=== PATIENT | female | born 1965 | race Caucasian/White ===

== ENCOUNTER 2017-02-19 04:44 | Observation (INO) | payer MEDICAID ==
[~2017-02-19] VITALS: Ht 175.3 cm; Wt 82.3 kg
[~2017-02-19 04:44] MED LIST: AMBIEN 5MG TAB5 MG PO; ASPIRIN CHILDRE81 M1 PO; CIPRO 500MG TA500 MG PO; CORTISPORIN (GE10 M1 OT; DIAZEPAM5 MG PO; FLEXERIL10 MG PO; GABAPENTIN300 MG PO; HYDROXYZINE 25M25 MG PO; IMITREX 25MG TA25 MG PO; LOMOTIL 2.5MG.2.5 MG PO; LORAZEPAM1 MG/TABLE PO; LORTAB 5/500 501 TAB PO; MEDROL 4MG. DOSE4 MG PO; MELOXICAM15 MG PO; MELOXICAM7.5 MG PO; MIRTAZAPINE15 M3 PO; NEURONTIN 300M300 MG PO; NOMEDS *; PANTOPRAZOLE SO40 M1 PO; PERCOCET 325 MG1 TA3 PO; PERCOCET 5/3251 EACH PO; PHENERGAN 25MG.25 M1 PO; PRAZOSIN HCL2 MG PO; PREDNISONE 20MG20 MG PO; PREDNISONE50 MG PO; REGLAN 10 MG TA10 MG PO; SERTRALINE 100100 MG PO; SIMVASTATIN20 MG PO; TRAMADOL 50MG T50 MG PO; TRAZODONE 50MG50 MG PO; TYLENOL ES500 MG PO; VENLAFAXINE HYD75 M1 PO; VICODIN 5/500 T1 TAB PO; VICOPROFEN 7.51 TAB PO; VOLTAREN75 MG PO; ZANTAC 300300 MG PO; ZOLOFT100 MG PO
[2017-02-19 04:51] VITALS: BP 131/109
[2017-02-19] MEDS ORDERED: GABAPENTIN300 M1 PO (04:58)
--- NOTE | 2017-02-19 05:23 | Emergency Room Report ---
History of Present Illness Time Seen by MD Davis21 Presenting Problem in Triage Pt arrived:Walked Presenting Problem:C/O RIGHT FOOT PAIN AFTER MOWING THE YARD YESTERDAY. NO KNOWN INJURY. 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 N Clinical Suspician of Infection? N Mental Status: 1 - Regular (Normal Baseline) Sepsis Risk:Low Sepsis Risk Have you (or family members/close friends) recently traveled outside the [place]? N If Yes, where/when: Have you had exposure to infectious disease within the past month? N TB? Other? Specify: Comment The patient complains of pain in her RIGHT leg and foot that began yesterday evening at about 8:00 PM. Discomfort is predominantly in her foot. At the time she was mowing the yard. She was wearing boots. She finished mowing about 9. She does not recall any specific injury. She describes a stinging sensation in her foot and a pain that goes all the way up behind her RIGHT knee. No swelling. She has tried applying ice, soaking in hot water, and an Mihir wrap, all of which increased the pain. Pain increases with movement and weightbearing. She says her foot feels tingly but she can feel sensation. She does not have any history of thromboembolic disease or peripheral vascular disease. No back pain - does have a hx of sciatica. She was recently diagnosed with breast cancer last year in June. She had part of her RIGHT breast removed and had radiation which she finished in December. She is currently on oral chemotherapy pill. She says that her physicians feel like they got all of her cancer but they will not know until further testing. She was on Percocet for RIGHT breast pain while wearing a bra for about a month and finished that at the end of January. The patient drove herself to the emergency room. ALLERGIES Coded Allergies: Sulfa (Sulfonamide Antibiotics) (07/20/16) Home Medications Reported Medications Sertraline Hydrochloride (Sertraline 100MG) 100 MG PO DAILY VENLAFAXINE HCL (Venlafaxine HCl ER) 75 MG PO DAILY #30 Mirtazapine 15 MG PO QHS #30 Meloxicam (Meloxicam 7.5MG) 7.5 MG PO BID #15 Prazosin Hcl 2 MG PO QHS #30 Gabapentin 300 MG PO BID #90 History Medical History General CAD? No Angina: No SC: No Hypertension? No Hyperlipidemia? No CHF? No DVT? No PE? No COPD? Yes Asthma? No Anemia? No GERD? No Gastric ulcers? No GI Bleed? No Hernia? No Thyroid Problems? No Hypothyroidism? No CVA? No Seizures? No Diabetes? No Renal Insuffiency? No End Stage Renal Disease? No UTI? No Stones? Yes BPH? No GB Disease: No Nephritic Syndrome? No Asplenia? No Hepatitis? No Sickle Cell Disease? No Arthritis? Yes Migraines? No Cataracts? No Glaucoma? No MRSA? No HIV? No TB? No Anxiety? No Depression? No Cancer? Yes Site: CERVICAL CANCER 1987 More? 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 Immunization Hx DT/Tetanus 07/2010 Surgical Hx Previous Surgery?Y PINS IN SHOULDER PARTIAL HYSTERECTOMY BONE REMOVED FROM WRIST HEMORRHOIDECTOMY CARPAL TUNNEL SURGERY RIGHT PARTIAL MASTECTOMY [employer] Hx LMP N/A Social History Smoking Hx Smoker: Current Every Day Smoker Tobacco: Yes Type Cigarettes Packs/day < 1 Pack Alcohol Alcohol: No Drugs Hx of polysubstance abuse. Review of Systems All Other Systems Reviewed and Negative Constitutional denies fever Musculoskeletal see HPI Psychiatric/Neurological tingling Physical Exam Vital Signs Vital Signs Date Time Temp Pulse Resp B/P Pulse O2 O2 Flow FiO2 Ox Delivery Rate 02/19 0617 18 02/19 0451 98.3 95 18 131/109 95 General Appearance normal appearance Respiratory Status No: respiratory distress. Cardiovascular regular rate/rhythm Extremities RIGHT lower extremity shows tenderness of all of her toes except for the second toe. She has tenderness of the mid foot as well as her heel. Tender over plantar aspect head of 5th metatarsal. She has diffuse tenderness of the ankle and some mild tenderness of her RIGHT calf up to the popliteal area. There is no edema and no cords. There is no erythema., she has pain with movement of toes and foot and ankle. There is no tenderness of the anterior knee and no knee joint effusion., she has a normal posterior tibialis and dorsalis pedis pulse, normal warmth. She has pain with movement of the toes and foot which causes difficulty in testing her strength. However, she can flex and extend toes and foot against resistance., I do not appreciate any ecchymosis., intact sensation of toes and foot. Neurologic alert Reflexes Comment 1+ patella bilaterally, 0+ achilles bilaterally - symmetric. Medical Decision Making LABS/Meds/Orders Pt receiving controlled substance in ED? No Alife was queried for this patient? Yes Reference #: [id number] Comment 4 rxs, last rx 45 percocet on 01/18/17. Results/Orders Laboratory Tests 02/19/1715: Creatine Kinase 1708 H 02/19/17 0614: Sodium 136, Potassium 4.0, Chloride 103, Carbon Dioxide 22, BUN 31 H, Creatinine 2.7 H, Estimated Creat Clear 37 L, Estimated GFR (MDRD) 19 *L, Glucose 124 H, Calcium 9.0, Total Bilirubin 0.3, AST 63 H, ALT 28, Alkaline Phosphatase 99, Total Protein 8.1, Albumin 3.7, Globulin 4.4 H, Albumin/ Globulin Ratio 0.8 L, D-Dimer 1860 *H, WBC 12.8 H, RBC 4.09 L, Hgb 12.8, Hct 38.8, MCV 94.8, RDW 13.7, Plt Count 350, MPV 5.8 L, Gran % 73.1, Gran # 9.3 H, Lymphocytes % 17.1, Monocytes % 9.0, Eosinophils % 0.3, Basophils % 0.5, Lymphocytes # 2.2, Monocytes # 1.2 H, Eosinophils # 0.0, Basophils # 0.1, PUBS MCHC 33.0, MCH 31.3 H Current Medication Orders Sig/Trini Start time Last Medication Dose Route Stop Time Status Admin Miscellaneous See Dose ONCE ONE 02/19 730 DC Information Insts (1) * 02/19 07 Sodium Chloride 1,000 ML .[id number] 02/19 730 AC IV 02/19 1129 Sodium Chloride 10 ML PRN PRN 02/19 730 AC IV 02/20 07 Ketorolac 60 MG ONCE ONE 02/19 615 DC 02/19 Tromethamine IM 02/20 616 0617 Ketorolac 0 .STK-MED ONE 02/19 613 DC Tromethamine .ROUTE Ketorolac 30 MG ONCE ONE 02/19 0545 CAN Tromethamine IV 02/19 0546 Sodium Chloride 10 ML PRN PRN 02/19 0545 AC IV 02/20 0539 Dose Instructions: (1)Miscellaneous Information: lovenox dosing for possible DVT . creatinine 2.7, creatinine clearance 37 Orders Procedure Date/time Status Decision to admit 02/19 07 Active CPK 02/19 07 Complete URINALYSIS/COMPLETE 02/20 712 Active DRUG ABUSE SCREEN (TRIAGE) 02/19 07 Active IV SALINE LOCK 02/19 05 Active D-DIMER 02/19 05 Complete CBC WITH AUTO DIFF 02/20 540 Complete CHEM 12 PROFILE 02/20 540 Complete FOOT-RT-3 VIEWS 02/19 0500 Active XRAY/CT/US XRAY/CT/US XRAY foot Comment Interpreted by Augustin Brown MD. Negative for fracture, dislocation, or foreign body. Progress - Nurse's unable to establish IV. Labs will be drawn. Toradol was changed to intramuscular dose. 6:50 PM: Lab reports unable to result creatinine due to machine malfunction. Uncertain when it will be available. 7:15 AM: The patient's creatinine is 2.7. Her last creatinine 1 month ago was 0.7. She states she has been sick recently with some vomiting due to her chemotherapy medication and has seen Dr. Moscoso for that, was prescribed some medication for nausea. She has meloxicam listed on her medicines, but says she is not currently taking that. She denies any other nonsteroidal drug use except for ibuprofen and Aleve which she started taking last night for her foot pain. She admits to using cocaine and marijuana. She denies any recent overdoses or immobility that would've caused rhabdomyolysis. 7:30 AM: I have discussed the case with Dr. Moscoso who agrees to admit the patient to the hospital. We discussed the patient's clinical information, including history, exam, laboratory and radiology results and ED course. Per hospital procedure, I will write temporary bridge inpatient orders on the patient. Specific orders requested by the admitting physician: IV fluids. Pharmacy consult for Lovenox dosing. Doppler ultrasound tomorrow morning. Departure Departure Disposition Still a Patient Clinical Impression Primary Impression: Acute renal failure Qualifiers: Acute renal failure type: unspecified Qualified Code: N17.9 - Acute kidney failure, unspecified Secondary Impressions: Elevated d-dimer, Right leg pain Condition STABLE ED Critical Care Critical Care No at [phone]
[2017-02-19 06:39] LABS: HEMOGLOBIN 12.8 g/dL (12.2-16.2); LYMPH # 2.2 K/mm3 (0.7-4.5); LYMPH % 17.1 % (10-50.0)
[2017-02-19 09:56] VITALS: BP 132/77
[2017-02-19 10:39] VITALS: BP 132/77
--- NOTE | 2017-02-19 12:15 | HISTORY AND PHYSICAL REPORT ---
Demographics: Admit date: 02/19/17 Chief complaint: PAIN IN FOOT PRIMARY DIAGNOSIS: ELEVATED D-DIMER Allergies: Coded Allergies: Sulfa (Sulfonamide Antibiotics) (07/20/16) History of present illness: History of present illness: 51-year-old female presented to the ER with complaints of RIGHT foot pain. Patient states she was mowing her yard yesterday had boots on and noticed the pain shooting up her foot. She did take her boots FINSHED in the yard barefooted. While in the ER it was noted the patient's d-dimer was elevated. Patient's RIGHT toes are purple in color.Patient does have a history of breast cancer. Had a mastectomy. And is currently on oral chemotherapy. Admitted to monitor vital signs, venous Doppler to rule out clot, Past medical history: Family HX Diabetes No CAD No Hypertension Yes Hyperlipidemia Yes Cancer Yes TB No Immunization HX DT/Tetanus 2015 Pneumonia Received In Past TB Test in last year No General CAD? No Angina: No MA: No Hypertension? No Hyperlipidemia? No CHF? No DVT? No PE? No COPD? Yes Asthma? No Anemia? No GERD? No Gastric ulcers? No GI Bleed? No Hernia? No Thyroid Problems? No Hypothyroidism? No CVA? No Seizures? No Diabetes? No Renal Insuffiency? No UTI? No Stones? Yes BPH? No GB Disease: No Nephritic Syndrome? No Asplenia? No Hepatitis? No Sickle Cell Disease? No Arthritis? Yes Migraines? No Cataracts? No Glaucoma? No MRSA? No HIV? No TB? No Anxiety? No Depression? No Cancer? Yes Site: CERVICAL CANCER 1986 More? 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 Past Surgical HX Previous Surgery?Y PINS IN SHOULDER PARTIAL HYSTERECTOMY BONE REMOVED FROM WRIST HEMORRHOIDECTOMY CARPAL TUNNEL SURGERY RIGHT PARTIAL MASTECTOMY Current home meds: Reported Medications Sertraline Hydrochloride (Sertraline 100MG) 100 MG PO DAILY VENLAFAXINE HCL (Venlafaxine HCl ER) 75 MG PO DAILY #30 Mirtazapine 15 MG PO QHS #30 Meloxicam (Meloxicam 7.5MG) 7.5 MG PO BID #15 Prazosin Hcl 2 MG PO QHS #30 Gabapentin 300 MG PO BID #90 Social Hx: Smoking HX Tobacco Yes Type CIGARETTES Packs/day 1 1/2 - 2 PACKS Are you/the child exposed to second-hand smoke: Yes Alcohol Alcohol: No Hx of Drug Use Drug Use? Yes Drug(s) of Choice: cocaine Review of systems: Constitutional No: no symptoms reported. Respiratory No: no symptoms reported. Cardiovascular no symptoms reported Gastrointestinal/Abdominal no symptoms reported Genitourinary no symptoms reported. Musculoskeletal see HPI, joint pain. Skin see HPI. Neurological Yes: see HPI. Exam: Lab data for last 24 hours: Laboratory Tests 02/19/17 0615: Creatine Kinase 1708 H 02/19/17 0614: Sodium 136, Potassium 4.0, Chloride 103, Carbon Dioxide 22, BUN 31 H, Creatinine 2.7 H, Estimated Creat Clear 37 L, Estimated GFR (MDRD) 19 *L, Glucose 124 H, Calcium 9.0, Total Bilirubin 0.3, AST 63 H, ALT 28, Alkaline Phosphatase 99, Total Protein 8.1, Albumin 3.7, Globulin 4.4 H, Albumin/ Globulin Ratio 0.8 L, D-Dimer 1860 *H, WBC 12.8 H, RBC 4.09 L, Hgb 12.8, Hct 38.8, MCV 94.8, RDW 13.7, Plt Count 350, MPV 5.8 L, Gran % 73.1, Gran # 9.3 H, Lymphocytes % 17.1, Monocytes % 9.0, Eosinophils % 0.3, Basophils % 0.5, Lymphocytes # 2.2, Monocytes # 1.2 H, Eosinophils # 0.0, Basophils # 0.1, PUBS MCHC 33.0, MCH 31.3 H Admission vital signs: 1ST Vital Signs Result Date Time Pulse Ox 95 02/19 0451 B/P 131/109 02/19 045 Temp 98.3 02/19 045 Pulse 95 02/19 0451 Resp 18 02/19 045 O2 Delivery ROOM AIR 02/19 0956 Exam General appearance: normal appearance, alert, active Eyes: normal exam ENT: normal exam Neck: normal inspection, full range of motion Cardiovascular: normal exam, regular rate & rhythm Respiratory: normal exam ABD: normal exam, soft Genitourinary: normal voiding & quantity Extremities: normal exam, no peripheral edema, pedal pulses, no pedal edema Musculoskeletal: normal exam Skin: RIGHT toes purpling color PINKY TOE worse. PETAL PULSES PRESENT Neuro: normal exam, alert, intact Plan: Problem List 1. Elevated d-dimer 2. Acute renal failure Plan: Plan venous Doppler ultrasound of RIGHT lower extremity rule out clot. Patient needs to be on bed rest. Continue to monitor vital signs and pedal pulses. Discussed patient with Dr. Guerra he will see patient later today at 1218
--- NOTE | 2017-02-19 13:45 | PHARMACY CLINIC NOTE ---
Patient Demographics Patient Demographics Admission date: 02/19/17 Date: 02/19/17 Time: 1344 Allergies Coded Allergies: Sulfa (Sulfonamide Antibiotics) (07/20/16) HEIGHT- FT: 5 IN: 9.00 K.328 VTE General Information Labs: Laboratory Tests 02/19 0614 Hematology Hgb (12.2 - 16.2 g/dL) 12.8 Hct (37.0 - 47.0 %) 38.8 Plt Count (142 - 424 K/mm3) 350 Disclaimer The following section includes nursing documentation that has been pulled in for pharmacy review. Patient's VTE score: 5 Patient's VTE Risk: LOW RISK Clinical trial participant? No VTE prophylaxis NQF [id number] VTE prophylaxis ordered? Yes Type of prophylaxis/treatment: Lovenox at 1344
[2017-02-19 16:00] VITALS: BP 146/96
[2017-02-19] MEDS ORDERED: ANASTROZOLE1 MG PO (16:59)
[2017-02-19] MEDS ORDERED: PROMETHAZINE D473 ML PO (17:01)
[2017-02-19] MEDS ORDERED: DIVALPROEX 250250 MG PO (17:02)
[2017-02-19] MEDS ORDERED: LIDOCAINE5% TP (17:04)
[2017-02-19] MEDS ORDERED: VENTOLIN H0.09 MG/Ac IH (17:07)
[2017-02-19] MEDS ORDERED: BREO ELLIPTA1 POW IH (17:07)
[2017-02-19 20:09] VITALS: BP 114/65
[2017-02-19 20:46] VITALS: BP 114/65
[2017-02-19 22:03] LABS: URINE BILIRUBIN - DIPSTICK NEGATIVE (NEG); URINE BLOOD NEGATIVE (NEG)
[2017-02-19 22:14] LABS: AMPHETAMINES/METAMPHETAMINES NEGATIVE ng/mL (<1000)
[2017-02-20 04:12] VITALS: BP 114/69
[2017-02-20 07:02] LABS: LYMPH # 2.2 K/mm3 (0.7-4.5); LYMPH % 38.2 % (10-50.0)
[2017-02-20 07:04] LABS: HEMOGLOBIN 10.9 g/dL (12.2-16.2)
[2017-02-20 08:00] VITALS: BP 144/86
--- NOTE | 2017-02-20 08:14 | CARDIOVASCULAR REPORT ---
"Venous Exam Indications: 729.5 Pain in limb. IMPRESSIONS 1. There is no evidence of significant Reflux. 2. No evidence of deep or superficial vein thrombosis involving the right lower extremity History: The patient chemotherapy. Risk factors: Current tobacco use. Malignancy: BREAST. Right lower extremity venous duplex evaluation. Doppler flow study including spectral analysis, color and pandey scale imaging. Tables: Venous flow and imaging: + +-------+ + |Location |Overall|Flow properties | + +-------+ + |Right common femoral |Patent |Normal phasicity; spontaneous; | | | |normal augmentation; compressible| + +-------+ + |Right saphenofemoral junction|Patent |Compressible | + +-------+ + |Right profunda femoral |Patent |Compressible | + +-------+ + |Right femoral |Patent |Normal phasicity; spontaneous; | | | |normal augmentation; compressible| + +-------+ + |Right greater saphenous |Patent |Normal phasicity; spontaneous; | | | |normal augmentation; compressible| + +-------+ + |Right popliteal |Patent |Normal phasicity; spontaneous; | | | |normal augmentation; compressible| + +-------+ + |Right posterior tibial |Patent |Compressible | + +-------+ + |Right peroneal |Patent |Compressible | + +-------+ + |Right gastrocnemius |Patent |Compressible | + +-------+ + |Right soleal |Patent |Compressible | + +-------+ + (Report amended ) Electronically signed by: Curt Loza [id number]"
--- NOTE | 2017-02-20 08:34 | ACUTE CARE PROGRESS NOTE (QUA) ---
Progress Notes Subjective Date 02/20/17 Time 0831 Patient/family reports: feeling better, no complaints Nursing reports: alert Objective Findings Last VS-Temp:97.8 B/P:114/69 Pulse:74 Resp:16 SaO2:97 ROOM AIR Last weight lbs:181 oz:8 K.328 Method:Bed Scales Exam General appearance: normal appearance, awake, no acute distress Eyes: normal exam ENT: normal exam Neck: normal inspection, full range of motion Cardiovascular: normal exam, regular rate & rhythm, normal peripheral pulses Respiratory: normal exam, clear to auscultation ABD: normal exam, soft Genitourinary: normal voiding & quantity Extremities: normal exam, normal capillary refill, warm, PULSES PRESENT, normal color, no redness or discoloration noted slight swelling and tender to palpate Musculoskeletal: normal exam Skin: normal exam, intact, warm Neuro: normal exam, alert, intact, oriented Reviewed: allergies, medications, vital signs, lab results, radiology report Assessment/Plan Problem List 1. Elevated d-dimer 2. Acute renal failure Qualifiers: Acute renal failure type: unspecified Qualified Code: N17.9 - Acute kidney failure, unspecified Patient condition Stable Plan: initiate discharge plan This inpt stay is expected to cross 2 MNs from start of care No Comments: Discharge home on Keflex, venous Doppler negative for clot, follow-up with Blanka in 7 days rounded with Blanka at 0834
--- NOTE | 2017-02-20 08:45 | DISCHARGE SUMMARY STANDARD ---
Demographics Admit date: 02/19/17 Discharge date: 02/20/17 History of present illness History of present illness 51-year-old female presented to the ER with complaints of RIGHT foot pain. Patient states she was mowing her yard yesterday had boots on and noticed the pain shooting up her foot. She did take her boots FINSHED in the yard barefooted. While in the ER it was noted the patient's d-dimer was elevated. Patient's RIGHT toes are purple in color.Patient does have a history of breast cancer. Had a mastectomy. And is currently on oral chemotherapy. Admitted to monitor vital signs, venous Doppler to rule out clot, Hospital Course Hospital Course: Venous Doppler negative for clot. X-ray negative. Cover with antibiotics. Discharge diagnoses Problem List 1. Elevated d-dimer 2. Acute renal failure Medications Medications: Discharge meds are as noted. Follow up Follow up in office in: 7 DAYS with: Blanka JAIN,Arnold Sam Comment: Rounded with Dr. Moscoso. at 0845
[2017-02-20] MEDS ORDERED: KEFLEX 500MG.500 MG PO (08:52)
[2017-02-20 09:35] VITALS: BP 144/86
[2017-02-20 10:24] VITALS: BP 144/86
--- OUTSIDE RECORDS SUMMARY | 2017-03-03 17:37 | External Medical Summary Rpt ---
Author Author , Organization [employer] Address Unknown Phone Unavailable Care Team Providers Care Director Of Rooms Name Role Phone MOSHE DEY MD, PSC, Unavailable Unavailable MOSHE DEY MD, PSC [facility] Unavailable Unavailable MEDICAL GROUP, [facility] BEINEKE, BEINEKE Unavailable Unavailable BEINEKE KEITH, BEINEKE Unavailable Unavailable KEITH BESSON BRADY, BESSON Unavailable Unavailable BRADY RENDON, RENDON Unavailable Unavailable RENDON ALL, RENDON ALL Unavailable Unavailable MORA JAM, MORA JAM Unavailable Unavailable BUX ANJ, BUX ANJ Unavailable Unavailable CHANDEL ROSA, CHANDEL Unavailable Unavailable ROSA CARDONA MADI, CARDONA Unavailable Unavailable MADI [facility], Unavailable Unavailable [facility] ONEAL JUANA, Unavailable Unavailable ONEAL JUANA DONYA, DONYA Unavailable Unavailable DONYA PHI, Unavailable Unavailable DONYA PHI [facility], [facility] Unavailable Unavailable [facility]ALTH DUFF ITEZL, DUFF ITZEL Unavailable Unavailable FRYMAN, FRYMAN Unavailable Unavailable FRYMAN EUG, FRYMAN Unavailable Unavailable EUG ANU KAITLIN, ANU Unavailable Unavailable KAITLIN [employer] Unavailable Unavailable [employer] KELLY VALDEZ MD, Unavailable Unavailable KELLY FORREST LORNA, GREISER Unavailable Unavailable LORNA ELIECER RHO, ELIECER Unavailable Unavailable RHO HARPEL ANKITA, HARPEL Unavailable Unavailable ANKITA [facility] Unavailable Unavailable INC, [facility] Unavailable Unavailable HOSPITAL, [facility] Unavailable Unavailable HOSPITAL P, [facility] P [facility], Unavailable Unavailable [facility] HARRIS TRA, HARRIS TRA Unavailable Unavailable NGUYEN NAN, NGUYEN Unavailable Unavailable NAN [facility], [facility] JUSTIN AZAEL, JUSTIN AZAEL Unavailable Unavailable [facility] KRYSTIAN GRE, Unavailable Unavailable KRYSTIAN GRE [facility], Unavailable Unavailable [facility] FLACO MACKEY, Unavailable Unavailable FLACO MACKEY [facility] Unavailable Unavailable [facility], [facility] Unavailable Unavailable MEDICAL, [facility], DEPENDENCY CASE 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 [facility] Unavailable Unavailable [facility], [facility] DEPENDENCY CASE MANAGER [facility] Unavailable Unavailable HEALTH, [facility] Unavailable [facility] PAVEZ MAR, PAVEZ MAR Unavailable Unavailable PETTEY JAM, PETTEY Unavailable Unavailable JAM PICKLESIMER JR CLEM, Unavailable Unavailable PICKLESIMER JR CLEM LOLA, LOLA Unavailable Unavailable LOLA ANGEL, LOLA Unavailable Unavailable ANGEL WINSTON TOD, WINSTON TOD Unavailable Unavailable SOKAN BAB, SOKAN BAB Unavailable Unavailable [facility], [facility] PATRICIA SHE, Unavailable Unavailable PATRICIA SHE SWINEY PAT, SWINEY Unavailable Unavailable PAT WHITNEY WINNIE, WHITNEY Unavailable Unavailable WINNIE WALKER FOR, WALKER Unavailable Unavailable FOR [facility] Unavailable Unavailable DEPT JANELL, [facility] DEPT JANELL ERICKSON MAT, ERICKSON MAT Unavailable Unavailable Purpose Continuity of Care Document - 11-21-2013 through 2016 Problems Code Diagnosis DOS Provider Status [id number] MALIGNANT 01-18-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[facility] P UNS FEMALE BREAST 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 01-18-2017 DEX RECEPTOR [facility] P STATUS 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 Z510 ENCOUNTER 11-24-2016 [facility] FOR PHYSICIAN ANTINEOPLAS PRACTIC TIC RADIATION THERAPY [id number] MALIGNANT 11-16-2016 [facility] SITE INC RIGHT FEMALE BREAST I10 ESSENTIAL 11-09-2016 [facility]YS[facility] HYPERTENSIO GROUP N Z23 ENCOUNTER 09-23-2016 [facility] PH[facility] IMMUNIZATIO GROUP N B354 TINEA 08-26-2016 [facility] R110 NAUSEA 08-26-2016 [facility] GROUP R079 CHEST PAIN 07-20-2016 [place] [facility] R42 DIZZINESS 07-20-2016 [place] [facility] GIDDINESS [facility]ING [facility] N649 DISORDER OF 06-20-2016 [facility] BREAST PHYSICIANS UNSPECIFIED GROUP Z129 ENCOUNTER 06-06-2016 [place] [facility] MALIGNANT IMAGING ASS NEOPLASM SITE UNS Z853 PERSONAL 06-06-2016 [place] [facility] MALIG NEOPLASM BREAST [id number] MIGRAINE 05-04-2016 DEX W/AURA NOT [facility] INTRACT W/O INC STAT MIGRAINOSUS N63 UNSPECIFIED 05-04-2016 [facility] BREAST IMAGING ASS R51 HEADACHE 05-04-2016 [facility] INC R922 INCONCLUSIV 05-04-2016 DEX E MAMMOGRAM [facility] INC H6090 UNSPECIFIED 04-21-2016 DEX OTITIS ED [facility] UNSPECIFIED EAR L299 PRURITUS 04-21-2016 [facility] B12843 MIGRAINE 04-19-2016 [place] UNS NOT MEDICAL INTRACT W/O IMAGING ASS STATUS MIGRAINOSUS R928 OTH ABNORM 04-19-2016 [place] [facility] INCONCLUSIV IMAGING ASS E FIND ON DX IMAG BREAST Z1231 ENCOUNTER 03-28-2016 [place] [facility] MAMMO MALIG IMAGING ASS NEOPLASM BREAST N79374 VAG HIGH 02-24-2016 [facility] RISK [facility] PAPILLOMAVI VIRGIL DNA TEST POS N750 CYST OF 02-10-2016 [facility] GLAND INC N751 ABSCESS OF 02-10-2016 [facility] PHYSICIANS GLAND GROUP [id number] CERV HIGH 02-09-2016 [facility] PAPILLOMAVI VIRGIL DNA TEST POS E17458 ENCOUNTER 02-09-2016 [facility]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 GENERAL RTN W/ABNORMAL FIND [id number] ENCOUNTER 02-09-2016 [facility] GENERAL RTN W/O ABNORMAL FIND Z1239 ENCOUNTER 02-09-2016 [facility] OTHER HEALTH SCREENING MALIG NEOPLASM BREAST [id number] ACQUIRED 02-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 CERVIX AND UTERUS Z720 TOBACCO USE 12-01-2015 [facility] INC Z8781 PERSONAL 12-01-2015 [facility]EX HISTORY OF [facility] HEALED INC TRAUMATIC FRACTURE 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 , PSC OSACRAL INTERVERTEB RAL DISC 7244 THORACIC/SIM 07-14-2015 PATRICIA ZHOU MD, PSC NEURITIS/RA DICULITIS UNSPEC 18381 PAIN IN 06-30-2015 [place] [facility] MEDICAL ANKLE AND IMAGING ASS FOOT 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 7242 LUMBAGO 04-03-2015 [facility] 68305 OTHER 03-13-2015 [facility] DISEASES OF SERV [facility] CAVITY AND SINUSES 08090 UNSPECIFIED 03-13-2015 [facility] DENTAL SERV [facility] 10352 CLOSED 03-13-2015 [place] [facility] FRACTURE SERV [facility] PROCESS MANDIBLE 72169 TOOTH 03-13-2015 [facility] MEDICAL BROKEN FX SERV DUE TO FOUNDATION TRAUMA W/O MENTION COMP 95261 JAW PAIN 03-12-2015 [facility] E9293 LATE 03-12-2015 [place] MEDICAL EFFECTS OF SERV ACCIDENTAL FOUNDATION FALL V5832 ENCOUNTER 03-10-2015 [facility] FOR REMOVAL PHYSICIANS OF SUTURES GROUP 7231 CERVICALGIA 03-01-2015 [place] [facility] 66950 INJURY OF 03-01-2015 [place] FACE AND MEDICAL NECK OTHER IMAGING ASS AND UNSPECIFIED 13367 PAIN IN 02-28-2015 [place] [facility] MEDICAL UPPER ARM IMAGING ASS 78035 CHEST PAIN 02-28-2015 [place] UNSPECIFIED [facility]ICAL IMAGING ASS 11488 CLOSED 02-28-2015 [place] FRACTURE OF MEDICAL IMAGING ASS UNSPECIFIED SITE OF MANDIBLE 8300 CLOSED 02-28-2015 [place] DISLOCATION MEDICAL OF JAW [facility] 8505 CONCUSSION 02-28-2015 [place] WITH LOC OF MEDICAL IMAGING ASS UNSPECIFIED DURATION 93853 OTHER 02-28-2015 [place] INJURY OF MEDICAL CHEST WALL IMAGING ASS 9593 INJURY 02-28-2015 [place] OTHER&UNSPE MEDICAL CIFIED IMAGING ASS [facility]OW FOREARM&WRI ST 9392 FOREIGN 02-26-2015 KELLY Calvin BODY IN COURTNEY JAIN VULVA AND VAGINA 11595 TRICHOMONAL 02-23-2015 KELLY VALDEZ MD VULVOVAGINI TIS 6272 SYMPTOMATIC 02-23-2015 KELLY VALDEZ MD MENOPAUSAL/ FEMALE CLIMACTERIC STATES V1322 PERSONAL 02-23-2015 KELLY Calvin HISTORY OF [place] CERVICAL DYSPLASIA 6271 POSTMENOPAU 02-16-2015 [place] ALONDRA [facility]ICAL BLEEDING IMAGING ASS V7612 OTHER 02-16-2015 [place] SCREENING MEDICAL MAMMOGRAM IMAGING ASS 6273 POSTMENOPAU 02-03-2015 KELLY VALDEZ MD ATROPHIC VAGINITIS V7231 ROUTINE 02-03-2015 KELLY Calvin GYNECOLOGIC [place] JAIN AL EXAMINATION V7641 SCREENING 02-03-2015 KELLY Calvin FOR 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 85280 ABDOMINAL 01-26-2015 [place] PAIN OTHER MEDICAL SPECIFIED IMAGING ASS SITE V0382 NEED PROPH 11-21-2014 [facility] VACCINATION PHYSICIANS AGAINST GROUP STREP PNEUMONE V0481 NEED 11-21-2014 [facility] PROPHYLACTI PHYSICIANS C GROUP VACCINATION &INOCULATIO N FLU 490 BRONCHITIS 11-14-2014 [facility] NOT PHYSICIANS SPECIFIED GROUP ACUTE OR CHRONIC 7862 COUGH 10-05-2014 [facility] 7869 OTH 10-05-2014 [place] SYMPTOMS MEDICAL INVOLVING IMAGING ASS RESPIRATORY SYSTEM&CHES T 43223 UNSPECIFIED 09-12-2014 [facility] SUB[facility]IVE [facility] VISUAL DISTURBANCE 93852 PAIN IN OR 09-12-2014 [facility] AROUND [facility]YE GRE 9308 FOREIGN 09-12-2014 [facility] BODY GRE OTHER&COMBI BUDDY SITES EXTERNAL EYE 79266 OTHER 09-01-2014 [facility] VISUAL GRE DISTORTIONS AND ENTOPTIC PHENOMENA 97795 UNSPECIFIED 09-01-2014 [facility] SCLERITIS GRE 09001 VOMITING 08-20-2014 [facility]ERG[facility] PHYS 27767 DIARRHEA 08-20-2014 [facility] N EMERGENCY PHYS 7234 BRACHIAL 08-13-2014 [place] NEURITIS OR MEDICAL IMAGING ASS RADICULITIS NOS 7820 DISTURBANCE 08-13-2014 [place] OF SKIN MEDICAL SENSATION IMAGING ASS 27176 OBST 08-07-2014 [facility] CHRONIC N EMERGENCY BRONCHITIS PHYS W/ACUTE BRONCHITIS 08078 FEVER 08-07-2014 [facility] [place] UNSPECIFIED RADIOLOGY 98674 PAIN IN 06-27-2014 [facility], [facility] SHOULDER INC REGION V571 OTHER 06-27-2014 [facility] THERAPY INC 06269 UNSPEC 06-18-2014 [facility] DISORDERS PHYSICIANS BURSAE&TEND GROUP ONS SHOULDER REGION V720 EXAMINATION 06-11-2014 [facility] OF EYES GRE AND VISION 7262 OTHER 06-04-2014 [facility] AFFECTIONS PHYSICIANS OF SHOULDER GROUP REGION NEC 3699 UNSPECIFIED 05-27-2014 [facility] VISUAL PHYSICIANS LOSS GROUP 20429 UNSPECIFIED 05-27-2014 [facility] TINNITUS PHYSICIANS GROUP 85559 UNSPECIFIED 04-07-2014 [place] OTALGIA [facility]ICAL [facility] 7804 DIZZINESS 04-07-2014 [place] AND [facility]ICAL GIDDINESS IMAGING ASS V642 SURG/OTH 04-07-2014 DEX PROC NOT [facility] CARRIED OUT INC BECAUSE PTS DECN 4610 ACUTE 01-20-2014 [facility] MAXILLARY [facility] SINUSITIS [facility] 14010 ABDOMINAL 01-20-2014 [facility] PAIN RIGHT [facility] UPPER [facility] 7840 HEADACHE 12-11-2013 [facility] N EMERGENCY PHYS E8889 UNSPECIFIED 12-11-2013 [facility] [place] FALL [facility] 8470 NECK SPRAIN 12-10-2013 [facility] AND STRAIN N EMERGENCY PHYS 8730 OPEN WOUND 12-10-2013 [facility] SCALP N EMERGENCY WITHOUT PHYS MENTION COMPLICATIO N E8888 OTHER FALL 12-10-2013 [facility] N EMERGENCY PHYS 05541 SWELLING OR 11-21-2013 [facility] [place] MASS OF RADIOLOGY EYE E9179 OTHER 11-21-2013 [facility] [place] STRIKING RADIOLOGY AGAINST W/WO SUBSEQUENT FALL F14.10 COCAINE ABUSE, UNCOMPLICAT ED [id number] J40 BRONCHITIS, NOT SPECIFIED ACUTE OR CHRONIC M79.604 PAIN IN RIGHT LEG N17.9 ACUTE KIDNEY FAILURE, UNSPECIFIED N28.9 DISORDER OF KIDNEY AND URETER, UNSPECIFIED N76.0 ACUTE VAGINITIS R42 DIZZINESS AND GIDDINESS R51 HEADACHE R79.89 OTHER SPECIFIED ABNORMAL FINDINGS OF BLOOD CHEMISTRY S22.39XA FRACTURE OF ONE RIB, UNSP SIDE, INIT FOR CLOS FX S39.012A STRAIN OF MUSCLE, FASCIA AND TENDON OF LOWER BACK, INIT T14.8 OTHER INJURY OF UNSPECIFIED BODY REGION T14.90 INJURY, UNSPECIFIED Z53.21 PROC/TRTMT NOT CRD OUT D/T PT LV BEF SEEN BY TH CARE PROV Medications Na ND Rx Da Fi Fi Am Da Di Ph RX Ph St me C No te ll ll ou ys ag ar # ys at rm s nt no ma ic us Or Da si cy ia de te s n re d VE 57 03 04 60 30 00 CL Ac NL 66 -1 -0 .0 00 IN ti AF 40 5- 7- 00 00 IC ve AX 39 20 20 41 IN 58 17 17 69 PH E 8 69 AR HC MA L CY 75 MG TA BL ET DI 00 03 04 60 30 00 CL Ac VA 11 -1 -0 .0 00 IN ti LP 56 5- 7- 00 00 IC ve RO 91 20 20 41 EX 10 17 17 83 PH 1 38 AR SO MA D CY ER 25 0 MG TA B OX 13 03 04 45 15 00 CL Ac YC 10 -1 -0 .0 00 IN ti OD 70 5- 7- 00 00 IC ve ON 04 20 20 42 E- 40 17 17 52 PH AC 1 24 AR ET MA AM CY IN OP HE N 5- 32 5 LI 51 03 04 35 7 00 CL Ac DO 67 -1 -0 .4 00 IN ti CA 23 5- 7- 39 00 IC ve IN 02 20 20 41 E 00 17 17 81 PH 5% 9 62 AR MA OI CY NT ME NT SI 67 03 04 50 5 00 CL Ac LV 87 -1 -0 .0 00 IN ti ER 70 5- 7- 00 00 IC ve 12 20 20 41 NGUYEN 45 17 17 66 PH LF 0 32 AR AD MA IA CY ZI NE 1% CR EA M AN 51 03 04 30 30 00 CL Ac 99 -1 -0 .0 00 IN ti TR 10 5- 7- 00 00 IC ve OZ 62 20 20 42 OL 03 17 17 24 PH E 3 31 AR 1 MA MG CY TA BL ET CT 00 03 04 30 30 00 CL Ac RT 09 -1 -0 .0 00 IN ti AZ 37 6- 7- 00 00 IC ve AP 20 20 20 42 IN 65 17 17 53 PH E 6 27 AR 15 MA CY MG TA BL ET GA 67 03 04 90 30 00 CL Ac BA 87 -1 -0 .0 00 IN ti PE 70 6- 7- 00 00 IC ve NT 22 20 20 42 IN 30 17 17 53 PH 5 28 AR 30 MA 0 CY MG CA PS UL E AN 51 02 03 30 30 00 CL Ac 99 -1 -1 .0 00 IN ti TR 10 5- 0- 00 00 IC ve OZ 62 20 20 42 OL 03 17 17 24 PH E 3 31 AR 1 MA MG CY TA BL ET VE 57 02 03 60 30 00 CL Ac NL 66 -1 -1 .0 00 IN ti AF 40 4- 0- 00 00 IC ve AX 39 20 20 41 IN 58 17 17 69 PH E 8 69 AR HC MA L CY 75 MG TA BL ET GA 45 02 03 90 30 00 CL Ac BA 96 -1 -1 .0 00 IN ti PE 30 4- 0- 00 00 IC ve NT 55 20 20 41 IN 65 17 17 38 PH 0 54 AR 30 MA 0 CY MG CA PS UL E OX 13 02 03 45 15 00 CL Ac YC 10 -1 -1 .0 00 IN ti OD 70 5- 0- 00 00 IC ve ON 04 20 20 42 E- 40 17 17 24 PH AC 1 32 AR ET MA AM CY IN OP HE N 5- [address] 00 02 03 30 30 00 CL Ac RT 09 -1 -1 .0 00 IN ti AZ 37 4- 0- 00 00 IC ve AP 20 20 20 41 IN 65 17 17 67 PH E 6 72 AR 15 MA CY MG TA BL ET LI 51 02 02 35 7 00 CL Ac DO 67 -0 -2 .4 00 IN ti CA 23 2- 4- 39 00 IC ve IN 02 20 20 41 E 00 17 17 81 PH 5% 9 62 AR MA OI CY NT ME NT TA 00 02 02 30 30 00 CL Ac MO 59 -0 -2 .0 00 IN ti XI 12 2- 4- 00 00 IC ve FE 47 20 20 41 N 33 17 17 26 PH 20 0 24 AR MA MG CY TA BL ET VE 57 01 02 60 30 00 CL Ac NL 66 -1 -1 .0 00 IN ti AF 40 6- 7- 00 00 IC ve AX 39 20 20 41 IN 58 17 17 69 PH E 8 69 AR HC MA L CY 75 MG TA BL ET GA 67 01 02 90 30 00 CL Ac BA 87 -1 -1 .0 00 IN ti PE 70 6- 7- 00 00 IC ve NT 22 20 20 41 IN 31 17 17 38 PH 0 54 AR 30 MA 0 CY MG CA PS UL E CT 00 01 02 30 30 00 CL Ac RT 09 -1 -1 .0 00 IN ti AZ 37 6- 7- 00 00 IC ve AP 20 20 20 41 IN 65 17 17 67 PH E 6 72 AR 15 MA CY MG TA BL ET OX 68 01 02 90 30 00 CL Ac YC 30 -1 -0 .0 00 IN ti OD 80 1- 3- 00 00 IC ve ON 84 20 20 41 E- 10 17 17 88 PH AC 1 07 AR ET MA AM CY IN OP HE N 5- 32 5 LI 50 01 01 35 7 00 CL Ac DO 38 -0 -2 .4 00 IN ti CA 30 6- 7- 39 00 IC ve IN 93 20 20 41 E 33 17 17 81 PH 5% 5 62 AR MA OI CY NT ME NT DI 65 01 01 60 30 00 CL Ac VA 86 -0 -2 .0 00 IN ti LP 20 6- 7- 00 00 IC ve RO 59 20 20 41 EX 40 17 17 83 PH 1 38 AR SO MA D CY ER 25 0 MG TA B TA 00 01 01 30 30 00 CL Ac MO 59 -0 -2 .0 00 IN ti XI 12 2- 7- 00 00 IC ve FE 47 20 20 41 N 31 17 17 26 PH 20 9 24 AR MA MG CY TA BL ET GA 67 12 01 90 30 00 CL Ac BA 87 -1 -1 .0 00 IN ti PE 70 9- 3- 00 00 IC ve NT 22 20 20 41 IN 31 16 17 38 PH 0 54 AR 30 MA 0 CY MG CA PS UL E VE 57 12 01 60 30 00 CL Ac NL 66 -1 -1 .0 00 IN ti AF 40 9- 3- 00 00 IC ve AX 39 20 20 41 IN 58 16 17 66 PH E 8 57 AR HC MA L CY [address] TA [address] 00 12 01 30 30 00 CL Ac RT 09 -1 -1 .0 00 IN ti AZ 37 9- 3- 00 00 IC ve AP 20 20 20 41 IN 65 16 17 66 PH E 6 58 AR 15 MA CY MG TA BL ET SI 67 12 01 50 5 00 CL Ac LV 87 -1 -1 .0 00 IN ti ER 70 9- 3- 00 00 IC ve 12 20 20 41 NGUYEN 45 16 17 66 PH LF 0 32 AR AD MA IA CY ZI NE 1% CR EA M Immunization Name Date Route CVX Reacti Commen Provid Is Given on t er Refuse d IIV3 FRYMAN No VACCIN 2016 EUG E SPLIT VIRUS 0.5 ML DOSAGE IM USE TDAP [facility] No VACCIN [address] YRS/> HLTH IM DEPT JANELL PCV13 ANU No VACCIN 2015 KAITLIN E FOR INTRAM USCULA R USE Procedures Procedure DOS Code Location Performer Comment COLLECTIO 74518 DEX [facility] N VENOUS [facility] BLOOD INC INC VENIPUNCT URE COMPREHEN 68440 DEX [facility] SIVE 7 [facility] METABOLIC INC INC PANEL BLOOD 86110 DEX [facility] COUNT 7 [facility] COMPLETE INC INC AUTO&AUTO DIFRNTL WBC RADIATION 81456 JEREMIAS MCDOWELL 7 W W TREATMENT [facility] MEDICAL 1 MEV => COMPLEX RADIATION 04476 JEREMIAS DAVILA 7 W TREATMENT PHYSICIAN PRACTIC MANAGEMEN T 5 TREATMENT S CONTINUIN 76168 JEREMIAS MCDOWELL G MEDICAL 7 W W PHYSICS [facility] MEDICAL MEDICAL [place] WK RADIATION 67674 JEREMIAS FALKWVIE 7 W W TREATMENT [facility] MEDICAL MEDICAL 1 MEV => COMPLEX RADIATION 51928 MEADOWLORENZO MEADOWVIE 7 W W TREATMENT [facility] DELIV[facility] MEDICAL MEDICAL 1 MEV => COMPLEX RADIATION 52098 MEADOWVIE MEADOWVIE 7 W W TREATMENT [facility] DELIV[facility] MEDICAL MEDICAL 1 MEV => COMPLEX CONTINUIN 62107 JEREMIAS MCDOWELL G MEDICAL 7 W W PHYSICS REGIONAL REGIONAL CONSLT MEDICAL MEDICAL FL WK THERAPEUT 21719 JEREMIAS ERICSTONE IC 7 W W RADIOLOGY [facility]IONAL [facility]ICAL MEDICAL IMAGES(S) RADIATION 57482 JEREMIAS DAVILA 7 W TREATMENT PHYSICIAN PRACTIC MANAGEMEN T 5 TREATMENT S RADIATION 02014 JEREMIAS MEAWLORENZO 7 W W TREATMENT REGIONAL [facility] DELIVERY MEDICAL MEDICAL 1 MEV => COMPLEX RADIATION 06879 JEREMIAS REYESWVIE 7 W W TREATMENT [facility] DELIVERY MEDICAL MEDICAL 1 MEV => COMPLEX RADIATION 84104 MEADOWLORENZO MEADOWVIE 7 W W TREATMENT [facility]AL DELIVERY MEDICAL MEDICAL 1 MEV => COMPLEX RADIATION 98658 MEADOWLORENZO MEAWVIE 7 W W TREATMENT [facility] DELIVERY MEDICAL MEDICAL 1 MEV => COMPLEX RADIATION 56092 MEADOWLORENZO MEADOWVIE 7 W W TREATMENT [facility]AL DELIVERY MEDICAL MEDICAL 1 MEV => [place] [address] DEYAKendrickLORENZO REYESWLORENZO DEVICES 7 W W DESIGN & REGIONAL REGIONAL CONSTRUCT MEDICAL MEDICAL [place] 61106 ERICSTONE ERICBRYANTLORENZO SIMULAJ-A 7 W W IDED REGIONAL REGIONAL FIELD MEDICAL MEDICAL SETTING SIMPLE CONTINUIN 23058 JEREMIAS MCDOWELL G MEDICAL 7 W W PHYSICS REGIONAL REGIONAL CONSLTJ MEDICAL MEDICAL FL WK RADIATION 03733 JEREMIAS NERIU 7 W TREATMENT PHYSICIAN PRACTIC MANAGEMEN T 5 TREATMENT S RADIATION 61601 JEREMIAS ALEXANDREVIE 7 W W TREATMENT REGIONAL REGIONAL DELIVERY MEDICAL MEDICAL 1 MEV => COMPLEX RADIATION 87352 MEADOWVIE MEADOWVIE 7 W W TREATMENT REGIONAL REGIONAL DELIVERY MEDICAL MEDICAL 1 MEV => COMPLEX COMPREHEN 47002 DEX KOWALSKI SIVE 7 [facility] METABOLIC INC INC PANEL BLOOD 61401 DEX KOWALSKI COUNT 7 [facility] COMPLETE INC INC AUTO&[place] [address] DEX KOWALSKI FREE 7 [facility] [place] [address] DEX K[facility]ALSKI THYROID 7 [facility] STIMULATI INC INC NG HORMONE TSH RADIATION 63383 MEADOWVIE MEADOWVIE 7 W W TREATMENT [facility] DELIVERY MEDICAL MEDICAL 1 MEV => COMPLEX RADIATION 76908 MEADOWVIE MEADOWVIE 6 W W TREATMENT REGIONAL REGIONAL DELIVERY MEDICAL MEDICAL 1 MEV => COMPLEX RADIATION 25967 MEADOWVIE LOLA 6 W TREATMENT PHYSICIAN PRACTIC MANAGEMEN T 5 TREATMENT S RADIATION 60702 MEADOWVIE MEADOWVIE 6 W W TREATMENT REGIONAL REGIONAL DELIVERY MEDICAL MEDICAL 1 MEV => COMPLEX THERAPEUT 85050 MEADOWVIE MEADOWVIE IC 6 W W RADIOLOGY REGIONAL REG[facility]AL PORT MEDICAL MEDICAL IMAGES(S) CONTINUIN 32306 MEASTONE FALKWVIE G MEDICAL 6 W W PHYSICS REGIONAL REGIONAL [facility] MEDICAL MEDICAL FL WK RADIATION 45157 MEADOWVIE MEADOWVIE 6 W W TREATMENT REGIONAL REGIONAL DELIVERY MEDICAL MEDICAL 1 MEV => COMPLEX RADIATION 75674 MEADOWVIE MEADOWVIE 6 W W TREATMENT REGIONAL [facility]IONAL DELIVERY MEDICAL MEDICAL 1 MEV => COMPLEX RADIATION 72228 MEADOWVIE MEADOWVIE 6 W W TREATMENT REGIONAL REGIONAL DELIVERY MEDICAL MEDICAL 1 MEV => COMPLEX RADIATION 64901 MEADOWVIE MEADOWVIE 6 W W TREATMENT REGIONAL REGIONAL DELIVERY MEDICAL MEDICAL 1 MEV => COMPLEX RADIATION 26867 MEADOWVIE MEADOWVIE 6 W W TREATMENT [facility]AL [facility] DELIVERY MEDICAL MEDICAL 1 MEV => COMPLEX RADIATION 43593 MEADOWVIE LOLA 6 W TREATMENT PHYSICIAN PRACTIC MANAGEMEN T 5 TREATMENT S CONTINUIN 81435 MEADOWLORENZO MEADOWVIE G MEDICAL 6 W W PHYSICS REGIONAL REGIONAL CONSLT MEDICAL MEDICAL FL WK THERAPEUT 63929 MEADOWVIE MEADOWVIE IC 6 W W RADIOLOGY REGIONAL [facility] MEDICAL MEDICAL IMAGES(S) RADIATION 92829 MEADOWVIE MEADOWVIE 6 W W TREATMENT REGIONAL REGIONAL DELIVERY MEDICAL MEDICAL 1 MEV => COMPLEX RADIATION 70154 MEADOWVIE MEADOWVIE 6 W W TREATMENT REGIONAL REGIONAL DELIVERY MEDICAL MEDICAL 1 MEV => COMPLEX RADIATION 47460 MEADOWVIE MEADOWVIE 6 W W TREATMENT REGIONAL REGIONAL DELIVERY MEDICAL MEDICAL 1 MEV => COMPLEX RADIATION 58536 MEADOWVIE MEADOWVIE 6 W W TREATMENT REGIONAL REGIONAL DELIVERY MEDICAL MEDICAL 1 MEV => COMPLEX RADIATION 42529 MEADOWVIE LOLA 6 W TREATMENT PHYSICIAN PRACTIC MANAGEMEN T 5 TREATMENT S THERAPEUT 07372 MEADOWVIE MEADOWVIE IC 6 W W RADIOLOGY REGIONAL [facility] PORT MEDICAL MEDICAL IMAGES(S) CONTINUIN 08943 MEADOWLORENZO MEADOWVIE G MEDICAL 6 W W PHYSICS REGIONAL REGIONAL CONSLT MEDICAL MEDICAL FL WK RADIATION 05866 MEADOWVIE MEADOWVIE 6 W W TREATMENT REGIONAL REGIONAL DELIVERY MEDICAL MEDICAL 1 MEV => COMPLEX RADIATION 14250 MEADOWVIE MEADOWVIE 6 W W TREATMENT REGIONAL REGIONAL DELIVERY MEDICAL MEDICAL 1 MEV => COMPLEX RADIATION 31620 MEADOWVIE MEADOWVIE 6 W W TREATMENT REGIONAL REGIONAL DELIVERY MEDICAL MEDICAL 1 MEV => COMPLEX RADIATION 14126 MEADOWVIE MEADOWVIE 6 W W TREATMENT REGION[facility] REGIONAL DELIVERY MEDICAL MEDICAL 1 MEV => COMPLEX THER RAD 09687 JEREMIAS NERIU SIMULAJ-A 6 W IDED PH[place] [address] JEREMIAS MEAWVIE DEVICES 6 W W DESIGN & REGIONAL REGIONAL CONSTRUCT MEDICAL MEDICAL ION COMPLEX 3-D 34146 JEREMIAS NERIU RADIOTHER 6 W APY PLAN PHYSICIAN DOSE-VOLU PRACTIC ME HISTOGRAM S BASIC 04423 JEREMIAS DAVILA RADIATION 6 W PHYSICIAN DOSIMETRY PRACTIC CALCULATI ON IIV3 29930 [facility] VACCINE 6 PHYSICIAN EUG SPLIT S GROUP VIRUS 0.5 ML DOSAGE IM USE IM ADM 40626 [facility] PRQ ID 6 PHYSICIAN EUG SUBQ/IM S GROUP NJXS 1 VACCINE THER RAD 66839 JEREMIAS DAVILA SIMULAJ-A 6 W IDED PHYSICIAN FIELD PRACTIC SETTING COMPLEX THERAPEUT 39456 JEREMIAS DAVILA IC 6 W RADIOLOGY PHYSICIAN TX PRACTIC PLANNING COMPLEX ONCOLOGY 11283 GENOMIC GENOMIC BREAST 6 [employer] EXPRESSIO N [address] [place] [address] DEX KOWALSKI FERRITIN 6 [facility] INC INC COMPREHEN 33700 DEX KOWALSKI SIVE 6 [facility] [place] [address] DEX KOWALSKI IRON 6 [facility] INC INC IRON 93672 DEX KOWALSKI BINDING 6 [facility] CAPACITY INC INC BLOOD 03817 DEX KOWALSKI COUNT 6 [facility] COMPLETE INC INC AUTO&AUTO DIFRNTL WBC COLLECTIO 47531 DEX KOWALSKI N VENOUS 6 [facility] BLOOD INC INC VENIPUNCT URE RADIOLOGI 89648 [facility] ALL C EXAM 6 MEDICAL CHEST 2 IMAGING VIEWS ASS FRONTAL&L ATERAL BX/EXC 18865 [facility] TOD LYMPH 6 PHYSICIAN NODE OPEN S GROUP DEEP AXILLARY NODE INJ 94882 [place] RADIOACTI 6 MEDICAL VE TRACER IMAGING FOR ID ASS OF SENTINEL NODE ECG 67949 DEX [place] ROUTINE 6 [facility] W/LEAST P 12 LDS I&R ONLY TECHNETIU A9541 DEX [place] TC-99M 6 [facility] SULFUR INC INC COLLOID DX UP TO 20 MCI ANES 88788 [facility] 6 ANESTH SHE EXTREMITI OF THE ES ANT BLUE TRUNK & PERINEUM NOS MASTECTOM 82821 [facility] TOD Y PARTIAL [address] THORAX 09911 DEX K[facility]ALSKI 6 [facility] W/CONTRAS INC INC T MATERIAL COMPREHEN 98012 DEX KOWALSKI SIVE 6 [facility] METABOLIC INC INC PANEL BLOOD [id number] [facility] COMPLETE INC INC AUTO&[place] [address] DEX [facility]AL[facility] ABDOMEN & 6 [facility] PELVIS INC INC W/CONTRAS T MATERIAL COLLECTIO 11528 DEX [facility] N VENOUS 6 [facility] BLOOD INC INC VENIPUNCT URE DIAGNOSTI G0206 [place] ONE[place] C 6 MEDICAL JUANA MAMMOGRAP IMAGING HY INCL ASS CAD WHEN PERF; UNI US BREAST 91524 DEX K[facility] UNI REAL 6 [facility] TIME INC INC WITH IMAGE COMPLETE PROBE/NEE C2618 DEX KOWALSKI DLE 6 [facility] CRYOABLAT INC INC ION BX BREAST 04331 DEX KOWALSKI W/DEVICE 6 [facility] 1ST INC INC LESION ULTRASOUN D GUID FINE 91578 DEX KOWALSKI NEEDLE 6 [facility] ASPIRATIO INC INC N WITH IMAGING GUIDANCE PHYSICAL 18405 DEX KOWALSKI THERAPY 6 [facility] EVALUATIO INC INC N DUPLEX 92237 [place] SCAN 6 MEDICAL JUANA EXTRACRAN IMAGING IAL ART ASS COMPL BI STUDY US BREAST 50764 [place] UNI REAL 6 MEDICAL JUANA TIME IMAGING WITH ASS IMAGE COMPLETE DIAGNOSTI G0206 [place] C 6 MEDICAL JUANA MAMMOGRAP IMAGING HY INCL ASS CAD WHEN PERF; UNI COMPUTER- 79153 [place] [facility] AIDED 6 MEDICAL DETECTION IMAGING ASS SCREENING MAMMOGRAP HY SCREENING G0202 [place] [facility] 6 MEDICAL MAMMOGRAP IMAGING HY JOAN ASS INCL CAD WHEN PERFORMD MRI BRAIN 55935 [place] RENDON ALL BRAIN 6 MEDICAL STEM W/O IMAGING CONTRAST ASS MATERIAL SUSCEPTIB 47594 DEX KOWALSKI LTY STDY 6 [facility] ANTIMICRB INC INC IAL MICRO/AGA R DILUTJ I&[place] [address] [facility] DULCE BARTHOLIN 6 PHYSICIAN MADI S GLAND S GROUP ABSCESS CUL BACT 06616 DEX WASHBURNON XCPT 6 [facility] URINE INC INC BLOOD/STO OL AEROBIC ISOL CUL BACT 48600 DEX [facility] AEROBIC 6 [facility] ADDL INC INC METHS DEFINITIV E EA ISOL IADNA 67751 [facility] ER JR CLEM PAPILLOMA VIRUS HIGH-RISK TYPES CYTP 82060 [facility] CERV/VAG [facility] ER JR CLEM AUTO THIN LAYER PREP MNL SCREEN TDAP 21491 [facility] VACCINE 7 [facility] YRS/> IM HLTH DEPT JANELL IM ADM 66116 [facility] PRQ ID [facility] SUBQ/IM HLTH DEPT NJXS 1 JANELL VACCINE THERAPEUT 43283 DEX [facility] IC 6 [facility] PROPHYLAC INC INC TIC/DX INJECTION SUBQ/IM RADEX 30958 D[facility] ANKLE 5 [facility] COMPLETE INC INC MINIMUM 3 VIEWS HOSPITAL G0463 DEX KOWALSKI OUTPATIEN 5 [facility] T CLIN INC INC VISIT ASSESS & [place] [address] ABNER JUSTIN AZAEL MAXILLOFA 5 MEDICAL CIAL W/O SERV CONTRAST FOUNDATIO MATERIAL N ORTHOPANT 98064 ABNER OLSON OGRAM 5 MEDICAL WINNIE SERV FOUNDATIO N RADIOLOGI 72986 ABNER Echavarria 5 MEDICAL WINNIE EXAMINATI SERV ON CHE[place] [address] MADELIN ONEAL MAXILLOFA 5 MEDICAL JUANA CIAL W/[place] [address] [facility] HEAD/BRAI 5 MEDICAL JUANA N W/[place] [address] [facility] CERVICAL 5 MEDICAL JUANA SPINE W/O IMAGING CONTRAST ASS MATERIAL RADEX 41063 [facility] ELBOW 5 MEDICAL JUANA COMPLETE IMAGING MINIMUM 3 ASS VIEWS RADEX 13230 [place] RIBS BI 5 MEDICAL JUANA W/POSTERO IMAGING ANT CH ASS MINIMUM 4 VIEWS SMR PRIM 80363 KELLY VALDEZ SRC WET 5 COURTNEY LUCIANO [place] AGT COMPUTER- 00819 DEX [facility] AIDED 5 [facility] DETECTION [place] [address] DEX KOWALSKI TRANSVAGI 5 [facility] NAL INC INC SCREENING G0202 DEX KOWALSKI 5 [facility] MAMMOGRAP INC INC HY JOAN INCL CAD WHEN PERFORMD BLOOD 42126 KELLY VALDEZ OCCULT 5 COURTNEY LUCIANO PEROXIDAS E ACTV QUAL FECES 1-3 SPEC HANDLG&/O 03640 KELLY VALDEZ R CONVEY 5 COURTNEY JAIN ANKITA OF SPEC FOR TR OFFICE TO LAB IADNA 32607 KELLY VALDEZ NEISSERIA 5 COURTNEY LUCIANO GONORRHOE AE DIRECT PROBE TQ URINLS 27904 KELLY VALDEZ DIP 5 COURTNEY LUCIANO STICK/TAB LET REAGNT NON-AUTO MICRSCPY CULTURE 11091 KELLY VALDEZ CHLAMYDIA [address] [place] [address] [facility] ABDOMEN & 5 MEDICAL KEITH PELVIS IMAGING W/O ASS CONTRAST MATERIAL IM ADM 48137 [facility] ANU PRQ ID 5 PHYSICIAN KAITLIN SUBQ/IM S GROUP NJXS 1 VACCINE PCV13 16392 [facility] ANU VACCINE 5 PHYSICIAN KAITLIN FOR S GROUP INTRAMUSC ULAR USE IAADIADOO 52204 [facility] ANU 5 PHYSICIAN KAITLIN INFLUENZA S GROUP RADIOLOGI 20854 [place] C EXAM 4 MEDICAL JUANA CHEST 2 IMAGING VIEWS ASS FRONTAL&L ATERAL FIT 13321 KRYSTIAN BOLAND CONTACT 4 GRE GRE LENS TX OCULAR SURFACE DISEASE MRI 16439 [facility] SPINAL 4 MEDICAL JUANA CANAL IMAGING LUMBAR ASS W/O CONTRAST MATERIAL MRI 09736 [place] [facility] SPINAL 4 MEDICAL JUANA CANAL IMAGING CERVICAL ASS W/O CONTRAST MATRL 3D 91774 MADELIN ONEAL RENDERING 4 MEDICAL JUANA W/INTERP IMAGING & ASS POSTPROCE SS SUPERVISI ON RADIOLOGI 86657 [facility] [place] ELIECER C EXAM 4 RADIOLOGY RHO CHEST 2 VIEWS FRONTAL&L ATERAL PHYSICAL 30135 DEX KOWALSKI THERAPY 4 [facility] EVALUATIO INC INC N THERAPEUT 18741 DEX KOWALSKI IC PX 1/> 4 [facility] AREAS INC INC EACH 15 MIN EXERCISES OPHTH 30960 [facility]STIAN BOLAND MEDICAL 4 GRE GRE XM&EVAL COMPRE NEW PT 1/> VST DETERMINA 05252 [facility]OL[facility] TION 4 GRE GRE REFRACTIV E STATE RADEX 71006 DEX KOWALSKI SHOULDER 4 [facility] COMPLETE INC INC MINIMUM 2 VIEWS 3D 77156 DEX KOWALSKI RENDERING 4 [facility] W/INTERP INC INC & [place] [address] MADELIN NO HEAD/BRAI 4 MEDICAL JUANA N W/O IMAGING CONTRAST ASS MATERIAL URNLS DIP 35852 DEX [facility]ALSKI 4 [facility] STICK/TAB INC INC LET REAGENT AUTO MICROSCOP Y BLOOD 34478 [facility] [employer], [facility] INC, OCCULT 4 DEPENDENCY CASE MANAGER DEPENDENCY CASE MANAGER PEROXIDAS CHAMP [place] E ACTV CO HOS CO HOS QUAL FECES 1 DETER OVA&MELLY 86403 [employer], [employer], ITES 4 DEPENDENCY CASE MANAGER DEPENDENCY CASE MANAGER DIRECT CHAMP [place]ES SMEARS CO HOS CO H[place] CONC[place]TRA TION & [place] [address] [facility] [employer], [employer], CLOSTRIDI 4 DEPENDENCY CASE MANAGER DEPENDENCY CASE MANAGER UM [place]AMP [place] DIFF[place] [address] [facility] [employer], [facility] 4 DEPENDENCY CASE MANAGER DEPENDENCY CASE MANAGER E TOXIN [place] [address] [facility] [employer], [facility], MULT STEP 4 DEPENDENCY CASE MANAGER DEPENDENCY CASE MANAGER METHOD CHAMP [place]ES NOS EACH CO HOS CO HOS ORGANISM SMR PRIM 05991 [facility] INC, [employer], SRC CPLX 4 DEPENDENCY CASE MANAGER DEPENDENCY CASE MANAGER SPEC CHAMP CHAMP STAIN CO HOS CO HOS OVA&MELLY ITS CUL BACT 54481 [facility] INC, [facility] INC, STOOL 4 DEPENDENCY CASE MANAGER DEPENDENCY CASE MANAGER AEROBIC CHAMP CHAMP ISOL CO HOS CO HOS SALMONELL A&SHIGELL CUL BACT 59473 [facility] INC, [employer], STOOL 4 DEPENDENCY CASE MANAGER DEPENDENCY CASE MANAGER AEROBIC CHAMP CHAMP ADDL [place] [facility]OS CO HOS PATHOGENS &[place] [address] [facility] [place] MAT HEAD/BRAI 4 RADIOLOGY N W/[place] [address] [facility] [place] MAT CERVICAL 4 RADIOLOGY SPINE W/O CONTRAST MATERIAL SIMPLE 70323 [facility] 4 JAMIR LORNA SCALP/NEC EMERGENCY K/AX/AMMON PHYS T/TRUNK 2.5CM/< [place] [address] [facility] [place] JAM MAXILLOFA 4 RADIOLOGY CIAL W/O CONTRAST MATERIAL Encounters Encounter Start End Date Code Location Performer Type Date OFFICE 46244 DEX DONYA OUTPATIEN 7 7 [facility] 10 P MINUTES HOSPITAL DEX - 7 7 [facility] OUTPATIEN [facility] DEX - 7 7 [facility] OUTPATIEN [facility] T OFFICE 81009 DEX OUTPATIEN 7 7 [facility] T VISIT [facility] 10 MINUTES OFFICE 74576 [facility] OUTPATIEN 7 7 PHYSICIAN T VISIT S GROUP 15 MINUTES HOSPITAL DEX - 7 7 [facility] OUTPATIEN [facility] HOSPITAL MEAWVIE - 7 7 [facility] DEYAWVIE - 6 6 [facility] MEAWVIE - 6 6 [facility] MEDICAL OFFICE 66500 D[facility] 10 P MINUTES OFFICE 96761 [facility] [place] OUTPATIEN 6 6 PHYSICIAN T VISIT 5 S GROUP MINUTES OFFICE [address] [facility] OUTPATIEN 6 6 [facility] T VISIT MEDICAL 15 GROUP MINUTES HOSPITAL DEX - 6 6 [facility] OUTPATIEN INC T OFFICE 49132 DEX [facility] OUTPATIEN 6 6 [facility] 20 HOSPITAL MINUTES P OFFICE 47878 [facility] [place] OUTPATIEN 6 6 PHYSICIAN EUG T VISIT S GROUP 15 MINUTES HOSPITAL DEX - 6 6 [facility] OUTPATIEN INC HOSPITAL DEX - 6 6 [facility] OUTPATIEN INC T OFFICE 28728 [facility] TORianna CONSULTAT 6 6 PHYSICIAN ION S GROUP NEW/ESTAB PATIENT 40 MIN OFFICE 77329 [facility] OUT[facility] 6 6 [facility] T VISIT 5 [facility] DEPT MINUTES [facility] DEX - 6 6 [facility] OUTPATIEN INC T OFFICE 27407 DEX [facility] OUTPATIEN 6 6 [facility] T VISIT HOSPITAL 15 MINUTES HOSPITAL DEX - 6 6 [facility] OUTPATIEN INC HOSPITAL DEX - 6 6 [facility] OUTPATIEN INC T OFFICE 69872 [facility] [place] OUTPATIEN 6 6 PHYSICIAN T NEW 45 S GROUP MINUTES HOSPITAL DEX - 6 6 [facility] OUTPATIEN INC T OFFICE 37120 [facility] 6 6 [facility] T VISIT [facility] DEPT 10 [facility] DEX - 6 6 [facility] OUTPATIEN INC T PERIODIC 80456 [facility] PREVENTIV 6 6 HEALTH E MED EST PATIENT 40-64YRS EMERGENCY 69524 FAREED BENSON 6 6 PHYSICIAN FOR DEPARTMEN S, [facility] T VIS[facility] HIGH/URGE NT SEVERITY EMERGENCY 26317 DEX 6 6 [facility] DEPARTMEN INC T VISIT LOW/MODER SEVERITY HOSPITAL DEX - 6 6 [facility] OUTPATIEN INC T OFFICE 95998 [facility] OUTPATI[facility] 5 5 MD YISSEL, T VISIT PSC 15 MINUTES HOSPITAL DEX - 5 5 [facility] OUTPATIEN INC T OFFICE 60956 [facility] OUTPATI[facility] 5 5 T [facility] [address] [facility] DEX - 5 5 [facility] OUTPATIEN INC T OFFICE 80403 [facility] ANU OUTPATIEN 5 5 PHYSICIAN KAITLIN T VISIT S GROUP 10 MINUTES EMERGENCY 50033 ABNER NERIU 5 5 MEDICAL ANGEL DEPARTMEN SERV T VISIT FOUNDATIO HIGH/URGE N NT SEVERITY OFFICE 97382 [facility] ANU OUTPATIEN 5 5 PHYSICIAN KAITLIN T VISIT 5 S GROUP MINUTES OFFICE 80540 [facility] VALDEZ OUTPATIEN 5 5 COURTNEY LUCIANO T VISIT 25 MINUTES OFFICE 26199 KELLY VALDEZ OUTPATIEN 5 5 COURTNEY LUCIANO T VISIT 15 MINUTES HOSPITAL DEX - 5 5 [facility] OUTPATIEN INC T INITIAL 98956 KELLY VALDEZ PREVENTIV 5 5 COURTNEY LUCIANO E MEDICINE NEW PATIENT 40-64YRS OFFICE 63140 [facility] ANU OUTPATIEN 5 5 PHYSICIAN KAITLIN T VISIT S GROUP 10 MINUTES OFFICE 95991 KRYSTIAN BOLAND OUTPATIEN 4 4 GRE GRE T VISIT 25 MINUTES OFFICE 95928 [facility] CONSULTAT 4 4 [place] ION ORTHOPAED NEW/ESTAB ICS PLC PATIENT 40 MIN OFFICE 33889 KRYSTIAN KRYSTIAN OUTPATIEN 4 4 GRE GRE T VISIT 25 MINUTES EMERGENCY 13723 [facility] SOKAN BAB DEPT 4 4 JAMIR VISIT EMERGENCY HIGH PHYS SEVERITY& THREAT FUN HOSPITAL DEX - 4 4 [facility] OUTPATIEN INC T EMERGENCY 97717 [facility] CHANDEL 4 4 JAMIR ROSA DEPARTMEN EMERGENCY T VISIT PHYS HIGH/URGE NT SEVERITY HOSPITAL DEX - 4 4 [facility] OUTPATI[facility] T [facility]ICE 62377 [facility] 4 PHYSICIAN KAITLIN T VISIT S GROUP 10 MINUTES OFFICE 58333 [facility] PETTEY OUTPATIEN 4 4 PHYSICIAN JAM T NEW 10 S GROUP MINUTES HOSPITAL DEX - 4 4 [facility] OUTPATIEN INC T OFFICE 49795 [facility] ANU OUTPATIEN 4 4 PHYSICIAN KAITLIN T VISIT S GROUP 15 MINUTES HOSPITAL DEX - 4 4 [facility] OUTPATIEN INC T EMERGENCY 71446 DEX 4 4 [facility] DEPARTMEN INC T VISIT LOW/MODER SEVERITY HOSPITAL [facility] INC, - 4 4 DEPENDENCY CASE MANAGER OUTPATIEN [facility]AMP [facility] HOS OFFICE 98311 [facility] OUTPATIEN 4 4 [facility] NAN T VISIT RURAL 15 HEALTH MINUTES EMERGENCY 63601 [facility] SWINEY DEPT 4 4 JAMIR PAT VISIT EMERGENCY HIGH PHYS SEVERITY& THREAT FUN EMERGENCY 00553 [facility] GREISER 4 4 JAMIR LORNA DEPARTMEN EMERGENCY T VISIT PHYS HIGH/URGE NT SEVERITY
--- OUTSIDE RECORDS SUMMARY | 2017-03-03 17:37 | External Medical Summary Rpt ---
Author Author , Organization [employer] Address Unknown Phone Unavailable Care Team Providers Care Recruiter Specialist Name Role Phone MOSHE DEY MD, PSC, Unavailable Unavailable MOSHE DEY MD, PSC [facility] Unavailable Unavailable MEDICAL GROUP, [facility] BEINEKE, BEINEKE Unavailable Unavailable BEINEKE [...] RADIOLOGY ONEAL JUANA, Unavailable Unavailable ONEAL JUANA DOYNA, DONYA Unavailable Unavailable DONYA PHI, Unavailable Unavailable DONYA PHI [facility], [facility] Unavailable Unavailable [facility] DUFF ITZEL, DUFF ITZEL Unavailable Unavailable FRYMAN, FRYMAN Unavailable Unavailable FRYMAN EUG, FRYMAN Unavailable Unavailable EUG ANU KAITLIN, ANU Unavailable Unavailable KAITLIN [employer] Unavailable Unavailable [employer] KELLY VALDEZ MD, Unavailable Unavailable KELLY FORREST LORNA, GREISER Unavailable Unavailable LORNA ELIECER RHO, ELIECER Unavailable Unavailable RHO HARPEL ANKITA, HARPEL Unavailable Unavailable ANKITA [facility] Unavailable Unavailable INC, [facility] Unavailable Unavailable HOSPITAL, [facility] Unavailable Unavailable HOSPITAL P, [facility] P [facility], Unavailable Unavailable [facility] HARRIS TRA, HARRIS TRA Unavailable Unavailable NGUYEN NAN, NGUYEN Unavailable Unavailable NAN [facility], [facility] JUSTIN AZAEL, JUSTIN AZAEL Unavailable Unavailable [facility] KRYSTIAN GRE, Unavailable Unavailable KRYSTIAN GRE [facility], Unavailable Unavailable [facility] FLACO MACKEY, Unavailable Unavailable FLACO MACKEY [facility] Unavailable [facility] Unavailable Unavailable MEDICAL, [facility], LARD BLEACHER [facility] Unavailable Unavailable [facility], [facility], [facility]LE[facility] Unavailable Unavailable HEALTH, [facility] Unavailable [facility] PAVEZ MAR, PAVEZ MAR Unavailable Unavailable PETTEY JAM, PETTEY Unavailable Unavailable JAM PICKLESIMER JR CLEM, Unavailable Unavailable PICKLESIMER JR CLEM LOLA, LOLA Unavailable Unavailable LOLA ANGEL, LOLA Unavailable Unavailable ANGEL WINSTON TOD, WINSTON TOD Unavailable Unavailable SOKAN BAB, SOKAN BAB Unavailable Unavailable [facility], [facility] PATRICIA SHE, Unavailable Unavailable PATRICIA SHE SWINEY PAT, SWINEY Unavailable Unavailable PAT WHITNEY WINNIE, WHITNEY Unavailable Unavailable WINNIE WALKER FOR, WALKER Unavailable Unavailable FOR [facility] Unavailable Unavailable DEPT JANELL, [facility] DEPT JANELL ERICKSON MAT, ERICKSON MAT Unavailable Unavailable Purpose Continuity of Care Document - 11-21-2013 through 2016 Problems Code Diagnosis DOS Provider Status [id number] MALIGNANT 01-18-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[facility] P UNS FEMALE BREAST 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 01-18-2017 DEX RECEPTOR [facility] P STATUS 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 Z510 ENCOUNTER 11-24-2016 [facility] FOR PH[facility]ICIAN ANTINEOPLAS PRACTIC TIC RADIATION THERAPY [id number] MALIGNANT 11-16-2016 DEX NEOPLASM [facility] SITE INC RIGHT FEMALE BREAST I10 ESSENTIAL 11-09-2016 [facility] PRIMARY PHYSICIANS HYPERTENSIO GROUP N Z23 ENCOUNTER 09-23-2016 [facility] FOR PHYSICIANS IMMUNIZATIO GROUP N B354 TINEA 08-26-2016 [facility] R110 NAUSEA 08-26-2016 [facility] R079 CHEST PAIN 07-20-2016 [place] U[facility]PECIFIED [facility] R42 DIZZINESS 07-20-2016 [place] AND [facility]ICAL GIDDINESS IMAGING ASS N649 DISORDER OF 06-20-2016 [facility] BREAST PHYSICIANS UNSPECIFIED GROUP Z129 ENCOUNTER 06-06-2016 [place] SCREENING MEDICAL MALIGNANT IMAGING ASS NEOPLASM SITE UNS Z853 PERSONAL 06-06-2016 [facility] HISTORY [facility]ICAL PRIMARY IMAGING ASS MALIG NEOPLASM BREAST N24452 MIGRAINE 05-04-2016 [facility]EX W/AURA NOT [facility] INTRACT W/O INC STAT MIGRAINOSUS N63 UNSPECIFIED 05-04-2016 [facility] MED[facility] BREAST IMAGING ASS R51 HEADACHE 05-04-2016 [facility] INC R922 INCONCLUSIV 05-04-2016 [facility]EX E MAMMOGRAM [facility] INC H6090 UNSPECIFIED 04-21-2016 DEX [facility] UNSPECIFIED EAR L299 PRURITUS 04-21-2016 [facility] T34437 MIGRAINE 04-19-2016 [place] UNS NOT MEDICAL INTRACT W/O IMAGING ASS STATUS MIGRAINOSUS R928 OTH ABNORM 04-19-2016 [place] & MEDICAL INCONCLUSIV IMAGING ASS E FIND ON DX IMAG BREAST Z1231 ENCOUNTER 03-28-2016 [place] SCREENING MEDICAL MAMMO MALIG IMAGING ASS NEOPLASM BREAST S52125 VAG HIGH 02-24-2016 [facility] RISK [facility] PAPILLOMAVI VIRGIL DNA TEST POS N750 CYST OF 02-10-2016 [facility]EX [facility] GLAND INC N751 ABSCESS OF 02-10-2016 [facility] BARTHOLINS PHYSICIANS GLAND GROUP V41777 CERV HIGH 02-09-2016 [facility] PAPILLOMAVI VIRGIL DNA TEST POS Z73819 ENCOUNTER 02-09-2016 [facility] INFANTRY OFFICER EXAM HEALTH GENERAL RTN W/ABNORMAL FIND A54496 ENCOUNTER 02-09-2016 [facility], INFANTRY OFFICER EXAM LLC GENERAL RTN W/O ABNORMAL FIND Z1239 ENCOUNTER 02-09-2016 [facility] OTHER HEALTH SCREENING MALIG NEOPLASM BREAST Y00393 ACQUIRED 02-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 CERVIX AND UTERUS Z720 TOBACCO USE 12-01-2015 [facility] INC Z8781 PERSONAL 12-01-2015 [facility]EX HISTORY OF [facility] HEALED INC TRAUMATIC FRACTURE 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 , PSC OSACRAL INTERVERTEB RAL DISC 7244 THORACIC/SIM 07-14-2015 PATRICIA ZHOU MD, PSC NEURITIS/RA DICULITIS UNSPEC 09243 PAIN IN 06-30-2015 [place] [facility], MEDICAL ANKLE AND IMAGING ASS FOOT 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 7242 LUMBAGO 04-03-2015 [facility] PHYSICIANS GROUP 70141 OTHER 03-13-2015 [place] [facility] DISEASES OF SERV [facility] CAVITY AND SINUSES 03359 UNSPECIFIED 03-13-2015 [place] [facility] DENTAL SERV [place] [facility] 08020 CLOSED 03-13-2015 [place] [facility] FRACTURE SERV SUBCONDYLAR [facility] PROCESS MANDIBLE 58384 TOOTH 03-13-2015 [place] MEDICAL BROKEN FX SERV DUE TO FOUNDATION TRAUMA W/O MENTION COMP 58911 JAW PAIN 03-12-2015 [place] [facility] E9293 LATE 03-12-2015 [place] MEDICAL EFFECTS OF SERV ACCIDENTAL FOUNDATION FALL V5832 ENCOUNTER 03-10-2015 [facility] FOR REMOVAL PHYSICIANS OF SUTURES GROUP 7231 CERVICALGIA 03-01-2015 [facility] 73375 INJURY OF 03-01-2015 [place] FACE AND MEDICAL NECK OTHER IMAGING ASS AND UNSPECIFIED 96301 PAIN IN 02-28-2015 [place] [facility], MEDICAL UPPER ARM IMAGING ASS 58033 CHEST PAIN 02-28-2015 [place] UNSPECIFIED MEDICAL IMAGING ASS 28000 CLOSED 02-28-2015 [place] FRACTURE OF MEDICAL IMAGING ASS UNSPECIFIED SITE OF MANDIBLE 8300 CLOSED 02-28-2015 [place] DISLOCATION MEDICAL OF JAW IMAGING ASS 8505 CONCUSSION 02-28-2015 [place] WITH LOC OF MEDICAL IMAGING ASS UNSPECIFIED DURATION 69561 OTHER 02-28-2015 [place] INJURY OF MEDICAL CHEST WALL IMAGING ASS 9593 INJURY 02-28-2015 [place] OTHER&UNSPE MEDICAL CIFIED IMAGING ASS [facility]WRI ST 9392 FOREIGN 02-26-2015 KELLY Calvin BODY IN [place] JAIN VULVA AND VAGINA 41040 TRICHOMONAL 02-23-2015 KELLY VALDEZ MD VULVOVAGINI TIS 6272 SYMPTOMATIC 02-23-2015 KELLY VALDEZ MD MENOPAUSAL/ FEMALE CLIMACTERIC STATES V1322 PERSONAL 02-23-2015 KELLY Calvin HISTORY OF [place] CERVICAL DYSPLASIA 6271 POSTMENOPAU 02-16-2015 [place] ALONDRA MEDICAL BLEEDING IMAGING ASS V7612 OTHER 02-16-2015 [place] SCREENING MEDICAL MAMMOGRAM IMAGING ASS 6273 POSTMENOPAU 02-03-2015 KELLY VALDEZ MD ATROPHIC VAGINITIS V7231 ROUTINE 02-03-2015 KELLY Calvin GYNECOLOGIC [place] AL EXAMINATION V7641 SCREENING 02-03-2015 KELLY Calvin FOR 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 72069 ABDOMINAL 01-26-2015 [place] PAIN OTHER MEDICAL SPECIFIED IMAGING ASS SITE V0382 NEED PROPH 11-21-2014 [facility] VACCINATION PHYSICIANS AGAINST GROUP STREP PNEUMONE V0481 NEED 11-21-2014 [facility] PROPHYLACTI PHYSICIANS C GROUP VACCINATION &INOCULATIO N FLU 490 BRONCHITIS 11-14-2014 [facility] NOT PHYSICIANS SPECIFIED GROUP ACUTE OR CHRONIC 7862 COUGH 10-05-2014 [facility] 7869 OTH 10-05-2014 [place] SYMPTOMS MEDICAL INVOLVING IMAGING ASS RESPIRATORY SYSTEM&CHES T 54952 UNSPECIFIED 09-12-2014 [facility] SUBJECTIVE [facility] VISUAL DISTURBANCE 62067 PAIN IN OR 09-12-2014 [facility] AROUND [facility]YE GRE 9308 FOREIGN 09-12-2014 [facility] BODY GRE OTHER&COMBI BUDDY SITES EXTERNAL EYE 76093 OTHER 09-01-2014 [facility] VISUAL GRE DISTORTIONS AND ENTOPTIC PHENOMENA 83495 UNSPECIFIED 09-01-2014 [facility] SCLERITIS GRE 31573 VOMITING 08-20-2014 [facility] EMERGENCY PHYS 98643 DIARRHEA 08-20-2014 [facility] N EMERGENCY PHYS 7234 BRACHIAL 08-13-2014 [place] NEURITIS OR MEDICAL IMAGING ASS RADICULITIS NOS 7820 DISTURBANCE 08-13-2014 [place] OF SKIN MEDICAL SENSATION IMAGING ASS 18390 OBST 08-07-2014 [facility] CHRONIC N EMERGENCY BRONCHITIS PHYS W/ACUTE BRONCHITIS 63677 FEVER 08-07-2014 [facility] [place] UNSPECIFIED RADIOLOGY 69614 PAIN IN 06-27-2014 [facility], [facility] SHOULDER INC REGION V571 OTHER 06-27-2014 [facility] PHYSICAL [facility] THERAPY INC 96813 UNSPEC 06-18-2014 [facility] DISORDERS PHYSICIANS BURSAE&TEND GROUP ONS SHOULDER REGION V720 EXAMINATION 06-11-2014 [facility] OF EYES GRE AND VISION 7262 OTHER 06-04-2014 [facility] AFFECTIONS PHYSICIANS OF SHOULDER GROUP REGION NEC 3699 UNSPECIFIED 05-27-2014 [facility] VISUAL PHYSICIANS LOSS GROUP 33491 UNSPECIFIED 05-27-2014 [facility] TINNITUS PHYSICIANS GROUP 74414 UNSPECIFIED 04-07-2014 [facility] 7804 DIZZINESS 04-07-2014 [place] AND MEDICAL GIDDINESS IMAGING ASS V642 SURG/OTH 04-07-2014 [facility] PROC NOT [facility] CARRIED OUT INC BECAUSE PTS DECN 4610 ACUTE 01-20-2014 [facility] MAXILLARY [facility] SINUSITIS [facility] 00992 ABDOMINAL 01-20-2014 ON LICENSE OF [facility] PAIN RIGHT [facility] 7840 HEADACHE 12-11-2013 [facility] N EMERGENCY PHYS E8889 UNSPECIFIED 12-11-2013 [facility] [place] FALL RADIOLOGY 8470 NECK SPRAIN 12-10-2013 [facility] AND STRAIN N EMERGENCY PHYS 8730 OPEN WOUND 12-10-2013 [facility] SCALP N EMERGENCY WITHOUT PHYS MENTION COMPLICATIO N E8888 OTHER FALL 12-10-2013 [facility] N EMERGENCY PHYS 04482 SWELLING OR 11-21-2013 [facility] [place] MASS OF RADIOLOGY EYE E9179 OTHER 11-21-2013 [facility] [place] STRIKING RADIOLOGY AGAINST W/WO SUBSEQUENT FALL F14.10 COCAINE ABUSE, UNCOMPLICAT ED [id number] J40 BRONCHITIS, NOT SPECIFIED ACUTE OR CHRONIC [...] 1 MA MG CY TA BL ET NE 00 03 04 30 30 00 CL [...] IN OP HE N 5- 32 5 NE 00 02 03 30 30 00 CL [...] 0 CY MG CA PS UL E NE 00 01 02 30 30 00 CL [...] L CY 75 MG TA BL ET NE 00 12 01 30 30 00 CL [...] Procedure DOS Code Location Performer Comment COLLECTIO 71988 DEX KOWALSKI N VENOUS 7 [facility] BLOOD INC INC VENIPUNCT URE COMPREHEN 42927 DEX KOWALSKI SIVE 7 [facility] METABOLIC INC INC PANEL BLOOD 86435 DEX KOWALSKI COUNT 7 [facility] COMPLETE INC INC AUTO&AUTO DIFRNTL WBC RADIATION 44067 JEREMIAS MCDOWELL 7 W W TREATMENT [facility] MEDICAL 1 MEV => COMPLEX RADIATION 67949 JEREMIAS DAVILA 7 W TREATMENT PHYSICIAN PRACTIC MANAGEMEN T 5 TREATMENT S CONTINUIN 31381 JEREMIAS MCDOWELL G MEDICAL 7 W W [facility] MEDICAL MEDICAL MO WK RADIATION 70675 JEREMIAS FALKWVIE 7 W W TREATMENT [facility] REG[facility]AL DELIVERY MEDICAL MEDICAL 1 MEV => COMPLEX RADIATION 83162 MEADOWLORENZO MEADOWVIE 7 W W TREATMENT REGIONAL REGIONAL DELIVERY MEDICAL MEDICAL 1 MEV => COMPLEX RADIATION 97092 MEADOWVIE MEADOWVIE 7 W W TREATMENT [facility]AL REGIONAL DELIVERY MEDICAL MEDICAL 1 MEV => COMPLEX CONTINUIN 72579 JEREMIAS MCDOWELL G MEDICAL 7 W W PHYSICS REGIONAL REGIONAL CONSLT MEDICAL MEDICAL MO WK THERAPEUT 48540 JEREMIAS ERICSOTNE IC 7 W W RADIOLOGY REGIONAL REGIONAL PORT MEDICAL MEDICAL IMAGES(S) RADIATION 95891 JEREMIAS DAVILA 7 W TREATMENT PHYSICIAN PRACTIC MANAGEMEN T 5 TREATMENT S RADIATION 69821 JEREMISA MEAWLORENZO 7 W W TREATMENT REGIONAL REGIONAL DELIVERY MEDICAL MEDICAL 1 MEV => COMPLEX RADIATION 91084 JEREMIAS REYESWVIE 7 W W TREATMENT REGIONAL REGIONAL DELIVERY MEDICAL MEDICAL 1 MEV => COMPLEX RADIATION 13767 MEADOWLORENZO MEADOWVIE 7 W W TREATMENT REGIONAL REGIONAL DELIVERY MEDICAL MEDICAL 1 MEV => COMPLEX RADIATION 34324 MEADOWLORENZO MEAWVIE 7 W W TREATMENT REGIONAL REGIONAL DELIVERY MEDICAL MEDICAL 1 MEV => COMPLEX RADIATION 20622 MEADOWLORENZO MEADOWVIE 7 W W TREATMENT [facility]AL DELIVERY MEDICAL MEDICAL 1 MEV => [place] [address] DEYAKendrickLORENZO REYESWLORENZO DEVICES 7 W W DESIGN & REGIONAL REGIONAL CONSTRUCT MEDICAL MEDICAL ION COMPLEX THER RAD 36537 ERICSTONE ERICBRYANTLORENZO SIMULAJ-A 7 W W IDED REGIONAL REGIONAL FIELD MEDICAL MEDICAL SETTING SIMPLE CONTINUIN 58453 JEREMIAS MCDOWELL G MEDICAL 7 W W PHYSICS REGIONAL REGIONAL CONSLTJ MEDICAL MEDICAL MO WK RADIATION 34128 JEREMIAS NERIU 7 W TREATMENT PHYSICIAN PRACTIC MANAGEMEN T 5 TREATMENT S RADIATION 86248 JEREMIAS ALEXANDREVIE 7 W W TREATMENT REGIONAL REGIONAL DELIVERY MEDICAL MEDICAL 1 MEV => COMPLEX RADIATION 55700 MEADOWVIE MEADOWVIE 7 W W TREATMENT REGIONAL REGIONAL DELIVERY MEDICAL MEDICAL 1 MEV => COMPLEX COMPREHEN 18338 DEX KOWALSKI SIVE 7 [facility] METABOLIC INC INC PANEL BLOOD 35799 DEX KOWALSKI COUNT 7 [facility] COMPLETE INC INC AUTO&[place] [address] DEX KOWALSKI FREE 7 [facility] [place] [address] DEX KOWALSKI THYROID 7 [facility] STIMULATI INC INC NG HORMONE TSH RADIATION 48648 MEADOWVIE MEADOWVIE 7 W W TREATMENT REGIONAL REGIONAL DELIVERY MEDICAL MEDICAL 1 MEV => COMPLEX RADIATION 50596 MEADOWVIE MEADOWVIE 6 W W TREATMENT REGIONAL REGIONAL DELIVERY MEDICAL MEDICAL 1 MEV => COMPLEX RADIATION 04139 MEAD[facility]IE LOLA 6 W TREATMENT PHYSICIAN PRACTIC MANAGEMEN T 5 TREATMENT S RADIATION 74291 MEADOWVIE MEADOWVIE 6 W W TREATMENT REGIONAL REGIONAL DELIVERY MEDICAL MEDICAL 1 MEV => COMPLEX THERAPEUT 88118 MEADOWVIE MEADOWVIE IC 6 W W RADIOLOGY REGIONAL REGIONAL PORT MEDICAL MEDICAL IMAGES(S) CONTINUIN 63896 MEASTONE FALKWVIE G MEDICAL 6 W W PHYSICS REGIONAL REGIONAL [facility] MEDICAL MEDICAL MO WK RADIATION 61000 MEADOWVIE MEADOWVIE 6 W W TREATMENT REGIONAL REGIONAL DELIVERY MEDICAL MEDICAL 1 MEV => COMPLEX RADIATION 30257 MEADOWVIE MEADOWVIE 6 W W TREATMENT REGIONAL REGIONAL DELIVERY MEDICAL MEDICAL 1 MEV => COMPLEX RADIATION 68145 MEADOWVIE MEADOWVIE 6 W W TREATMENT REGIONAL REGIONAL DELIVERY MEDICAL MEDICAL 1 MEV => COMPLEX RADIATION 75957 MEADOWVIE MEADOWVIE 6 W W TREATMENT REGIONAL REGIONAL DELIVERY MEDICAL MEDICAL 1 MEV => COMPLEX RADIATION 02986 MEADOWVIE MEADOWVIE 6 W W TREATMENT REGIONAL REGIONAL DELIVERY MEDICAL MEDICAL 1 MEV => COMPLEX RADIATION 62496 MEADOWVIE LOLA 6 W TREATMENT PHYSICIAN PRACTIC MANAGEMEN T 5 TREATMENT S CONTINUIN 52000 MEADOWLORENZO MEADOWVIE G MEDICAL 6 W W PHYSICS REGIONAL REGIONAL CONSLT MEDICAL MEDICAL MO WK THERAPEUT 34003 MEADOWVIE MEADOWVIE IC 6 W W RADIOLOGY REGIONAL REGIONAL PORT MEDICAL MEDICAL IMAGES(S) RADIATION 48710 MEADOWVIE MEADOWVIE 6 W W TREATMENT REGIONAL REGIONAL DELIVERY MEDICAL MEDICAL 1 MEV => COMPLEX RADIATION 96403 MEADOWVIE MEADOWVIE 6 W W TREATMENT REGIONAL REGIONAL DELIVERY MEDICAL MEDICAL 1 MEV => COMPLEX RADIATION 91983 MEADOWVIE MEADOWVIE 6 W W TREATMENT REGIONAL REGIONAL DELIVERY MEDICAL MEDICAL 1 MEV => COMPLEX RADIATION 94066 MEADOWVIE MEADOWVIE 6 W W TREATMENT REGIONAL REGIONAL DELIVERY MEDICAL MEDICAL 1 MEV => COMPLEX RADIATION 99328 MEADOWVIE LOLA 6 W TREATMENT PHYSICIAN PRACTIC MANAGEMEN T 5 TREATMENT S THERAPEUT 58177 MEADOWVIE MEADOWVIE IC 6 W W RADIOLOGY REGIONAL REGIONAL PORT MEDICAL MEDICAL IMAGES(S) CONTINUIN 32554 MEADOWLORENZO MEADOWVIE G MEDICAL 6 W W PHYSICS REGIONAL REGIONAL CONSLT MEDICAL MEDICAL MO WK RADIATION 89315 MEADOWVIE MEADOWVIE 6 W W TREATMENT REGIONAL REGIONAL DELIVERY MEDICAL MEDICAL 1 MEV => COMPLEX RADIATION 94714 MEADOWVIE MEADOWVIE 6 W W TREATMENT REGIONAL REGIONAL DELIVERY MEDICAL MEDICAL 1 MEV => COMPLEX RADIATION 87779 MEADOWVIE MEADOWVIE 6 W W TREATMENT REGIONAL REGIONAL DELIVERY MEDICAL MEDICAL 1 MEV => COMPLEX RADIATION 71285 MEADOWVIE MEADOWVIE 6 W W TREATMENT REGIONAL REGIONAL DELIVERY MEDICAL MEDICAL 1 MEV => COMPLEX THER RAD 22117 JEREMIAS NERIU SIMULAJ-A 6 W IDED [place] [address] JEREMIAS MEAWVIE DEVICES 6 W W DESIGN & REGIONAL REGIONAL CONSTRUCT MEDICAL MEDICAL ION COMPLEX 3-D 12343 JEREMIAS NERIU RADIOTHER 6 W APY PLAN PHYSICIAN DOSE-VOLU PRACTIC ME HISTOGRAM S BASIC 76367 JEREMIAS DAVILA RADIATION 6 W PHYSICIAN DOSIMETRY PRACTIC CALCULATI ON IIV3 67488 [facility] FRYMAN VACCINE 6 PHYSICIAN EUG SPLIT S GROUP VIRUS 0.5 ML DOSAGE IM USE IM ADM 72499 [facility] FRYMAN PRQ ID 6 PHYSICIAN EUG SUBQ/IM S GROUP NJXS 1 VACCINE THER RAD 10562 JEREMIAS DAVILA SIMULAJ-A 6 W IDED PHYSICIAN FIELD PRACTIC SETTING COMPLEX THERAPEUT 37620 JEREMIAS DAVILA IC 6 W RADIOLOGY PHYSICIAN TX PRACTIC PLANNING COMPLEX ONCOLOGY 14631 GENOMIC GENOMIC BREAST 6 [employer] [place] N [address] [place] [address] DEX KOWALSKI FERRITIN 6 [facility] INC INC COMPREHEN 71572 DEX KOWALSKI SIVE 6 [facility] [place] [address] DEX KOWALSKI IRON 6 [facility] INC INC IRON 80106 DEX KOWALSKI BINDING 6 [facility] H[facility] CAPACITY INC INC BLOOD 55033 DEX KOWALSKI COUNT 6 [facility] COMPLETE INC INC AUTO&AUTO DIFRNTL WBC COLLECTIO 21053 DEX KOWALSKI N VENOUS 6 [facility] BLOOD INC INC VENIPUNCT URE RADIOLOGI 39905 [facility] ALL C EXAM 6 MEDICAL CHEST 2 IMAGING VIEWS ASS FRONTAL&L ATERAL BX/EXC 14591 [facility] WINSTON TOD LYMPH 6 PHYSICIAN NODE OPEN S GROUP DEEP AXILLARY NODE INJ 63212 [facility] RADIOACTI 6 MEDICAL VE TRACER IMAGING FOR ID ASS OF SENTINEL NODE ECG 49997 DXE GORDON ROUTINE 6 [facility] W/LEAST P 12 LDS I&R ONLY TECHNETIU A9541 EDX Laughlin TC-99M 6 [facility] SULFUR INC INC COLLOID DX UP TO 20 MCI ANES 44535 [facility] INTEG 6 ANESTH SHE EXTREMITI OF THE ES ANT BLUE TRUNK & PERINEUM NOS MASTECTOM 67023 [facility] TOD Y PARTIAL [address] THORAX 81535 DEX KOWALSKI 6 [facility] W/CONTRAS INC INC T MATERIAL COMPREHEN 73793 DEX KOWALSKI SIVE 6 [facility] METABOLIC INC INC PANEL BLOOD 48715 DEX KOWALSKI COUNT 6 [facility] COMPLETE INC INC AUTO&[place] [address] DEX KOWALSKI ABDOMEN & 6 [facility] PELVIS INC INC W/CONTRAS T MATERIAL COLLECTIO 16576 DEX KOWALSKI N VENOUS 6 [facility] BLOOD INC INC VENIPUNCT URE DIAGNOSTI G0206 [facility] ONEAL C 6 MEDICAL JUANA MAMMOGRAP IMAGING HY INCL ASS CAD WHEN PERF; UNI US BREAST 16575 DEX KOWALSKI UNI REAL 6 [facility] TIME INC INC WITH IMAGE COMPLETE PROBE/NEE C2618 DEX KOWALSKI DLE 6 [facility] CRYOABLAT INC INC ION BX BREAST 90678 DEX KOWALSKI W/DEVICE 6 [facility] 1ST INC INC LESION ULTRASOUN D GUID FINE 20107 DEX KOWALSKI NEEDLE 6 [facility] ASPIRATIO INC INC N WITH IMAGING GUIDANCE PHYSICAL 13915 DEX KOWALSKI THERAPY 6 [facility] EVALUATIO INC INC N DUPLEX 99253 [place] ONEAL SCAN 6 MEDICAL JUANA EXTRACRAN IMAGING IAL ART ASS COMPL BI STUDY US BREAST 35355 [place] ONEAL UNI REAL 6 MEDICAL JUANA TIME IMAGING WITH ASS IMAGE COMPLETE DIAGNOSTI G0206 [place] ONEAL C 6 MEDICAL JUANA MAMMOGRAP IMAGING HY INCL ASS CAD WHEN PERF; UNI COMPUTER- 34314 [facility] A[facility] 6 MEDICAL DETECTION IMAGING ASS SCREENING MAMMOGRAP HY SCREENING G0202 [facility] 6 MEDICAL MAMMOGRAP IMAGING HY JOAN ASS INCL CAD WHEN PERFORMD MRI BRAIN 23718 [place] [facility] ALL BRAIN 6 MEDICAL STEM W/O IMAGING CONTRAST ASS MATERIAL SUSCEPTIB 70065 DEX KOWALSKI LTY STDY 6 [facility] ANTIMICRB INC INC IAL MICRO/AG[place] DILUTJ I&D [place] [address] [facility] DULCE BARTHOLIN 6 PHYSICIAN MADI S GLAND S GROUP ABSCESS CUL BACT 02512 DEX WASHBURNON XCPT 6 [facility] URINE INC INC BLOOD/STO OL AEROBIC ISOL CUL BACT 64687 DEX KOWALSKI AEROBIC 6 [facility] ADDL INC INC METHS DEFINITIV E EA ISOL IADNA 05142 [facility] ER JR CLEM PAPILLOMA VIRUS HIGH-RISK TYPES CYTP 24423 [facility] CERV/VAG [facility] ER JR CLEM AUTO THIN LAYER PREP MNL SCREEN TDAP 84743 [facility] VACCINE 7 [facility] YRS/> IM HLTH DEPT JANELL IM ADM 20097 [facility] PRQ ID [facility] SUBQ/IM HLTH DEPT NJXS 1 JANELL VACCINE THERAPEUT 38154 DEX K[facility]ALSKI IC 6 [facility] PROPHYLAC INC INC TIC/DX INJECTION SUBQ/IM RADEX 60352 DEX [facility] ANKLE 5 [facility] COMPLETE INC INC MINIMUM 3 VIEWS HOSPITAL G0463 DEX KOWALSKI OUTPATIEN 5 [facility] T CLIN INC [place] VISIT ASSESS & [place] [address] ABNER JUSTIN AZAEL MAXILLOFA 5 MEDICAL CIAL W/O SERV CONTRAST FOUNDATIO MATERIAL N ORTHOPANT 09452 ABNER OLSON OGRAM 5 MEDICAL WINNIE SERV FOUNDATIO N RADIOLOGI 81482 ABNER Echavarria 5 MEDICAL WINNIE EXAMINATI SERV ON [place] [address] MADELIN ONEAL MAXILLOFA 5 MEDICAL JUANA CIAL W/[place] [address] [facility]/BRAI 5 MEDICAL JUANA N W/[place] [address] [facility] CERVICAL 5 MEDICAL JUANA SPINE W/O IMAGING CONTRAST ASS MATERIAL RADEX 31205 [facility] ELBOW 5 MEDICAL JUANA COMPLETE IMAGING MINIMUM 3 ASS VIEWS RADEX 79655 [place] ONE[place] RIBS BI 5 MEDICAL JUANA W/POSTERO IMAGING ANT CH ASS MINIMUM 4 VIEWS SMR PRIM 43176 KELLY VALDEZ SRC WET 5 COURTNEY LUCIANO [facility] AGT COMPUTER- 38532 DEX K[facility]ALSKI AIDED 5 [facility] [place] [address] DEX KOWALSKI TRANSVAGI 5 [facility] NAL INC INC SCREENING G0202 DEX KOWALSKI 5 [facility] MAMMOGRAP INC INC HY JOAN INCL CAD WHEN PERFORMD BLOOD 54857 KELLY VALDEZ OCCULT 5 COURTNEY LUCIANO PEROXIDAS E ACTV QUAL FECES 1-3 SPEC HANDLG&/O 99182 KELLY VALDEZ R CONVEY 5 COURTNEY JAIN ANKITA OF SPEC FOR TR OFFICE TO LAB IADNA 29656 [facility] VALDEZ NEISSERIA 5 COURTNEY LUCIANO GONORRHOE AE DIRECT PROBE TQ URINLS 58782 KELLY VALDEZ DIP 5 COURTNEY LUCIANO STICK/TAB LET REAGNT NON-AUTO MICRSCPY CULTURE 72667 KELLY VALDEZ CHLAMYDIA [address] [place] [address] [facility] ABDOMEN & 5 MEDICAL KEITH PELVIS IMAGING W/O ASS CONTRAST MATERIAL IM ADM 19670 [facility] ANU PRQ ID 5 PHYSICIAN KAITLIN SUBQ/IM S GROUP NJXS 1 VACCINE PCV13 65702 [facility] ANU VACCINE 5 PHYSICIAN KAITLIN FOR S GROUP INTRAMUSC ULAR USE IAADIADOO 21729 [facility] ANU 5 PHYSICIAN KAITLIN INFLUENZA S GROUP RADIOLOGI 22022 [place] ONEAL C EXAM 4 MEDICAL JUANA CHEST 2 IMAGING VIEWS ASS FRONTAL&L ATERAL FIT 68318 KRYSTIAN BOLAND CONTACT 4 GRE [place] OCULAR SURFACE DISEASE MRI 48934 [facility] SPINAL 4 MEDICAL JUANA CANAL IMAGING LUMBAR ASS W/O CONTRAST MATERIAL MRI 81038 [place] ONE[place] SPINAL 4 MEDICAL JUANA CANAL IMAGING CERVICAL ASS W/O CONTRAST MATRL 3D 63308 MADELIN ONEAL RENDERING 4 MEDICAL JUANA W/INTERP IMAGING & ASS POSTPROCE SS SUPERVISI ON RADIOLOGI 76352 [facility] [place] ELIECER C EXAM 4 RADIOLOGY RHO CHEST 2 VIEWS FRONTAL&L ATERAL PHYSICAL 76308 DEX KOWALSKI THERAPY 4 [facility] EVALUATIO INC INC N THERAPEUT 02049 DEX KOWALSKI IC PX 1/> 4 [facility] AREAS INC INC EACH 15 MIN EXERCISES OPHTH 62549 KRYSTIAN BOLAND MEDICAL 4 GRE GRE XM&EVAL COMPRE NEW PT 1/> VST DETERMINA 55358 KRYSTIAN BOLAND TION 4 GRE GRE REFRACTIV E STATE RADEX 87638 DEX KOWALSKI SHOULDER 4 [facility] COMPLETE INC INC MINIMUM 2 VIEWS 3D 00915 DEX KOWALSKI RENDERING 4 [facility] W/INTERP INC INC & [place] [address] MADELIN ON HEAD/BRAI 4 MEDICAL JUANA N W/O IMAGING CONTRAST ASS MATERIAL URNLS DIP 36835 DEX KOWALSKI 4 [facility] STICK/TAB INC INC LET REAGENT AUTO MICROSCOP Y BLOOD 616[address] [facility] [employer], [facility] INC, OCCULT 4 LARD BLEACHER LARD BLEACHER PEROXIDAS [place] [place] E ACTV CO HOS CO HOS QUAL FECES 1 DETER OVA&MELLY 73834 [employer], [employer], ITES 4 LARD BLEACHER LARD BLEACHER DIRECT [facility] SMEARS CO HOS [place] H[place] & [place] [address] [facility] [employer], [employer], CLOSTRIDI 4 LARD BLEACHER LARD BLEACHER UM [facility] [place] DIFFIC[place] [address] [facility] [employer], [facility], SHIGA-LIK 4 LARD BLEACHER LARD BLEACHER E TOXIN [place] [address] [facility] [employer], [facility], MULT STEP 4 LARD BLEACHER LARD BLEACHER METHOD [facility] [place] NOS EACH CO HOS CO HOS ORGANISM SMR PRIM 83502 [facility] INC, [employer], SRC CPLX 4 LARD BLEACHER LARD BLEACHER SPEC [facility]AMP [facility] STAIN [facility] CO HOS OVA&MELLY ITS CUL BACT 80155 [facility] INC, [facility] INC, STOOL 4 LARD BLEACHER LARD BLEACHER AEROBIC CHAMP CHAMP ISOL CO HOS CO HOS SALMONELL A&SHIGELL CUL BACT 21909 [facility] INC, [employer], STOOL 4 LARD BLEACHER LARD BLEACHER AEROBIC CHAMP CHAMP ADDL [facility] CO HOS PATHOGENS &[place] [address] [facility] [place] MAT HEAD/BRAI 4 RADIOLOGY N W/[place] [address] [facility] [place] MAT CERVICAL 4 RADIOLOGY SPINE W/O CONTRAST MATERIAL SIMPLE 06590 [facility] RE[facility] 4 JAMIR LORNA SCALP/NEC EMERGENCY K/AX/AMMON PHYS T/TRUNK 2.5CM/< [place] [address] [facility] [place] MORA JAM MAXILLOFA 4 RADIOLOGY CIAL W/O CONTRAST MATERIAL Encounters Encounter Start End Date Code Location Performer Type Date OFFICE 84076 DEX DONYA OUTPATIEN 7 7 [facility] 10 P MINUTES HOSPITAL [facility]EX - 7 7 [facility] OUTPATIEN [facility] DEX - 7 7 [facility] OUTPATIEN [facility] T OFFICE 46346 DEX OUTPATIEN 7 7 [facility] T VISIT [facility] 10 MINUTES OFFICE 52219 [facility] [place] OUTPATIEN 7 7 PHYSICIAN T VISIT S GROUP 15 MINUTES HOSPITAL DEX - 7 7 [facility] OUTPATIEN [facility] HOSPITAL MEAWVIE - 7 7 [facility] DEYAWV[facility] - 6 6 [facility] MEAWVIE - 6 6 W [facility] MEDICAL OFFICE 32644 DEX [facility] 10 P MINUTES OFFICE 33595 [facility] [place] CALHOUN OUTPATIEN 6 6 PHYSICIAN T VISIT 5 S GROUP MINUTES OFFICE 43437 [facility] OUT[facility] 6 6 [facility] T VISIT MEDICAL 15 GROUP MINUTES HOSPITAL DEX - 6 6 [facility] OUTPATIEN INC T OFFICE 79532 DEX CASTROIMONE OUTPATIEN 6 6 [facility] 20 HOSPITAL MINUTES P OFFICE 18816 [facility] FRYMAN OUTPATIEN 6 6 PHYSICIAN EUG T VISIT S GROUP 15 MINUTES HOSPITAL DEX - 6 6 [facility] OUTPATIEN INC HOSPITAL DEX - 6 6 [facility] OUTPATIEN INC T OFFICE 20513 [facility] [place] TORianna CONSULTAT 6 6 PHYSICIAN ION S GROUP NEW/ESTAB PATIENT 40 MIN OFFICE 42421 [facility] 6 6 [facility] T VISIT 5 DHS/CO [facility] DEPT MINUTES [facility] DEX - 6 6 [facility] OUTPATIEN INC T OFFICE 17143 DEX FRYMAN OUTPATIEN 6 6 [facility] T VISIT HOSPITAL 15 MINUTES HOSPITAL DEX - 6 6 [facility] OUTPATIEN INC HOSPITAL DEX - 6 6 [facility] OUTPATIEN INC T OFFICE 88757 [facility] H[place] OUTPATIEN 6 6 PHYSICIAN T NEW 45 S GROUP MINUTES HOSPITAL DEX - 6 6 [facility] OUTPATIEN INC T OFFICE 20604 [facility] 6 6 [facility] T VISIT [facility] DEPT 10 [facility] DEX - 6 6 [facility] OUTPATIEN INC T PERIODIC 34550 DHS/CO PREVENTIV 6 6 HEALTH E MED EST PATIENT 40-64YRS EMERGENCY 80754 FAREED BENSON 6 6 PHYSICIAN FOR DEPARTMEN S, [facility] VISIT HIGH/URGE NT SEVERITY EMERGENCY 98095 DEX 6 6 [facility] DEPARTMEN INC T VISIT LOW/MODER SEVERITY HOSPITAL DEX - 6 6 [facility] OUTPATIEN INC T OFFICE 81512 [facility] OUTPATIEN 5 5 MD YISSEL, T VISIT PSC 15 MINUTES HOSPITAL DEX - 5 5 [facility] OUTPATIEN INC T OFFICE 64705 [facility]PATIEN 5 5 [facility] [address] [facility] DEX - 5 5 [facility] OUTPATIEN INC T OFFICE 76138 [facility] ANU OUTPATIEN 5 5 PHYSICIAN KAITLIN T VISIT S GROUP 10 MINUTES EMERGENCY 51286 ABNER NERIU 5 5 MEDICAL ANGEL DEPARTMEN SERV T VISIT FOUNDATIO HIGH/URGE N NT SEVERITY OFFICE 10559 [facility] ANU OUTPATIEN 5 5 PHYSICIAN KAITLIN T VISIT 5 S GROUP MINUTES OFFICE 10342 KELLY VALDEZ OUTPATIEN 5 5 COURTNEY LUCIANO T VISIT 25 MINUTES OFFICE 09994 KELLY VALDEZ OUTPATIEN 5 5 COURTNEY LUCIANO T VISIT 15 MINUTES HOSPITAL DEX - 5 5 [facility] OUTPATIEN INC T INITIAL 86603 KELLY VALDEZ PREVENTIV 5 5 COURTNEY LUCIANO E MEDICINE NEW PATIENT 40-64YRS OFFICE 26280 [facility] ANU OUTPATIEN 5 5 PHYSICIAN KAITLIN T VISIT S GROUP 10 MINUTES OFFICE 25290 KRYSTIAN BOLAND OUTPATIEN 4 4 GRE GRE T VISIT 25 MINUTES OFFICE 19014 [facility] CONSULTAT 4 4 [place] ION ORTHOPAED NEW/ESTAB ICS PLC PATIENT 40 MIN OFFICE 25197 KRYSTIAN KRYSTIAN OUTPATIEN 4 4 GRE GRE T VISIT 25 MINUTES EMERGENCY 13010 [facility] DEPT 4 4 JAMIR VISIT EMERGENCY HIGH PHYS SEVERITY& THREAT FUN HOSPITAL DEX - 4 4 [facility] OUTPATIEN INC T EMERGENCY 06911 [facility] CHANDEL 4 4 JAMIR ROSA DEPARTMEN EMERGENCY T VISIT PHYS HIGH/URGE NT SEVERITY HOSPITAL DEX - 4 4 [facility] 02260 [facility] PHYSICIAN KAITLIN T VISIT S GROUP 10 MINUTES OFFICE 37447 [facility] PETTEY OUTPATIEN 4 4 PHYSICIAN JAM T NEW 10 S GROUP MINUTES HOSPITAL DEX - 4 4 [facility] OUTPATIEN INC T OFFICE 78033 [facility] ANU OUTPATIEN 4 4 PHYSICIAN KAITLIN T VISIT S GROUP 15 MINUTES HOSPITAL DEX - 4 4 [facility] OUTPATIEN INC T EMERGENCY 96619 DEX 4 4 [facility] DEPARTMEN INC T VISIT LOW/MODER SEVERITY [facility] INC, - 4 4 LARD BLEACHER OUTPATIEN [facility] OFFICE 08684 [facility] OUTPATI[facility] 4 4 [facility] T VISIT RURAL 15 HEALTH MINUTES EMERGENCY 47647 [facility] SWINE[facility] DEPT 4 4 JAMIR PAT VISIT EMERGENCY HIGH PHYS SEVERITY& THREAT FUN EMERGENCY 31988 [facility] 4 4 JAMIR LORNA DEPARTMEN EMERGENCY T VISIT PHYS HIGH/URGE NT SEVERITY
--- OUTSIDE RECORDS SUMMARY | 2017-03-03 17:42 | External Medical Summary Rpt ---
Author Author , Organization [employer] Address Unknown Phone Unavailable Care Team Providers Care Curator [employer] Name Role Phone MOSHE DEY MD, PSC, [...] EUG ANU KAITLIN, ANU Unavailable Unavailable KAITLIN [employer] Unavailable Unavailable [employer] KELLY VALDEZ MD, Unavailable Unavailable KELLY VALDEZ MD GREDAVID LORNA, GREISER Unavailable Unavailable LORNA ELIECER RHO, ELIECER Unavailable Unavailable RHO HARPEL ANKITA, HARPEL Unavailable Unavailable ANKITA [facility] Unavailable Unavailable INC, [facility] Unavailable Unavailable HOSPITAL, [facility] Unavailable Unavailable HOSPITAL P, [facility] P [facility], Unavailable Unavailable [facility] AHRRIS TRA, HARRIS TRA Unavailable Unavailable NGUYEN NAN, NGUYEN Unavailable Unavailable NAN [facility] Unavailable Unavailable [facility], [facility] JUSTIN AZAEL, JUSTIN AZAEL Unavailable Unavailable [facility] KRYSTIAN GRE, Unavailable Unavailable KRYST[facility] GRE K[facility], Unavailable Unavailable [facility] FLACO KEY, Unavailable Unavailable FLACO [facility] Unavailable Unavailable [facility] Unavailable Unavailable MEDICAL, [facility], [employer] Unavailable Unavailable [facility] HOS, [facility], [employer] [facility] Unavailable Unavailable HEALTH, [facility] Unavailable [facility] PAVEZ MAR, PAVEZ MAR Unavailable Unavailable PETTEY JAM, PETTEY Unavailable Unavailable JAM PICKLESIMER JR CLEM, Unavailable Unavailable [facility] LOLA, LOLA Unavailable Unavailable LOLA AGNEL, LOLA Unavailable Unavailable ANGEL WINSTON TOD, WINSTON TOD Unavailable Unavailable SOKAN BAB, SOKAN BAB Unavailable Unavailable [facility] PATRICIA SHE, Unavailable Unavailable PATRICIA SHE SWINEY PAT, SWINEY Unavailable Unavailable PAT WHITNEY WINNIE, WHITNEY Unavailable Unavailable WINNIE WALKER FOR, WALKER Unavailable Unavailable FOR [facility] Unavailable Unavailable DEPT JANELL, [facility] DEPT JANELL ERICKSON MAT, ERICKSON MAT Unavailable Unavailable Purpose Continuity of Care Document - 11-21-2013 through 2016 Problems Code Diagnosis DOS Provider Status [id number] 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 01-18-2017 [facility] P STATUS 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-2016 [facility] 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 Z510 ENCOUNTER 11-24-2016 [place] [facility] ANTINEOPLAS PRACTIC TIC RADIATION THERAPY [id number] MALIGNANT 11-16-2016 [facility]EX NEOPLASM [facility] INC RIGHT FEMALE BREAST I10 ESSENTIAL 11-09-2016 [facility] PRIMARY PHYSICIANS HYPERTENSIO GROUP N Z23 ENCOUNTER 09-23-2016 [facility] FOR PHYSICIANS IMMUNIZATIO GROUP N B354 TINEA 08-26-2016 [facility] GROUP R110 NAUSEA 08-26-2016 [facility] GROUP R079 CHEST PAIN 07-20-2016 [facility] UNS[facility] IMAGING ASS R42 DIZZINESS 07-20-2016 [facility] AND MEDICAL GIDDINESS IMAGING ASS N649 DISORDER OF 06-20-2016 [facility] BREAST PHYSICIANS UNSPECIFIED GROUP Z129 ENCOUNTER 06-06-2016 [place] [facility]ICAL MALIGNANT IMAGING ASS NEOPLASM SITE UNS Z853 PERSONAL 06-06-2016 [place] [facility]ICAL PRIMARY IMAGING ASS MALIG NEOPLASM BREAST W79390 MIGRAINE 05-04-2016 [facility] W/AURA NOT [facility] INTRACT W/O INC STAT MIGRAINOSUS N63 UNSPECIFIED 05-04-2016 [facility] LUMP IN MEDICAL BREAST IMAGING ASS R51 HEADACHE 05-04-2016 [facility] INC R922 INCONCLUSIV 05-04-2016 DEX E MAMMOGRAM [facility] INC H6090 UNSPECIFIED 04-21-2016 DEX OTITIS [facility] UNSPECIFIED EAR L299 PRURITUS 04-21-2016 [facility] M31496 MIGRAINE 04-19-2016 [place] U[place] NOT MEDICAL INTRACT W/O IMAGING ASS STATUS MIGRAINOSUS R928 OTH ABNORM 04-19-2016 [place] & MEDICAL INCONCLUSIV IMAGING ASS E FIND ON DX IMAG BREAST Z1231 ENCOUNTER 03-28-2016 [place] SCREENING MEDICAL MAMMO MALIG IMAGING ASS NEOPLASM BREAST F09767 VAG HIGH 02-24-2016 [facility]/CO RISK [facility], [facility] PAPILLOMAVI VIRGIL DNA TEST POS N750 CYST OF 02-10-2016 [facility] INC N751 ABSCESS OF 02-10-2016 [facility] BARTHOLINS PHYSICIANS GLAND GROUP [id number] CERV HIGH 02-09-2016 [facility] PAPILLOMAVI VIRGIL DNA TEST POS K64394 ENCOUNTER 02-09-2016 DHS/CO CERTIFIED PHYSICAL THERAPIST ASSISTANT EXAM HEALTH GENERAL RTN W/ABNORMAL FIND [id number] ENCOUNTER 02-09-2016 [facility], CERTIFIED PHYSICAL THERAPIST ASSISTANT EXAM LLC GENERAL RTN W/O ABNORMAL FIND Z1239 ENCOUNTER 02-09-2016 DHS/CO OTHER HEALTH SCREENING MALIG NEOPLASM BREAST W63847 ACQUIRED 02-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 CERVIX AND UTERUS Z720 TOBACCO USE 12-01-2015 [facility] INC Z8781 PERSONAL 12-01-2015 [facility] HISTORY OF [facility] HEALED INC TRAUMATIC FRACTURE 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 , PSC OSACRAL INTERVERTEB RAL DISC 7244 THORACIC/SIM 07-14-2015 PATRICIA ZHOU MD, PSC NEURITIS/RA DICULITIS UNSPEC 72798 PAIN IN 06-30-2015 [place] [facility], MEDICAL ANKLE AND IMAGING ASS FOOT 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 7242 LUMBAGO 04-03-2015 [facility] PHYSICIANS GROUP 55377 OTHER 03-13-2015 [place] [facility] DISEASES OF SERV [facility] CAVITY AND SINUSES 68288 UNSPECIFIED 03-13-2015 [place] [facility] [place] [facility] [place] [facility] 09222 CLOSED 03-13-2015 [place] [facility] FRACTURE SERV SUBCONDYLAR FOUND[facility] PROCESS MANDIBLE 50998 TOOTH 03-13-2015 [place] [facility] [place] FX SERV DUE TO FOUNDATION TRAUMA W/O MENTION COMP 59752 JAW PAIN 03-12-2015 [place] [facility] E9293 LATE 03-12-2015 [place] MEDICAL EFFECTS OF SERV ACCIDENTAL FOUNDATION FALL V5832 ENCOUNTER 03-10-2015 [facility] FOR REMOVAL PHYSICIANS OF SUTURES GROUP 7231 CERVICALGIA 03-01-2015 [place] [facility] 15801 INJURY OF 03-01-2015 [place] FACE AND MEDICAL NECK OTHER IMAGING ASS AND UNSPECIFIED 91269 PAIN IN 02-28-2015 [place] JOINT, MEDICAL UPPER ARM IMAGING ASS 44625 CHEST PAIN 02-28-2015 [place] UNSPECIFIED MEDICAL IMAGING ASS 02765 CLOSED 02-28-2015 [place] FRACTURE OF MEDICAL IMAGING ASS UNSPECIFIED SITE OF MANDIBLE 8300 CLOSED 02-28-2015 [place] DISLOCATION MEDICAL OF JAW IMAGING ASS 8505 CONCUSSION 02-28-2015 [place] WITH LOC OF MEDICAL IMAGING ASS UNSPECIFIED DURATION 66117 OTHER 02-28-2015 [place] INJURY OF MEDICAL CHEST WALL IMAGING ASS 9593 INJURY 02-28-2015 [place] OTHER&UNSPE MEDICAL CIFIED IMAGING ASS [employer]EARM&WRI ST 9392 FOREIGN 02-26-2015 KELLY Calvin BODY IN COURTNEY JAIN VULVA AND VAGINA 95464 TRICHOMONAL 02-23-2015 KELLY VALDEZ MD VULVOVAGINI TIS 6272 SYMPTOMATIC 02-23-2015 KELLY VALDEZ MD MENOPAUSAL/ FEMALE CLIMACTERIC STATES V1322 PERSONAL 02-23-2015 KELLY Calvin HISTORY OF [place]AIN CERVICAL DYSPLASIA 6271 POSTMENOPAU 02-16-2015 [place] ALONDRA MEDICAL BLEEDING IMAGING ASS V7612 OTHER 02-16-2015 [place] SCREENING MEDICAL MAMMOGRAM IMAGING ASS 6273 POSTMENOPAU 02-03-2015 KELLY VALDEZ MD ATROPHIC VAGINITIS V7231 ROUTINE 02-03-2015 KELLY Calvin GYNECOLOGIC COURTNEY JAIN AL EXAMINATION V7641 SCREENING 02-03-2015 KELLY 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 43926 ABDOMINAL 01-26-2015 [place] PAIN OTHER MEDICAL SPECIFIED IMAGING ASS SITE V0382 NEED PROPH 11-21-2014 [facility] VACCINATION PHYSICIANS AGAINST GROUP STREP PNEUMONE V0481 NEED 11-21-2014 [facility] PROPHYLACTI PHYSICIANS C GROUP VACCINATION &INOCULATIO N FLU 490 BRONCHITIS 11-14-2014 [facility] NOT PHYSICIANS SPECIFIED GROUP ACUTE OR CHRONIC 7862 COUGH 10-05-2014 [place] [facility] 7869 OTH 10-05-2014 [place] SYMPTOMS MEDICAL INVOLVING IMAGING ASS RESPIRATORY SYSTEM&CHES T 36298 UNSPECIFIED 09-12-2014 [facility] SUBJECTIVE GRE VISUAL DISTURBANCE 79318 PAIN IN OR 09-12-2014 [facility] AROUND EYE GRE 9308 FOREIGN 09-12-2014 [facility] BODY GRE OTHER&COMBI BUDDY SITES EXTERNAL EYE 23355 OTHER 09-01-2014 [facility] VISUAL GRE DISTORTIONS AND ENTOPTIC PHENOMENA 28306 UNSPECIFIED 09-01-2014 [facility] SCLERITIS GRE 00057 VOMITING 08-20-2014 [facility] EMERGENCY PHYS 11490 DIARRHEA 08-20-2014 [facility] N EMERGENCY PHYS 7234 BRACHIAL 08-13-2014 [place] NEURITIS OR MEDICAL IMAGING ASS RADICULITIS NOS 7820 DISTURBANCE 08-13-2014 [place] OF SKIN MEDICAL SENSATION IMAGING ASS 26648 OBST 08-07-2014 [facility] CHRONIC N EMERGENCY BRONCHITIS PHYS W/ACUTE BRONCHITIS 76539 FEVER 08-07-2014 [facility] [place] UNSPECIFIED RADIOLOGY 00375 PAIN IN 06-27-2014 [facility] JOINT, [facility] SHOULDER INC REGION V571 OTHER 06-27-2014 [facility] PH[facility]ICAL [facility] THERAPY INC 94369 UNSPEC 06-18-2014 [facility] DISORDERS PHYSICIANS BURSAE&TEND GROUP ONS SHOULDER REGION V720 EXAMINATION 06-11-2014 [facility] OF EYES GRE AND VISION 7262 OTHER 06-04-2014 [facility] AFFECTIONS PHYSICIANS OF SHOULDER GROUP REGION NEC 3699 UNSPECIFIED 05-27-2014 [facility] VISUAL PHYSICIANS LOSS GROUP 31923 UNSPECIFIED 05-27-2014 [facility] TINNITUS PHYSICIANS GROUP 25118 UNSPECIFIED 04-07-2014 [place] OTAL[facility]IA [facility]ING [facility] 7804 DIZZINESS 04-07-2014 [place] AND MEDICAL GIDDINESS IMAGING ASS V642 SURG/OTH 04-07-2014 DEX PROC NOT [facility] CARRIED OUT INC BECAUSE PTS DECN 4610 ACUTE 01-20-2014 [facility] MAXILLARY ON LICENSE OF [facility] SINUSITIS [facility] 82903 ABDOMINAL 01-20-2014 [facility] PAIN [facility] 7840 HEADACHE 12-11-2013 [facility] N EMERGENCY PHYS E8889 UNSPECIFIED 12-11-2013 [facility] [place] FALL RADIOLOGY 8470 NECK SPRAIN 12-10-2013 [facility] AND STRAIN N EMERGENCY PHYS 8730 OPEN WOUND 12-10-2013 [facility] SCALP N EMERGENCY WITHOUT PHYS MENTION COMPLICATIO N E8888 OTHER FALL 12-10-2013 [facility] N EMERGENCY PHYS 58752 SWELLING OR 11-21-2013 [facility] [place] MASS OF RADIOLOGY EYE E9179 OTHER 11-21-2013 [facility] [place] STRIKING RADIOLOGY AGAINST W/WO SUBSEQUENT FALL Medications Na ND Rx Da Fi Fi Am Da Di Ph RX Ph St me C No te ll ll ou ys ag ar # ys at rm s nt no ma ic us Or Da si cy ia de te s n re d DC 00 03 04 30 30 00 CL [...] MG CA PS UL E AN 51 03 04 30 30 00 CL Ac 99 -1 -0 .0 00 IN ti TR 10 5- 7- 00 00 IC ve OZ 62 20 20 42 OL 03 17 17 24 PH E 3 31 AR 1 MA MG CY TA BL ET VE 57 03 04 60 30 00 [...] CY ZI NE 1% CR EA M DC 00 02 03 30 30 00 CL Ac RT 09 -1 -1 .0 00 IN ti AZ 37 4- 0- 00 00 IC ve AP 20 20 20 41 IN 65 17 17 67 PH E 6 72 AR 15 MA CY MG TA BL ET VE 57 02 03 [...] 1 MA MG CY TA BL ET OX 13 02 03 45 15 00 CL Ac YC 10 -1 -1 .0 00 IN ti OD 70 5- 0- 00 00 IC ve ON 04 20 20 42 E- 40 17 17 24 PH AC 1 32 AR ET MA AM CY IN OP HE N 5- 32 5 TA 00 02 02 30 30 00 CL Ac MO 59 -0 -2 .0 00 IN ti XI 12 2- 4- 00 00 IC ve FE 47 20 20 41 N 33 17 17 26 PH 20 0 24 AR MA MG CY TA BL ET LI 51 02 02 35 7 00 CL Ac DO 67 -0 -2 .4 00 IN ti CA 23 2- 4- 39 00 IC ve IN 02 20 20 41 E 00 17 17 81 PH 5% 9 62 AR MA OI CY NT ME NT DC 00 01 02 30 30 00 CL Ac RT 09 -1 -1 .0 00 IN ti AZ 37 6- 7- 00 00 IC ve AP 20 20 20 41 IN 65 17 17 67 PH E 6 72 AR 15 MA CY MG TA BL ET VE 57 01 02 [...] CY MG CA PS UL E OX 68 01 02 90 30 00 CL Ac YC 30 -1 -0 .0 00 IN ti OD 80 1- 3- 00 00 IC ve ON 84 20 20 41 E- 10 17 17 88 PH AC 1 07 AR ET MA AM CY IN OP HE N 5- 32 5 TA 00 01 01 30 30 00 CL Ac MO 59 -0 -2 .0 00 IN ti XI 12 2- 7- 00 00 IC ve FE 47 20 20 41 N 31 17 17 26 PH 20 9 24 AR MA MG CY TA BL ET DI 65 01 01 60 30 00 CL Ac VA 86 -0 -2 .0 00 IN ti LP 20 6- 7- 00 00 IC ve RO 59 20 20 41 EX 40 17 17 83 PH 1 38 AR SO MA D CY ER 25 0 MG TA B LI 50 01 01 35 7 00 CL Ac DO 38 -0 -2 .4 00 IN ti CA 30 6- 7- 39 00 IC ve IN 93 20 20 41 E 33 17 17 81 PH 5% 5 62 AR MA OI CY NT ME NT GA 67 12 01 90 30 00 CL Ac BA 87 -1 -1 .0 00 IN ti PE 70 9- 3- 00 00 IC ve NT 22 20 20 41 IN 31 16 17 38 PH 0 54 AR 30 MA 0 CY MG CA PS UL E SI 67 12 01 50 5 00 CL Ac LV 87 -1 -1 .0 00 IN ti ER 70 9- 3- 00 00 IC ve 12 20 20 41 NGUYEN 45 16 17 66 PH LF 0 32 AR AD MA IA CY ZI NE 1% CR EA M VE 57 12 01 60 30 00 CL Ac NL 66 -1 -1 .0 00 IN ti AF 40 9- 3- 00 00 IC ve AX 39 20 20 41 IN 58 16 17 66 PH E 8 57 AR HC MA L CY 75 MG TA BL ET DC 00 12 01 30 30 00 CL Ac RT 09 -1 -1 .0 00 IN ti AZ 37 9- 3- 00 00 IC ve AP 20 20 20 41 IN 65 16 17 66 PH E 6 58 AR 15 MA CY MG TA BL ET Immunization Name Date Route CVX Reacti Commen Provid Is Given on t er Refuse d IIV3 FRYMAN No VACCIN 2016 EUG E SPLIT VIRUS 0.5 ML DOSAGE IM USE TDAP [facility] No VACCIN [address] YRS/> HLTH IM DEPT JANELL PCV13 ANU No VACCIN 2014 KAITLIN E FOR INTRAM USCULA R USE Procedures Procedure DOS Code Location Performer Comment BLOOD 41427 DEX KOWALSKI COUNT 7 [facility] COMPLETE INC INC AUTO&AUTO DIFRNTL WBC COLLECTIO 74390 DEX KOWALSKI N VENOUS 7 [facility] BLOOD INC INC VENIPUNCT URE COMPREHEN 52548 DEX KOWALSKI SIVE 7 [facility] METABOLIC INC INC PANEL RADIATION 18653 JEREMIAS MCDOWELL 7 W W TREATMENT REGIONAL REGIONAL DELIVERY MEDICAL MEDICAL 1 MEV => COMPLEX RADIATION 04257 JEREMIAS DAVILA 7 W TREATMENT PHYSICIAN PRACTIC MANAGEMEN T 5 TREATMENT S CONTINUIN 40877 JEREMIAS Dale MEDICAL 7 W W PHYSICS [facility] MEDICAL MEDICAL AR WK RADIATION 36851 JEREMIAS MCDOWELL 7 W W TREATMENT REGIONAL REGIONAL DELIVERY MEDICAL MEDICAL 1 MEV => COMPLEX RADIATION 60750 JEREMIAS MCDOWELL 7 W W TREATMENT REGIONAL REGIONAL DELIVERY MEDICAL MEDICAL 1 MEV => COMPLEX RADIATION 04845 JEREMIAS MCDOWELL 7 W W TREATMENT REGIONAL REGIONAL DELIVERY MEDICAL MEDICAL 1 MEV => COMPLEX RADIATION 79715 JEREMIAS DAVILA 7 W TREATMENT PHYSICIAN PRACTIC MANAGEMEN T 5 TREATMENT S CONTINUIN 99529 JEREMIAS Dale MEDICAL 7 W W PHYSICS [facility] MEDICAL AR WK THERAPEUT 21541 MEADOWVIE MEADOWVIE IC 7 W W RADIOLOGY REGIONAL [facility]AL [facility] MEDICAL MEDICAL IMAGES(S) RADIATION 14953 JEREMIAS FALKWVIE 7 W W TREATMENT REGIONAL REGIONAL DELIVERY MEDICAL MEDICAL 1 MEV => COMPLEX RADIATION 02416 MEADOWVIE MEADOWVIE 7 W W TREATMENT REGIONAL REGIONAL DELIVERY MEDICAL MEDICAL 1 MEV => COMPLEX RADIATION 38797 ERICDOWLORENZO REYESDOWVIE 7 W W TREATMENT REGIONAL REGIONAL DELIVERY MEDICAL MEDICAL 1 MEV => COMPLEX RADIATION 72688 MEADOWLORENZO MEADOWVIE 7 W W TREATMENT REGIONAL REGIONAL DELIVERY MEDICAL MEDICAL 1 MEV => COMPLEX RADIATION 49752 ERICDOWLORENZO FALKWVIE 7 W W TREATMENT REGIONAL REGIONAL DELIVERY MEDICAL MEDICAL 1 MEV => COMPLEX THER RAD 59858 JEREMIAS MCDOWELL SIMULAJ-A 7 W W IDED REGIONAL REGIONAL FIELD MEDICAL MEDICAL SETTING SIMPLE RADIATION 12540 JEREMIAS DAVILA 7 W TREATMENT PHYSICIAN PRACTIC MANAGEMEN T 5 TREATMENT S CONTINUIN 71319 JEREMIAS MCDOWELL G MEDICAL 7 W W PHYSICS REGIONAL [place] [address] JEREMIAS MCDOWELL DEVICES 7 W W DESIGN & REGIONAL REGIONAL CONSTRUCT MEDICAL MEDICAL ION COMPLEX RADIATION 30974 MEASTONE MEAWVIE 7 W W TREATMENT REGIONAL REGIONAL DELIVERY MEDICAL MEDICAL 1 MEV => COMPLEX RADIATION 91362 JEREMIAS FALKWVIE 7 W W TREATMENT REGIONAL REGIONAL DELIVERY MEDICAL MEDICAL 1 MEV => [place] [address] DEX KOWALSKI FREE 7 [facility] [place] [address] DEX KOWALSKI THYROID 7 [facility] STIMULATI INC INC NG HORMONE TSH BLOOD 33922 DEX KOWALSKI COUNT 7 [facility] COMPLETE INC INC AUTO&AUTO DIFRNTL WBC COMPREHEN 71847 DEX KOWALSKI SIVE 7 [facility] METABOLIC INC INC PANEL RADIATION 64686 DEYAKendrickLORENZO REYESWVIE 7 W W TREATMENT REGIONAL REGIONAL DELIVERY MEDICAL MEDICAL 1 MEV => COMPLEX RADIATION 19839 MEADOWVIE MEADOWVIE 6 W W TREATMENT REGIONAL REGIONAL DELIVERY MEDICAL MEDICAL 1 MEV => COMPLEX RADIATION 45183 MEADOWVIE MEADOWVIE 6 W W TREATMENT REGIONAL REGIONAL DELIVERY MEDICAL MEDICAL 1 MEV => COMPLEX RADIATION 69046 MEADOWVIE LOLA 6 W TREATMENT PHYSICIAN PRACTIC MANAGEMEN T 5 TREATMENT S THERAPEUT 46933 MEADOWVIE MEADOWVIE IC 6 W W RADIOLOGY REGIONAL [facility] MEDICAL MEDICAL IMAGES(S) CONTINUIN 74174 MEADOWVIE MEADOWVIE G MEDICAL 6 W W PHYSICS REGIONAL REGIONAL CONSLTJ MEDICAL MEDICAL AR WK RADIATION 72821 MEADOWVIE MEADOWVIE 6 W W TREATMENT REGIONAL REGIONAL DELIVERY MEDICAL MEDICAL 1 MEV => COMPLEX RADIATION 69905 MEADOWVIE MEADOWVIE 6 W W TREATMENT REGIONAL REGIONAL DELIVERY MEDICAL MEDICAL 1 MEV => COMPLEX RADIATION 22866 MEADOWVIE MEADOWVIE 6 W W TREATMENT REGIONAL [facility]IONAL DELIVERY MEDICAL MEDICAL 1 MEV => COMPLEX RADIATION 25695 MEADOWVIE MEADOWVIE 6 W W TREATMENT REGIONAL REGIONAL DELIVERY MEDICAL MEDICAL 1 MEV => COMPLEX RADIATION 24236 MEADOWVIE MEADOWVIE 6 W W TREATMENT REGIONAL REGIONAL DELIVERY MEDICAL MEDICAL 1 MEV => COMPLEX RADIATION 81418 MEADOWVIE LOLA 6 W TREATMENT PHYSICIAN PRACTIC MANAGEMEN T 5 TREATMENT S CONTINUIN 61965 MEADOWVIE MEADOWVIE G MEDICAL 6 W W PHYSICS REGIONAL REGIONAL CONSLTJ MEDICAL MEDICAL AR WK THERAPEUT 42120 MEADOWVIE MEADOWVIE IC 6 W W RADIOLOGY REGIONAL [facility] MEDICAL MEDICAL IMAGES(S) RADIATION 52922 MEADOWVIE MEADOWVIE 6 W W TREATMENT REGIONAL [facility]IV[facility] MEDICAL MEDICAL 1 MEV => COMPLEX RADIATION 23798 MEADOWVIE MEADOWVIE 6 W W TREATMENT [facility]IV[facility] MEDICAL MEDICAL 1 MEV => COMPLEX RADIATION 47133 MEADOWVIE MEADOWVIE 6 W W TREATMENT [facility]IONAL [facility]IVERY MEDICAL MEDICAL 1 MEV => COMPLEX RADIATION 96035 MEADOWVIE MEADOWVIE 6 W W TREATMENT [facility] DELIVERY MEDICAL MEDICAL 1 MEV => COMPLEX RADIATION 96364 JEREMIAS LOLA 6 W TREATMENT PHYSICIAN PRACTIC MANAGEMEN T 5 TREATMENT S CONTINUIN 67021 JEREMIAS MCDOWELL G MEDICAL 6 W W PHYSICS [facility] MEDICAL MEDICAL AR WK THERAPEUT 93506 JEREMIAS FALKWLORENZO IC 6 W W RADIOLOGY REGIONAL [facility] MEDICAL MEDICAL IMAGES(S) RADIATION 48522 MEADOWLORENZO MEADOWVIE 6 W W TREATMENT REGIONAL [facility] MEDICAL MEDICAL 1 MEV => COMPLEX RADIATION 56734 ERICDOWLORENZO FALKWVIE 6 W W TREATMENT REGIONAL [facility] MEDICAL MEDICAL 1 MEV => COMPLEX RADIATION 32610 MEADOWLORENZO MEADOWVIE 6 W W TREATMENT [facility] MEDICAL MEDICAL 1 MEV => COMPLEX RADIATION 75100 JEREMIAS FALKWVIE 6 W W TREATMENT REGIONAL [facility] MEDICAL MEDICAL 1 MEV => COMPLEX THER RAD 25562 JEREMIAS NERIU SIMULAJ-A 6 W IDED [place] [address] JEREMIAS MCDOWELL DEVICES 6 W W DESIGN & [facility] MEDICAL ION COMPLEX 3-D 50032 JEREMIAS LOLA RADIOTHER 6 W APY PLAN PHYSICIAN DOSE-VOLU PRACTIC ME HISTOGRAM S BASIC 73572 JEREMIAS NERIU RADIATION 6 W PHYSICIAN DOSIMETRY PRACTIC CALCULATI ON IIV3 52149 [facility] FRYMAN VACCINE 6 PHYSICIAN EUG SPLIT S GROUP VIRUS 0.5 ML DOSAGE IM USE IM ADM 74984 [facility] FRYMAN PRQ ID 6 PHYSICIAN EUG SUBQ/IM S GROUP NJXS 1 VACCINE TH[place] RAD 27323 JEREMIAS NERIU SIMULAJ-A 6 W IDED PHYSICIAN FIELD PRACTIC SETTING COMPLEX THERAPEUT 70563 JEREMIAS NERIU IC 6 W RADIOLOGY PHYSICIAN TX PRACTIC PLANNING COMPLEX ONCOLOGY 73163 GENOMIC GENOMIC BREAST [employer], [employer], [employer] EXPRESSIO N [address] [place] [address] DEX KOWALSKI FERRITIN 6 [facility] INC INC COMPREHEN 46338 DEX KOWALSKI SIVE 6 [facility] METABOLIC INC INC PANEL COLLECTIO 42520 DEX KOWALSKI N VENOUS 6 [facility] BLOOD INC INC VENIPUNCT URE BLOOD 83279 DEX KOWALSKI COUNT 6 [facility] COMPLETE INC INC AUTO&AUTO DIFRNTL WBC IRON 90741 DEX KOWALSKI BINDING 6 [facility] [place] [address] DEX KOWALSKI IRON 6 [facility] INC INC RADIOLOGI 62096 [place] RENDON ALL C EXAM 6 MEDICAL CHEST 2 IMAGING VIEWS ASS FRONTAL&L ATERAL BX/EXC 39775 [facility] [place] TOD LYMPH 6 PHYSICIAN NODE OPEN S GROUP DEEP AXILLARY NODE INJ 26250 [place] RENDON RADIOACTI 6 MEDICAL VE TRACER IMAGING FOR ID ASS OF SENTINEL NODE ECG 64000 DEX GORDON ROUTINE 6 [facility] W/LEAST P 12 LDS I&R ONLY TECHNETIU A9541 DEX Laughlin TC-99M 6 [facility] SULFUR INC INC COLLOID DX UP TO 20 MCI MASTECTOM 82249 [facility] [place] TOD Y PARTIAL 6 PHYSICIAN S GROUP ANES 99685 [facility] INTEG 6 ANESTH SHE EXTREMITI OF THE ANT BLUE TRUNK & PERINEUM NOS COMPREHEN 29089 [facility]EX [facility] SIVE 6 [facility] METABOLIC INC INC PANEL COLLECTIO 74347 DEX [facility]AS[facility]KI N VENOUS 6 [facility] B[facility] INC VENIPUNCT URE BLOOD 91398 DEX [facility] COUNT 6 [facility] COMPLETE INC INC AUTO&[place] [address] DEX [facility] ABDOMEN & 6 [facility] PELVIS INC INC W/CONTRAS T MATERIAL CT THORAX 76595 DEXLARRY [facility] 6 [facility] W/CONTRAS INC INC T MATERIAL US BREAST 96411 DEX [facility] UNI REAL 6 [facility] TIME [facility] INC WITH IMAGE COMPLETE PHYSICAL 05691 DEX [facility] THERAPY 6 [facility] EVALUATIO INC INC N FINE 40833 DEX [facility] NEEDLE 6 [facility] INC N WITH IMAGING GUIDANCE PROBE/NEE C2618 DEX [facility] DLE 6 [facility] CRYOABLAT [facility] INC ION DIAGNOSTI G0206 [place] [facility] C 6 [facility] MAMMOGRAP IMAGING HY INCL ASS CAD WHEN PERF; UNI BX BREAST 83198 [place] [facility] W/DEVICE 6 [facility] 1ST IMAGING LESION ASS ULTRASOUN D GUID US BREAST 03569 [place] [facility] UNI REAL 6 [facility] TIME IMAGING WITH ASS IMAGE COMPLETE DUPLEX 97761 [place] [facility] SCAN 6 [facility] EXTRACRAN IMAGING IAL ART ASS COMPL BI STUDY DIAGNOSTI G0206 [place] [facility] C 6 [facility] MAMMOGRAP IMAGING HY INCL ASS CAD WHEN PERF; UNI COMPUTER- 05703 [place] [facility] DETECTION IMAGING ASS SCREENING MAMMOGRAP HY MRI BRAIN 48489 [place] RENDON ALL BRAIN 6 MEDICAL STEM W/O IMAGING CONTRAST ASS MATERIAL SCREENING G0202 [place] [address] MEDICAL MAMMOGRAP IMAGING HY JOAN ASS INCL CAD WHEN PERFORMD SUSCEPTIB 51150 DEX [facility] LTY STDY 6 [facility] ANTIMICRB INC INC IAL MICRO/AGA R DILUTJ CUL BACT 07734 DEX [facility] XCPT 6 [facility] URINE INC INC BLOOD/STO OL AEROBIC ISOL CUL BACT 12708 DEX [facility] AEROBIC 6 [facility] ADDL INC INC METHS DEFINIT[place] EA ISOL I&[place] [address] [facility] DULCE BURGOS 6 PHYSICIAN MADI S GLAND S GROUP ABSCESS TDAP 69890 [facility] VACCINE 7 [facility] YRS/> IM HLTH DEPT JANELL IM ADM 57972 [facility] PRQ ID 6 [facility] SUBQ/IM HLTH DEPT NJXS 1 JANELL VACCINE IADNA 90823 [facility] ER JR CLEM PAPILLOMA VIRUS HIGH-RISK TYPES CYTP 02988 [facility] CERV/VAG [facility] ER JR CLEM AUTO THIN LAYER PREP MNL SCREEN THERAPEUT 75651 DEX [facility] IC 6 [facility] PROPHYLAC INC INC TIC/DX INJECTION SUBQ/IM RADEX 99976 [place] RENDON ALL ANKLE 5 MEDICAL COMPLETE IMAGING MINIMUM 3 ASS VIEWS HOSPITAL G0463 DEX [facility] OUTPATIEN 5 [facility] T CLIN INC INC VISIT ASSESS & [place] [address] ABNER JUSTIN AZAEL MAXILLOFA 5 MEDICAL CIAL W/O SERV CONTRAST FOUNDATIO MATERIAL N RADIOLOGI 24891 ABNER BENZER C 5 MEDICAL WINNIE EXAMINATI SERV ON CHEST FOUNDATIO SINGLE N VIEW FRONTAL ORTHOPANT 41924 ABNER WHITNEY OGRAM 5 [place] [address] [place] [facility] HEAD/BRAI 5 MEDICAL JUANA N W/[place] [address] [place] [facility] MAXILLOFA 5 MEDICAL JUANA CIAL W/[place] [address] [place] [facility] CERVICAL 5 MEDICAL JUANA SPINE W/O IMAGING CONTRAST ASS MATERIAL RADEX 20983 [place] [facility] ELBOW 5 MEDICAL JUANA COMPLETE IMAGING MINIMUM 3 ASS VIEWS RADEX 07426 [place] [facility] RIBS BI 5 MEDICAL JUANA W/POSTERO IMAGING ANT CH ASS MINIMUM 4 VIEWS SMR PRIM 45861 KELLY VALDEZ SRC WET 5 COURTNEY LUCIANO [facility] [place] [address] [place] [facility] TRANSVAGI 5 MEDICAL JUANA NAL IMAGING ASS COMPUTER- 34598 [facility] AIDED 5 MEDICAL JUANA DETECTION IMAGING ASS SCREENING MAMMOGRAP HY SCREENING G0202 [place] ONEAL 5 MEDICAL JUANA MAMMOGRAP IMAGING HY JOAN ASS INCL CAD WHEN PERFORMD BLOOD 15678 KELLY VALDEZ OCCULT 5 COURTNEY LUCIANO PEROXIDAS E ACTV QUAL FECES 1-3 SPEC HANDLG&/O 91826 KELLY VALDEZ R CONVEY 5 COURTNEY JAIN ANKITA OF SPEC FOR TR OFFICE TO LAB CULTURE 48446 KELLY VALDEZ CHLAMYDIA 5 COURTNEY LUCIANO ANY SOURCE IADNA 11431 KELLY VALDEZ NEISSERIA 5 COURTNEY LUCIANO GONORRHOE AE DIRECT PROBE TQ URINLS 69612 KELLY VALDEZ DIP 5 COURTNEY LUCIANO STICK/[place] [address] [facility] ABDOMEN & 5 MEDICAL KEITH PELVIS IMAGING W/O ASS CONTRAST MATERIAL IM ADM 55964 [facility] ANU PRQ ID 5 PHYSICIAN KAITLIN SUBQ/IM S GROUP NJXS 1 VACCINE PCV13 15476 [facility] ANU VACCINE 5 PHYSICIAN KAITLIN FOR S GROUP INTRAMUSC ULAR USE IAADIADOO 67555 [facility] ANU 5 PHYSICIAN KAITLIN INFLUENZA S GROUP RADIOLOGI 59026 [facility] C EXAM 4 MEDICAL JUANA CHEST 2 IMAGING VIEWS ASS FRONTAL&L ATERAL FIT 55792 KRYSTIAN BOLAND CONTACT 4 GRE GRE [place]ENS [place] OCULAR SURFACE DISEASE MRI 17089 DEX [facility] SPINAL 4 [facility] CANAL INC INC LUMBAR W/O CONTRAST MATERIAL MRI 85065 DEX K[facility]ALSK[facility] SPINAL 4 [facility] CANAL INC INC CERVICAL W/O CONTRAST MATRL 3D 81189 DEX [facility] RENDERING 4 [facility] W/INTERP INC INC & POSTPROCE SS SUPERVISI ON RADIOLOGI 64171 [facility] [place] [facility] C EXAM 4 RADIOLOGY RHO CHEST 2 VIEWS FRONTAL&L ATERAL PHYSICAL 92224 DEX [facility] THERAPY 4 [facility] EVALUATIO INC INC N THERAPEUT 21172 DEX KOWALSKI IC PX 1/> 4 [facility] AREAS INC INC EACH 15 MIN EXERCISES OPHTH 34310 K[facility]STIAN BOLAND MEDICAL 4 GRE GRE XM&EVAL COMPRE NEW PT 1/> VST DETERMINA 82994 KRYSTIAN BOLAND TION 4 GRE GRE REFRACTIV E STATE RADEX 54898 DEX K[facility]ALSKI SHOULDER 4 [facility] COMPLETE [place] [address] [place] [address] DEX KOWALSKI HEAD/BRAI 4 [facility] N W/O INC INC CONTRAST MATERIAL 3D 78925 DEX KOWALSKI RENDERING 4 [facility] W/INTERP INC INC & POSTPROCE SS SUPERVISI ON URNLS DIP 80892 DEX K[facility]ALSKI 4 [facility] STICK/TAB INC INC LET REAGENT AUTO MICROSCOP Y BLOOD 63125 [facility] [place], [facility] INC, OCCULT 4 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 PEROXIDAS CHAMP FORBESS E ACTV CO HOS CO HOS QUAL FECES 1 DETER OVA&MELLY 65032 [facility], [facility] INC, ITES 4 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 DIRECT CHAMP CHAMP SMEARS CO HOS CO HOS CONCENTRA TION & ID SMR PRIM 97076 [facility], [facility], SRC CPLX 4 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 SPEC CHAMP CHAMP STAIN CO HOS CO HOS OVA&MELLY ITS CUL BACT 03329 [facility] [place], [facility] INC, STOOL 4 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 AEROBIC CHAMP CHAMP ISOL CO HOS CO HOS SALMONELL A&SHIGELL CUL BACT 58993 [facility], [facility] INC, STOOL 4 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 AEROBIC CHAMP CHAMP ADDL CO HOS CO HOS PATHOGENS &[place] [address] [facility] [place], [facility], CLOSTRIDI 4 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 UM CHAMP CHAMP DIFFIC[place] [address] [facility] [place] [facility], SHIGA-LIK 4 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 E TOXIN [place] [address] [facility] [place], [facility], MULT STEP 4 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 METHOD CHAMPMarlene [place] [address] [facility] [place] MAT HEAD/BRAI 4 RADIOLOGY N W/[place] [address] [facility] [place] MAT CERVICAL 4 RADIOLOGY SPINE W/O CONTRAST MATERIAL SIMPLE 95690 [facility] 4 JAMIR LORNA SCALP/NEC EMERGENCY K/AX/AMMON PHYS T/TRUNK 2.5CM/< [place] [address] [facility] [place] JAM MAXILLOFA 4 RADIOLOGY CIAL W/O CONTRAST MATERIAL Encounters Encounter Start End Date Code Location Performer Type Date OFFICE 04656 DEX DONYA OUTPATIEN 7 7 [facility] 10 P [facility] EDX - 7 7 [facility] OUTPATIEN [facility] T OFFICE 40036 [facility]EX OUTPATIEN 7 7 [facility] VISIT [facility] 10 MINUTES HOSPITAL DEX - 7 7 [facility] 7 7 [facility] 82722 [facility] OUTPATI[facility] 7 7 PHYSICIAN T VISIT S GROUP 15 MINUTES HOSPITAL JEREMIAS - 7 7 W [facility] MEAWVIE - 6 6 W [facility] MEAWVIE - 6 6 W [facility] OFF[facility] 32467 [facility] [place] OUTPATIEN 6 6 PHYSICIAN T VISIT 5 S GROUP MINUTES OFFICE 30895 DEX DONYA OUTPATIEN 6 6 [facility] 10 P MINUTES OFFICE 84921 [facility] OUTPATIEN 6 6 [facility] VISIT MEDICAL 15 GROUP MINUTES OFFICE 18033 DEX DONYA OUTPATIEN [address] H[facility]PITAL DEX - 6 6 [facility] OUTPATIEN [facility] OFFICE 59448 [facility] [place] OUTPATIEN 6 6 PHYSICIAN EUG T VISIT S GROUP 15 MINUTES HOSPITAL DEX - 6 6 [facility] OUTPATIEN [facility] DEX - 6 6 [facility] OUTPATIEN INC T OFFICE 22185 [facility] [place] CONSULTAT 6 6 PHYSICIAN ION S GROUP NEW/ESTAB PATIENT 40 MIN OFFICE 70427 [facility] 6 6 [facility] T VISIT 5 [facility] MINUTES [facility] DEX - 6 6 [facility] OUTPATIEN INC T OFFICE 57958 DEX [facility] OUTPATIEN 6 6 [facility] T VISIT [facility] DEX - 6 6 [facility] DEX - 6 6 [facility] OUTPATIEN INC T OFFICE 26062 [facility] OUTPATIEN 6 6 PHYSICIAN T NEW 45 S GROUP [facility] DEX - 6 6 [facility]PATI[facility] T OFFICE 70495 [facility] 6 6 [facility] T VISIT [facility] DEX - 6 6 [facility] OUTPATIEN INC T PERIODIC 63175 DHS/CO PREVENTIV 6 6 HEALTH E MED EST PATIENT 40-64YRS EMERGENCY 34067 FAREED BENSON 6 6 PHYSICIAN FOR [facility]IE [facility] T VISIT HIGH/URGE NT SEVERITY EMERGENCY 52507 DEX 6 6 [facility] T VISIT LOW/MODER SEVERITY HOSPITAL DEX - 6 6 [facility] OUTPATIEN [facility] T OFFICE 42732 [facility] 5 5 MD YISSEL, T VISIT [facility] DEX - 5 5 [facility]PATIEN [facility] DEX - 5 5 [facility] OUTPATIEN INC T OFFICE 33372 [facility]TE YEHX BUX ANJ OUTPATIEN 5 5 T NEW 30 MINUTES OFFICE 02231 [facility] ANU OUTPATIEN 5 5 PHYSICIAN KAITLIN T VISIT S GROUP 10 MINUTES EMERGENCY 25757 [place] LOLA 5 5 MEDICAL ANGEL DEPARTMEN SERV T VISIT FOUNDATIO HIGH/URGE N NT SEVERITY OFFICE 36124 [facility] ANU OUTPATIEN 5 5 PHYSICIAN KAITLIN T VISIT 5 S GROUP MINUTES OFFICE 49786 KELLY VALDEZ OUTPATIEN 5 5 COURTNEY JAIN ANKITA T VISIT 25 MINUTES OFFICE 49431 KELLY VALDEZ OUTPATIEN 5 5 COURTNEY JAIN ANKITA T VISIT 15 MINUTES HOSPITAL DEX - 5 5 [facility] OUTPATIEN INC T INITIAL 87056 KELLY VALDEZ PREVENTIV 5 5 COURTNEY JAIN ANKITA E MEDICINE NEW PATIENT 40-64YRS OFFICE 13627 [facility] ANU OUTPATIEN 5 5 PHYSICIAN KAITLIN T VISIT S GROUP 10 MINUTES OFFICE 90061 KRYSTIAN MATUTE 4 4 GRE GRE T VISIT 25 MINUTES OFFICE 04534 [facility] TRA CONSULTAT 4 4 [place] ION ORTHOPAED NEW/ESTAB ICS PLC PATIENT 40 MIN OFFICE 20863 KRYSTIAN MATUTE 4 4 GRE GRE T VISIT 25 MINUTES EMERGENCY 57593 [facility] BAB DEPT 4 4 JAMIR VISIT EMERGENCY HIGH PHYS SEVERITY& THREAT [facility] DEX - 4 4 [facility] OUTPATIEN INC T EMERGENCY 37550 [facility] 4 4 JAMIR ROSA DEPARTMEN EMERGENCY T VISIT PHYS HIGH/URGE NT SEVERITY HOSPITAL DEX - 4 4 [facility] OUTPATIEN INC T OFFICE 55565 [facility] ANU OUTPATIEN 4 4 PHYSICIAN KAITLIN T VISIT S GROUP 10 MINUTES HOSPITAL DEX - 4 4 [facility] OUTPATIEN INC T OFFICE 41718 [facility] PETTEY OUTPATIEN 4 4 PHYSICIAN JAM T NEW 10 S GROUP MINUTES OFFICE 66787 [facility] ANU OUTPATIEN 4 4 PHYSICIAN KAITLIN T VISIT S GROUP 15 MINUTES EMERGENCY 33394 DEX 4 4 [facility] DEPARTMEN INC T VISIT LOW/MODER SEVERITY HOSPITAL DEX - 4 4 [facility] OUTPATIEN INC T [facility]PITAL [facility] INC, - 4 4 STEEL LOADER OUTPATIEN [facility] OFFICE 56428 [facility] OUTPATIEN 4 4 COUNT INCLUDES [facility] T VISIT RURAL 15 HEALTH MINUTES EMERGENCY 44324 [facility] DEPT 4 4 JAMIR PAT VISIT EMERGENCY HIGH PHYS SEVERITY& THREAT FUN EMERGENCY 18350 [facility] 4 4 JAMIR LORNA DEPARTMEN EMERGENCY T VISIT PHYS HIGH/URGE NT SEVERITY
--- OUTSIDE RECORDS SUMMARY | 2017-03-03 17:42 | External Medical Summary Rpt ---
Author Author , Organization [employer] Address Unknown Phone Unavailable Care Team Providers Care Teacher Tutor Name Role Phone MOSHE DEY MD, PSC, [...] EUG ANU KAITLIN, ANU Unavailable Unavailable KAITLIN [employer] Unavailable Unavailable [employer] KELLY VALDEZ MD, Unavailable Unavailable KELLY VALDEZ MD GREDAVID LORNA, GREISER Unavailable Unavailable LORNA ELIECER RHO, ELIECER Unavailable Unavailable RHO HARPEL ANKITA, HARPEL Unavailable Unavailable ANKITA [facility] Unavailable Unavailable INC, [facility] Unavailable Unavailable HOSPITAL, [facility] Unavailable Unavailable HOSPITAL P, [facility] P [facility], Unavailable Unavailable [facility] HARRIS TRA, HARRIS TRA Unavailable Unavailable NGUYEN NAN, NGUYEN Unavailable Unavailable [facility]AN [facility] Unavailable Unavailable [facility], [facility] JUSTIN AZAEL, JUSTIN AZAEL Unavailable Unavailable [facility] K[facility]ST[facility] GRE, Unavailable Unavailable [facility], Unavailable Unavailable [facility] FLACO KEY, Unavailable Unavailable FLACO MACKEY [facility] Unavailable Unavailable [facility] [facility] Unavailable Unavailable MEDICAL, [facility], [facility] Unavailable Unavailable [facility], [facility], [facility] Unavailable Unavailable HEALTH, [facility] Unavailable Unavailable LABS, [...] WINNIE WALKER FOR, WALKER Unavailable Unavailable FOR [facility] Unavailable Unavailable DEPT JANELL, MEDICINE [facility] DE[facility] JANELL ERICKSON MAT, ERICKSON MAT Unavailable Unavailable Purpose Continuity of Care Document - 11-21-2013 through 2016 Problems Code Diagnosis DOS Provider Status [id number] MALIGNANT 01-18-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 Z510 ENCOUNTER 11-24-2016 [place] [facility] ANTINEOPLAS PRACTIC TIC RADIATION THERAPY [id number] MALIGNANT 11-16-2016 [facility]EX NEOPLASM [facility] INC RIGHT FEMALE BREAST I10 ESSENTIAL 11-09-2016 [facility] PRIMARY PHYSICIANS HYPERTENSIO GROUP N Z23 ENCOUNTER 09-23-2016 [facility] FOR PHYSICIANS IMMUNIZATIO GROUP N B354 TINEA 08-26-2016 [facility] R110 NAUSEA 08-26-2016 [facility] R079 CHEST PAIN 07-20-2016 [facility] UNSPECIFIED MEDICAL IMAGING ASS R42 DIZZINESS 07-20-2016 [facility] AND MEDICAL GIDDINESS IMAGING ASS N649 DISORDER OF 06-20-2016 [facility] BREAST PHYSICIANS UNSPECIFIED GROUP Z129 ENCOUNTER 06-06-2016 [place] SCREENING MEDICAL MALIGNANT IMAGING ASS NEOPLASM SITE UNS Z853 PERSONAL 06-06-2016 [place] [facility] MALIG NEOPLASM BREAST F15189 MIGRAINE 05-04-2016 [facility] W/AURA NOT [facility] INTRACT W/O INC STAT MIGRAINOSUS N63 UNSPECIFIED 05-04-2016 [facility] LUMP IN MEDICAL BREAST IMAGING ASS R51 HEADACHE 05-04-2016 [facility] INC R922 INCONCLUSIV 05-04-2016 DEX E MAMMOGRAM [facility] INC H6090 UNSPECIFIED 04-21-2016 [facility] UNSPECIFIED EAR L299 PRURITUS 04-21-2016 [facility] Y44035 MIGRAINE 04-19-2016 [place] UNS NOT MEDICAL INTRACT W/O IMAGING ASS STATUS MIGRAINOSUS R928 OTH ABNORM 04-19-2016 [place] & MEDICAL INCONCLUSIV IMAGING ASS E FIND ON DX IMAG BREAST Z1231 ENCOUNTER 03-28-2016 [place] SCREENING MEDICAL MAMMO MALIG IMAGING ASS NEOPLASM BREAST U09526 VAG HIGH 02-24-2016 [facility] RISK [facility] PAPILLOMAVI VIRGIL DNA TEST POS N750 CYST OF 02-10-2016 [facility] GLAND INC N751 ABSCESS OF 02-10-2016 [facility] BARTHOLINS PHYSICIANS GLAND GROUP C47429 CERV HIGH 02-09-2016 [facility] PAPILLOMAVI VIRGIL DNA TEST POS K56617 ENCOUNTER 02-09-2016 [facility] GENERAL RTN W/ABNORMAL FIND T39019 ENCOUNTER 02-09-2016 [facility] GENERAL RTN W/O ABNORMAL FIND Z1239 ENCOUNTER 02-09-2016 DHS/CO OTHER HEALTH SCREENING MALIG NEOPLASM BREAST H53290 ACQUIRED 02-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 CERVIX AND UTERUS Z720 TOBACCO USE 12-01-2015 [facility] INC Z8781 PERSONAL 12-01-2015 [facility] HIST[facility] OF [facility] HEALED INC TRAUMATIC FRACTURE 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 , PSC OSACRAL INTERVERTEB RAL DISC 7244 THORACIC/SIM 07-14-2015 PATRICIA ZHOU MD, PSC NEURITIS/RA DICULITIS UNSPEC 71787 PAIN IN 06-30-2015 [place] [facility], MEDICAL ANKLE AND IMAGING ASS FOOT 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 7242 LUMBAGO 04-03-2015 [facility] PHYSICIANS GROUP 89293 OTHER 03-13-2015 [place] MEDICAL DISEASES OF SERV NASAL FOUNDATION CAVITY AND SINUSES 57244 UNSPECIFIED 03-13-2015 [place] MEDICAL DENTAL SERV CARIES FOUNDATION 55845 CLOSED 03-13-2015 [place] MED[facility] FRACTURE SERV SUBCONDYLAR FOUNDATION PROCESS MANDIBLE 93201 TOOTH 03-13-2015 [place] MEDICAL BROKEN FX SERV DUE TO FOUNDATION TRAUMA W/O MENTION COMP 33501 JAW PAIN 03-12-2015 [place] [facility] SERV [facility] E9293 LATE 03-12-2015 [place] MEDICAL EFFECTS OF SERV ACCIDENTAL FOUNDATION FALL V5832 ENCOUNTER 03-10-2015 [facility] FOR REMOVAL PHYSICIANS OF SUTURES GROUP 7231 CERVICALGIA 03-01-2015 [facility] 30071 INJURY OF 03-01-2015 [place] FACE AND MEDICAL NECK OTHER IMAGING ASS AND UNSPECIFIED 45405 PAIN IN 02-28-2015 [place] [facility], MEDICAL UPPER ARM IMAGING ASS 66368 CHEST PAIN 02-28-2015 [place] UNSPECIFIED MEDICAL IMAGING ASS 78313 CLOSED 02-28-2015 [place] FRACTURE OF MEDICAL IMAGING ASS UNSPECIFIED SITE OF MANDIBLE 8300 CLOSED 02-28-2015 [place] DISLOCATION MEDICAL OF JAW IM[facility]ING ASS 8505 CONCUSSION 02-28-2015 [place] WITH LOC OF MEDICAL IMAGING ASS UNSPECIFIED DURATION 62091 OTHER 02-28-2015 [place] INJURY OF MEDICAL CHEST WALL IMAGING ASS 9593 INJURY 02-28-2015 [place] OTHER&UNSPE MEDICAL CIFIED IMAGING ASS [facility]&WRI ST 9392 FOREIGN 02-26-2015 KELLY Calvin BODY IN COURTNEY JAIN VULVA AND VAGINA 13543 TRICHOMONAL 02-23-2015 KELLY VALDEZ MD VULVOVAGINI TIS 6272 SYMPTOMATIC 02-23-2015 KELLY VALDEZ MD MENOPAUSAL/ FEMALE CLIMACTERIC STATES V1322 PERSONAL 02-23-2015 KELLY Calvin HISTORY OF COURTNEY JAIN CERVICAL DYSPLASIA 6271 POSTMENOPAU 02-16-2015 [place] ALONDRA MEDICAL BLEEDING IMAGING ASS V7612 OTHER 02-16-2015 [place] SCREENING MEDICAL MAMMOGRAM IMAGING ASS 6273 POSTMENOPAU 02-03-2015 KELLY VALDEZ MD ATROPHIC VAGINITIS V7231 ROUTINE 02-03-2015 KELLY Calvin GYNECOLOGIC COURTNEY JAIN AL EXAMINATION V7641 SCREENING 02-03-2015 KELLY 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 03443 ABDOMINAL 01-26-2015 [place] PAIN OTHER MEDICAL SPECIFIED IMAGING ASS SITE V0382 NEED PROPH 11-21-2014 [facility] VACCINATION PHYSICIANS AGAINST GROUP STREP PNEUMONE V0481 NEED 11-21-2014 [facility] PROPHYLACTI PHYSICIANS C GROUP VACCINATION &INOCULATIO N FLU 490 BRONCHITIS 11-14-2014 [facility] NOT PHYSICIANS SPECIFIED GROUP ACUTE OR CHRONIC 7862 COUGH 10-05-2014 [facility] 7869 OTH 10-05-2014 [place] SYMPTOMS MEDICAL INVOLVING IMAGING ASS RESPIRATORY SYSTEM&CHES T 42351 UNSPECIFIED 09-12-2014 [facility] SUBJECTIVE [facility] VISUAL DISTURBANCE 16811 PAIN IN OR 09-12-2014 [facility] AROUND [facility]YE [facility] 9308 FOREIGN 09-12-2014 [facility] BODY GRE OTHER&COMBI BUDDY SITES EXTERNAL EYE 59708 OTHER 09-01-2014 [facility] VISUAL GRE DISTORTIONS AND ENTOPTIC PHENOMENA 93688 UNSPECIFIED 09-01-2014 [facility] SCLERITIS GRE 95591 VOMITING 08-20-2014 [facility] N EMERGENCY PHYS 05736 DIARRHEA 08-20-2014 [facility] N EMERGENCY PHYS 7234 BRACHIAL 08-13-2014 [place] NEURITIS OR MEDICAL IMAGING ASS RADICULITIS NOS 7820 DISTURBANCE 08-13-2014 [place] OF SKIN MEDICAL SENSATION IMAGING ASS 15172 OBST 08-07-2014 [facility] CHRONIC N EMERGENCY BRONCHITIS PHYS W/ACUTE BRONCHITIS 36445 FEVER 08-07-2014 [facility] [place] UNSPECIFIED RADIOLOGY 53793 PAIN IN 06-27-2014 [facility], [facility] SHOULDER INC REGION V571 OTHER 06-27-2014 [facility] PH[facility]ICAL [facility] THERAPY INC 98798 UNSPEC 06-18-2014 [facility] DISORDERS PHYSICIANS BURSAE&TEND GROUP ONS SHOULDER REGION V720 EXAMINATION 06-11-2014 [facility] OF EYES GRE AND VISION 7262 OTHER 06-04-2014 [facility] AFFECTIONS PHYSICIANS OF SHOULDER GROUP REGION NEC 3699 UNSPECIFIED 05-27-2014 [facility] VISUAL PHYSICIANS LOSS GROUP 76731 UNSPECIFIED 05-27-2014 [facility] TINNITUS PHYSICIANS GROUP 34830 UNSPECIFIED 04-07-2014 [place] [facility]IA [facility] 7804 DIZZINESS 04-07-2014 [place] AND MEDICAL GIDDINESS IMAGING ASS V642 SURG/OTH 04-07-2014 D[facility] PROC NOT [facility] CARRIED OUT INC BECAUSE PTS DECN 4610 ACUTE 01-20-2014 [facility] MAXILLARY [facility] 37675 ABDOMINAL 01-20-2014 [facility] 7840 HEADACHE 12-11-2013 [facility] N EMERGENCY PHYS E8889 UNSPECIFIED 12-11-2013 [facility] [place] FALL RADIOLOGY 8470 NECK SPRAIN 12-10-2013 [facility] AND STRAIN N EMERGENCY PHYS 8730 OPEN WOUND 12-10-2013 [facility] SCALP N EMERGENCY WITHOUT PHYS MENTION COMPLICATIO N E8888 OTHER FALL 12-10-2013 [facility] N EMERGENCY PHYS 43721 SWELLING OR 11-21-2013 [facility] [place] MASS OF [...] ia de te s n re d MA 00 03 04 30 30 00 CL [...] CY ZI NE 1% CR EA M MA 00 02 03 30 30 00 CL [...] AR MA OI CY NT ME NT MA 00 01 02 30 30 00 CL [...] L CY 75 MG TA BL ET MA 00 12 01 30 30 00 CL [...] Procedure DOS Code Location Performer Comment BLOOD 00376 DEX [facility] COUNT 7 [facility] COMPLETE INC INC AUTO&AUTO DIFRNTL WBC COLLECTIO 45086 DEX [facility] N VENOUS 7 [facility] BLOOD INC INC VENIPUNCT URE COMPREHEN 79053 DEX [facility]ALSKI SIVE 7 [facility] METABOLIC INC INC PANEL RADIATION 99581 JEREMIAS MCDOWELL 7 W W TREATMENT REGIONAL REGIONAL DELIVERY MEDICAL MEDICAL 1 MEV => COMPLEX RADIATION 38939 JEREMIAS DAVILA 7 W TREATMENT PHYSICIAN PRACTIC MANAGEMEN T 5 TREATMENT S CONTINUIN 88632 JEREMIAS Dale MEDICAL 7 W W PHYSICS [facility] [place] RADIATION 56475 JEREMIAS MCDOWLEL 7 W W TREATMENT REGIONAL REGIONAL DELIVERY MEDICAL MEDICAL 1 MEV => COMPLEX RADIATION 88662 JEREMIAS MCDOWELL 7 W W TREATMENT REGIONAL REGIONAL DELIVERY MEDICAL MEDICAL 1 MEV => COMPLEX RADIATION 41990 JEREMIAS MCDOWELL 7 W W TREATMENT REGIONAL REGIONAL DELIVERY MEDICAL MEDICAL 1 MEV => COMPLEX RADIATION 15958 JEREMIAS DAVILA 7 W TREATMENT PHYSICIAN PRACTIC MANAGEMEN T 5 TREATMENT S CONTINUIN 91429 JEREMIAS Dale MEDICAL 7 W W PHYSICS [facility] MEDICAL [place] THERAPEUT 44335 MEADOWVIE MEADOWVIE IC 7 W W RADIOLOGY REGIONAL REGIONAL PORT MEDICAL MEDICAL IMAGES(S) RADIATION 83028 JEREMIAS FALKWVIE 7 W W TREATMENT REGIONAL REGIONAL DELIVERY MEDICAL MEDICAL 1 MEV => COMPLEX RADIATION 57083 MEADOWVIE MEADOWVIE 7 W W TREATMENT REGIONAL REGIONAL DELIVERY MEDICAL MEDICAL 1 MEV => COMPLEX RADIATION 76669 ERICDOWLORENZO REYESDOWVIE 7 W W TREATMENT REGIONAL REGIONAL DELIVERY MEDICAL MEDICAL 1 MEV => COMPLEX RADIATION 94914 MEADOWLORENZO MEADOWVIE 7 W W TREATMENT REGIONAL REGIONAL DELIVERY MEDICAL MEDICAL 1 MEV => COMPLEX RADIATION 39344 ERICDOWLORENZO FALKWVIE 7 W W TREATMENT REGIONAL REGIONAL DELIVERY MEDICAL MEDICAL 1 MEV => COMPLEX THER RAD 87073 JEREMIAS MCDOWELL SIMULAJ-A 7 W W IDED REGIONAL REGIONAL FIELD MEDICAL MEDICAL SETTING SIMPLE RADIATION 92072 JEREMIAS DAVILA 7 W TREATMENT PHYSICIAN PRACTIC MANAGEMEN T 5 TREATMENT S CONTINUIN 14600 JEREMIAS MCDOWELL G MEDICAL 7 W W PHYSICS REGIONAL [place] [address] JEREMIAS MCDOWELL DEVICES 7 W W DESIGN & REGIONAL REGIONAL CONSTRUCT MEDICAL MEDICAL ION COMPLEX RADIATION 70222 MEASTONE MEAWVIE 7 W W TREATMENT REGIONAL REGIONAL DELIVERY MEDICAL MEDICAL 1 MEV => COMPLEX RADIATION 53220 JEREMIAS FALKWVIE 7 W W TREATMENT REGIONAL REGIONAL DELIVERY MEDICAL MEDICAL 1 MEV => [place] [address] DEX KOWALSKI FREE 7 [facility] [place] [address] DEX KOWALSKI THYROID 7 [facility] STIMULATI INC INC NG HORMONE TSH BLOOD 87868 DEX KOWALSKI COUNT 7 [facility] COMPLETE INC INC AUTO&AUTO DIFRNTL WBC COMPREHEN 45578 DEX KOWALSKI SIVE 7 [facility] METABOLIC INC INC PANEL RADIATION 19360 DEYAKendrickLORENZO REYESWVIE 7 W W TREATMENT REGIONAL REGIONAL DELIVERY MEDICAL MEDICAL 1 MEV => COMPLEX RADIATION 10144 MEADOWVIE MEADOWVIE 6 W W TREATMENT REGIONAL REGIONAL DELIVERY MEDICAL MEDICAL 1 MEV => COMPLEX RADIATION 97114 MEADOWVIE MEADOWVIE 6 W W TREATMENT REGIONAL REGIONAL DELIVERY MEDICAL MEDICAL 1 MEV => COMPLEX RADIATION 34752 MEADOW[facility]IE LOLA 6 W TREATMENT PHYSICIAN PRACTIC MANAGEMEN T 5 TREATMENT S THERAPEUT 21323 MEADOWVIE MEADOWVIE IC 6 W W RADIOLOGY REGIONAL REGIONAL PORT MEDICAL MEDICAL IMAGES(S) CONTINUIN 99609 MEADOWVIE MEADOWVIE G MEDICAL 6 W W PHYSICS REGIONAL REGIONAL CONSLTJ MEDICAL MEDICAL UT WK RADIATION 36440 MEADOWVIE MEADOWVIE 6 W W TREATMENT REGIONAL REGIONAL DELIVERY MEDICAL MEDICAL 1 MEV => COMPLEX RADIATION 66482 MEADOWVIE MEADOWVIE 6 W W TREATMENT REGIONAL REGIONAL DELIVERY MEDICAL MEDICAL 1 MEV => COMPLEX RADIATION 63976 MEADOWVIE MEADOWVIE 6 W W TREATMENT REGIONAL REGIONAL DELIVERY MEDICAL MEDICAL 1 MEV => COMPLEX RADIATION 61179 MEADOWVIE MEADOWVIE 6 W W TREATMENT REGIONAL REGIONAL DELIVERY MEDICAL MEDICAL 1 MEV => COMPLEX RADIATION 72535 MEADOWVIE MEADOWVIE 6 W W TREATMENT REGIONAL REGIONAL DELIVERY MEDICAL MEDICAL 1 MEV => COMPLEX RADIATION 18743 MEADOWVIE LOLA 6 W TREATMENT PHYSICIAN PRACTIC MANAGEMEN T 5 TREATMENT S CONTINUIN 12378 MEADOWVIE MEADOWVIE G MEDICAL 6 W W PHYSICS REGIONAL REGIONAL CONSLTJ MEDICAL MEDICAL UT WK THERAPEUT 72211 MEADOWVIE MEADOWVIE IC 6 W W RADIOLOGY REGIONAL REGIONAL PORT MEDICAL MEDICAL IMAGES(S) RADIATION 05871 MEADOWVIE MEADOWVIE 6 W W TREATMENT REGIONAL REGIONAL DELIVERY MEDICAL MEDICAL 1 MEV => COMPLEX RADIATION 37660 MEADOW[facility]IE MEADOWVIE 6 W W TREATMENT REGIONAL REGIONAL DELIVERY MEDICAL MEDICAL 1 MEV => COMPLEX RADIATION 45334 MEADOW[facility]IE MEADOWVIE 6 W W TREATMENT REGIONAL REGIONAL DELIVERY MEDICAL MEDICAL 1 MEV => COMPLEX RADIATION 93323 MEADOWVIE MEADOWVIE 6 W W TREATMENT [facility] DELIVERY MEDICAL MEDICAL 1 MEV => COMPLEX RADIATION 36867 JEREMIAS LOLA 6 W TREATMENT PHYSICIAN PRACTIC MANAGEMEN T 5 TREATMENT S CONTINUIN 30356 JEREMIAS MCDOWELL G MEDICAL 6 W W PHYSICS REGIONAL [facility] MEDICAL [place] THERAPEUT 94940 JEREMIAS FALKWLORENZO IC 6 W W RADIOLOGY REGIONAL [facility] MEDICAL MEDICAL IMAGES(S) RADIATION 59033 MEADOWLORENZO MEADOWVIE 6 W W TREATMENT REGIONAL [facility] MEDICAL MEDICAL 1 MEV => COMPLEX RADIATION 74909 ERICDOWLORENZO FALKWVIE 6 W W TREATMENT [facility]AL [facility] MEDICAL MEDICAL 1 MEV => COMPLEX RADIATION 59880 MEADOWLORENZO MEADOWVIE 6 W W TREATMENT [facility] MEDICAL MEDICAL 1 MEV => COMPLEX RADIATION 68577 JEREMIAS FALKWVIE 6 W W TREATMENT REG[facility]AL [facility] MEDICAL MEDICAL 1 MEV => COMPLEX THER RAD 96694 JEREMIAS NERIU SIMULAJ-A 6 W IDED [place] [address] JEREMIAS MCDOWELL DEVICES 6 W W DESIGN & REGIONAL [facility] MEDICAL ION COMPLEX 3-D 24651 JEREMIAS LOLA RADIOTHER 6 W APY PLAN PHYSICIAN DOSE-VOLU PRACTIC ME HISTOGRAM S BASIC 02521 JEREMIAS NERIU RADIATION 6 W PHYSICIAN DOSIMETRY PRACTIC CALCULATI ON IIV3 63062 [facility] FRYMAN VACCINE 6 PHYSICIAN EUG SPLIT S GROUP VIRUS 0.5 ML DOSAGE IM USE IM ADM 35458 [facility] FRYMAN PRQ ID 6 PHYSICIAN EUG SUBQ/IM S GROUP NJXS 1 VACCINE THER RAD 55848 JEREMIAS NERIU SIMULAJ-A 6 W IDED PHYSICIAN FIELD PRACTIC SETTING COMPLEX THERAPEUT 04506 JEREMIAS NERIU IC 6 W RADIOLOGY PHYSICIAN TX PRACTIC PLANNING COMPLEX ONCOLOGY 79190 GENOMIC GENOMIC BREAST Baofeng, Baofeng, MRNA GENE [employer] EXPRESSIO N [address] [place] [address] DEX KOWALSKI FERRITIN 6 [facility] INC INC COMPREHEN 86418 DEX KOWALSKI SIVE 6 [facility] METABOLIC INC INC PANEL COLLECTIO 44263 DEX KOW[facility]SKI N VENOUS 6 [facility] BLOOD INC INC VENIPUNCT URE BLOOD 66724 DEX KOWALSKI COUNT 6 [facility] COMPLETE INC INC AUTO&AUTO DIFRNTL WBC IRON 25575 DEX KOWALSKI BINDING 6 [facility] [place] [address] DEX KOWALSKI IRON 6 [facility] INC INC RADIOLOGI 62448 [place] RENDON ALL C EXAM 6 MEDICAL CHEST 2 IMAGING VIEWS ASS FRONTAL&L ATERAL BX/EXC 75116 [facility] [place] TOD LYMPH 6 PHYSICIAN NODE OPEN S GROUP DEEP AXILLARY NODE INJ 78163 [place] RENDON RADIOACTI 6 MEDICAL VE TRACER IMAGING FOR ID ASS OF SENTINEL NODE ECG 85998 DEX GORDON ROUTINE 6 [facility] W/LEAST P 12 LDS I&R ONLY TECHNETIU A9541 DEX Laughlin TC-99M 6 [facility] SULFUR INC INC COLLOID DX UP TO 20 MCI MASTECTOM 90609 [facility] [place] TOD Y PARTIAL 6 PHYSICIAN S GROUP ANES 58100 [facility] INTEG 6 ANESTH SHE EXTREMITI OF THE ANT BLUE TRUNK & PERINEUM NOS COMPREHEN 81232 DEX KOWALSKI SIVE 6 [facility] METABOLIC INC INC PANEL COLLECTIO 08228 DEX KOWALSKI N VENOUS 6 [facility] BLOOD INC INC VENIPUNCT URE BLOOD 79644 DEX KOWALSKI COUNT 6 [facility] COMPLETE INC INC AUTO&[place] [address] DEX KOWALSKI ABDOMEN & 6 [facility] PELVIS INC INC W/CONTRAS T MATERIAL CT THORAX 55087 DEXLARRY WASHBURNON 6 [facility] W/CONTRAS INC INC T MATERIAL US BREAST 36976 DEX KOWALSKI UNI REAL 6 [facility] TIME INC INC WITH IMAGE COMPLETE PHYSICAL 71243 DEX KOWALSKI THERAPY 6 [facility] EVALUATIO INC INC N FINE 90631 DEX KOWALSKI NEEDLE 6 [facility] ASPIRATIO INC INC N WITH IMAGING GUIDANCE PROBE/NEE C2618 DEX KOWALSKI DLE 6 [facility] CRYOABLAT INC INC ION DIAGNOSTI G0206 [place] ONEAL C 6 MEDICAL JUANA MAMMOGRAP IMAGING HY INCL ASS CAD WHEN PERF; UNI BX BREAST 45765 [place] ONEAL W/DEVICE 6 MEDICAL JUANA 1ST IMAGING LESION ASS ULTRASOUN D GUID US BREAST 09833 [place] ONEAL UNI REAL 6 MEDICAL JUANA TIME IMAGING WITH ASS IMAGE COMPLETE DUPLEX 12910 [place] ONE[facility] SCAN 6 MEDICAL JUANA EXTRACRAN IMAGING IAL ART ASS COMPL BI STUDY DIAGNOSTI G0206 [place] ONEAL C 6 MEDICAL JUANA MAMMOGRAP IMAGING HY INCL ASS CAD WHEN PERF; UNI COMPUTER- 49324 [place] [facility] A[facility]ED 6 MEDICAL DETECTION IMAGING ASS SCREENING MAMMOGRAP HY MRI BRAIN 36058 [place] RENDON ALL BRAIN 6 MEDICAL STEM W/O IMAGING CONTRAST ASS MATERIAL SCREENING G0202 [place] [address] MEDICAL MAMMOGRAP IMAGING HY JOAN ASS INCL CAD WHEN PERFORMD SUSCEPTIB 36500 DEX KOWALSKI LTY STDY 6 [facility] ANTIMICRB INC INC IAL MICRO/AGA R DILUTJ CUL BACT 24797 DEX KOWALSKI XCPT 6 [facility] URINE INC INC BLOOD/STO OL AEROBIC ISOL CUL BACT 53782 DEX KOWALSKI AEROBIC 6 [facility] ADDL INC INC METHS DEFINITIV [place] EA ISOL I&D [place] [address] [facility] DULCE BURGOS 6 PHYSICIAN MADI S GLAND S GROUP ABSCESS TDAP 78496 [facility] VACCINE 7 6 [facility] YRS/> IM HLTH DEPT JANELL IM ADM 67124 [facility] PRQ ID 6 [facility] SUBQ/IM HLTH DEPT NJXS 1 JANELL VACCINE IADNA 47390 [facility] ER JR CLEM P[place] VIRUS HIGH-RISK TYPES CYTP 23191 [facility] CERV/VAG 6 [facility] ER JR CLEM AUTO THIN LAYER PREP MNL SCREEN THERAPEUT 99977 DEX K[facility]ALSKI IC 6 [facility] PROPHYLAC INC INC TIC/DX INJECTION SUBQ/IM RADEX 43697 [place] REND[facility] ALL ANKLE 5 MEDICAL COMPLETE IMAGING MINIMUM 3 ASS VIEWS HOSPITAL G0463 DEX KOWALSKI OUTPATIEN 5 [facility] T CLIN INC INC VISIT ASSESS & [place] [address] ABNER JUSTIN AZAEL MAXILLOFA 5 MEDICAL CIAL W/O SERV CONTRAST FOUNDATIO MATERIAL N RADIOLOGI 33564 ABNER BENZER C 5 MEDICAL WINNIE EXAMINATI SERV ON CHEST FOUNDATIO SINGLE N VIEW FRONTAL ORTHOPANT 50127 ABNER WHITNEY OGRAM 5 [place] [address] [place] ONEAL HEAD/BRAI 5 MEDICAL JUANA N W/[place] [address] [place] [facility] MAXILLOFA 5 MEDICAL JUANA CIAL W/[place] [address] [place] [facility] CERVICAL 5 MEDICAL JUANA SPINE W/O IMAGING CONTRAST ASS MATERIAL RADEX 87302 [place] [facility] ELBOW 5 MEDICAL JUANA COMPLETE IMAGING MINIMUM 3 ASS VIEWS RADEX 39316 [place] [facility] RIBS BI 5 MEDICAL JUANA W/POSTERO IMAGING ANT CH ASS MINIMUM 4 VIEWS SMR PRIM 65127 KELLY VALDEZ SRC WET 5 COURTNEY LUCIANO [facility] [place] [address] [place] ONEAL TRANSVAGI 5 MEDICAL JUANA NAL IMAGING ASS COMPUTER- 43996 [facility] A[facility] 5 MED[facility] JUANA DETECTION IMAGING ASS SCREENING MAMMOGRAP HY SCREENING G0202 [place] ONEAL 5 MEDICAL JUANA MAMMOGRAP IMAGING HY JOAN ASS INCL CAD WHEN PERFORMD BLOOD 48103 KELLY VALDEZ OCCULT 5 COURTNEY LUCIANO PEROXIDAS E ACTV QUAL FECES 1-3 SPEC HANDLG&/O 63775 KELLY VALDEZ R CONVEY 5 COURTNEY JAIN ANKITA OF SPEC FOR TR OFFICE TO LAB CULTURE 71217 KELLY VALDEZ CHLAMYDIA 5 COURTNEY LUCIANO ANY SOURCE IADNA 78874 KELLY VALDEZ NEISSERIA 5 COURTNEY LUCIANO GONORRHOE AE DIRECT PROBE TQ URINLS 13468 KELLY VALDEZ DIP 5 COURTNEY LUCIANO STICK/[place] [address] [facility] ABDOMEN & 5 MEDICAL KEITH PELVIS IMAGING W/O ASS CONTRAST MATERIAL IM ADM 17685 [facility] ANU PRQ ID 5 PHYSICIAN KAITLIN SUBQ/IM S GROUP NJXS 1 VACCINE PCV13 39030 [facility] ANU VACCINE 5 PHYSICIAN KAITLIN FOR S GROUP INTRAMUSC ULAR USE IAADIADOO 71602 [facility] ANU 5 PHYSICIAN KAITLIN INFLUENZA S GROUP RADIOLOGI 32783 [facility] C EXAM 4 MEDICAL JUANA CHEST 2 IMAGING VIEWS ASS FRONTAL&L ATERAL FIT 44083 [facility] BOL[facility] CONTACT 4 GRE GRE [place] [address] DEX K[facility]AL[facility] SPINAL 4 [facility] CANAL INC INC LUMBAR W/O CONTRAST MATERIAL MRI 83204 DEX K[facility]ALSKI SPINAL 4 [facility] CANAL INC INC CERVICAL W/O CONTRAST MATRL 3D 59677 DEX [facility]AL[facility] RENDERING 4 [facility] W/INTERP INC INC & POSTPROCE SS SUPERVISI ON RADIOLOGI 52788 [facility] [place] [facility] C EXAM 4 RADIOLOGY RHO CHEST 2 VIEWS FRONTAL&L ATERAL PHYSICAL 27768 DEX [facility] THERAPY 4 [facility] EVALUATIO INC INC N THERAPEUT 08416 DEX KOWALSKI IC PX 1/> 4 [facility] AREAS INC INC EACH 15 MIN EXERCISES OPHTH 11377 [facility]OL[facility] MEDICAL 4 GRE GRE XM&EVAL COMPRE NEW PT 1/> VST DETERMINA 75316 [facility] TION 4 GRE GRE REFRACTIV E STATE RADEX 33555 DEX K[facility]ALSK[facility] SHOULDER 4 [facility] COMPLETE INC [place] [address] [place] [address] DEX KOWALSKI HEAD/BRAI 4 [facility] N W/O INC INC CONTRAST MATERIAL 3D 36695 DEX KOWALSKI RENDERING 4 [facility] W/INTERP INC INC & POSTPROCE SS SUPERVISI ON URNLS DIP 77448 DEX [facility]I 4 [facility] STICK/TAB INC INC LET REAGENT AUTO MICROSCOP Y BLOOD 88048 [facility] Patient Engagement Systems, [facility] INC, OCCULT 4 HAM STRINGER HAM STRINGER PEROXIDAS CHAMP FORBESS E ACTV CO HOS CO HOS QUAL FECES 1 DETER OVA&MELLY 65490 [facility], [facility] INC, ITES 4 HAM STRINGER HAM STRINGER DIRECT CHAMP CHAMP SMEARS CO HOS CO HOS CONCENTRA TION & ID SMR PRIM 10224 [facility], [facility] INC, SRC CPLX 4 HAM STRINGER HAM STRINGER SPEC CHAMP CHAMP STAIN CO HOS CO HOS OVA&MELLY ITS CUL BACT 80704 [facility] Patient Engagement Systems, [facility] INC, STOOL 4 HAM STRINGER HAM STRINGER AEROBIC CHAMP CHAMP ISOL CO HOS CO HOS SALMONELL A&SHIGELL CUL BACT 32444 [facility], [facility] INC, STOOL 4 HAM STRINGER HAM STRINGER AEROBIC CHAMP CHAMP ADDL CO HOS CO H[place] PATHOG[place] &[place] [address] [facility] Patient Engagement Systems, [facility] INC, CLOSTRIDI 4 HAM STRINGER HAM STRINGER UM CHAMP CHAMP DIFF[place] [address] [facility], [facility] INC, SHIGA-LIK 4 HAM STRINGER HAM STRINGER E TOXIN [place] [address] [facility] Patient Engagement Systems, [facility] INC, MULT STEP 4 HAM STRINGER HAM STRINGER METHOD CHAMPMarlene [place] [address] [facility] [place] MAT HEAD/BRAI 4 RADIOLOGY N W/[place] [address] [facility] [place] MAT CERVICAL 4 RADIOLOGY SPINE W/O CONTRAST MATERIAL SIMPLE 36696 [facility] 4 JAMIR LORNA SCALP/NEC EMERGENCY K/AX/AMMON PHYS T/TRUNK 2.5CM/< [place] [address] [facility] [place] JAM MAXILLOFA 4 RADIOLOGY CIAL W/O CONTRAST MATERIAL Encounters Encounter Start End Date Code Location Performer Type Date OFFICE 50494 DEX DONYA OUTPATIEN 7 7 [facility] 10 P [facility] DEX - 7 7 [facility] OUTPATIEN [facility] T OFFICE 67617 [facility]EX OUTPATIEN 7 7 [facility] VISIT [facility] 10 MINUTES HOSPITAL [facility]EX - 7 7 [facility] - 7 7 [facility] 38023 [facility] OUTPATIEN 7 7 PHYSICIAN T VISIT S GROUP 15 MINUTES HOSPITAL JEREMIAS - 7 7 [facility] 6 6 [facility] ME[facility] - 6 6 W [facility] OFFICE 48938 [facility] [place] OUTPATIEN 6 6 PHYSICIAN T VISIT 5 S GROUP MINUTES OFFICE 51922 DEX DONYA OUTPATIEN 6 6 [facility] 10 P MINUTES OFFICE 88751 [facility] OUTPATIEN 6 6 [facility] VIS[facility] MEDICAL 15 GROUP MINUTES OFFICE 41331 DEX DONYA OUTPATIEN [address] H[facility]PITAL DEX - 6 6 [facility]PATIEN [facility] OFFICE 57448 [facility] [place] OUTPATIEN 6 6 PHYSICIAN EUG T VISIT S GROUP 15 MINUTES HOSPITAL DEX - 6 6 [facility]EN [facility] DEX - 6 6 [facility] OUTPATIEN INC T OFFICE 45823 [facility] [place] CONSULTAT 6 6 PHYSICIAN ION S GROUP NEW/ESTAB PATIENT 40 MIN OFFICE 97833 [facility] 6 6 [facility] T VISIT 5 DHS/CO [facility] DEPT MINUTES [facility] DEX - 6 6 [facility] OUTPATIEN INC T OFFICE 76345 DEX [facility] OUTPATIEN 6 6 [facility] T VISIT [facility] 15 [facility]EX - 6 6 [facility] D[facility] - 6 6 [facility] OUTPATIEN INC T OFFICE 80418 [facility] HENRY [place] OUTPATIEN 6 6 PHYSICIAN T NEW 45 S GROUP [facility] DEX - 6 6 [facility] OUTPATIEN [facility] T OFFICE 16523 DHS/[facility] 6 6 [facility] T VISIT [facility] DEPT 10 [facility] DEX - 6 6 [facility] OUTPATIEN INC T PERIODIC 24068 DHS/CO PREVENTIV 6 6 HEALTH E MED EST PATIENT 40-64YRS EMERGENCY 88213 FAREED BENSON 6 6 PHYSICIAN [facility] T VISIT HIGH/URGE NT SEVERITY EMERGENCY 57139 DEX 6 6 [facility] T VISIT LOW/MODER SEVERITY HOSPITAL DEX - 6 6 [facility] OUTPATIEN [facility] T OFFICE 27288 MOSHE ROBBINS [facility] 5 5 MD YISSEL, T VISIT [facility] 15 [facility] DEX - 5 5 [facility] OUTPATIEN INC [facility] DEX [facility] 5 5 [facility] OUTPATIEN INC T OFFICE 27151 CHANTE YEHX BUX ANJ OUTPATIEN 5 5 T NEW 30 MINUTES OFFICE 61135 [facility] ANU OUTPATIEN 5 5 PHYSICIAN KAITLIN T VISIT S GROUP 10 MINUTES EMERGENCY 95616 [place] LOLA 5 5 MEDICAL ANGEL DEPARTMEN SERV T VISIT FOUNDATIO HIGH/URGE N NT SEVERITY OFFICE 47465 [facility] ANU OUTPATIEN 5 5 PHYSICIAN KAITLIN T VISIT 5 S GROUP MINUTES OFFICE 84513 KELLY VALDEZ OUTPATIEN 5 5 COURTNEY JAIN ANKITA T VISIT 25 MINUTES OFFICE 08850 KELLY VALDEZ OUTPATIEN 5 5 [facility] JAIN ANKITA T VISIT 15 MINUTES HOSPITAL DEX - 5 5 [facility] OUTPATIEN INC T INITIAL 89356 KELLY VALDEZ PREVENTIV 5 5 COURTNEY JAIN ANKITA E MEDICINE NEW PATIENT 40-64YRS OFFICE 86617 [facility] ANU OUTPATIEN 5 5 PHYSICIAN KAITLIN T VISIT S GROUP 10 MINUTES OFFICE 56232 KRYSTIAN MATUTE 4 4 GRE GRE T VISIT 25 MINUTES OFFICE 28392 [facility] TRA CONSULTAT 4 4 [place] ION ORTHOPAED NEW/ESTAB ICS PLC PATIENT 40 MIN OFFICE 82601 KRYSTIAN MATUTE 4 4 GRE GRE T VISIT 25 MINUTES EMERGENCY 49203 [facility] DEPT 4 4 JAMIR VISIT EMERGENCY HIGH PHYS SEVERITY& THREAT [facility] DEX - 4 4 [facility] OUTPATIEN INC T EMERGENCY 33074 [facility] 4 4 JAMIR ROSA DEPARTMEN EMERGENCY T VISIT PHYS HIGH/URGE NT SEVERITY HOSPITAL DEX - 4 4 [facility] OUTPATIEN INC T OFFICE 51920 [facility] ANU OUTPATIEN 4 4 PHYSICIAN KAITLIN T VISIT S GROUP 10 MINUTES HOSPITAL DEX - 4 4 [facility] OUTPATIEN INC T OFFICE 32687 [facility] PETTEY OUTPATIEN 4 4 PHYSICIAN JAM T NEW 10 S GROUP MINUTES OFFICE 30657 [facility] ANU OUTPATIEN 4 4 PHYSICIAN KAITLIN T VISIT S GROUP 15 MINUTES EMERGENCY 94636 DEX 4 4 [facility] DEPARTMEN INC T VISIT LOW/MODER SEVERITY HOSPITAL DEX - 4 4 [facility] OUTPATIEN INC T HOSPITAL [facility] INC, - 4 4 HAM STRINGER OUTPATIEN [facility] HOS OFFICE 43258 [facility] OUTPATIEN 4 4 [facility] T VISIT RURAL 15 HEALTH MINUTES EMERGENCY 60691 [facility] DEPT 4 4 JAMIR PAT VISIT EMERGENCY HIGH PHYS SEVERITY& THREAT FUN EMERGENCY 69819 [facility] 4 4 JAMIR LORNA DEPARTMEN EMERGENCY T VISIT PHYS HIGH/URGE NT SEVERITY
--- OUTSIDE RECORDS SUMMARY | 2017-03-03 17:43 | External Medical Summary Rpt ---
Demographics Preferred Language Zimbabwean Marital Status Unknown Presybeterian Affiliation Unknown Race Unknown Ethnic Group Unknown Author Author , Organization [employer] Address Unknown Phone Unavailable Purpose Continuity of Care Document - through 2016 Immunization No patient found.
--- OUTSIDE RECORDS SUMMARY | 2017-03-03 17:43 | External Medical Summary Rpt ---
Demographics Preferred Language Malawian Marital Status Unknown Confucianist Affiliation Unknown Race Unknown Ethnic Group Unknown Author Author , Organization [employer] Address Unknown Phone Unavailable Purpose Continuity of Care Document - through 2016 Immunization No patient found.
--- OUTSIDE RECORDS SUMMARY | 2017-03-03 17:47 | External Medical Summary Rpt ---
Author Author , Organization [employer] Address Unknown Phone Unavailable Care Team Providers Care Visual Merchandising Manager Name Role Phone MOSHE DEY MD, PSC, Unavailable Unavailable MOSHE DEY MD, PSC [facility] Unavailable Unavailable [facility], [facility] BEINEKE, BEINEKE Unavailable Unavailable BEINEKE [...] EUG ANU KAITLIN, ANU Unavailable Unavailable KAITLIN [employer] Unavailable Unavailable [employer] KELLY VALDEZ MD, Unavailable Unavailable KELLY FORREST LORNA, GREISER Unavailable Unavailable LORNA ELIECER RHO, ELIECER Unavailable Unavailable RHO HARPEL ANKITA, HARPEL Unavailable Unavailable ANKITA [facility] Unavailable Unavailable INC, [facility] Unavailable Unavailable HOSPITAL, [facility] Unavailable Unavailable HOSPITAL P, [facility] P [facility], Unavailable Unavailable [facility] HARRIS TRA, HARRIS TRA Unavailable Unavailable NGUYEN NAN, NGUYEN Unavailable Unavailable NAN [facility], [facility] JUSTIN AZAEL, JUSTIN AZAEL Unavailable Unavailable [facility] KRYSTIAN GRE, Unavailable Unavailable KRYSTIAN GRE [facility], Unavailable Unavailable [facility] FLACO MACKEY, Unavailable Unavailable FLACO MACKEY [facility] Unavailable Unavailable [facility] Unavailable Unavailable MEDICAL, [facility], 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 Unavailable Unavailable CO [facility], [facility] 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[employer] [facility] Unavailable Unavailable HEALTH, [facility] Unavailable [facility] PAVEZ MAR, PAVEZ MAR Unavailable Unavailable PETTEY JAM, PETTEY Unavailable Unavailable JAM PICKLESIMER JR CLEM, Unavailable Unavailable [facility]LES[facility] [employer] CLEM LOLA, LOLA Unavailable Unavailable LOLA ANGEL, LOLA Unavailable Unavailable ANGEL WINSTON TOD, WINSTON TOD Unavailable Unavailable SOKAN BAB, SOKAN BAB Unavailable Unavailable [facility], [facility] PATRICIA SHE, Unavailable Unavailable PATRICIA SHE SWINEY PAT, SWINEY Unavailable Unavailable PAT WHITNEY WINNIE, WHITNEY Unavailable Unavailable WINNIE WALKER FOR, WALKER Unavailable Unavailable FOR [facility] Unavailable Unavailable DEPT JANELL, [facility] DEPT JANELL ERICKSON MAT, ERICKSON MAT Unavailable Unavailable Purpose Continuity of Care Document - 11-21-2013 through 2016 Problems Code Diagnosis DOS Provider Status [id number] 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 01-18-2017 DEX RECEPTOR [facility] P STATUS 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 Z510 ENCOUNTER 11-24-2016 [place] FOR PHYSICIAN ANTINEOPLAS PRACTIC TIC RADIATION THERAPY [id number] MALIGNANT 11-16-2016 [facility]EX NEOPLASM [facility] SITE INC RIGHT FEMALE BREAST I10 ESSENTIAL 11-09-2016 [facility] PRIMARY PHYSICIANS HYPERTENSIO GROUP N Z23 ENCOUNTER 09-23-2016 [facility] FOR PHYSICIANS IMMUNIZATIO GROUP N B354 TINEA 08-26-2016 [facility] R110 NAUSEA 08-26-2016 [facility] R079 CHEST PAIN 07-20-2016 [place] [facility]PEC[facility] R42 DIZZINESS 07-20-2016 [place] AND [facility] GIDDINESS IMAGING ASS N649 DISORDER OF 06-20-2016 [facility] BREAST PHYSICIANS UNSPECIFIED GROUP Z129 ENCOUNTER 06-06-2016 [place] SCREEN[facility]ICAL MALIGNANT IMAGING ASS NEOPLASM SITE UNS Z853 PERSONAL 06-06-2016 [facility] [facility]ORY [facility] PRIMARY IMAGING ASS MALIG NEOPLASM BREAST P30157 MIGRAINE 05-04-2016 [facility] W/AURA NOT [facility] INTRACT W/O INC STAT MIGRAINOSUS N63 UNSPECIFIED 05-04-2016 [facility] BREAST IMAGING ASS R51 HEADACHE 05-04-2016 [facility] INC R922 INCONCLUSIV 05-04-2016 DEX E MAMMOGRAM [facility] INC H6090 UNSPECIFIED 04-21-2016 DEX OTITIS [facility] UNSPECIFIED EAR L299 PRURITUS 04-21-2016 [facility] E60[facility] MIGRAINE 04-19-2016 [place] UNS NOT MEDICAL INTRACT W/O IMAGING ASS STATUS MIGRAINOSUS R928 OTH ABNORM 04-19-2016 [place] & MEDICAL INCONCLUSIV IMAGING ASS E FIND ON DX IMAG BREAST Z1231 ENCOUNTER 03-28-2016 [place] SCREENING MEDICAL MAMMO MALIG IMAGING ASS NEOPLASM BREAST H81006 VAG HIGH 02-24-2016 [facility] RISK [facility]ALTH PAPILLOMAVI VIRGIL DNA TEST POS N750 CYST OF 02-10-2016 [facility] GLAND INC N751 ABSCESS OF 02-10-2016 [facility] BAR[facility]INS PHYSICIANS GLAND GROUP [id number] CERV HIGH 02-09-2016 [facility] PAPILLOMAVI VIRGIL DNA TEST POS E93114 ENCOUNTER 02-09-2016 [facility] PERSONNEL WORKER EXAM HEALTH GENERAL RTN W/ABNORMAL FIND E36187 ENCOUNTER 02-09-2016 [facility], PERSONNEL WORKER EXAM LLC GENERAL RTN W/O ABNORMAL FIND Z1239 ENCOUNTER 02-09-2016 [facility] OTHER HEALTH SCREENING MALIG NEOPLASM BREAST 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 02-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 CERVIX AND UTERUS Z720 TOBACCO USE 12-01-2015 [facility] INC Z8781 PERSONAL 12-01-2015 DEX HISTORY OF [facility] HEALED INC TRAUMATIC FRACTURE 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 , PSC OSACRAL INTERVERTEB RAL DISC 7244 THORACIC/SIM 07-14-2015 PATRICIA ZHOU MD, PSC NEURITIS/RA DICULITIS UNSPEC 02277 PAIN IN 06-30-2015 [place] [facility], MEDICAL ANKLE AND IMAGING ASS FOOT 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 7242 LUMBAGO 04-03-2015 [facility] PHYSICIANS GROUP 62530 OTHER 03-13-2015 [place] [facility] DISEASES OF SERV [facility] CAVITY AND SINUSES 29794 UNSPECIFIED 03-13-2015 [place] [facility] DENTAL SERV [place] [facility] 17427 CLOSED 03-13-2015 [place] [facility] FRACTURE SERV SUBCONDYLAR FOUNDATION PROCESS MANDIBLE 33010 TOOTH 03-13-2015 [place] MEDICAL BROKEN FX SERV DUE TO FOUNDATION TRAUMA W/O MENTION COMP 13170 JAW PAIN 03-12-2015 [place] [facility] E9293 LATE 03-12-2015 [place] MEDICAL EFFECTS OF SERV ACCIDENTAL FOUNDATION FALL V5832 ENCOUNTER 03-10-2015 [facility] FOR REMOVAL PHYSICIANS OF SUTURES GROUP 7231 CERVICALGIA 03-01-2015 [facility] 56054 INJURY OF 03-01-2015 [place] FACE AND MEDICAL NECK OTHER IMAGING ASS AND UNSPECIFIED 58077 PAIN IN 02-28-2015 [place] [facility], MEDICAL UPPER ARM IMAGING ASS 28559 CHEST PAIN 02-28-2015 [place] UNSPECIFIED MEDICAL IMAGING ASS 40176 CLOSED 02-28-2015 [place] FRACTURE OF MEDICAL IMAGING ASS UNSPECIFIED SITE OF MANDIBLE 8300 CLOSED 02-28-2015 [place] DISLOCATION MEDICAL OF JAW IMAGING ASS 8505 CONCUSSION 02-28-2015 [place] WITH LOC OF MEDICAL IMAGING ASS UNSPECIFIED DURATION 93111 OTHER 02-28-2015 [place] INJURY OF MEDICAL CHEST WALL IMAGING ASS 9593 INJURY 02-28-2015 [place] OTHER&UNSPE MEDICAL CIFIED IMAGING ASS [facility]OW FOREARM&WRI ST 9392 FOREIGN 02-26-2015 KELLY Calvin BODY IN COURTNEY JAIN VULVA AND VAGINA 39577 TRICHOMONAL 02-23-2015 KELLY VALDEZ MD VULVOVAGINI TIS [...] 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 35610 ABDOMINAL 01-26-2015 [place] PAIN OTHER MEDICAL SPECIFIED IMAGING ASS SITE V0382 NEED PROPH 11-21-2014 [facility] VACCINATION PHYSICIANS AGAINST GROUP STREP PNEUMONE V0481 NEED 11-21-2014 [facility] PROPHYLACTI PHYSICIANS C GROUP VACCINATION &INOCULATIO N FLU 490 BRONCHITIS 11-14-2014 [facility] NOT PHYSICIANS SPECIFIED GROUP ACUTE OR CHRONIC 7862 COUGH 10-05-2014 [facility] 7869 OTH 10-05-2014 [place] SYMPTOMS MEDICAL INVOLVING IMAGING ASS RESPIRATORY SYSTEM&CHES T 34925 UNSPECIFIED 09-12-2014 [facility] SUBJECTIVE GRE VISUAL DISTURBANCE 37353 PAIN IN OR 09-12-2014 [facility] AROUND [facility] GRE 9308 FOREIGN 09-12-2014 [facility] BODY GRE OTHER&COMBI BUDDY SITES EXTERNAL EYE 19355 OTHER 09-01-2014 [facility] VISUAL GRE DISTORTIONS AND ENTOPTIC PHENOMENA 18417 UNSPECIFIED 09-01-2014 [facility] SCLERITIS GRE 31926 VOMITING 08-20-2014 [facility]ERGENCY PHYS 84724 DIARRHEA 08-20-2014 [facility] N EMERGENCY PHYS 7234 BRACHIAL 08-13-2014 [place] NEURITIS OR MEDICAL IMAGING ASS RADICULITIS NOS 7820 DISTURBANCE 08-13-2014 [place] OF SKIN MEDICAL SENSATION IMAGING ASS 31635 OBST 08-07-2014 [facility] CHRONIC N EMERGENCY BRONCHITIS PHYS W/ACUTE BRONCHITIS 43119 FEVER 08-07-2014 [facility] [place] UNSPECIFIED RADIOLOGY 83278 PAIN IN 06-27-2014 [facility], [facility] SHOULDER INC REGION V571 OTHER 06-27-2014 [facility] PHYSICAL [facility] THERAPY INC 63637 UNSPEC 06-18-2014 [facility] DISORDERS PHYSICIANS BURSAE&TEND GROUP ONS SHOULDER REGION V720 EXAMINATION 06-11-2014 [facility] OF EYES GRE AND VISION 7262 OTHER 06-04-2014 [facility] AFFECTIONS PHYSICIANS OF SHOULDER GROUP REGION NEC 3699 UNSPECIFIED 05-27-2014 [facility] VISUAL PHYSICIANS LOSS GROUP 84964 UNSPECIFIED 05-27-2014 [facility] TINNITUS PHYSICIANS GROUP 80474 UNSPECIFIED 04-07-2014 [facility] OTALGIA [facility]ICAL [facility]ING [facility] 7804 DIZZINESS 04-07-2014 [place] AND MEDICAL GIDDINESS IMAGING ASS V642 SURG/OTH 04-07-2014 DEX PROC NOT [facility] CARRIED OUT INC BECAUSE PTS DECN 4610 ACUTE 01-20-2014 [facility] SINUSITIS [facility] 81400 ABDOMINAL 01-20-2014 [facility] PAIN RIGHT [facility] 7840 HEADACHE 12-11-2013 [facility] N EMERGENCY PHYS E8889 UNSPECIFIED 12-11-2013 [facility] [place] FALL RADIOLOGY 8470 NECK SPRAIN 12-10-2013 [facility] AND STRAIN N EMERGENCY PHYS 8730 OPEN WOUND 12-10-2013 [facility] SCALP N EMERGENCY WITHOUT PHYS MENTION COMPLICATIO N E8888 OTHER FALL 12-10-2013 [facility] N EMERGENCY PHYS 54493 SWELLING OR 11-21-2013 [facility] [place] MASS OF RADIOLOGY EYE E9179 OTHER 11-21-2013 [facility] [place] STRIKING RADIOLOGY AGAINST W/WO SUBSEQUENT FALL F14.10 COCAINE ABUSE, UNCOMPLICAT ED TPQ2695 J40 BRONCHITIS, NOT SPECIFIED ACUTE OR CHRONIC [...] ia de te s n re d CT 00 03 04 30 30 00 [...] CY ZI NE 1% CR EA M CT 00 02 03 30 30 00 [...] AR MA OI CY NT ME NT CT 00 01 02 30 30 00 [...] Procedure DOS Code Location Performer Comment BLOOD 78303 DEX [facility] COUNT 7 [facility] COMPLETE INC INC AUTO&AUTO DIFRNTL WBC COLLECTIO 39207 DEX [facility] N VENOUS 7 [facility] BLOOD INC INC VENIPUNCT URE COMPREHEN 89899 DEX K[facility]ALSKI SIVE 7 [facility] METABOLIC INC INC PANEL RADIATION 48406 JEREMIAS MCDOWELL 7 W W TREATMENT [facility] MEDICAL 1 MEV => COMPLEX CONTINUIN 97935 JEREMIAS MCDOWELL G MEDICAL 7 W W PHYSICS [facility] MEDICAL MEDICAL [place] RADIATION 63708 JEREMIAS DAVILA 7 W TREATMENT PHYSICIAN PRACTIC MANAGEMEN T 5 TREATMENT S RADIATION 66448 BALDOMEROVIE ERICWVIE 7 W W TREATMENT [facility] DELIVERY MEDICAL MEDICAL 1 MEV => COMPLEX RADIATION 04908 MEAWLORENZO MEADOWVIE 7 W W TREATMENT REG[facility]AL REGIONAL DELIVERY MEDICAL MEDICAL 1 MEV => COMPLEX RADIATION 09570 MEADOWLORENZO MEADOWVIE 7 W W TREATMENT [facility] REGIONAL DELIVERY MEDICAL MEDICAL 1 MEV => COMPLEX CONTINUIN 08481 JEREMIAS MCDOWELL G MEDICAL 7 W W PHYSICS REGIONAL REGIONAL CONSLTJ MEDICAL MEDICAL [place] RADIATION 80734 JEREMIAS NERIU 7 W TREATMENT PHYSICIAN PRACTIC MANAGEMEN T 5 TREATMENT S THERAPEUT 10496 JEREMIAS MCDOWELL IC 7 W W RADIOLOGY REGIONAL REGIONAL PORT MEDICAL MEDICAL IMAGES(S) RADIATION 69947 JEREMIAS FALKWLORENZO 7 W W TREATMENT [facility] REGIONAL DELIVERY MEDICAL MEDICAL 1 MEV => COMPLEX RADIATION 22853 DEYAVIVEK ERICWLORENZO 7 W W TREATMENT REGIONAL REGIONAL DELIVERY MEDICAL MEDICAL 1 MEV => COMPLEX RADIATION 16142 MEADOVIVEK ERICWVIE 7 W W TREATMENT REGIONAL REGIONAL DELIVERY MEDICAL MEDICAL 1 MEV => COMPLEX RADIATION 98299 ERICDOWLORENZO MEAWVIE 7 W W TREATMENT REGIONAL REGIONAL DELIVERY MEDICAL MEDICAL 1 MEV => COMPLEX RADIATION 97126 MEASTONE FALKWVIE 7 W W TREATMENT REGIONAL REGIONAL DELIVERY MEDICAL MEDICAL 1 MEV => COMPLEX THER RAD 67317 JEREMIAS ALEXANDRELORENZO SIMULAJ-A 7 W W IDED REGIONAL REGION[place] [address] JEREMIAS CMDOWELL DEVICES 7 W W DESIGN & REGIONAL REGIONAL CONSTRUCT MEDICAL MEDICAL ION COMPLEX CONTINUIN 63021 JEREMIAS MCDOWELL G MEDICAL 7 W W PHYSICS REGIONAL REGIONAL CONSLTJ MEDICAL MEDICAL [place] RADIATION 29056 JEREMIAS NERIU 7 W TREATMENT PHYSICIAN PRACTIC MANAGEMEN T 5 TREATMENT S RADIATION 07023 JEREMIAS MCDOWELL 7 W W TREATMENT REGIONAL REGIONAL DELIVERY MEDICAL MEDICAL 1 MEV => COMPLEX RADIATION 25116 MEADOWVIE MEADOWVIE 7 W W TREATMENT REGIONAL REGIONAL DELIVERY MEDICAL MEDICAL 1 MEV => COMPLEX COMPREHEN 92363 DEX KOWALSKI SIVE 7 [facility] [place] [address] DEX KOWALSKI FREE 7 [facility] [place] [address] DEX KOWALSKI THYROID 7 [facility] STIMULATI INC INC NG HORMONE TSH BLOOD 18125 DEX KOWALSKI COUNT 7 [facility] COMPLETE INC INC AUTO&AUTO DIFRNTL WBC RADIATION 92000 MEADOWVIE MEADOWVIE 7 W W TREATMENT REGIONAL REGIONAL DELIVERY MEDICAL MEDICAL 1 MEV => COMPLEX RADIATION 60864 MEADOWVIE MEADOWVIE 6 W W TREATMENT REGIONAL REGIONAL DELIVERY MEDICAL MEDICAL 1 MEV => COMPLEX RADIATION 99499 MEADOWVIE MEADOWVIE 6 W W TREATMENT REGIONAL REGIONAL DELIVERY MEDICAL MEDICAL 1 MEV => COMPLEX CONTINUIN 08300 JEREMIAS MEADOWVIE G MEDICAL 6 W W PHYSICS REGIONAL REGIONAL [facility] MEDICAL MEDICAL [place] THERAPEUT 16055 MEADOWLORENZO MEADOWVIE IC 6 W W RADIOLOGY REGIONAL REGIONAL PORT MEDICAL MEDICAL IMAGES(S) RADIATION 43048 JEREMIAS NERIU 6 W TREATMENT PHYSICIAN PRACTIC MANAGEMEN T 5 TREATMENT S RADIATION 46416 MEADOVIVEK MEADOWVIE 6 W W TREATMENT REGIONAL REGIONAL DELIVERY MEDICAL MEDICAL 1 MEV => COMPLEX RADIATION 68560 MEADOWVIE MEADOWVIE 6 W W TREATMENT REGIONAL REGIONAL DELIVERY MEDICAL MEDICAL 1 MEV => COMPLEX RADIATION 23289 MEADOWVIE MEADOWVIE 6 W W TREATMENT REGIONAL REGIONAL DELIVERY MEDICAL MEDICAL 1 MEV => COMPLEX RADIATION 78540 MEADOWVIE MEADOWVIE 6 W W TREATMENT REGIONAL REGIONAL DELIVERY MEDICAL MEDICAL 1 MEV => COMPLEX RADIATION 83048 MEADOWVIE MEADOWVIE 6 W W TREATMENT REGIONAL REGIONAL DELIVERY MEDICAL MEDICAL 1 MEV => COMPLEX RADIATION 68162 JEREMIAS KENNEDYBHU 6 W TREATMENT PHYSICIAN PRACTIC MANAGEMEN T 5 TREATMENT S CONTINUIN 22743 MEADOWVIE MEADOWVIE G MEDICAL 6 W W PHYSICS REGIONAL REGIONAL CONSLT MEDICAL MEDICAL [place] THERAPEUT 53206 MEADOWVIE MEADOWVIE IC 6 W W RADIOLOGY REGIONAL REGIONAL PORT MEDICAL MEDICAL IMAGES(S) RADIATION 57009 MEADOWVIE MEADOWVIE 6 W W TREATMENT REGIONAL REGIONAL DELIVERY MEDICAL MEDICAL 1 MEV => COMPLEX RADIATION 11857 MEADOWVIE MEADOWVIE 6 W W TREATMENT REGIONAL REGIONAL DELIVERY MEDICAL MEDICAL 1 MEV => COMPLEX RADIATION 99541 MEADOWVIE MEADOWVIE 6 W W TREATMENT REGIONAL REGIONAL DELIVERY MEDICAL MEDICAL 1 MEV => COMPLEX RADIATION 23220 MEADOWVIE MEADOWVIE 6 W W TREATMENT REGIONAL REGIONAL DELIVERY MEDICAL MEDICAL 1 MEV => COMPLEX THERAPEUT 94492 MEADOWVIE MEADOWVIE IC 6 W W RADIOLOGY REGIONAL REGIONAL PORT MEDICAL MEDICAL IMAGES(S) CONTINUIN 74611 MEADOWVIE MEADOWVIE G MEDICAL 6 W W PHYSICS REGIONAL REGIONAL CONSLT MEDICAL MEDICAL [place] RADIATION 43161 MEADOWVIE LOLA 6 W TREATMENT PHYSICIAN PRACTIC MANAGEMEN T 5 TREATMENT S RADIATION 35778 MEADOWVIE MEADOWVIE 6 W W TREATMENT REGIONAL REGIONAL DELIVERY MEDICAL MEDICAL 1 MEV => COMPLEX RADIATION 93898 MEADOWVIE MEADOWVIE 6 W W TREATMENT REGIONAL REGIONAL DELIVERY MEDICAL MEDICAL 1 MEV => COMPLEX RADIATION 15220 MEADOWVIE MEADOWVIE 6 W W TREATMENT REGIONAL REGIONAL DELIVERY MEDICAL MEDICAL 1 MEV => COMPLEX RADIATION 62839 MEADOWVIE MEADOWVIE 6 W W TREATMENT REGIONAL REGIONAL DELIVERY MEDICAL MEDICAL 1 MEV => [place] [address]88 JEREMIAS NERIU SIMULAJ-A 6 W IDED PHYSIC[place] [address] JEREMIAS MEAWVIE DEVICES 6 W W DESIGN & REGIONAL REGIONAL CONSTRUCT MEDICAL MEDICAL ION COMPLEX 3-D 84690 JEREMIAS LOLA RADIOTHER 6 W APY PLAN PHYSICIAN DOSE-VOLU PRACTIC ME HISTOGRAM S BASIC 32563 JEREMIAS DAVILA RADIATION 6 W PHYSICIAN DOSIMETRY PRACTIC CALCULATI ON IM ADM 13636 [facility] FRYMAN PRQ ID 6 PHYSICIAN EUG SUBQ/IM S GROUP NJXS 1 VACCINE IIV3 98736 [facility] FRYMAN VACCINE 6 PHYSICIAN EUG SPLIT S GROUP VIRUS 0.5 ML DOSAGE [place] 533[address] JEREMIAS DAVILA SIMULAJ-A 6 W IDED PHYSICIAN FIELD PRACTIC SETTING COMPLEX THERAPEUT 16748 JEREMIAS DAVILA IC 6 W RADIOLOGY PHYSICIAN TX PRACTIC PLANNING COMPLEX ONCOLOGY 95735 GENOMIC GENOMIC BREAST 6 CLO [employer] INC. EXPRESSIO N [address] [place] [address] DEX KOWALSKI FERRITIN 6 [facility] INC INC IRON 59950 DEX KOWALSKI BINDING 6 [facility] CAPACITY INC INC BLOOD 91677 DEX KOWALSKI COUNT 6 [facility] COMPLETE INC INC AUTO&[place] [address] DEX KOWALSKI IRON 6 [facility] INC INC COMPREHEN 87905 DEX KOWALSKI SIVE 6 [facility] METABOLIC INC INC PANEL COLLECTIO 67439 DEX KOWALSKI N VENOUS 6 [facility] BLOOD INC INC VENIPUNCT URE RADIOLOGI 61992 [facility] ALL C EXAM 6 MEDICAL CHEST 2 IMAGING VIEWS ASS FRONTAL&L ATERAL ANES 87118 [facility] INTEG 6 ANESTH SHE EXTREMITI OF THE ES ANT BLUE TRUNK & PERINEUM NOS BX/EXC 62802 [facility] [place] TOD LYMPH 6 PHYSICIAN NODE OPEN S GROUP DEEP AXILLARY NODE INJ 76132 [facility] RADIOACTI 6 MEDICAL VE TRACER IMAGING FOR ID ASS OF SENTINEL NODE TECHNETIU A9541 DEX Laughlin TC-99M 6 [facility] SULFUR INC INC COLLOID DX UP TO 20 MCI ECG 66780 DEX GORDON ROUTINE 6 [facility] W/LEAST P 12 LDS I&R ONLY MASTECTOM 77909 [facility] [place] TOD Y PARTIAL [address] [place] [address] DEX KOWALSKI ABDOMEN & 6 [facility] PELVIS INC INC W/CONTRAS T MATERIAL CT THORAX 99607 DEX KOWALSKI 6 [facility] W/CONTRAS INC INC T MATERIAL BLOOD 96163 DEX KOWALSKI COUNT 6 [facility] COMPLETE INC INC AUTO&AUTO DIFRNTL WBC COLLECTIO 29853 DEX KOWALSKI N VENOUS 6 [facility] BLOOD INC INC VENIPUNCT URE COMPREHEN 05777 DEX KOWALSKI SIVE 6 [facility] METABOLIC INC INC PANEL DIAGNOSTI G0206 [facility] C 6 MEDICAL JUANA MAMMOGRAP IMAGING HY INCL ASS CAD WHEN PERF; UNI PHYSICAL 51139 DEX KOWALSKI THERAPY 6 [facility] EVALUATIO INC INC N BREAST 87107 DEX KOWALSKI UNI REAL 6 [facility] TIME INC INC WITH IMAGE COMPLETE BX BREAST 59162 [place] ONEAL W/DEVICE 6 MEDICAL JUANA 1ST IMAGING LESION ASS ULTRASOUN D GUID FINE 72895 DEX KOWALSKI NEEDLE 6 [facility] ASPIRATIO INC INC N WITH IMAGING GUIDANCE PROBE/NEE C2618 DEX KOWALSKI DLE 6 [facility] CRYOABLAT INC INC ION DUPLEX 91938 [facility] [facility] SCAN 6 MEDICAL JUANA EXTRACRAN IMAGING IAL ART ASS COMPL BI STUDY US BREAST 77448 [place] ONEAL UNI REAL 6 MEDICAL JUANA TIME IMAGING WITH ASS IMAGE COMPLETE DIAGNOSTI G0206 [place] ONEAL C 6 MEDICAL JUANA MAMMOGRAP IMAGING HY INCL ASS CAD WHEN PERF; UNI COMPUTER- 79326 [facility] 6 MEDICAL DETECTION IMAGING ASS SCREENING MAMMOGRAP HY SCREENING G0202 [facility] 6 MEDICAL MAMMOGRAP IMAGING HY JOAN ASS INCL CAD WHEN PERFORMD MRI BRAIN 28474 [place] R[facility] ALL BRAIN 6 MEDICAL STEM W/O IMAGING CONTRAST ASS MATERIAL CUL BACT 54792 DEX KOWALSKI XCPT 6 [facility] URINE INC INC BLOOD/STO OL AEROBIC ISOL CUL BACT 66715 DEX KOWALSKI AEROBIC 6 [facility] ADDL INC INC METHS DEFINIT[place] EA ISOL I&[place] [address] [facility] DULCE BARTHOLIN 6 PHYSICIAN MADI S GLAND S GROUP ABSCESS SUSCEPTIB 28508 DEX KOWALSKI LTY STDY 6 [facility] ANTIMICRB INC INC IAL MICRO/AGA R DILUTJ IADNA 72295 [facility] PICKLES[facility] HUMAN 6 [facility] ER JR CLEM PAPILLOMA VIRUS HIGH-RISK TYPES CYTP 56152 [facility] CERV/VAG 6 [facility] ER JR CLEM AUTO THIN LAYER PREP MNL SCREEN IM ADM 38980 [facility] PRQ ID 6 [facility] SUBQ/IM HLTH DEPT NJXS 1 JANELL VACCINE TDAP 38120 [facility] VACCINE 7 6 [facility] YRS/> IM HLTH DEPT JANELL THERAPEUT 91394 DEX KOWALSKI IC 6 [facility] PROPHYLAC INC INC TIC/DX INJECTION SUBQ/IM RADEX 50484 [place] [facility] ALL ANKLE 5 MEDICAL COMPLETE IMAGING MINIMUM 3 ASS VIEWS HOSPITAL G0463 DEX KOWALSKI OUTPATIEN 5 [facility] T CLIN INC INC VISIT ASSESS & [place] [address] ABNER JUSTIN AZAEL MAXILLOFA 5 MEDICAL CIAL W/O SERV CONTRAST FOUNDATIO MATERIAL N ORTHOPANT 49032 ABNER OLSON OGRAM 5 MEDICAL WINNIE SERV FOUNDATIO N RADIOLOGI 01186 ABNER Echavarria 5 MEDICAL WINNIE EXAMINATI SERV ON CHE[place] F[place] [address] [place] ONA[facility] HEAD/BRAI 5 MEDICAL JUANA N W/[place] [address] [place] [facility] MAXILLOFA 5 MEDICAL JUA[facility] CIAL W/[place] [address] [place] [facility] CERVICAL 5 MEDICAL JUANA SPINE W/O IMAGING CONTRAST ASS MATERIAL RADEX 30056 [place] [facility] ELBOW 5 MEDICAL JUA[facility] COMPLETE IMAGING MINIMUM 3 ASS VIEWS RADEX 24989 [place] [facility] RIBS BI 5 MEDICAL JUANA W/POSTERO IMAGING ANT CH ASS MINIMUM 4 VIEWS SMR PRIM 23022 KELLY VALDEZ SRC WET 5 COURTNEY LUCIANO MOUNT NFCT AGT SCREENING G0202 [place] ONE[facility] 5 MEDICAL [facility] MAMMOGRAP IMAGING HY [place] [address] [place] [facility] TRANSVAGI 5 MEDICAL JUA[facility] NAL IMAGING ASS COMPUTER- 78440 [place] [facility] AIDED 5 MEDICAL JUANA DETECTION IMAGING ASS SCREENING MAMMOGRAP HY IADNA 71462 KELLY VALDEZ NEISSERIA 5 COURTNEY LUCIANO GONORRHOE AE DIRECT PROBE TQ URINLS 74623 KELLY VALDEZ DIP 5 COURTNEY LUCIANO STICK/TAB LET REAGNT NON-AUTO MICRSCPY BLOOD 99534 KELLY VALDEZ OCCULT 5 COURTNEY LUCIANO PEROXIDAS E ACTV QUAL FECES 1-3 SPEC CULTURE 39430 KELLY VALDEZ CHLAMYDIA 5 COURTNEY LUCIANO ANY SOURCE HANDLG&/O 72766 KELLY VALDEZ R CONVEY 5 COURTNEY LUCIANO [place] [address] [facility] ABDOMEN & 5 MEDICAL KEITH PELVIS IMAGING W/O ASS CONTRAST MATERIAL IM ADM 41461 [facility] ANU PRQ ID 5 PHYSICIAN KAITLIN SUBQ/IM S GROUP NJXS 1 VACCINE PCV13 41402 [facility] V[facility] KAITLIN FOR S GROUP INTRAMUSC ULAR USE IAADIADOO 80480 [facility] PHYSICIAN KAITLIN INFLUENZA S GROUP RADIOLOGI 45273 [place] ONE[facility] C EXAM 4 MEDICAL JUANA CHEST 2 IMAGING VIEWS ASS FRONTAL&L ATERAL FIT 76367 KRYSTIAN BOLAND CONTACT 4 GRE GRE [place] 057[address] DEX KOWALSKI SPINAL 4 [facility] CANAL INC INC CERVICAL W/O CONTRAST MATRL MRI 75566 DEX KOWALSKI SPINAL 4 [facility] CANAL INC INC LUMBAR W/O CONTRAST MATERIAL 3D 84495 DEX KOWALSKI RENDERING 4 [facility] W/INTERP INC INC & POSTPROCE SS SUPERVISI ON RADIOLOGI 52599 [facility] [place] ELIECER C EXAM 4 RADIOLOGY RHO CHEST 2 VIEWS FRONTAL&L ATERAL PHYSICAL 04568 DEX KOWALSKI THERAPY 4 [facility] EVALUATIO INC INC N THERAPEUT 32583 DEX KOWALSKI IC PX 1/> 4 [facility] AREAS INC INC EACH 15 MIN EXERCISES OPHTH 70793 KRYSTIAN BOLAND MEDICAL 4 GRE GRE XM&EVAL COMPRE NEW PT 1/> VST DETERMINA 14[address] KRYSTIAN KRYSTIAN TION 4 GRE GRE REFRACTIV E STATE RADEX 22539 DEX KOWALSKI SHOULDER 4 [facility] COMPLETE [place] [address] [place] [address] DEX KOWALSKI HEAD/BRAI 4 [facility] N W/O INC INC CONTRAST MATERIAL URNLS DIP 08848 DEX KOWALSKI 4 [facility] STICK/TAB INC INC LET REAGENT AUTO MICROSCOP Y 3D 86449 DEX KOWALSKI RENDERING 4 [facility] W/INTERP INC INC & [place] [address] [facility] [employer], [facility] INC, MULT STEP 4 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IVE 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IVE METHOD [facility] [place] NOS EACH [facility] HOS CO HOS ORGANISM BLOOD 01540 [facility] [employer] [facility] INC, OCCULT 4 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IVE 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IVE PEROXIDAS [place] [place] E ACTV CO HOS CO HOS QUAL FECES 1 DETER CUL BACT 61186 [facility] [employer], [facility] INC, STOOL 4 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IVE 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IVE AEROBIC [facility] [place] ISOL CO HOS CO HOS SALMONELL A&SHIGELL CUL BACT 51808 [facility], [facility], STOOL 4 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IVE 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IVE AEROBIC [facility] [place] ADDL CO HOS CO HOS PATHOGENS &ID EA SMR PRIM 68397 [facility] [employer] [facility] INC, SRC CPLX 4 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IVE 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IVE SPEC [facility] STAIN [facility] HOS OVA&[place] [address] [facility], [facility] INC, CLOSTRIDI 4 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IVE 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IVE UM CHAMP CHAMP DIFFIC[place] [address] [facility] INC, [employer] INC, SHIGA-LIK 4 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IVE 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IVE E TOXIN CHAMP CHAMP [facility] CO HOS OVA&MELLY 71927 [facility] INC, [employer], ITES 4 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IVE 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IVE DIRECT CHAMP CHAMP SMEARS [facility] [place] & [place] [address] [facility] [place] MAT HEAD/BRAI 4 RADIOLOGY N W/O CONTRAST MATERIAL SIMPLE 22166 [facility] 4 JAMIR LORNA SCALP/NEC EMERGENCY K/AX/AMMON PHYS T/TRUNK 2.5CM/< [place] [address] [facility] [place] MAT CERVICAL 4 RADIOLOGY SPINE W/[place] [address] [facility] [place] JAM MAXILLOFA 4 RADIOLOGY CIAL W/O CONTRAST MATERIAL Encounters Encounter Start End Date Code Location Performer Type Date HOSPITAL DEX - 7 7 [facility] OUTPATIEN [facility] T OFFICE 93324 DEX CASTROIMONE OUTPATIEN 7 7 [facility] 10 P MINUTES OFFICE 41128 DEX OUTPATIEN 7 7 [facility] T VISIT [facility]EX - 7 7 [facility] OUTPATIEN [facility] T OFFICE 33383 [facility] OUTPATIEN 7 7 PHYSICIAN T VISIT S GROUP 15 MINUTES HOSPITAL DEX - 7 7 [facility] OUTPATIEN [facility] MEADOWVIE - 7 7 [facility] MEADOWVIE [facility] 6 6 [facility] MEADOWVIE - 6 6 [facility] MEDICAL OFFICE 60137 [facility] CALHOUN OUTPATIEN 6 6 PHYSICIAN T VISIT 5 S GROUP MINUTES OFFICE 71142 DEX DONYA OUTPATIEN 6 6 [facility] T VISIT HOSPITAL 10 P MINUTES OFFICE 30707 [facility] OUTPATIEN 6 6 [facility] T VISIT MEDICAL 15 GROUP MINUTES HOSPITAL DEX - 6 6 [facility] OUTPATIEN INC T OFFICE 64115 DEX DONYA OUTPAT[facility]EN [address] [facility] MINUTES P OFFICE 40894 [facility] OUTPATIEN 6 6 PHYSICIAN EUG T VISIT S GROUP 15 MINUTES HOSPITAL DEX - 6 6 [facility]PATIEN INC HOSPITAL DEX - 6 6 [facility] OUTPATIEN INC T OFFICE 97315 [facility] TOD CONSULTAT 6 6 PHYSICIAN ION S GROUP NEW/ESTAB PATIENT 40 MIN OFFICE 09847 [facility] 6 6 [facility] T VISIT 5 DHS/CO [facility]EX [facility] 6 6 [facility] OUTPATIEN INC T OFFICE 95716 DEX FR[facility]MAN OUTPATIEN 6 6 [facility] T VISIT HOSPITAL 15 MINUTES HOSPITAL DEX - 6 6 [facility] OUTPATIEN INC [facility] DEX - 6 6 [facility] OUTPATIEN INC T OFFICE 43855 [facility] HENRY MAR OUTPATIEN 6 6 PHYSICIAN T NEW 45 S GROUP [facility] DEX - 6 6 [facility] OUTPATIEN INC T OFFICE 65761 [facility] 6 6 [facility] T VISIT [facility] DE[facility] 10 [facility]EX - 6 6 [facility] OUTPATIEN INC T PERIODIC 65177 DHS/CO PREVENTIV 6 6 HEALTH E MED EST PATIENT 40-64YRS EMERGENCY 43454 FAREED BENSON 6 6 PHYSICIAN FOR DEPARTMEN S, PLLC T VISIT HIGH/URGE NT SEVERITY EMERGENCY 70839 DEX 6 6 [facility] DEPARTMEN INC T VISIT LOW/MODER SEVERITY HOSPITAL DEX - 6 6 [facility] OUTPATIEN INC T OFFICE 04765 [facility] ITZEL OUTPATIEN 5 5 MD YISSEL, T VISIT PSC 15 MINUTES HOSPITAL DEX - 5 5 [facility] OUTPATIEN INC T HOSPITAL DEX - 5 5 [facility] OUTPATIEN INC T OFFICE 96524 RACHAELCAROLEE YISSEL OSHEAJ OUTPATIEN 5 5 T NEW 30 MINUTES OFFICE 11806 [facility] ANU OUTPATIEN 5 5 PHYSICIAN KAITLIN T VISIT S GROUP 10 MINUTES EMERGENCY 61366 ABNER DAVILA 5 5 MEDICAL ANGEL DEPARTMEN SERV T VISIT FOUNDATIO HIGH/URGE N NT SEVERITY OFFICE 68541 [facility] ANU OUTPATIEN 5 5 PHYSICIAN KAITLIN T VISIT 5 S GROUP MINUTES OFFICE 39004 KELLY VALDEZ OUTPATIEN 5 5 COURTNEY JAIN ANKITA T VISIT 25 MINUTES OFFICE 46377 KELLY VALDEZ OUTPATIEN 5 5 COURTNEY LUCIANO T VISIT 15 MINUTES HOSPITAL DEX - 5 5 [facility] OUTPATIEN INC T INITIAL 75304 KELLY VALDEZ PREVENTIV 5 5 COURTNEY LUCIANO E MEDICINE NEW PATIENT 40-64YRS OFFICE 81165 [facility] ANU OUTPATIEN 5 5 PHYSICIAN KAITLIN T VISIT S GROUP 10 MINUTES OFFICE 18162 KRYSTIAN BOLAND OUTPATIEN 4 4 GRE GRE T VISIT 25 MINUTES OFFICE 81124 [facility] CONSULTAT 4 4 [place] ION ORTHOPAED NEW/ESTAB ICS PLC PATIENT 40 MIN OFFICE 83065 KRYSTIANTASHA BOLAND OUTPATIEN 4 4 GRE GRE T VISIT 25 MINUTES EMERGENCY 79419 [facility] DE[facility] 4 4 JAMIR VISIT EMERGENCY HIGH PHYS SEVERITY& THREAT FUN HOSPITAL DEX - 4 4 [facility] OUTPATIEN INC T EMERGENCY 07390 [facility] CHANDEL 4 4 JAMIR ROSA DEPARTMEN EMERGENCY T VISIT PHYS HIGH/URGE NT SEVERITY HOSPITAL DEX - 4 4 [facility] OUTPATIEN INC T OFFICE 91965 [facility] ANU OUTPATIEN 4 4 PHYSICIAN KAITLIN T VISIT S GROUP 10 MINUTES OFFICE 89725 [facility] PETTEY OUTPATIEN 4 4 PHYSICIAN JAM T NEW 10 S GROUP MINUTES HOSPITAL DEX - 4 4 [facility] OUTPATIEN INC T OFFICE 54210 [facility] ANU OUTPATIEN 4 4 PHYSICIAN KAITLIN T VISIT S GROUP 15 MINUTES HOSPITAL DEX - 4 4 [facility] OUTPATIEN INC T EMERGENCY 50848 DEX 4 4 [facility] DEPARTMEN INC T VISIT LOW/MODER SEVERITY HOSPITAL [facility] INC, - 4 4 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
--- OUTSIDE RECORDS SUMMARY | 2017-03-03 17:47 | External Medical Summary Rpt ---
Author Author , Organization [employer] Address Unknown Phone Unavailable Care Team Providers Care Tax Professional Name Role Phone MOSHE DEY MD, PSC, Unavailable Unavailable MOSHE DEY MD, PSC [facility] Unavailable Unavailable MEDICAL GROUP, [facility] BEINEKE, BEINEKE Unavailable Unavailable BEINEKE [...] EUG ANU KAITLIN, ANU Unavailable Unavailable K[facility] [employer] Unavailable Unavailable [employer] KELLY VALDEZ MD, Unavailable Unavailable KELLY FORREST LORNA, GREISER Unavailable Unavailable LORNA ELIECER RHO, ELIECER Unavailable Unavailable RHO HARPEL ANKITA, HARPEL Unavailable Unavailable ANKITA [facility] Unavailable Unavailable INC, [facility] Un[facility], [facility] Unavailable Unavailable [facility]OSPITAL P, [facility], Unavailable Unavailable [facility] HARRIS TRA, HARRIS TRA Unavailable Unavailable NGUYEN NAN, NGUYEN Unavailable Unavailable NAN [facility] Un[facility] Un[facility], [facility] JUSTIN AZAEL, JUSTIN AZAEL Unavailable Unavailable [facility] KRYSTIAN GRE, Unavailable Unavailable KRYSTIAN GRE [facility], Unavailable Unavailable [facility] FLACO MACKEY, Unavailable Unavailable FLACO MACKEY [facility] Unavailable Unavailable [facility] Unavailable Unavailable MEDICAL, [facility], 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 PROFESSOR CHAMP Unavailable Unavailable [facility], [facility], 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 PROFESSOR CHAMP [facility] Unavailable Unavailable HEALTH, [facility] Un[facility] PAVEZ MAR, PAVEZ MAR Unavailable Unavailable PETTEY JAM, PETTEY Unavailable Unavailable JAM PICKLESIMER JR CLEM, Unavailable Unavailable PICKLESIMER JR CLEM LOLA, LOLA Unavailable Unavailable LOLA ANGEL, LOLA Unavailable Unavailable ANGEL WINSTON TOD, WINSTON TOD Unavailable Unavailable SOKAN BAB, SOKAN BAB Unavailable Unavailable [facility] PATRICIA SHE, Unavailable Unavailable PATRICIA SHE SWINEY PAT, SWINEY Unavailable Unavailable PAT WHITNEY WINNIE, WHITNEY Unavailable Unavailable WINNIE WALKER FOR, WALKER Unavailable Unavailable FOR [facility] Unavailable Unavailable DEPT JANELL, [facility] DEPT JANELL ERICKSON MAT, ERICKSON MAT Unavailable Unavailable Purpose Continuity of Care Document - 11-21-2013 through 2016 Problems Code Diagnosis DOS Provider Status [id number] MALIGNANT 01-18-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[facility] 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 R110 NAUSEA 08-26-2016 [facility] R079 CHEST PAIN 07-20-2016 [place] [facility] R42 DIZZINESS 07-20-2016 [place] AND [facility] GIDDINESS IM[facility]ING ASS N649 DISORDER OF 06-20-2016 [facility] BREAST PHYSICIANS UNSPECIFIED GROUP Z129 ENCOUNTER 06-06-2016 [place] SCREENING MEDICAL MALIGNANT IMAGING ASS NEOPLASM SITE UNS Z853 PERSONAL 06-06-2016 [place] H[facility]ORY [facility]ICAL PRIMARY IMAGING ASS MALIG NEOPLASM BREAST [id number] MIGRAINE 05-04-2016 [facility]EX W/AURA NOT [facility] INTRACT W/O INC STAT MIGRAINOSUS N63 UNSPECIFIED 05-04-2016 [facility]ICAL BREAST IMAGING ASS R51 HEADACHE 05-04-2016 [facility] INC R922 INCONCLUSIV 05-04-2016 DEX E MAMMOGRAM [facility] INC H6090 UNSPECIFIED 04-21-2016 DEX [facility] UNSPECIFIED EAR L299 PRURITUS 04-21-2016 [facility] C50[facility] MIGRAINE 04-19-2016 [place] UNS NOT MEDICAL INTRACT W/O IMAGING ASS STATUS MIGRAINOSUS R928 OTH ABNORM 04-19-2016 [place] & MEDICAL INCONCLUSIV IMAGING ASS E FIND ON DX IMAG BREAST Z1231 ENCOUNTER 03-28-2016 [place] SCREENING MEDICAL MAMMO MALIG IMAGING ASS NEOPLASM BREAST F76398 VAG HIGH 02-24-2016 [facility] RISK [facility]ALTH PAPILLOMAVI VIRGIL DNA TEST POS N750 CYST OF 02-10-2016 [facility] GLAND INC N751 ABSCESS OF 02-10-2016 [facility] BARTHOLINS PHYSICIANS GLAND GROUP O44451 CERV HIGH 02-09-2016 [facility] PAPILLOMAVI VIRGIL DNA TEST POS N51373 ENCOUNTER 02-09-2016 [facility] ANIMAL CARE SERVICE WORKER EXAM HEALTH GENERAL RTN W/ABNORMAL FIND Z37129 ENCOUNTER 02-09-2016 [facility], ANIMAL CARE SERVICE WORKER EXAM LLC GENERAL RTN W/O ABNORMAL FIND Z1239 ENCOUNTER 02-09-2016 [facility] OTHER HEALTH SCREENING MALIG NEOPLASM BREAST M58163 ACQUIRED 02-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 CERVIX AND UTERUS Z720 TOBACCO USE 12-01-2015 [facility] INC Z8781 PERSONAL 12-01-2015 [facility]EX HISTORY OF [facility] HEALED INC TRAUMATIC FRACTURE 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 , PSC OSACRAL INTERVERTEB RAL DISC 7244 THORACIC/SIM 07-14-2015 PATRICIA ZHOU MD, PSC NEURITIS/RA DICULITIS UNSPEC 98814 PAIN IN 06-30-2015 [place] [facility], MEDICAL ANKLE AND IMAGING ASS FOOT 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 7242 LUMBAGO 04-03-2015 [facility] PHYSICIANS GROUP 83311 OTHER 03-13-2015 [place] MEDICAL DISEASES OF SERV [facility] CAVITY AND SINUSES 44199 UNSPECIFIED 03-13-2015 [place] [facility] DENTAL SERV [place] [facility] 87263 CLOSED 03-13-2015 [place] [facility] FRACTURE SERV SUBCONDYLAR FOUNDATION PROCESS MANDIBLE 50119 TOOTH 03-13-2015 [place] MEDICAL BR[place]EN FX SERV DUE TO FOUNDATION TRAUMA W/O MENTION COMP 95377 JAW PAIN 03-12-2015 [place] [facility] E9293 LATE 03-12-2015 [place] MEDICAL EFFECTS OF SERV ACCIDENTAL FOUNDATION FALL V5832 ENCOUNTER 03-10-2015 [facility] FOR REMOVAL PHYSICIANS OF SUTURES GROUP 7231 CERVICALGIA 03-01-2015 [place] [facility] 59541 INJURY OF 03-01-2015 [place] FACE AND MEDICAL NECK OTHER IMAGING ASS AND UNSPECIFIED 02216 PAIN IN 02-28-2015 [place] [facility], MEDICAL UPPER ARM IMAGING ASS 57407 CHEST PAIN 02-28-2015 [place] UNSPECIFIED MEDICAL IMAGING ASS 97476 CLOSED 02-28-2015 [place] FRACTURE OF MEDICAL IMAGING ASS UNSPECIFIED SITE OF MANDIBLE 8300 CLOSED 02-28-2015 [place] DISLOCATION MEDICAL OF JAW IMAGING ASS 8505 CONCUSSION 02-28-2015 [place] WITH LOC OF MEDICAL IMAGING ASS UNSPECIFIED DURATION 75251 OTHER 02-28-2015 [place] INJURY OF MEDICAL CHEST WALL IMAGING ASS 9593 INJURY 02-28-2015 [place] OTHER&UNSPE MEDICAL CIFIED IMAGING ASS [facility]&WRI ST 9392 FOREIGN 02-26-2015 KELLY Calvin BODY IN [place] JAIN VULVA AND VAGINA 31425 TRICHOMONAL 02-23-2015 KELLY VALDEZ MD VULVOVAGINI TIS 6272 SYMPTOMATIC 02-23-2015 KELLY VALDEZ MD MENOPAUSAL/ FEMALE CLIMACTERIC STATES V1322 PERSONAL 02-23-2015 KELLY Calvin HISTORY OF [place] CERVICAL DYSPLASIA 6271 POSTMENOPAU 02-16-2015 [place] ALONDRA MEDICAL BLEEDING IMAGING ASS V7612 OTHER 02-16-2015 [place] SCREENING MEDICAL MAMMOGRAM IMAGING ASS 6273 POSTMENOPAU 02-03-2015 KELLY VALDEZ MD ATROPHIC VAGINITIS V7231 ROUTINE 02-03-2015 KELLY Calvin GYNECOLOGIC [place] AL EXAMINATION V7641 SCREENING 02-03-2015 KELLY Calvin FOR 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 24709 ABDOMINAL 01-26-2015 [place] PAIN OTHER MEDICAL SPECIFIED IMAGING ASS SITE V0382 NEED PROPH 11-21-2014 [facility] VACCINATION PHYSICIANS AGAINST GROUP STREP PNEUMONE V0481 NEED 11-21-2014 [facility] PROPHYLACTI PHYSICIANS C GROUP VACCINATION &INOCULATIO N FLU 490 BRONCHITIS 11-14-2014 [facility] NOT PHYSICIANS SPECIFIED GROUP ACUTE OR CHRONIC 7862 COUGH 10-05-2014 [place] [facility] 7869 OTH 10-05-2014 [place] SYMPTOMS MEDICAL INVOLVING IMAGING ASS RESPIRATORY SYSTEM&CHES T 56060 UNSPECIFIED 09-12-2014 [facility] SUBJECTIVE GRE VISUAL DISTURBANCE 83959 PAIN IN OR 09-12-2014 [facility] AROUND [facility]YE GRE 9308 FOREIGN 09-12-2014 [facility] BODY GRE OTHER&COMBI BUDDY SITES EXTERNAL EYE 73368 OTHER 09-01-2014 [facility] VISUAL GRE DISTORTIONS AND ENTOPTIC PHENOMENA 23811 UNSPECIFIED 09-01-2014 [facility] SCLERITIS GRE 64371 VOMITING 08-20-2014 [facility] N EMERGENCY PHYS 10862 DIARRHEA 08-20-2014 [facility] N EMERGENCY PHYS 7234 BRACHIAL 08-13-2014 [place] NEURITIS OR MEDICAL IMAGING ASS RADICULITIS NOS 7820 DISTURBANCE 08-13-2014 [place] OF SKIN MEDICAL SENSATION IMAGING ASS 77087 OBST 08-07-2014 [facility] CHRONIC N EMERGENCY BRONCHITIS PHYS W/ACUTE BRONCHITIS 83617 FEVER 08-07-2014 [facility] [place] UNSPECIFIED RADIOLOGY 66615 PAIN IN 06-27-2014 [facility], [facility] SHOULDER INC REGION V571 OTHER 06-27-2014 [facility] PHYSICAL [facility] THERAPY INC 89790 UNSPEC 06-18-2014 [facility] DISORDERS PHYSICIANS BURSAE&TEND GROUP ONS SHOULDER REGION V720 EXAMINATION 06-11-2014 [facility] OF EYES GRE AND VISION 7262 OTHER 06-04-2014 [facility] AFFECTIONS PHYSICIANS OF SHOULDER GROUP REGION NEC 3699 UNSPECIFIED 05-27-2014 [facility] VISUAL PHYSICIANS LOSS GROUP 75799 UNSPECIFIED 05-27-2014 [facility] TINNITUS PHYSICIANS GROUP 12228 UNSPECIFIED 04-07-2014 [place] OTALGIA MEDICAL IMAGING ASS 7804 DIZZINESS 04-07-2014 [place] AND MEDICAL GIDDINESS IMAGING ASS V642 SURG/OTH 04-07-2014 DEX PROC NOT [facility] CARRIED OUT INC BECAUSE PTS DECN 4610 ACUTE 01-20-2014 [facility] MAXILLARY [facility] SINUSITIS [facility] 72015 ABDOMINAL 01-20-2014 [facility] PAIN RIGHT [facility] UPPER [facility] HEALTH 7840 HEADACHE 12-11-2013 [facility] N EMERGENCY PHYS E8889 UNSPECIFIED 12-11-2013 [facility] [place] FALL RADIOLOGY 8470 NECK SPRAIN 12-10-2013 [facility] AND STRAIN N EMERGENCY PHYS 8730 OPEN WOUND 12-10-2013 [facility] SCALP N EMERGENCY WITHOUT PHYS MENTION COMPLICATIO N E8888 OTHER FALL 12-10-2013 [facility] N EMERGENCY PHYS 33850 SWELLING OR 11-21-2013 [facility] [place] MASS OF RADIOLOGY EYE E9179 OTHER 11-21-2013 [facility] [place] STRIKING RADIOLOGY AGAINST W/WO SUBSEQUENT FALL F14.10 COCAINE ABUSE, UNCOMPLICAT ED WXR3709 J40 BRONCHITIS, NOT SPECIFIED ACUTE OR CHRONIC [...] ia de te s n re d WV 00 03 04 30 30 00 CL [...] CY ZI NE 1% CR EA M WV 00 02 03 30 30 00 CL [...] AR MA OI CY NT ME NT WV 00 01 02 30 30 00 CL [...] L CY 75 MG TA BL ET WV 00 12 01 30 30 00 CL [...] Procedure DOS Code Location Performer Comment BLOOD 08776 DXE [facility]I COUNT 7 [facility] COMPLETE INC INC AUTO&AUTO DIFRNTL WBC COLLECTIO 54709 DEX [facility] N VENOUS 7 [facility] BLOOD INC INC VENIPUNCT URE COMPREHEN 93873 DEX KOWALSKI SIVE 7 [facility] METABOLIC INC INC PANEL RADIATION 94528 JEREMIAS MCDOWELL 7 W W TREATMENT [facility] MEDICAL 1 MEV => COMPLEX CONTINUIN 29087 JEREMIAS MCDOWELL G MEDICAL [address] [facility] MEDICAL MEDICAL SC WK RADIATION 65563 JEREMIAS DAVILA 7 W TREATMENT PHYSICIAN PRACTIC MANAGEMEN T 5 TREATMENT S RADIATION 26003 BALDOMEROVIE ERICWVIE 7 W W TREATMENT REGIONAL REGIONAL DELIVERY MEDICAL MEDICAL 1 MEV => COMPLEX RADIATION 51375 MEAWLORENZO MEADOWVIE 7 W W TREATMENT REGIONAL REGIONAL DELIVERY MEDICAL MEDICAL 1 MEV => COMPLEX RADIATION 58851 MEADOWLORENZO MEADOWVIE 7 W W TREATMENT REGIONAL REGIONAL DELIVERY MEDICAL MEDICAL 1 MEV => COMPLEX CONTINUIN 15816 JEREMIAS MCDOWELL G MEDICAL 7 W W PHYSICS REGIONAL REGIONAL CONSLTJ MEDICAL MEDICAL SC WK RADIATION 84886 JEREMIAS NERIU 7 W TREATMENT PHYSICIAN PRACTIC MANAGEMEN T 5 TREATMENT S THERAPEUT 59787 JEREMISA MCDOWELL IC 7 W W RADIOLOGY REGIONAL [facility] MEDICAL MEDICAL IMAGES(S) RADIATION 48291 JEREMIAS FALKWLORENZO 7 W W TREATMENT REGIONAL REGIONAL DELIVERY MEDICAL MEDICAL 1 MEV => COMPLEX RADIATION 51812 DEYAVIVEK ERICWLORENZO 7 W W TREATMENT REGIONAL REGIONAL DELIVERY MEDICAL MEDICAL 1 MEV => COMPLEX RADIATION 45322 MEADOVIVEK ERICWVIE 7 W W TREATMENT REGIONAL REGIONAL DELIVERY MEDICAL MEDICAL 1 MEV => COMPLEX RADIATION 23347 ERICDOWLORENZO MEAWVIE 7 W W TREATMENT REGIONAL REGIONAL DELIVERY MEDICAL MEDICAL 1 MEV => COMPLEX RADIATION 03822 MEASTONE FALKWVIE 7 W W TREATMENT REGIONAL REGIONAL DELIVERY MEDICAL MEDICAL 1 MEV => COMPLEX THER RAD 68997 JEREMIAS ALEXANDRELORENZO SIMULAJ-A 7 W W IDED REGIONAL REGIONAL [place] [address] JEREMIAS MCDOWELL DEVICES 7 W W DESIGN & REGIONAL REGIONAL CONSTRUCT MEDICAL MEDICAL ION COMPLEX CONTINUIN 82151 JEREMIAS MCDOWELL G MEDICAL 7 W W PHYSICS REGIONAL REGIONAL CONSLTJ MEDICAL MEDICAL SC WK RADIATION 73703 JEREMIAS NERIU 7 W TREATMENT PHYSICIAN PRACTIC MANAGEMEN T 5 TREATMENT S RADIATION 96351 JEREMIAS MCDOWELL 7 W W TREATMENT REGIONAL REGIONAL DELIVERY MEDICAL MEDICAL 1 MEV => COMPLEX RADIATION 58199 MEADOWVIE MEADOWVIE 7 W W TREATMENT REGIONAL REGIONAL DELIVERY MEDICAL MEDICAL 1 MEV => COMPLEX COMPREHEN 96215 DEX KOWALSKI SIVE 7 [facility] [address] DEX KOWALSKI FREE 7 [facility] [place] [address] DEX KOWALSKI THYROID 7 [facility] STIMULATI INC INC NG HORMONE TSH BLOOD 91574 DEX KOWALSKI COUNT 7 [facility] COMPLETE INC INC AUTO&AUTO DIFRNTL WBC RADIATION 90320 [facility]AD[facility]IE MEADOWVIE 7 W W TREATMENT REGIONAL REGIONAL DELIVERY MEDICAL MEDICAL 1 MEV => COMPLEX RADIATION 37968 MEADOWVIE MEADOWVIE 6 W W TREATMENT REGIONAL REGIONAL DELIVERY MEDICAL MEDICAL 1 MEV => COMPLEX RADIATION 55445 MEADOWVIE MEADOWVIE 6 W W TREATMENT REGIONAL REGIONAL DELIVERY MEDICAL MEDICAL 1 MEV => COMPLEX CONTINUIN 07106 JEREMIAS MEADOWVIE G MEDICAL 6 W W PHYSICS [facility] MEDICAL MEDICAL SC WK THERAPEUT 95841 MEADOWLORENZO MEADOWVIE IC 6 W W RADIOLOGY REGIONAL REG[facility]AL PORT MEDICAL MEDICAL IMAGES(S) RADIATION 23163 JEREMIAS NERIU 6 W TREATMENT PHYSICIAN PRACTIC MANAGEMEN T 5 TREATMENT S RADIATION 31166 MEADOVIVEK MEADOWVIE 6 W W TREATMENT REGIONAL REGIONAL DELIVERY MEDICAL MEDICAL 1 MEV => COMPLEX RADIATION 34240 MEADOWVIE MEADOWVIE 6 W W TREATMENT REGIONAL REGIONAL DELIVERY MEDICAL MEDICAL 1 MEV => COMPLEX RADIATION 10757 MEADOWVIE MEADOWVIE 6 W W TREATMENT REGIONAL REGIONAL DELIVERY MEDICAL MEDICAL 1 MEV => COMPLEX RADIATION 94093 MEADOWVIE MEADOWVIE 6 W W TREATMENT REGIONAL REGIONAL DELIVERY MEDICAL MEDICAL 1 MEV => COMPLEX RADIATION 50195 MEADOWVIE MEADOWVIE 6 W W TREATMENT REGIONAL REGIONAL DELIVERY MEDICAL MEDICAL 1 MEV => COMPLEX RADIATION 62113 JEREMIAS KENNEDYBHU 6 W TREATMENT PHYSICIAN PRACTIC MANAGEMEN T 5 TREATMENT S CONTINUIN 29865 MEADOWVIE MEADOWVIE G MEDICAL 6 W W PHYSICS REGIONAL REGIONAL CONSLT MEDICAL MEDICAL SC WK THERAPEUT 71637 MEADOWVIE MEADOWVIE IC 6 W W RADIOLOGY REGIONAL [facility] PORT MEDICAL MEDICAL IMAGES(S) RADIATION 02801 MEADOWVIE MEADOWVIE 6 W W TREATMENT REGIONAL REGIONAL DELIVERY MEDICAL MEDICAL 1 MEV => COMPLEX RADIATION 78584 MEADOWVIE MEADOWVIE 6 W W TREATMENT REGIONAL REGIONAL DELIVERY MEDICAL MEDICAL 1 MEV => COMPLEX RADIATION 06312 MEADOWVIE MEADOWVIE 6 W W TREATMENT REGIONAL REGIONAL DELIVERY MEDICAL MEDICAL 1 MEV => COMPLEX RADIATION 53837 MEADOWVIE MEADOWVIE 6 W W TREATMENT [facility]IONAL [facility]IONAL DELIVERY MEDICAL MEDICAL 1 MEV => COMPLEX THERAPEUT 20417 MEADOWVIE MEADOWVIE IC 6 W W RADIOLOGY REGIONAL [facility] MEDICAL MEDICAL IMAGES(S) CONTINUIN 38313 MEADOWVIE MEADOWVIE G MEDICAL 6 W W PHYSICS REGIONAL REGIONAL CONSLT MEDICAL MEDICAL SC WK RADIATION 15425 MEADOWVIE LOLA 6 W TREATMENT PHYSICIAN PRACTIC MANAGEMEN T 5 TREATMENT S RADIATION 92070 MEADOWVIE MEADOWVIE 6 W W TREATMENT REGIONAL REGIONAL DELIVERY MEDICAL MEDICAL 1 MEV => COMPLEX RADIATION 19552 MEADOWVIE MEADOWVIE 6 W W TREATMENT REGIONAL REGIONAL DELIVERY MEDICAL MEDICAL 1 MEV => COMPLEX RADIATION 11194 MEADOW[facility]IE MEADOWVIE 6 W W TREATMENT REGIONAL REGIONAL DELIVERY MEDICAL MEDICAL 1 MEV => COMPLEX RADIATION 08581 MEADOWVIE MEADOWVIE 6 W W TREATMENT REGIONAL REGIONAL DELIVERY MEDICAL MEDICAL 1 MEV => COMPLEX THER RAD 52597 JEREMIAS NERIU SIMULAJ-A 6 W IDED [place] [address] JEREMIAS MEAWVIE DEVICES 6 W W DESIGN & REGIONAL REGIONAL CONSTRUCT MEDICAL MEDICAL ION COMPLEX 3-D 00125 JEREMIAS LOLA RADIOTHER 6 W APY PLAN PHYSICIAN DOSE-VOLU PRACTIC ME HISTOGRAM S BASIC 26257 JEREMIAS DAVILA RADIATION 6 W PHYSICIAN DOSIMETRY PRACTIC CALCULATI ON IM ADM 84070 [facility] FRYMAN PRQ ID 6 PHYSICIAN EUG SUBQ/IM S GROUP NJXS 1 VACCINE IIV3 47374 [facility] FRYMAN VACCINE 6 PHYSICIAN EUG SPLIT S GROUP VIRUS 0.5 ML DOSAGE [place] 55071 JEREMIAS DAVILA SIMULAJ-A 6 W IDED PHYSICIAN FIELD PRACTIC SETTING COMPLEX THERAPEUT 10833 JEREMIAS DVAILA IC 6 W RADIOLOGY PHYSICIAN TX PRACTIC PLANNING COMPLEX ONCOLOGY 46293 GENOMIC GENOMIC BREAST 6 [employer] EXPRESSIO N [address] [place] [address] DEX [facility]SKI FERRITIN 6 [facility] INC INC IRON 31145 DEX KOWALSKI BINDING 6 [facility] CAPACITY INC INC BLOOD 94990 DEX KOWALSKI COUNT 6 [facility] COMPLETE INC INC AUTO&[place] [address] DEX KOWALSKI IRON 6 [facility] INC INC COMPREHEN 38330 DEX KOW[facility]SKI SIVE 6 [facility] METABOLIC INC INC PANEL COLLECTIO 32511 DEX KOWALSKI N VENOUS 6 [facility] BLOOD INC INC VENIPUNCT URE RADIOLOGI 50719 [facility] ALL C EXAM 6 MEDICAL CHEST 2 IMAGING VIEWS ASS FRONTAL&L ATERAL ANES 17091 [facility] 6 ANESTH SHE EXTREMITI OF THE ES ANT BLUE TRUNK & PERINEUM NOS BX/EXC 51912 [facility] [place] TOD LYMPH 6 PHYSICIAN NODE OPEN S GROUP DEEP AXILLARY NODE INJ 84709 [place] [facility] RADIOACTI 6 MEDICAL VE TRACER IMAGING FOR ID ASS OF SENTINEL NODE TECHNETIU A9541 DEX [place] TC-99M 6 [facility] SULFUR INC INC COLLOID DX UP TO 20 MCI ECG 48278 DEX [place] ROUTINE 6 [facility] W/LEAST P 12 LDS I&R ONLY MASTECTOM 33557 [facility] [place] TOD Y PARTIAL [address] [place] [address] DEX KOWALSKI ABDOMEN & 6 [facility] PELVIS INC INC W/CONTRAS T MATERIAL CT THORAX 87679 DEX KOWALSKI 6 [facility] W/CONTRAS INC INC T MATERIAL BLOOD 85337 DEX KOWALSKI COUNT 6 [facility] COMPLETE INC INC AUTO&AUTO DIFRNTL WBC COLLECTIO 25808 DEX K[facility]SKI N VENOUS 6 [facility] BLOOD INC INC VENIPUNCT URE COMPREHEN 97524 DEX KOWALSKI SIVE 6 [facility] METABOLIC INC INC PANEL DIAGNOSTI G0206 [place] [facility] C 6 MEDICAL JUANA MAMMOGRAP IMAGING HY INCL ASS CAD WHEN PERF; UNI PHYSICAL 51602 DEX KOWALSKI THERAPY 6 [facility] EVALUATIO INC INC N BREAST 36018 DEX KOWALSKI UNI REAL 6 [facility] TIME INC INC WITH IMAGE COMPLETE BX BREAST 41278 [place] ONEAL W/DEVICE 6 MEDICAL JUANA 1ST IMAGING LESION ASS ULTRASOUN D GUID FINE 88244 DEX K[facility]SKI NEEDLE 6 [facility] ASPIRATIO INC INC N WITH IMAGING GUIDANCE PROBE/NEE C2618 DEX KOWALSKI DLE 6 [facility] CRYOABLAT INC INC ION DUPLEX 16884 [place] [facility] SCAN 6 MEDICAL JUANA EXTRACRAN IMAGING IAL ART ASS COMPL BI STUDY US BREAST 39238 [place] [facility] UNI REAL 6 MEDICAL JUANA TIME IMAGING WITH ASS IMAGE COMPLETE DIAGNOSTI G0206 [place] ONE[facility] C 6 MEDICAL JUANA MAMMOGRAP IMAGING HY INCL ASS CAD WHEN PERF; UNI COMPUTER- 67966 [facility] A[facility] 6 MEDICAL DETECTION IMAGING ASS SCREENING MAMMOGRAP HY SCREENING G0202 [facility] 6 MEDICAL MAMMOGRAP IMAGING HY JOAN ASS INCL CAD WHEN PERFORMD MRI BRAIN 56504 [place] RENDON ALL BRAIN 6 MEDICAL STEM W/O IMAGING CONTRAST ASS MATERIAL CUL BACT 94883 DEX KOWALSKI XCPT 6 [facility] URINE INC INC BLOOD/STO OL AEROBIC ISOL CUL BACT 31266 DEX K[facility]SKI AEROBIC 6 [facility] ADDL INC INC METHS DEFINITIV E EA ISOL I&D [place] [address] [facility] DULCE BARTHOLIN 6 PHYSICIAN MADI S GLAND S GROUP ABSCESS SUSCEPTIB 90247 DEX KOWALSKI LTY STDY 6 [facility] ANTIMICRB INC INC IAL MICRO/AGA R DILUTJ IADNA 09280 [facility] HUM[facility] 6 [facility] ER JR CLEM PAPILLOMA VIRUS HIGH-RISK TYPES CYTP 81506 [facility] CERV/VAG 6 [facility] ER JR CLEM AUTO THIN LAYER PREP MNL SCREEN IM ADM 17701 [facility] PR[facility] ID [facility] SUBQ/IM HLTH DEPT NJXS 1 JANELL VACCINE TDAP 81243 [facility] VACCINE 7 [facility] YRS/> IM HLTH DEPT JANELL THERAPEUT 54418 DEX [facility] IC 6 [facility] PROPHYLAC INC INC TIC/DX INJECTION SUBQ/IM RADEX 38980 [place] [facility] ALL ANKLE 5 MEDICAL COMPLETE IMAGING MINIMUM 3 ASS VIEWS HOSPITAL G0463 DEX KOW[facility]I OUTPATIEN 5 [facility] T CLIN INC [place] VISIT ASSESS & [place] [address] ABNER JUSTIN AZAEL MAXILLOFA 5 MEDICAL CIAL W/O SERV CONTRAST FOUNDATIO MATERIAL N ORTHOPANT 91211 ABNER OLSON OGRAM 5 MEDICAL WINNIE SERV FOUNDATIO N RADIOLOGI 67119 ABNER Echavarria 5 MEDICAL WINNIE EXAMINATI SERV ON CHE[place] [address] [place] [facility] HEAD/BRAI 5 MEDICAL JUANA N W/[place] [address] [place] [facility] MAXILLOFA 5 MEDICAL JUANA CIAL W/[place] [address] [place] [facility] CERVICAL 5 MEDICAL JUANA SPINE W/O IMAGING CONTRAST ASS MATERIAL RADEX 21539 [place] [facility] ELBOW 5 MEDICAL JUANA COMPLETE IMAGING MINIMUM 3 ASS VIEWS RADEX 51722 [place] [facility] RIBS BI 5 MEDICAL JUANA W/POSTERO IMAGING ANT CH ASS MINIMUM 4 VIEWS SMR PRIM 50501 KELLY VALDEZ SRC WET 5 COURTNEY LUCIANO MOUNT NFCT AGT SCREENING G0202 [place] [facility] 5 MEDICAL JUANA MAMMOGRAP IMAGING HY [place] IN[place] [address] [place] [facility] TRANSVAGI 5 MEDICAL JUANA NAL IMAGING ASS COMPUTER- 96712 [place] [facility] AIDED 5 MEDICAL JUANA DETECTION IMAGING ASS SCREENING MAMMOGRAP HY IADNA 37813 KELLY VALDEZ NEISSERIA 5 COURTNEY LUCIANO GONORRHOE AE DIRECT PROBE TQ URINLS 46296 KELLY VALDEZ DIP 5 COURTNEY LUCIANO STICK/TAB LET REAGNT NON-AUTO MICRSCPY BLOOD 94164 KELLY VALDEZ OCCULT 5 COURTNEY LUCIANO PEROXIDAS E ACTV QUAL FECES 1-3 SPEC CULTURE 57836 KE[facility] VALDEZ CHLAMYDIA 5 COURTNEY LUCIANO ANY SOURCE HANDLG&/O 17998 KELLY VALDEZ R CONVEY 5 COURTNEY LUCIANO [place] [address] [facility] ABDOMEN & 5 MEDICAL KEITH PELVIS IMAGING W/O ASS CONTRAST MATERIAL IM ADM 24868 [facility] ANU PRQ ID 5 PHYSICIAN KAITLIN SUBQ/IM S GROUP NJXS 1 VACCINE PCV13 14810 [facility]AIT[facility] FOR S GROUP INTRAMUSC ULAR USE IAADIADOO 29997 [facility] KAITLIN INFLUENZA S GROUP RADIOLOGI 66862 [place] [facility] C EXAM 4 MEDICAL JUANA CHEST 2 IMAGING VIEWS ASS FRONTAL&L ATERAL FIT 89192 KRYSTIAN BOLAND CONTACT 4 GRE [place] OCULAR SURFACE DISEASE MRI 10491 DEX KOWALSKI SPINAL 4 [facility] CANAL INC INC CERVICAL W/O CONTRAST MATRL [place] 90403 [facility]AL [facility] CANAL INC INC LUMBAR W/O CONTRAST MATERIAL 3D 18398 DEX [facility] RENDERING [facility] W/INTERP INC INC & POSTPROCE SS SUPERVISI ON RADIOLOGI 33126 [facility] [place] ELIECER C EXAM 4 RADIOLOGY RHO CHEST 2 VIEWS FRONTAL&L ATERAL PHYSICAL 55992 DEX [facility] THERAPY 4 [facility] EVALUATIO INC INC N THERAPEUT 47919 DEX KOWALSKI IC PX 1/> 4 [facility] AREAS INC INC EACH 15 MIN EXERCISES OPHTH 00193 [facility] BOLAND MEDICAL 4 GRE GRE XM&EVAL COMPRE NEW PT 1/> VST DETERMINA 63030 KRYSTIAN KRYSTIAN TION 4 GRE GRE REFRACTIV E STATE RADEX 11385 DEX K[facility]ALSK[facility] SHOULDER 4 [facility] COMPLETE [place] [address] [place] [address] DEX KOWALSKI HEAD/BRAI 4 [facility] N W/O INC INC CONTRAST MATERIAL URNLS DIP 89704 DEX [facility]I [facility] STICK/TAB INC INC LET REAGENT AUTO MICROSCOP Y 3D 34125 DEX KOWALSKI RENDERING 4 [facility] W/INTERP INC INC & [place] [address] [facility] 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 [employer] [facility], OCCULT 4 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 PROFESSOR 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 PROFESSOR PEROXIDAS [facility] [place] E ACTV CO HOS CO HOS QUAL FECES [address] [facility] [employer], [facility], STOOL 4 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 PROFESSOR 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 PROFESSOR AEROBIC [place] [place] ISOL CO HOS CO HOS SALMONELL A&SHIGELL CUL BACT 33543 [facility], STOOL 4 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 PROFESSOR 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 PROFESSOR AEROBIC [place] ADDL CO HOS CO HOS PATHOGENS &ID EA SMR PRIM 42241 [facility] [facility], SRC CPLX 4 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 PROFESSOR 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 PROFESSOR SPEC [place] [place] STAIN [facility] CO HOS OVA&[place] [address] [facility], [facility], CLOSTRIDI 4 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 PROFESSOR 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 PROFESSOR UM CHAMP [facility]AMP DIFFIC[place] [address] [facility], [employer], SHIGA-LIK 4 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 PROFESSOR 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 PROFESSOR E TOXIN CHAMP [facility] HOS OVA&MELLY [address] [facility], [employer], ITES 4 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 PROFESSOR 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 PROFESSOR DIRECT CHAMP CHAMP SMEARS [facility] [place] & [place] [address] [facility] [place] MAT HEAD/BRAI 4 RADIOLOGY N W/O CONTRAST MATERIAL SIMPLE 34209 [facility] 4 JAMIR LORNA SCALP/NEC EMERGENCY K/AX/AMMON PHYS T/TRUNK 2.5CM/< [place] [address] [facility] [place] MAT CERVICAL 4 RADIOLOGY SPINE W/[place] [address] [facility] [place] MOR[place] JAM MAXILLOFA 4 RADIOLOGY CIAL W/O CONTRAST MATERIAL Encounters Encounter Start End Date Code Location Performer Type Date HOSPITAL DEX - 7 7 [facility] OUTPATIEN [facility] T OFFICE 19992 [facility]EX CASTROIMONE OUTPATIEN 7 7 [facility] 10 P MINUT[facility] OFFICE 21758 [facility]EX OUTPATIEN 7 7 [facility] T VISIT [facility] 10 [facility] DEX - 7 7 [facility] OUTPATIEN [facility] T OFFICE 38313 [facility] OUTPATIEN 7 7 PHYSICIAN T VISIT S GROUP 15 MINUTES HOSPITAL DEX - 7 7 [facility]EN [facility] ME[facility] - 7 7 [facility] 6 W [facility] MEADOWVIE [facility] 6 6 W [facility] MEDICAL OFFICE 12646 [facility] [place] CAL[place]N OUTPATIEN 6 6 PHYSICIAN T VISIT 5 S GROUP MINUTES OFFICE 25317 DEX DONYA OUTPATIEN 6 6 [facility] T VISIT HOSPITAL 10 P MINUTES OFFICE 48200 [facility] OUT[facility] 6 6 [facility] T VISIT MEDICAL 15 GROUP MINUTES HOSPITAL DEX - 6 6 [facility] OUTPATIEN INC T OFFICE 36714 DEX DONYA OUTPATIEN 6 6 [facility] MINUTES P OFFICE 72882 [facility] FRYMAN OUTPATIEN 6 6 PHYSICIAN EUG T VISIT S GROUP 15 MINUTES HOSPITAL DEX - 6 6 [facility] OUTPATIEN INC [facility]OSPITAL DEX - 6 6 [facility] OUTPATIEN INC T OFFICE 80460 [facility] TOD CONSULTAT 6 6 PHYSICIAN ION S GROUP NEW/ESTAB PATIENT 40 MIN OFFICE 93160 [facility] 6 6 [facility] T VISIT 5 DHS/CO [facility] DE[facility] DEX - 6 6 [facility] OUTPATIEN INC T OFFICE 66128 DEX FRYMAN OUTPATIEN 6 6 [facility] VISIT HOSPITAL 15 MINUTES HOSPITAL DEX - 6 6 [facility]PATIEN INC [facility] DEX - 6 6 [facility] OUTPATIEN INC T OFFICE 20351 [facility] HENRY MAR OUTPATIEN 6 6 PHYSICIAN T NEW 45 S GROUP [facility] DEX - 6 6 [facility] OUTPATIEN INC T OFFICE 82117 [facility] 6 6 [facility] T VISIT [facility] 10 [facility] DEX - 6 6 [facility] OUTPATIEN INC T PERIODIC 56688 DHS/CO PREVENTIV 6 6 HEALTH E MED EST PATIENT 40-64YRS EMERGENCY 60833 FAREED BENSON 6 6 PHYSICIAN FOR DEPARTMEN S, PLLC T VISIT HIGH/URGE NT SEVERITY EMERGENCY 63309 DEX 6 6 [facility] DEPARTMEN INC T VISIT LOW/MODER SEVERITY HOSPITAL DEX - 6 6 [facility] OUTPATIEN INC T OFFICE 80673 [facility] ITZEL OUTPATIEN 5 5 MD YISSEL, T VISIT PSC 15 MINUTES HOSPITAL DEX - 5 5 [facility] OUTPATIEN INC T HOSPITAL DEX - 5 5 [facility] OUTPATIEN INC T OFFICE 33964 RACHAELCAROLEE YISSEL OSHEAJ OUTPATIEN 5 5 T NEW 30 MINUTES OFFICE 53424 [facility] ANU OUTPATIEN 5 5 PHYSICIAN KAITLIN T VISIT S GROUP 10 MINUTES EMERGENCY 28227 ABNER DAVILA 5 5 MEDICAL ANGEL DEPARTMEN SERV T VISIT FOUNDATIO HIGH/URGE N NT SEVERITY OFFICE 66854 [facility] ANU OUTPATIEN 5 5 PHYSICIAN KAITLIN T VISIT 5 S GROUP MINUTES OFFICE 34902 KELLY VALDEZ OUTPATIEN 5 5 COURTNEY JAIN ANKITA T VISIT 25 MINUTES OFFICE 05690 KELLY VALDEZ OUTPATIEN 5 5 COURTNEY LUCIANO T VISIT 15 MINUTES HOSPITAL DEX - 5 5 [facility] OUTPATIEN INC T INITIAL 13572 KELLY VALDEZ PREVENTIV 5 5 COURTNEY LUCIANO E MEDICINE NEW PATIENT 40-64YRS OFFICE 78338 [facility] ANU OUTPATIEN 5 5 PHYSICIAN KAITLIN T VISIT S GROUP 10 MINUTES OFFICE 27504 KRYSTIAN BOLAND OUTPATIEN 4 4 GRE GRE T VISIT 25 MINUTES OFFICE 21581 [facility] CONSULTAT 4 4 [place] ION ORTHOPAED NEW/ESTAB ICS PLC PATIENT 40 MIN OFFICE 05251 KRYSTIANTASHA BOLAND OUTPATIEN 4 4 GRE GRE T VISIT 25 MINUTES EMERGENCY 19397 [facility] SO[facility] DEPT 4 4 JAMIR VISIT EMERGENCY HIGH PHYS SEVERITY& THREAT FUN HOSPITAL DEX - 4 4 [facility] OUTPATIEN INC T EMERGENCY 77038 [facility] CHANDEL 4 4 JAMIR ROSA DEPARTMEN EMERGENCY T VISIT PHYS HIGH/URGE NT SEVERITY HOSPITAL DEX - 4 4 [facility] OUTPATIEN INC T OFFICE 86902 [facility] ANU OUTPATIEN 4 4 PHYSICIAN KAITLIN T VISIT S GROUP 10 MINUTES OFFICE 68858 [facility] PETTEY OUTPATIEN 4 4 PHYSICIAN JAM T NEW 10 S GROUP MINUTES HOSPITAL DEX - 4 4 [facility] OUTPATIEN INC T OFFICE 51782 [facility] ANU OUTPATIEN 4 4 PHYSICIAN KAITLIN T VISIT S GROUP 15 MINUTES HOSPITAL DEX - 4 4 [facility] OUTPATIEN INC T EMERGENCY 25069 DEX 4 4 [facility] DEPARTMEN INC T VISIT LOW/MODER SEVERITY 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
--- OUTSIDE RECORDS SUMMARY | 2017-03-03 17:51 | External Medical Summary Rpt ---
Author Author , Organization [employer] Address Unknown Phone Unavailable Care Team Providers Care Completions Engineer Name Role Phone MOSHE DEY MD, PSC, Unavailable Unavailable MOSHE DEY MD, PSC [facility] Unavailable Unavailable MEDICAL GROUP, [facility] BEINEKE, BEINEKE Unavailable Unavailable BEINEKE [...] EUG ANU KAITLIN, ANU Unavailable Unavailable KAITLIN [employer] Unavailable Unavailable [employer] KELLY VALDEZ MD, Unavailable Unavailable KELLY VALDEZ MD GREDAVID LORNA, GREISER Unavailable Unavailable LORNA ELIECER RHO, ELIECER Unavailable Unavailable RHO HARPEL ANKITA, HARPEL Unavailable Unavailable ANKITA [facility] Unavailable Unavailable INC, [facility] Unavailable Unavailable HOSPITAL, [facility] Unavailable Unavailable HOSPITAL P, [facility] P [facility], Unavailable Unavailable [facility] HARRIS TRA, HARRIS TRA Unavailable Unavailable NGUYEN NAN, NGUYEN Unavailable Unavailable NAN [facility] Un[facility] Un[facility], [facility] JUSTIN AZAEL, JUSTIN AZAEL Unavailable Unavailable [facility] KRYSTIAN GRE, Unavailable Unavailable KRYSTIAN GRE [facility], Unavailable Unavailable [facility] FLACO KEY, Unavailable Unavailable FLACO MACKEY [place] [facility] Unavailable Unavailable [facility], [place] [facility] [place] [facility] Unavailable Unavailable MEDICAL, [facility], 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 [facility] Unavailable Unavailable [facility], [facility], 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 ASSISTANT [facility] Unavailable Unavailable HEALTH, [facility] Unavailable Unavailable LABS, [...] WINNIE WALKER FOR, WALKER Unavailable Unavailable FOR [facility] Unavailable Unavailable DEPT JANELL, [facility] JANELL ERICKSON MAT, ERICKSON MAT Unavailable Unavailable Purpose Continuity of Care Document - 11-21-2013 through 2016 Problems Code Diagnosis DOS Provider Status 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 01-18-2017 [place] [facility] P STATUS [id number] MALIG 11-24-2016 [facility] NEOPLASM 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 Z510 ENCOUNTER 11-24-2016 [place] FOR [facility] ANTINEOPLAS PRACTIC TIC RADIATION THERAPY [id number] MALIGNANT 11-16-2016 [facility]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[facility] RIGHT FEMALE BREAST I10 ESSENTIAL 11-09-2016 [facility] PRIMARY PHYSICIANS HYPERTENSIO GROUP N Z23 ENCOUNTER 09-23-2016 [facility] FOR PHYSICIANS IMMUNIZATIO GROUP N B354 TINEA 08-26-2016 [facility] R110 NAUSEA 08-26-2016 [facility] R079 CHEST PAIN 07-20-2016 [facility] IM[facility]ING ASS R42 DIZZINESS 07-20-2016 [facility] AND [facility] GIDDINESS IMAGING ASS N649 DISORDER OF 06-20-2016 [facility] BREAST PHYSICIANS UNSPECIFIED GROUP Z129 ENCOUNTER 06-06-2016 [facility] SCREEN[facility]ICAL MALIGNANT IMAGING ASS NEOPLASM SITE UNS Z853 PERSONAL 06-06-2016 [facility] PRIMARY [facility]ING ASS MALIG NEOPLASM BREAST C08668 MIGRAINE 05-04-2016 [facility] W/AURA NOT [facility] INTRACT W/O INC STAT MIGRAINOSUS N63 UNSPECIFIED 05-04-2016 [facility] LU[facility] IN MEDICAL BREAST IMAGING ASS R51 HEADACHE 05-04-2016 [facility] INC R922 INCONCLUSIV 05-04-2016 [facility]EX E MAMMOGRAM [facility] INC H6090 UNSPECIFIED 04-21-2016 [facility] UNSPECIFIED EAR L299 PRURITUS 04-21-2016 [facility] C28711 MIGRAINE 04-19-2016 [place] U[place] NOT MEDICAL INTRACT W/O IMAGING ASS STATUS MIGRAINOSUS R928 OTH ABNORM 04-19-2016 [place] & MEDICAL INCONCLUSIV IMAGING ASS E FIND ON DX IMAG BREAST Z1231 ENCOUNTER 03-28-2016 [facility] SCREENING MEDICAL MAMMO MALIG IMAGING ASS NEOPLASM BREAST M03913 VAG HIGH 02-24-2016 [facility] RISK [facility] PAPILLOMAVI VIRGIL DNA TEST POS N750 CYST OF 02-10-2016 [facility] GLAND INC N751 ABSCESS OF 02-10-2016 [facility] BARTHOLINS PHYSICIANS GLAND GROUP P49550 CERV HIGH 02-09-2016 [facility] PAPILLOMAVI VIRGIL DNA TEST POS H04581 ENCOUNTER 02-09-2016 DHS/CO ENGINE SERVICE REPAIRER EXAM HEALTH GENERAL RTN W/ABNORMAL FIND A91183 ENCOUNTER 02-09-2016 [facility], ENGINE SERVICE REPAIRER EXAM LLC GENERAL RTN W/O ABNORMAL FIND Z1239 ENCOUNTER 02-09-2016 [facility] OTHER HEALTH SCREENING MALIG NEOPLASM BREAST Q99072 ACQUIRED 02-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 CERVIX AND UTERUS Z720 TOBACCO USE 12-01-2015 [facility] INC Z8781 PERSONAL 12-01-2015 [facility]ISTORY OF [facility] HEALED INC TRAUMATIC FRACTURE 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 , PSC OSACRAL INTERVERTEB RAL DISC 7244 THORACIC/SIM 07-14-2015 PATRICIA ZHOU MD, PSC NEURITIS/RA DICULITIS UNSPEC 90062 PAIN IN 06-30-2015 [facility], MEDICAL ANKLE AND IMAGING ASS FOOT 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 7242 LUMBAGO 04-03-2015 [facility] PHYSICIANS GROUP 10952 OTHER 03-13-2015 [place] [facility] DISEASES OF SERV NASAL [facility] CAVITY AND SINUSES 64057 UNSPECIFIED 03-13-2015 [place] [facility] DENTAL SERV CARIES [facility]OUND[facility] 94066 CLOSED 03-13-2015 [place] [facility] FRACTURE SERV SUBCONDYLAR FOUNDATION PROCESS MANDIBLE 99510 TOOTH 03-13-2015 [place] MEDICAL BROKEN FX SERV DUE TO FOUNDATION TRAUMA W/O MENTION COMP 97243 JAW PAIN 03-12-2015 [place] [facility] E9293 LATE 03-12-2015 [place] MEDICAL EFFECTS OF SERV ACCIDENTAL FOUNDATION FALL V5832 ENCOUNTER 03-10-2015 [facility] FOR REMOVAL PHYSICIANS OF SUTURES GROUP 7231 CERVICALGIA 03-01-2015 [facility] 45375 INJURY OF 03-01-2015 [facility] FACE AND MEDICAL NECK OTHER IMAGING ASS AND UNSPECIFIED 94494 PAIN IN 02-28-2015 [facility], MEDICAL UPPER ARM IMAGING ASS 04065 CHEST PAIN 02-28-2015 [facility] UNSPECIFIED MEDICAL IMAGING ASS 31541 CLOSED 02-28-2015 [facility] FRACTURE OF MEDICAL IMAGING ASS UNSPECIFIED SITE OF MANDIBLE 8300 CLOSED 02-28-2015 [facility] DISLOCATION MEDICAL OF JAW IMAGING ASS 8505 CONCUSSION 02-28-2015 [facility] WITH LOC OF MEDICAL IMAGING ASS UNSPECIFIED DURATION 40711 OTHER 02-28-2015 [facility] INJURY OF MEDICAL CHEST WALL IMAGING ASS 9593 INJURY 02-28-2015 [facility] OTHER&UNSPE MEDICAL CIFIED IMAGING ASS ELBOW FOREARM&WRI ST 9392 FOREIGN 02-26-2015 KELLY Calvin BODY IN COURTNEY JAIN VULVA AND VAGINA 36476 TRICHOMONAL 02-23-2015 KELLY VALDEZ MD VULVOVAGINI TIS 6272 SYMPTOMATIC 02-23-2015 KELLY VALDEZ MD MENOPAUSAL/ FEMALE CLIMACTERIC STATES V1322 PERSONAL 02-23-2015 KELLY Calvin HISTORY OF [place] CERVICAL DYSPLASIA 6271 POSTMENOPAU 02-16-2015 [facility] ALONDRA MEDICAL BLEEDING IMAGING ASS V7612 OTHER 02-16-2015 [facility] SCREENING MEDICAL MAMMOGRAM IMAGING ASS 6273 POSTMENOPAU 02-03-2015 KELLY VALDEZ MD ATROPHIC VAGINITIS V7231 ROUTINE 02-03-2015 KELLY Calvin GYNECOLOGIC COURT[place] JAIN AL EXAMINATION V7641 SCREENING 02-03-2015 KELLY 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 11670 ABDOMINAL 01-26-2015 [facility] PAIN OTHER MEDICAL SPECIFIED IMAGING ASS SITE V0382 NEED PROPH 11-21-2014 [facility] VACCINATION PHYSICIANS AGAINST GROUP STREP PNEUMONE V0481 NEED 11-21-2014 [facility] PROPHYLACTI PHYSICIANS C GROUP VACCINATION &INOCULATIO N FLU 490 BRONCHITIS 11-14-2014 [facility] NOT PHYSICIANS SPECIFIED GROUP ACUTE OR CHRONIC 7862 COUGH 10-05-2014 [facility] 7869 OTH 10-05-2014 [facility] SYMPTOMS MEDICAL INVOLVING IMAGING ASS RESPIRATORY SYSTEM&CHES T 55353 UNSPECIFIED 09-12-2014 [facility] SUBJECTIVE GRE VISUAL DISTURBANCE 66468 PAIN IN OR 09-12-2014 [facility] AROUND EYE GRE 9308 FOREIGN 09-12-2014 [facility] BODY GRE OTHER&COMBI BUDDY SITES EXTERNAL EYE 56383 OTHER 09-01-2014 [facility] VISUAL GRE DISTORTIONS AND ENTOPTIC PHENOMENA 85475 UNSPECIFIED 09-01-2014 [facility] SCLERITIS GRE 14570 VOMITING 08-20-2014 [facility] EMERGENCY PHYS 85997 DIARRHEA 08-20-2014 [facility] N EMERGENCY PHYS 7234 BRACHIAL 08-13-2014 [facility] NEURITIS OR MEDICAL IMAGING ASS RADICULITIS NOS 7820 DISTURBANCE 08-13-2014 [facility] OF SKIN MEDICAL SENSATION IMAGING ASS 06906 OBST 08-07-2014 [facility] CHRONIC N EMERGENCY BRONCHITIS PHYS W/ACUTE BRONCHITIS 65470 FEVER 08-07-2014 [facility] [place] UNSPECIFIED RADIOLOGY 65187 PAIN IN 06-27-2014 [facility], [facility] SHOULDER INC REGION V571 OTHER 06-27-2014 [place] [facility]ICAL [facility] THERAPY INC 58945 UNSPEC 06-18-2014 [facility] DISORDERS PHYSICIANS BURSAE&TEND GROUP ONS SHOULDER REGION V720 EXAMINATION 06-11-2014 [facility] OF EYES GRE AND VISION 7262 OTHER 06-04-2014 [facility] AFFECTIONS PHYSICIANS OF SHOULDER GROUP REGION NEC 3699 UNSPECIFIED 05-27-2014 [facility] VISUAL PHYSICIANS LOSS GROUP 49834 UNSPECIFIED 05-27-2014 [facility] TINNITUS PHYSICIANS GROUP 07150 UNSPECIFIED 04-07-2014 [facility] OTALGIA [facility] 7804 DIZZINESS 04-07-2014 [facility] AND MEDICAL GIDDINESS IMAGING ASS V642 SURG/OTH 04-07-2014 D[facility] PROC NOT [facility] CARRIED OUT INC BECAUSE PTS DECN 4610 ACUTE 01-20-2014 [facility] MAXILLARY [facility] SINUSITIS [facility] 95729 ABDOMINAL 01-20-2014 [facility] PAIN [facility] 7840 HEADACHE 12-11-2013 [facility] N EMERGENCY PHYS E8889 UNSPECIFIED 12-11-2013 [facility] [place] FALL RADIOLOGY 8470 NECK SPRAIN 12-10-2013 [facility] AND STRAIN N EMERGENCY PHYS 8730 OPEN WOUND 12-10-2013 [facility] SCALP N EMERGENCY WITHOUT PHYS MENTION COMPLICATIO N E8888 OTHER FALL 12-10-2013 [facility] N EMERGENCY PHYS 00809 SWELLING OR 11-21-2013 [facility] [place] MASS OF [...] ia de te s n re d ME 00 03 04 30 30 00 CL [...] CY ZI NE 1% CR EA M ME 00 02 03 30 30 00 CL [...] AR MA OI CY NT ME NT ME 00 01 02 30 30 00 CL [...] 00 IC ve 12 20 20 41 NUGYEN 45 16 17 66 PH LF 0 [...] L CY 75 MG TA BL ET ME 00 12 01 30 30 00 CL [...] Procedure DOS Code Location Performer Comment COLLECTIO 70673 DEX KOWALSKI N VENOUS 7 [facility] BLOOD INC INC VENIPUNCT URE COMPREHEN 97250 DEX KOWALSKI SIVE 7 [facility] METABOLIC INC INC PANEL BLOOD 09288 DEX KOWALSKI COUNT 7 [facility] COMPLETE INC INC AUTO&AUTO DIFRNTL WBC CONTINUIN 66528 JEREMISA Dale MEDICAL 7 W W PHYSICS REGIONAL REGIONAL CONSLTJ MEDICAL MEDICAL DE WK RADIATION 68459 JEREMIAS MCDOWELL 7 W W TREATMENT REGIONAL REGIONAL DELIVERY MEDICAL MEDICAL 1 MEV => COMPLEX RADIATION 88944 JEREMIAS NERIU 7 W TREATMENT PHYSICIAN PRACTIC MANAGEMEN T 5 TREATMENT S RADIATION 44273 JEREMIAS MCDOWELL 7 W W TREATMENT REGIONAL REGIONAL DELIVERY MEDICAL MEDICAL 1 MEV => COMPLEX RADIATION 29639 JEREMIAS MCDOWELL 7 W W TREATMENT REGIONAL REGIONAL DELIVERY MEDICAL MEDICAL 1 MEV => COMPLEX RADIATION 37900 JEREMIAS MCDOWELL 7 W W TREATMENT REGIONAL REGIONAL DELIVERY MEDICAL MEDICAL 1 MEV => COMPLEX RADIATION 75413 JEREMIAS NERIU 7 W TREATMENT PHYSICIAN PRACTIC MANAGEMEN T 5 TREATMENT S CONTINUIN 02534 JEREMIAS Dale MEDICAL 7 W W PHYSICS REGIONAL [facility]ION[facility] MED[facility] MEDICAL DE WK THERAPEUT 74284 MEADOWVIE MEADOWVIE IC 7 W W RADIOLOGY REGIONAL REGIONAL PORT MEDICAL MEDICAL IMAGES(S) RADIATION 59642 JEREMIAS FALKWVIE 7 W W TREATMENT REGIONAL REGIONAL DELIVERY MEDICAL MEDICAL 1 MEV => COMPLEX RADIATION 71891 MEADOWVIE MEADOWVIE 7 W W TREATMENT REGIONAL REGIONAL DELIVERY MEDICAL MEDICAL 1 MEV => COMPLEX RADIATION 21110 MEADOWLORENZO MEADOWVIE 7 W W TREATMENT REGIONAL REGIONAL DELIVERY MEDICAL MEDICAL 1 MEV => COMPLEX RADIATION 73493 MEADOWLORENZO MEADOWVIE 7 W W TREATMENT REGIONAL REGIONAL DELIVERY MEDICAL MEDICAL 1 MEV => COMPLEX RADIATION 15938 ERICDOWLORENZO REYESDOWVIE 7 W W TREATMENT REGIONAL REGIONAL DELIVERY MEDICAL MEDICAL 1 MEV => COMPLEX RADIATION 93477 JEREMIAS NERIU 7 W TREATMENT PHYSICIAN PRACTIC MANAGEMEN T 5 TREATMENT S THER RAD 22376 JEREMIAS ERICBRYANTLORENZO SIMULAJ-A 7 W W IDED REGIONAL REGIONAL FIELD MEDICAL MEDICAL SETTING SIMPLE CONTINUIN 44349 JEREMIAS FALKKendrickLORENZO G MEDICAL 7 W W PHYSICS REGIONAL [place] [address] JEREMIAS FALKWLORENZO DEVICES 7 W W DESIGN & REGIONAL REGIONAL CONSTRUCT MEDICAL MEDICAL ION COMPLEX RADIATION 82319 MEAWLORENZO MEADOWVIE 7 W W TREATMENT REGIONAL REGIONAL DELIVERY MEDICAL MEDICAL 1 MEV => COMPLEX RADIATION 90223 DEYAKendrickLORENZO FALKWVIE 7 W W TREATMENT REGIONAL REGIONAL DELIVERY MEDICAL MEDICAL 1 MEV => [place] [address] DEX KOWALSKI FREE 7 [facility] [place] [address] DEX KOWALSKI THYROID 7 [facility] STIMULATI INC INC NG HORMONE TSH BLOOD 73238 DEX KOWALSKI COUNT 7 [facility] COMPLETE INC INC AUTO&AUTO DIFRNTL WBC COMPREHEN 87663 DEX KOWALSKI SIVE 7 [facility] METABOLIC INC INC PANEL RADIATION 38421 DEYAVIVEK ERICWVIE 7 W W TREATMENT REGIONAL REGIONAL DELIVERY MEDICAL MEDICAL 1 MEV => COMPLEX RADIATION 46887 MEADOWVIE MEADOWVIE 6 W W TREATMENT REGIONAL REGIONAL DELIVERY MEDICAL MEDICAL 1 MEV => COMPLEX RADIATION 84059 MEADOWVIE MEADOWVIE 6 W W TREATMENT REGIONAL REGIONAL DELIVERY MEDICAL MEDICAL 1 MEV => COMPLEX RADIATION 79803 MEADOWVIE LOLA 6 W TREATMENT PHYSICIAN PRACTIC MANAGEMEN T 5 TREATMENT S THERAPEUT 61703 MEADOWVIE MEADOWVIE IC 6 W W RADIOLOGY REGIONAL REGIONAL PORT MEDICAL MEDICAL IMAGES(S) CONTINUIN 65608 MEADOWVIE MEADOWVIE G MEDICAL 6 W W PHYSICS REGIONAL REGIONAL CONSLTJ MEDICAL MEDICAL DE WK RADIATION 96915 MEADOWVIE MEADOWVIE 6 W W TREATMENT REGIONAL REGIONAL DELIVERY MEDICAL MEDICAL 1 MEV => COMPLEX RADIATION 67456 MEADOWVIE MEADOWVIE 6 W W TREATMENT REGIONAL REGIONAL DELIVERY MEDICAL MEDICAL 1 MEV => COMPLEX RADIATION 97640 MEADOWVIE MEADOWVIE 6 W W TREATMENT REGIONAL REGIONAL DELIVERY MEDICAL MEDICAL 1 MEV => COMPLEX RADIATION 16220 MEADOWVIE MEADOWVIE 6 W W TREATMENT REGIONAL REGIONAL DELIVERY MEDICAL MEDICAL 1 MEV => COMPLEX RADIATION 50918 MEADOWVIE MEADOWVIE 6 W W TREATMENT REGIONAL REGIONAL DELIVERY MEDICAL MEDICAL 1 MEV => COMPLEX RADIATION 81880 MEADOWVIE LOLA 6 W TREATMENT PHYSICIAN PRACTIC MANAGEMEN T 5 TREATMENT S CONTINUIN 88909 MEADOWVIE MEADOWVIE G MEDICAL 6 W W PHYSICS REGIONAL REGIONAL CONSLTJ MEDICAL MEDICAL DE WK THERAPEUT 02371 MEADOWVIE MEADOWVIE IC 6 W W RADIOLOGY REGIONAL REGIONAL PORT MEDICAL MEDICAL IMAGES(S) RADIATION 79949 MEADOWVIE MEADOWVIE 6 W W TREATMENT REGIONAL REGIONAL DELIVERY MEDICAL MEDICAL 1 MEV => COMPLEX RADIATION 99808 MEADOWVIE MEADOWVIE 6 W W TREATMENT REGIONAL REGIONAL DELIVERY MEDICAL MEDICAL 1 MEV => COMPLEX RADIATION 33485 MEADOWVIE MEADOWVIE 6 W W TREATMENT REGIONAL REGIONAL DELIVERY MEDICAL MEDICAL 1 MEV => COMPLEX RADIATION 40408 MEADOWVIE MEADOWVIE 6 W W TREATMENT REGIONAL REGIONAL DELIVERY MEDICAL MEDICAL 1 MEV => COMPLEX THERAPEUT 84415 JEREMIAS FALKWLORENZO IC 6 W W RADIOLOGY REGIONAL REGIONAL [facility] MEDICAL MEDICAL IMAGES(S) RADIATION 34487 MEAWLORENZO LOLA 6 W TREATMENT PHYSICIAN PRACTIC MANAGEMEN T 5 TREATMENT S CONTINUIN 19741 JEREMIAS MCDOWELL G MEDICAL 6 W W PHYSICS REGIONAL REGIONAL [facility] MEDICAL MEDICAL DE WK RADIATION 57977 MEADOWLORENZO MEADOWVIE 6 W W TREATMENT REGIONAL REGIONAL DELIVERY MEDICAL MEDICAL 1 MEV => COMPLEX RADIATION 64554 MEADOWVIE MEADOWVIE 6 W W TREATMENT REGIONAL REGIONAL DELIVERY MEDICAL MEDICAL 1 MEV => COMPLEX RADIATION 53998 MEADOWLORENZO MEADOWVIE 6 W W TREATMENT REGIONAL REGIONAL DELIVERY MEDICAL MEDICAL 1 MEV => COMPLEX RADIATION 85609 DEYAWLORENZO MEADOWVIE 6 W W TREATMENT REGIONAL REGIONAL [facility] MEDICAL MEDICAL 1 MEV => COMPLEX THER RAD 30067 JEREMIAS NERIU SIMULAJ-A 6 W IDED [place] [address] JEREMIAS MCDOWELL DEVICES 6 W W DESIGN & REGIONAL REGIONAL [facility] MEDICAL MEDICAL ION COMPLEX 3-D 71783 JEREMIAS LOLA RADIOTHER 6 W APY PLAN PHYSICIAN DOSE-VOLU PRACTIC ME HISTOGRAM S BASIC 37580 JEREMIAS LOLA RADIATION 6 W PHYSICIAN DOSIMETRY PRACTIC CALCULATI ON IM ADM 15661 [facility] PRQ ID 6 PHYSICIAN EUG SUBQ/IM S GROUP NJXS 1 VACCINE IIV3 73596 [facility] VACCINE 6 PHYSICIAN EUG SPLIT S GROUP VIRUS 0.5 ML DOSAGE IM USE THERAPEUT 33003 JEREMIAS NERIU IC 6 W RADIOLOGY PHYSICIAN TX PRACTIC PLANNING COM[place] 50265 JEREMIAS NERIU SIMULAJ-A 6 W IDED PHYSICIAN FIELD PRACTIC SETTING COMPLEX ONCOLOGY 69566 GENOMIC GENOMIC BREAST [employer], [employer], [employer] EXPRESSIO N [address] [place] [address] DEX KOWALSKI FERRITIN 6 [place] [address] DEX KOWALSKI IRON 6 [facility] INC INC COLLECTIO 82502 DEX KOWALSKI N VENOUS 6 [facility] BLOOD INC INC VENIPUNCT URE COMPREHEN 42510 DEX KOWALSKI SIVE 6 [facility] METABOLIC INC INC PANEL IRON 68570 DEX KOWALSKI BINDING 6 [facility] CAPACITY INC INC BLOOD 38307 DEX KOWALSKI COUNT 6 [facility] COMPLETE INC INC AUTO&AUTO DIFRNTL WBC RADIOLOGI 11777 [facility] ALL C EXAM 6 MEDICAL CHEST 2 IMAGING VIEWS ASS FRONTAL&L ATERAL ANES 12862 [facility] INTEG 6 ANESTH SHE EXTREMITI OF THE ES ANT BLUE TRUNK & PERINEUM NOS MASTECTOM 61180 [facility] [place] TOD Y PARTIAL 6 PHYSICIAN S GROUP BX/EXC 95070 [facility] [place] TOD LYMPH 6 PHYSICIAN NODE OPEN S GROUP DEEP AXILLARY NODE INJ 70238 MADELIN RENDON RADIOACTI 6 MEDICAL VE TRACER IMAGING FOR ID ASS OF SENTINEL NODE TECHNETIU A9541 DEX KOWALSKI Truman TC-99M 6 [facility] SULFUR INC INC COLLOID DX UP TO 20 MCI ECG 07754 DEX GORDON ROUTINE 6 [facility] W/LEAST P 12 LDS I&R ONLY COMPREHEN 82509 DEX KOWALSKI SIVE 6 [facility] METABOLIC INC INC PANEL COLLECTIO 78519 DEX KOWALSKI N VENOUS 6 [facility] BLOOD INC INC VENIPUNCT URE BLOOD 92176 DEX K[facility]ALSKI COUNT 6 [facility] COMPLETE INC INC AUTO&[place] [address] DEX KOWALSKI ABDOMEN & 6 [facility] PELVIS INC INC W/CONTRAS T MATERIAL CT THORAX 41451 DEX KOWALSKI 6 [facility] W/CONTRAS INC INC T MATERIAL BX BREAST 19619 MADELIN ONEAL W/DEVICE 6 MEDICAL JUANA 1ST IMAGING LESION ASS ULTRASOUN D GUID PHYSICAL 24554 DEX KOWALSKI THERAPY 6 [facility] EVALUATIO INC INC N DIAGNOSTI G0206 [facility] ONE[facility] C 6 MEDICAL JUANA MAMMOGRAP IMAGING HY INCL ASS CAD WHEN PERF; UNI FINE 79827 DEX KOWALSKI NEEDLE 6 [facility] ASPIRATIO INC INC N WITH IMAGING GUIDANCE US BREAST 89146 DEX KOWALSKI UNI REAL 6 [facility] TIME INC INC WITH IMAGE COMPLETE PROBE/NEE C2618 DEX KOWALSKI DLE 6 [facility] CRYOABLAT INC INC ION US BREAST 94172 [facility] UNI REAL 6 MEDICAL JUANA TIME IMAGING WITH ASS IMAGE COMPLETE DUPLEX 48266 [facility] SCAN 6 MEDICAL JUANA EXTRACRAN IMAGING IAL ART ASS COMPL BI STUDY DIAGNOSTI G0206 [facility] ONEAL C 6 MEDICAL JUANA MAMMOGRAP IMAGING HY INCL ASS CAD WHEN PERF; UNI MRI BRAIN 17222 [facility] REND[facility] ALL BRAIN 6 MEDICAL STEM W/O IMAGING CONTRAST ASS MATERIAL SCREENING G0202 [facility] 6 MEDICAL MAMMOGRAP IMAGING HY JOAN ASS INCL CAD WHEN PERFORMD 48919 [facility] AIDED 6 MEDICAL DETECTION IMAGING ASS SCREENING MAMMOGRAP HY SUSCEPTIB 33388 DEX KOWALSKI LTY STDY 6 [facility] ANTIMICRB INC INC IAL MICRO/AGA R DILUTJ CUL BACT 62363 DEXLARRY WASHBURNON XCPT 6 [facility] URINE INC INC BLOOD/STO OL AEROBIC ISOL CUL BACT 15111 DEX KOWALSKI AEROBIC 6 [facility] ADDL INC INC METHS DEFINITIV E EA ISOL I&[place] [address] [facility] DULCE BURGOS 6 PHYSICIAN MADI S GLAND S GROUP ABSCESS IADNA 05341 [facility], PICKLESIM HUMAN 6 LLC ER JR CLEM PAPILLOMA VIRUS HIGH-RISK TYPES CYTP 37497 [facility], PICKLESIM CERV/VAG 6 LLC ER JR CLEM AUTO THIN LAYER PREP MNL SCREEN TDAP 56853 [facility] VACCINE [address] [facility] YRS/> IM HLTH DEPT JANELL IM ADM 02682 [facility] PRQ ID 6 [facility] SUBQ/IM HLTH DEPT NJXS 1 JANELL VACCINE THERAPEUT 16872 DEX KOWALSKI IC 6 [facility] PROPHYLAC INC INC TIC/DX INJECTION SUBQ/IM RADEX 76057 [facility] ALL ANKLE 5 MEDICAL COMPLETE IMAGING MINIMUM 3 ASS VIEWS HOSPITAL G0463 DEX KOWALSKI OUTPATIEN 5 [facility] T CLIN INC INC VISIT ASSESS & [place] [address] ABNER JUSTIN AZAEL MAXILLOFA 5 MEDICAL CIAL W/O SERV CONTRAST FOUNDATIO MATERIAL N ORTHOPANT 36689 ABNER OLSON OGRAM 5 MEDICAL WINNIE SERV FOUNDATIO N RADIOLOGI 70038 ABNER WHITNEY C 5 MEDICAL WINNIE EXAMINATI SERV ON CHE[place] F[place] [address] [facility] CERVICAL 5 MEDICAL JUANA SPINE W/[place] [address] [facility] MAXILLOFA 5 MEDICAL JUANA CIAL W/[place] [address] [facility] HEAD/BRAI 5 MEDICAL JUANA N W/O IMAGING CONTRAST ASS MATERIAL RADEX 26721 [facility] RIBS BI 5 MEDICAL JUANA W/POSTERO IMAGING ANT CH ASS MINIMUM 4 VIEWS RADEX 85287 [facility] ELBOW 5 MEDICAL JUANA COMPLETE IMAGING MINIMUM 3 ASS VIEWS SMR PRIM 28777 [facility] VALDEZ SRC WET 5 COURTNEY BRASWELL NFCT AGT SCREENING G0202 [facility]AL 5 MEDICAL JUANA MAMMOGRAP IMAGING HY [place] [address] [facility] TRANSVAGI 5 MEDICAL JUANA NAL IMAGING ASS COMPUTER- 17[address] [facility] AIDED 5 MEDICAL JUANA DETECTION IMAGING ASS SCREENING MAMMOGRAP HY IADNA 94240 [facility] VALDEZ NEISSERIA 5 COURTNEY LUCIANO GONORRHOE AE DIRECT PROBE TQ BLOOD 64065 [facility] VALDEZ OCCULT 5 COURTNEY LUCIANO PEROXIDAS E ACTV QUAL FECES 1-3 SPEC CULTURE 56720 [facility] VALDEZ CHLAMYDIA 5 COURTNEY LUCIANO ANY SOURCE URINLS 95182 [facility] CORDOVAPEL DIP 5 COURTNEY LUCIANO STICK/TAB LET REAGNT NON-AUTO MICRSCPY HANDLG&/O 51124 [facility] CORDOVAPEL R CONVEY 5 COURTNEY JAIN ANKITA [place] [address] [facility] ABDOMEN & 5 MEDICAL KEITH PELVIS IMAGING W/O ASS CONTRAST MATERIAL PCV13 08452 [facility] ANU VACCINE 5 PHYSICIAN KAITLIN FOR S GROUP INTRAMUSC ULAR USE IM ADM 79064 [facility] PRQ ID 5 PHYSICIAN KAITLIN SUBQ/IM S GROUP NJXS 1 VACCINE IAADIADOO 54312 [facility] ANU 5 PHYSICIAN KAITLIN INFLUENZA S GROUP RADIOLOGI 07622 [facility] C EXAM 4 MEDICAL JUANA CHEST 2 IMAGING VIEWS ASS FRONTAL&L ATERAL FIT 84121 KRY[facility] BOLAND CONTACT 4 GRE GRE LENS [place] OCULAR SURFACE DISEASE 3D 19088 DEX KOWALSKI RENDERING 4 [facility] W/INTERP INC INC & POSTPROCE SS SUPERVISI ON MRI 74827 DEX KOWALSKI SPINAL 4 [facility] CANAL INC INC CERVICAL W/[place] CONTR[place] MAT[place] 02795 DEX KOWALSKI SPINAL 4 [facility] CANAL INC INC LUMBAR W/O CONTRAST MATERIAL RADIOLOGI 77303 [facility] [place] ELIECER C EXAM 4 RADIOLOGY RHO CHEST 2 VIEWS FRONTAL&L ATERAL PHYSICAL 12163 DEX KOWALSKI THERAPY 4 [facility] EVALUATIO INC INC N THERAPEUT 53217 DEX KOWALSKI IC PX 1/> 4 [facility] AREAS INC INC EACH 15 MIN EXERCISES DETERMINA 79858 KRYSTIAN BOLAND TION 4 GRE GRE REFRACTIV E STATE OPHTH [address] [facility] 4 GRE GRE XM&EVAL COMPRE NEW PT 1/> VST RADEX 21702 DEX [facility] SHOULD[facility] 4 [facility] COMPLETE INC INC MINIMUM 2 VIEWS URNLS DIP 05522 DEX [facility]SKI 4 [facility] STICK/TAB INC [place] [address] DEX KOWALSKI HEAD/BRAI 4 [facility] N W/O INC INC CONTRAST MATERIAL 3D 40375 DEX KOWALSKI RENDERING 4 [facility] W/INTERP INC INC & [place] [address] [facility], [facility], MULT STEP 4 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 ASSISTANT 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 ASSISTANT METHOD CHAMP CHAMP NOS [place] [address] [facility], [facility], CLOSTRIDI 4 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 ASSISTANT 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 ASSISTANT UM CHAMP CHAMP DIFFIC[place] [address] [facility], [facility], SHIGA-LIK 4 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 ASSISTANT 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 ASSISTANT E TOXIN CHAMP CHAMP CO HOS CO HOS BLOOD 98575 [facility], [facility], OCCULT 4 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 ASSISTANT 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 ASSISTANT PEROXIDAS CHAMP CHAMP E ACTV CO HOS CO HOS QUAL FECES 1 DETER OVA&MELLY 31554 [facility], [facility], ITES 4 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 ASSISTANT 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 ASSISTANT DIRECT CHAMP CHAMP SMEARS CO HOS CO HOS CONCENTRA TION & ID SMR PRIM 41502 [facility], [facility], SRC CPLX 4 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 ASSISTANT 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 ASSISTANT SPEC CHAMP CHAMP STAIN CO HOS CO HOS OVA&MELLY ITS CUL BACT 37472 [facility], [employer], STOOL 4 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 ASSISTANT 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 ASSISTANT AEROBIC CHAMP CHAMP ISOL CO HOS CO HOS SALMONELL A&SHIGELL CUL BACT 33177 [facility], [facility], STOOL 4 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 ASSISTANT 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 ASSISTANT AEROBIC CHMAP CHAMP ADDL [facility]OS CO HOS PATHOGENS &[place] [address] [facility] [place] MAT HEAD/BRAI 4 RADIOLOGY N W/[place] [address] [facility] [place] [facility] CERVICAL 4 RADIOLOGY SPINE W/O CONTRAST MATERIAL SIMPLE 67206 [facility] 4 JAMIR LORNA SCALP/NEC EMERGENCY K/AX/AMMON PHYS T/TRUNK 2.5CM/< [place] [address] [facility] [place] JAM MAXILLOFA 4 RADIOLOGY CIAL W/O CONTRAST MATERIAL Encounters Encounter Start End Date Code Location Performer Type Date HOSPITAL DEX - 7 7 [facility] OUTPATIEN [facility] T OFFICE 40210 DEX DONYA OUTPATIEN 7 7 [facility] 10 P MINUT[facility] OFFICE 45003 DEX OUTPATIEN 7 7 [facility] T VISIT [facility] 10 MINUTES HOSPITAL [facility]EX - 7 7 [facility] OUTPATIEN [facility] OFFICE 30508 [facility] OUTPATIEN 7 7 PHYSICIAN T VISIT S GROUP 15 MINUTES HOSPITAL [facility]EX - 7 7 [facility] JEREMIAS - 7 7 [facility] MEAWVIE - 6 6 [facility] MEAWVIE [facility] 6 6 W [facility] MEDICAL OFFICE 70370 [facility] [place] OUTPATIEN 6 6 PHYSICIAN T VISIT 5 S GROUP MINUTES OFFICE 75850 DEX DONYA OUTPATIEN 6 6 [facility] 10 P MINUTES OFFICE 36482 [facility] OUTPATIEN 6 6 [facility] 15 GROUP MINUTES HOSPITAL DEX - 6 6 [facility] OUTPATIEN [facility] T OFFICE 20381 DEX DONYA OUTPATIEN 6 6 [place] [address] HOSPITAL MINUTES P OFFICE 09820 [facility] [place] OUTPATIEN 6 6 PHYSICIAN EUG T VISIT S GROUP 15 MINUTES HOSPITAL DEX - [address] [facility] HOSPITAL DEX - 6 6 [facility] OUTPATIEN INC T OFFICE 40265 [facility] [place] CONSULTAT 6 6 PHYSICIAN ION S GROUP NEW/ESTAB PATIENT 40 MIN OFFICE 65571 [facility] OUT[facility] 6 6 [facility] T VISIT 5 DHS/CO [facility] DEPT MINUTES [facility] DEX - 6 6 [facility] OUTPATIEN INC T OFFICE 55560 DEX [facility] OUTPATIEN 6 6 [facility] T [facility]ISIT [facility] 15 [facility] DEX - 6 6 [facility] - 6 6 [facility] OUTPATIEN INC T OFFICE 38460 [facility] [place] OUTPATIEN 6 6 PHYSICIAN T NEW 45 S GROUP [facility] DEX - 6 6 [facility] OUTPATIEN [facility] T OFFICE 75388 DHS[facility] OUTPATIEN [address] [facility] T VISIT [facility]PT [facility] DEX - 6 6 MEM H[facility] OUTPATIEN INC T PERIODIC 58655 DHS/CO PREVENTIV 6 6 HEALTH E MED EST PATIENT 40-64YRS EMERGENCY 53401 FAREED BENSON 6 [address] [facility] T VISIT HIGH/URGE NT SEVERITY EMERGENCY 34521 DEX 6 6 MEM H[facility] T VISIT LOW/MODER SEVERITY HOSPITAL DEX - 6 6 [facility] OUTPATIEN [facility] T OFFICE 19742 [facility] 5 5 MD YISSEL, T VISIT [facility] 15 [facility] DEX - 5 5 [facility] HOS[facility] OUTPATIEN INC [facility] DEX - 5 5 [facility] OUTPATIEN INC T OFFICE 27596 [facility]TE YEHX BUX ANJ OUTPATIEN 5 5 T NEW 30 MINUTES OFFICE 67063 [facility] ANU OUTPATIEN 5 5 PHYSICIAN KAITLIN T VISIT S GROUP 10 MINUTES EMERGENCY 49304 [place] LOLA 5 5 MEDICAL ANGEL DEPARTMEN SERV T VISIT FOUNDATIO HIGH/URGE N NT SEVERITY OFFICE 23992 [facility] ANU OUTPATIEN 5 5 PHYSICIAN KAITLIN T VISIT 5 S GROUP MINUTES OFFICE 99469 [facility] OUTPATIEN 5 5 COURTNEY JAIN ANKITA T VISIT 25 MINUTES OFFICE 51485 [facility] OUTPATIEN 5 5 COUTRNEY JAIN ANKITA T VISIT 15 MINUTES HOSPITAL DEX - 5 5 [facility] OUTPATIEN INC T INITIAL 66408 [facility] PREVENTIV 5 5 COURTNEY JAIN ANKITA E MEDICINE NEW PATIENT 40-64YRS OFFICE 08343 [facility] ANU OUTPATIEN 5 5 PHYSICIAN KAITLIN T VISIT S GROUP 10 MINUTES OFFICE 85133 KRYSTIAN MATUTE 4 4 GRE GRE T VISIT 25 MINUTES OFFICE 24286 [facility] TRA CONSULTAT 4 4 [place] ION ORTHOPAED NEW/ESTAB ICS PLC PATIENT 40 MIN OFFICE 28302 KRYSTIAN MATUTE 4 4 GRE GRE T VISIT 25 MINUTES EMERGENCY 87477 [facility] BAB DEPT 4 4 JAMIR VISIT EMERGENCY HIGH PHYS SEVERITY& THREAT [facility] DEX - 4 4 [facility] OUTPATIEN INC T EMERGENCY 59203 [facility] 4 4 JAMIR ROSA DEPARTMEN EMERGENCY T VISIT PHYS HIGH/URGE NT SEVERITY HOSPITAL DEX - 4 4 [facility] OUTPATIEN INC T OFFICE 04773 [facility] ANU OUTPATIEN 4 4 PHYSICIAN KAITLIN T VISIT S GROUP 10 MINUTES OFFICE 72130 [facility] PETTEY OUTPATIEN 4 4 PHYSICIAN JAM T NEW 10 S GROUP MINUTES HOSPITAL DEX - 4 4 [facility] OUTPATIEN INC T OFFICE 67486 [facility] ANU OUTPATIEN 4 4 PHYSICIAN KAITLIN T VISIT S GROUP 15 MINUTES HOSPITAL DEX - 4 4 [facility] OUTPATIEN INC T EMERGENCY 93316 DEX 4 4 [facility] DEPARTMEN INC T VISIT LOW/MODER SEVERITY [facility]OSPITAL [facility], - 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
--- OUTSIDE RECORDS SUMMARY | 2017-03-03 17:51 | External Medical Summary Rpt ---
Author Author , Organization [employer] Address Unknown Phone Unavailable Care Team Providers Care Inspector Health Care Facilities Name Role Phone MOSHE DEY MD, PSC, Unavailable Unavailable MOSHE DEY MD, PSC [facility] Unavailable Unavailable MEDICAL GROUP, [facility] BEINEKE, BEINEKE Unavailable Unavailable [...] EUG ANU KAITLIN, ANU Unavailable Unavailable KAITLIN [employer] Unavailable Unavailable [employer] KELLY VALDEZ MD, Unavailable Unavailable KELLY VALDEZ MD GREDAVID LORNA, GREISER Unavailable Unavailable LORNA ELIECER RHO, ELIECER Unavailable Unavailable RHO HARPEL ANKITA, HARPEL Unavailable Unavailable ANKITA [facility] Unavailable Unavailable INC, [facility] Unavailable Unavailable HOSPITAL, [facility] Unavailable Unavailable HOSPITAL P, [facility] P [facility], Unavailable Unavailable [facility] HARRIS TRA, HARRIS TRA Unavailable Unavailable NGUYEN NAN, NGUYEN Unavailable Unavailable NAN [facility] Un[facility] Un[facility], [facility] JUSTIN AZAEL, JUSTIN AZAEL Unavailable Unavailable [facility] KRYSTIAN GRE, Unavailable Unavailable KRYSTIAN GRE [facility], Unavailable Unavailable [facility] FLACO KEY, Unavailable Unavailable FLACO MACKEY [facility] Un[facility] Unavailable [facility] Unavailable Unavailable MEDICAL, [facility], [employer] [facility] Unavailable Unavailable CO HOS, [facility], [facility] [employer] Unavailable Unavailable HEALTH, [facility] Unavailable [...] WINNIE WALKER FOR, WALKER Unavailable Unavailable FOR [facility] Unavailable Unavailable DEPT JANELL, [facility] JANELL ERICKSON MAT, ERICKSON MAT Unavailable Unavailable Purpose Continuity of Care Document - 11-21-2013 through 2016 Problems Code Diagnosis DOS Provider Status [id number] MALIGNANT 01-18-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[facility] P UNS FEMALE BREAST 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 01-18-2017 [place] RECEPTOR [facility] P STATUS [id number] MALIG 11-24-2016 [facility] NE[facility] 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 Z510 ENCOUNTER 11-24-2016 [place] [place] [facility] ANTINEOPLAS PRACTIC TIC RADIATION THERAPY [id number] MALIGNANT 11-16-2016 [facility]EX NEOPLASM [facility] INC RIGHT FEMALE BREAST I10 ESSENTIAL 11-09-2016 [facility] PRIMARY PHYSICIANS HYPERTENSIO GROUP N Z23 ENCOUNTER 09-23-2016 [facility] FOR PHYSICIANS IMMUNIZATIO GROUP N B354 TINEA 08-26-2016 [facility] R110 NAUSEA 08-26-2016 [facility] GROUP R079 CHEST PAIN 07-20-2016 [facility] UNSPECIF[facility] IMAGING ASS R42 DIZZINESS 07-20-2016 [facility] AND MEDICAL GIDDINESS IMAGING ASS N649 DISORDER OF 06-20-2016 [facility] BREAST PHYSICIANS UNSPECIFIED GROUP Z129 ENCOUNTER 06-06-2016 [place] [facility] MALIGNANT IMAGING ASS NEOPLASM SITE UNS Z853 PERSONAL 06-06-2016 [place] [facility]ICAL PRIMARY [facility]ING ASS MALIG NEOPLASM BREAST [id number] MIGRAINE 05-04-2016 [facility]EX W/AURA NOT [facility] INTRACT W/O INC STAT MIGRAINOSUS N63 UNSPECIFIED 05-04-2016 [facility] LUMP IN MEDICAL BREAST IMAGING ASS R51 HEADACHE 05-04-2016 [facility]EX [facility] INC R922 INCONCLUSIV 05-04-2016 DEX E MAMMOGRAM [facility] INC H6090 UNSPECIFIED 04-21-2016 DEX OTITIS [facility] UNSPECIFIED EAR L299 PRURITUS 04-21-2016 [facility] [id number] MIGRAINE 04-19-2016 [place] UNS NOT MEDICAL INTRACT W/O IMAGING ASS STATUS MIGRAINOSUS R928 OTH ABNORM 04-19-2016 [place] & MEDICAL INCONCLUSIV IMAGING ASS E FIND ON DX IMAG BREAST Z1231 ENCOUNTER 03-28-2016 [place] SCREENING MEDICAL MAMMO MALIG IMAGING ASS NEOPLASM BREAST U52109 VAG HIGH 02-24-2016 [facility] RISK [facility] PAPILLOMAVI VIRGIL DNA TEST POS N750 CYST OF 02-10-2016 [facility] GLAND INC N751 ABSCESS OF 02-10-2016 [facility] BARTHOLINS PHYSICIANS GLAND GROUP [id number] CERV HIGH 02-09-2016 [facility] PAPILLOMAVI VIRGIL DNA TEST POS V00613 ENCOUNTER 02-09-2016 [facility] GENERAL RTN W/ABNORMAL FIND E90873 ENCOUNTER 02-09-2016 [facility] GENERAL RTN W/O ABNORMAL FIND Z1239 ENCOUNTER 02-09-2016 [facility] OTHER HEALTH SCREENING MALIG NEOPLASM BREAST U58871 ACQUIRED 02-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 CERVIX AND UTERUS Z720 TOBACCO USE 12-01-2015 [facility] INC Z8781 PERSONAL 12-01-2015 DEX HISTORY OF [facility] HEALED INC TRAUMATIC FRACTURE 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 , PSC OSACRAL INTERVERTEB RAL DISC 7244 THORACIC/SIM 07-14-2015 PATRICIA ZHOU MD, PSC NEURITIS/RA DICULITIS UNSPEC 48047 PAIN IN 06-30-2015 [place] [facility], MEDICAL ANKLE AND IMAGING ASS FOOT 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 7242 LUMBAGO 04-03-2015 [facility] PHYSICIANS GROUP 69272 OTHER 03-13-2015 [place] [facility] DISEASES OF SERV NASAL [facility] CAVITY AND SINUSES 91736 UNSPECIFIED 03-13-2015 [place] [facility] DENTAL SERV CAR[place] [facility] 58401 CLOSED 03-13-2015 [place] [facility] FRACTURE SERV SUBCONDYLAR FOUNDATION PROCESS MANDIBLE 11281 TOOTH 03-13-2015 [place] MEDICAL BROKEN FX SERV DUE TO FOUNDATION TRAUMA W/O MENTION COMP 98553 JAW PAIN 03-12-2015 [place] [facility] E9293 LATE 03-12-2015 [place] MEDICAL EFFECTS OF SERV ACCIDENTAL FOUNDATION FALL V5832 ENCOUNTER 03-10-2015 [facility] FOR REMOVAL PHYSICIANS OF SUTURES GROUP 7231 CERVICALGIA 03-01-2015 [place] [facility] 33879 INJURY OF 03-01-2015 [place] FACE AND MEDICAL NECK OTHER IMAGING ASS AND UNSPECIFIED 78127 PAIN IN 02-28-2015 [place] JO[facility], MEDICAL UPPER ARM IMAGING ASS 10367 CHEST PAIN 02-28-2015 [place] UNSPECIFIED MEDICAL IMAGING ASS 45747 CLOSED 02-28-2015 [place] FRACTURE OF MEDICAL IMAGING ASS UNSPECIFIED SITE OF MANDIBLE 8300 CLOSED 02-28-2015 [place] DISLOCATION MEDICAL OF JAW IMAGING ASS 8505 CONCUSSION 02-28-2015 [place] WITH LOC OF MEDICAL IMAGING ASS UNSPECIFIED DURATION 81007 OTHER 02-28-2015 [place] INJURY OF MEDICAL CHEST WALL IMAGING ASS 9593 INJURY 02-28-2015 [place] OTHER&UNSPE MEDICAL CIFIED IMAGING ASS ELBOW FOREARM&WRI ST 9392 FOREIGN 02-26-2015 KELLY Calvin BODY IN COURT[place] JAIN VULVA AND VAGINA 30239 TRICHOMONAL 02-23-2015 KELLY VALDEZ MD VULVOVAGINI TIS 6272 SYMPTOMATIC 02-23-2015 KELLY VALDEZ MD MENOPAUSAL/ FEMALE CLIMACTERIC STATES V1322 PERSONAL 02-23-2015 KELLY Calvin HISTORY OF [place] CERVICAL DYSPLASIA 6271 POSTMENOPAU 02-16-2015 [place] ALONDRA MEDICAL BLEEDING IMAGING ASS V7612 OTHER 02-16-2015 [place] SCREENING MEDICAL MAMMOGRAM IMAGING ASS 6273 POSTMENOPAU 02-03-2015 KELLY VALDEZ MD ATROPHIC VAGINITIS V7231 ROUTINE 02-03-2015 KELLY Calvin GYNECOLOGIC [place] JAIN AL EXAMINATION V7641 SCREENING 02-03-2015 KELLY 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 57858 ABDOMINAL 01-26-2015 [place] PAIN OTHER MEDICAL SPECIFIED IMAGING ASS SITE V0382 NEED PROPH 11-21-2014 [facility] VACCINATION PHYSICIANS AGAINST GROUP STREP PNEUMONE V0481 NEED 11-21-2014 [facility] PROPHYLACTI PHYSICIANS C GROUP VACCINATION &INOCULATIO N FLU 490 BRONCHITIS 11-14-2014 [facility] NOT PHYSICIANS SPECIFIED GROUP ACUTE OR CHRONIC 7862 COUGH 10-05-2014 [place] [facility] 7869 OTH 10-05-2014 [place] SYMPTOMS MEDICAL INVOLVING IMAGING ASS RESPIRATORY SYSTEM&CHES T 71249 UNSPECIFIED 09-12-2014 [facility] SUBJECTIVE GRE VISUAL DISTURBANCE 24182 PAIN IN OR 09-12-2014 [facility] AROUND EYE GRE 9308 FOREIGN 09-12-2014 [facility] BODY GRE OTHER&COMBI BUDDY SITES EXTERNAL EYE 27504 OTHER 09-01-2014 [facility] VISUAL GRE DISTORTIONS AND ENTOPTIC PHENOMENA 41594 UNSPECIFIED 09-01-2014 [facility] SCLERITIS GRE 98824 VOMITING 08-20-2014 [facility] N EMERGENCY PHYS 75307 DIARRHEA 08-20-2014 [facility] N EMERGENCY PHYS 7234 BRACHIAL 08-13-2014 [place] NEURITIS OR MEDICAL IMAGING ASS RADICULITIS NOS 7820 DISTURBANCE 08-13-2014 [place] OF SKIN MEDICAL SENSATION IMAGING ASS 67522 OBST 08-07-2014 [facility] CHRONIC N EMERGENCY BRONCHITIS PHYS W/ACUTE BRONCHITIS 92083 FEVER 08-07-2014 [facility] [place] UNSPECIFIED RADIOLOGY 07026 PAIN IN 06-27-2014 [facility] JOINT, [facility] SHOULDER INC REGION V571 OTHER 06-27-2014 [facility] PHYSICAL [facility] THERAPY INC 57486 UNSPEC 06-18-2014 [facility] DISORDERS PHYSICIANS BURSAE&TEND GROUP ONS SHOULDER REGION V720 EXAMINATION 06-11-2014 [facility] OF EYES GRE AND VISION 7262 OTHER 06-04-2014 [facility] AFFECTIONS PHYSICIANS OF SHOULDER GROUP REGION NEC 3699 UNSPECIFIED 05-27-2014 [facility] VISUAL PHYSICIANS LOSS GROUP 38302 UNSPECIFIED 05-27-2014 [facility] TINNITUS PHYSICIANS GROUP 18831 UNSPECIFIED 04-07-2014 [place] OTAL[facility]IA [facility] 7804 DIZZINESS 04-07-2014 [place] AND MEDICAL GIDDINESS IMAGING ASS V642 SURG/OTH 04-07-2014 DEX PROC NOT [facility] CARRIED OUT INC BECAUSE PTS DECN 4610 ACUTE 01-20-2014 [facility] SINUSITIS [facility] 69989 ABDOMINAL 01-20-2014 [facility] PAIN [facility] 7840 HEADACHE 12-11-2013 [facility] N EMERGENCY PHYS E8889 UNSPECIFIED 12-11-2013 [facility] [place] FALL RADIOLOGY 8470 NECK SPRAIN 12-10-2013 [facility] AND STRAIN N EMERGENCY PHYS 8730 OPEN WOUND 12-10-2013 [facility] SCALP N EMERGENCY WITHOUT PHYS MENTION COMPLICATIO N E8888 OTHER FALL 12-10-2013 [facility] N EMERGENCY PHYS 90181 SWELLING OR 11-21-2013 [facility] [place] MASS OF [...] 00 IC ve 12 20 20 41 NGUEYN 45 16 17 66 PH LF 0 [...] Procedure DOS Code Location Performer Comment COLLECTIO 44414 DEX KOWALSKI N VENOUS 7 [facility] BLOOD INC INC VENIPUNCT URE COMPREHEN 45804 DEX KOWALSKI SIVE 7 [facility] METABOLIC INC INC PANEL BLOOD 60297 DEX KOWALSKI COUNT 7 [facility] COMPLETE INC INC AUTO&AUTO DIFRNTL WBC CONTINUIN 88301 JEREMIAS Dale MEDICAL 7 W W PHYSICS REGIONAL REGIONAL CONSLTJ MEDICAL MEDICAL [place] WK RADIATION 74127 JEREMIAS MCDOWELL 7 W W TREATMENT REGIONAL REGIONAL DELIVERY MEDICAL MEDICAL 1 MEV => COMPLEX RADIATION 64309 JEREMIAS NERIU 7 W TREATMENT PHYSICIAN PRACTIC MANAGEMEN T 5 TREATMENT S RADIATION 06054 JEREMIAS MCDOWELL 7 W W TREATMENT REGIONAL REGIONAL DELIVERY MEDICAL MEDICAL 1 MEV => COMPLEX RADIATION 19267 JEREMIAS MCDOWELL 7 W W TREATMENT REGIONAL REGIONAL DELIVERY MEDICAL MEDICAL 1 MEV => COMPLEX RADIATION 43301 JEREMIAS MCDOWELL 7 W W TREATMENT REGIONAL REGIONAL DELIVERY MEDICAL MEDICAL 1 MEV => COMPLEX RADIATION 34392 JEREMIAS NERIU 7 W TREATMENT PHYSICIAN PRACTIC MANAGEMEN T 5 TREATMENT S CONTINUIN 17671 JEREMIAS Dale MEDICAL 7 W W PHYSICS REGIONAL REGIONAL [facility] [place] THERAPEUT 32713 MEADOWVIE MEADOWVIE IC 7 W W RADIOLOGY REGIONAL REGIONAL PORT MEDICAL MEDICAL IMAGES(S) RADIATION 25680 JEREMIAS FALKWVIE 7 W W TREATMENT REGIONAL REGIONAL DELIVERY MEDICAL MEDICAL 1 MEV => COMPLEX RADIATION 99483 MEADOWVIE MEADOWVIE 7 W W TREATMENT REGIONAL REGIONAL DELIVERY MEDICAL MEDICAL 1 MEV => COMPLEX RADIATION 03688 MEADOWLORENZO MEADOWVIE 7 W W TREATMENT REGIONAL REGIONAL DELIVERY MEDICAL MEDICAL 1 MEV => COMPLEX RADIATION 95861 MEADOWLORENZO MEADOWVIE 7 W W TREATMENT REGIONAL REGIONAL DELIVERY MEDICAL MEDICAL 1 MEV => COMPLEX RADIATION 18861 ERICDOWLORENZO REYESDOWVIE 7 W W TREATMENT REGIONAL REGIONAL DELIVERY MEDICAL MEDICAL 1 MEV => COMPLEX RADIATION 42930 JEREMIAS NERIU 7 W TREATMENT PHYSICIAN PRACTIC MANAGEMEN T 5 TREATMENT S THER RAD 14806 JEREMIAS ERICBRYANTLORENZO SIMULAJ-A 7 W W IDED REGIONAL REGIONAL FIELD MEDICAL MEDICAL SETTING SIMPLE CONTINUIN 57427 JEREMIAS FALKKendirckLORENZO G MEDICAL 7 W W PHYSICS REGIONAL [place] [address] JEREMIAS FALKWLORENZO DEVICES 7 W W DESIGN & REGIONAL REGIONAL CONSTRUCT MEDICAL MEDICAL ION COMPLEX RADIATION 81866 MEAWLORENZO MEADOWVIE 7 W W TREATMENT REGIONAL REGIONAL DELIVERY MEDICAL MEDICAL 1 MEV => COMPLEX RADIATION 44164 DEYAKendrickLORENZO FALKWVIE 7 W W TREATMENT REGIONAL REGIONAL DELIVERY MEDICAL MEDICAL 1 MEV => [place] [address] DEX KOWALSKI FREE 7 [facility] [place] [address] DEX KOWALSKI THYROID 7 [facility] STIMULATI INC INC NG HORMONE TSH BLOOD 90485 DXE KOWALSKI COUNT 7 [facility] COMPLETE INC INC AUTO&AUTO DIFRNTL WBC COMPREHEN 65565 DEX KOWALSKI SIVE 7 [facility] METABOLIC INC INC PANEL RADIATION 54161 DEYAVIVEK ERICWVIE 7 W W TREATMENT REGIONAL REGIONAL DELIVERY MEDICAL MEDICAL 1 MEV => COMPLEX RADIATION 91270 MEADOWVIE MEADOWVIE 6 W W TREATMENT REGIONAL REGIONAL DELIVERY MEDICAL MEDICAL 1 MEV => COMPLEX RADIATION 38029 MEADOWVIE MEADOWVIE 6 W W TREATMENT REGIONAL REGIONAL DELIVERY MEDICAL MEDICAL 1 MEV => COMPLEX RADIATION 99201 MEADOWVIE LOLA 6 W TREATMENT PHYSICIAN PRACTIC MANAGEMEN T 5 TREATMENT S THERAPEUT 93313 MEADOWVIE MEADOWVIE IC 6 W W RADIOLOGY REGIONAL REGIONAL PORT MEDICAL MEDICAL IMAGES(S) CONTINUIN 28031 MEADOWVIE MEADOWVIE G MEDICAL 6 W W PHYSICS REGIONAL REGIONAL CONSLTJ MEDICAL MEDICAL NH WK RADIATION 69771 MEADOWVIE MEADOWVIE 6 W W TREATMENT REGIONAL REGIONAL DELIVERY MEDICAL MEDICAL 1 MEV => COMPLEX RADIATION 46040 MEADOWVIE MEADOWVIE 6 W W TREATMENT REGIONAL REGIONAL DELIVERY MEDICAL MEDICAL 1 MEV => COMPLEX RADIATION 91094 MEADOWVIE MEADOWVIE 6 W W TREATMENT REGIONAL REGIONAL DELIVERY MEDICAL MEDICAL 1 MEV => COMPLEX RADIATION 85579 MEADOWVIE MEADOWVIE 6 W W TREATMENT REGIONAL REGIONAL DELIVERY MEDICAL MEDICAL 1 MEV => COMPLEX RADIATION 69132 MEADOWVIE MEADOWVIE 6 W W TREATMENT REGIONAL REGIONAL DELIVERY MEDICAL MEDICAL 1 MEV => COMPLEX RADIATION 79088 MEADOWVIE LOLA 6 W TREATMENT PHYSICIAN PRACTIC MANAGEMEN T 5 TREATMENT S CONTINUIN 23847 MEADOWVIE MEADOWVIE G MEDICAL 6 W W PHYSICS REGIONAL REGIONAL CONSLTJ MEDICAL MEDICAL [place] THERAPEUT 15545 MEADOWVIE MEADOWVIE IC 6 W W RADIOLOGY REGIONAL REGIONAL PORT MEDICAL MEDICAL IMAGES(S) RADIATION 37243 MEADOWVIE MEADOWVIE 6 W W TREATMENT REGIONAL REGIONAL DELIVERY MEDICAL MEDICAL 1 MEV => COMPLEX RADIATION 85243 MEADOWVIE MEADOWVIE 6 W W TREATMENT REGIONAL REGIONAL DELIVERY MEDICAL MEDICAL 1 MEV => COMPLEX RADIATION 05747 MEADOWVIE MEADOWVIE 6 W W TREATMENT REGIONAL REGIONAL DELIVERY MEDICAL MEDICAL 1 MEV => COMPLEX RADIATION 65134 MEADOWVIE MEADOWVIE 6 W W TREATMENT REGIONAL REGIONAL DELIVERY MEDICAL MEDICAL 1 MEV => COMPLEX THERAPEUT 98951 JEREMIAS FALKWLORENZO IC 6 W W RADIOLOGY REGIONAL REGIONAL [facility] MEDICAL MEDICAL IMAGES(S) RADIATION 99316 MEAWLORENZO LOLA 6 W TREATMENT PHYSICIAN PRACTIC MANAGEMEN T 5 TREATMENT S CONTINUIN 25819 JEREMIAS MCDOWELL G MEDICAL 6 W W PHYSICS REGIONAL REGIONAL [facility] MEDICAL MEDICAL [place] WK RADIATION 25980 MEADOWLORENZO MEADOWVIE 6 W W TREATMENT REGIONAL REGIONAL DELIVERY MEDICAL MEDICAL 1 MEV => COMPLEX RADIATION 87439 MEADOWVIE MEADOWVIE 6 W W TREATMENT REGIONAL REGIONAL DELIVERY MEDICAL MEDICAL 1 MEV => COMPLEX RADIATION 71288 MEADOWLORENZO MEADOWVIE 6 W W TREATMENT REGIONAL REGIONAL DELIVERY MEDICAL MEDICAL 1 MEV => COMPLEX RADIATION 68190 DEYAWLORENZO MEADOWVIE 6 W W TREATMENT REGIONAL REGIONAL [facility] MEDICAL MEDICAL 1 MEV => COMPLEX [place] 99342 JEREMIAS NERIU SIMULAJ-A 6 W IDED PHYSIC[place] [address] JEREMIAS MCDOWELL DEVICES 6 W W DESIGN & REGIONAL REGIONAL [facility] MEDICAL MEDICAL ION COMPLEX 3-D 52896 JEREMIAS LOLA RADIOTHER 6 W APY PLAN PHYSICIAN DOSE-VOLU PRACTIC ME HISTOGRAM S BASIC 71451 JEREMIAS LOLA RADIATION 6 W PHYSICIAN DOSIMETRY PRACTIC CALCULATI ON IM ADM 94753 [facility] [place] PRQ ID 6 PHYSICIAN EUG SUBQ/IM S GROUP NJXS 1 VACCINE IIV3 63269 [facility] VACCINE 6 PHYSICIAN EUG SPLIT S GROUP VIRUS 0.5 ML DOSAGE IM USE THERAPEUT 58076 JEREMIAS NERIU IC 6 W RADIOLOGY PHYSICIAN TX PRACTIC PLANNING COMPLEX THER RAD 93906 JEREMIAS NERIU SIMULAJ-A 6 W IDED PHYSICIAN FIELD PRACTIC SETTING COMPLEX ONCOLOGY 14541 GENOMIC GENOMIC BREAST [employer], [employer], [employer] INC. EXPRESSIO N [address] [place] [address] DEX KOWALSKI FERRITIN 6 [place] [address] DEX KOWALSKI IRON 6 [facility] INC INC COLLECTIO 73293 DEX KOWALSKI N VENOUS 6 [facility] BLOOD INC INC VENIPUNCT URE COMPREHEN 53720 DEX KOWALSKI SIVE 6 [facility] METABOLIC INC INC PANEL IRON 92571 DEX KOWALSKI BINDING 6 [facility] CAPACITY INC INC BLOOD 19180 DEX KOWALSKI COUNT 6 [facility] COMPLETE INC INC AUTO&AUTO DIFRNTL WBC RADIOLOGI 13124 [facility] C EXAM 6 MEDICAL CHEST 2 IMAGING VIEWS ASS FRONTAL&L ATERAL ANES 78594 [facility] INTEG 6 ANESTH SHE EXTREMITI OF THE ES ANT BLUE TRUNK & PERINEUM NOS MASTECTOM 03651 [facility] [place] TOD Y PARTIAL 6 PHYSICIAN S GROUP BX/EXC 24129 [facility] TOD LYMPH 6 PHYSICIAN NODE OPEN S GROUP DEEP AXILLARY NODE INJ 50066 MADELIN RENDON RADIOACTI 6 MEDICAL VE TRACER IMAGING FOR ID ASS OF SENTINEL NODE TECHNETIU A9541 DEX KOWALSKI Truman TC-99M 6 [facility] SULFUR INC INC COLLOID DX UP TO 20 MCI ECG 54364 DEX GORDON ROUTINE [address] [facility] W/LEAST P 12 LDS I&R ONLY COMPREHEN 76229 DEX KOWALSKI SIVE 6 [facility] METABOLIC INC INC PANEL COLLECTIO 20218 DEX KOWALSKI N VENOUS 6 [facility] BLOOD INC INC VENIPUNCT URE BLOOD 24566 DEX KOWALSKI COUNT 6 [facility] COMPLETE INC INC AUTO&[place] [address] DEX KOWALSKI ABDOMEN & 6 [facility] PELVIS INC INC W/CONTRAS T MATERIAL CT THORAX 11065 DEX KOWALSKI 6 [facility] W/CONTRAS INC INC T MATERIAL BX BREAST 64570 MADELIN ONEAL W/DEVICE 6 MEDICAL JUANA 1ST IMAGING LESION ASS ULTRASOUN D GUID PHYSICAL 82104 DEX KOWALSKI THERAPY 6 [facility] EVALUATIO INC INC N DIAGNOSTI G0206 [place] [facility]AL C 6 MEDICAL JUANA MAMMOGRAP IMAGING HY INCL ASS CAD WHEN PERF; UNI FINE 26230 DEX KOWALSKI NEEDLE 6 [facility] ASPIRATIO INC INC N WITH IMAGING GUIDANCE US BREAST 79291 DEX KOWALSKI UNI REAL 6 [facility] TIME INC INC WITH IMAGE COMPLETE PROBE/NEE C2618 DEX KOWALSKI DLE 6 [facility] CRYOABLAT INC INC ION US BREAST 98118 [place] ONEAL UNI REAL 6 MEDICAL JUANA TIME IMAGING WITH ASS IMAGE COMPLETE DUPLEX 66735 [place] ONEAL SCAN 6 MEDICAL JUANA EXTRACRAN IMAGING IAL ART ASS COMPL BI STUDY DIAGNOSTI G0206 [place] ONEAL C 6 MEDICAL JUANA MAMMOGRAP IMAGING HY INCL ASS CAD WHEN PERF; UNI MRI BRAIN 52743 [place] RENDON ALL BRAIN 6 MEDICAL STEM W/O IMAGING CONTRAST ASS MATERIAL SCREENING G0202 [place] [facility] 6 MEDICAL MAMMOGRAP IMAGING HY JOAN ASS INCL CAD WHEN PERFORMD 15198 [place] [address] [facility] [facility] AIDED 6 MEDICAL DETECTION IMAGING ASS SCREENING MAMMOGRAP HY SUSCEPTIB 14642 DEX KOWALSKI LTY STDY 6 [facility] ANTIMICRB INC INC IAL MICRO/AGA R DILUTJ CUL BACT 42325 DEXLARRY WASHBURNON XCPT 6 [facility] URINE INC INC BLOOD/STO OL AEROBIC ISOL CUL BACT 98406 DEX KOWALSKI AEROBIC 6 [facility] ADDL INC INC METHS DEFINITIV E EA ISOL I&[place] [address] [facility] DULCE BURGOS 6 PHYSICIAN MADI S GLAND S GROUP ABSCESS IADNA 10579 [facility], PICKLESIM HUMAN 6 LLC ER JR CLEM PAPILLOMA VIRUS HIGH-RISK TYPES CYTP 69542 [facility], PICKLESIM CERV/VAG 6 LLC ER JR CLEM AUTO THIN LAYER PREP MNL SCREEN TDAP 42908 [facility] VACCINE 7 6 [facility] YRS/> IM HLTH DEPT JANELL IM ADM 27976 [facility] PRQ ID [facility] SUBQ/IM HLTH DEPT NJXS 1 JANELL VACCINE THERAPEUT 85387 DEX KOWALSKI IC 6 [facility] PROPHYLAC INC INC TIC/DX INJECTION SUBQ/IM RADEX 64472 [place] ALL ANKLE 5 MEDICAL COMPLETE IMAGING MINIMUM 3 ASS VIEWS HOSPITAL G0463 DEX KOWALSKI OUTPATIEN 5 [facility] T CLIN INC INC VISIT ASSESS & [place] [address] ABNER JUSTIN AZAEL MAXILLOFA 5 MEDICAL CIAL W/O SERV CONTRAST FOUNDATIO MATERIAL N ORTHOPANT 19762 ABNRE OLSON OGRAM 5 MEDICAL WINNIE SERV FOUNDATIO N RADIOLOGI 87922 ABNER WHITNEY C 5 MEDICAL WINNIE EXAMINATI SERV ON CHE[place] F[place] [address] [place] ONEAL CERVICAL 5 MEDICAL JUANA SPINE W/[place] [address] [place] [facility] MAXILLOFA 5 MEDICAL JUANA CIAL W/[place] [address] [place] [facility] HEAD/BRAI 5 MEDICAL JUANA N W/O IMAGING CONTRAST ASS MATERIAL RADEX 92514 [place] [facility] RIBS BI 5 MEDICAL JUANA W/POSTERO IMAGING ANT CH ASS MINIMUM 4 VIEWS RADEX 46123 [place] [facility] ELBOW 5 MEDICAL JUANA COMPLETE IMAGING MINIMUM 3 ASS VIEWS SMR PRIM 30892 KELLY VALDEZ SRC WET 5 COURTNEY BRASWELL NFCT AGT SCREENING G0202 [place] ONEAL 5 MEDICAL JUANA MAMMOGRAP IMAGING HY [place] [address] [facility] TRANSVAGI 5 MEDICAL JUANA NAL IMAGING ASS COMPUTER- 11644 [facility] AIDED 5 MEDICAL JUANA DETECTION IMAGING ASS SCREENING MAMMOGRAP HY IADNA 15602 KELLY VALDEZ NEISSERIA 5 COURTNEY LUCIANO GONORRHOE AE DIRECT PROBE TQ BLOOD 75006 KELLY VALDEZ OCCULT 5 COURTNEY LUCIANO PEROXIDAS E ACTV QUAL FECES 1-3 SPEC CULTURE 86845 KELLY VALDEZ CHLAMYDIA 5 COURTNEY LUCIANO ANY SOURCE URINLS 07317 KELLY CORDOVAPEL DIP 5 COURTNEY LUCIANO STICK/TAB LET REAGNT NON-AUTO MICRSCPY HANDLG&/O 60613 KELLY CORDOVAPEL R CONVEY 5 COURTNEY JAIN AN[place] [address] [facility] ABDOMEN & 5 MEDICAL KEITH PELVIS IMAGING W/O ASS CONTRAST MATERIAL PCV13 48458 [facility] ANU VACCINE 5 PHYSICIAN KAITLIN FOR S GROUP INTRAMUSC ULAR USE IM ADM 58622 [facility] PRQ ID 5 PHYSICIAN KAITLIN SUBQ/IM S GROUP NJXS 1 VACCINE IAADIADOO 38166 [facility] ANU 5 PHYSICIAN KAITLIN INFLUENZA S GROUP RADIOLOGI 22201 [facility] C EXAM 4 MEDICAL JUANA CHEST 2 IMAGING VIEWS ASS FRONTAL&L ATERAL FIT 44497 KRYSTIAN BOLAND CONTACT 4 GRE [place] OCULAR SURFACE DISEASE 3D 44577 DEX KOWALSKI RENDERING 4 [facility] W/INTERP INC INC & POSTPROCE SS SUPERVISI ON MRI 55708 DEX KOWALSKI SPINAL 4 [facility] CANAL INC INC CERVICAL W/O CONTRAST MATRL MRI 53114 DEX KOWALSKI SPINAL 4 [facility] CANAL INC INC LUMBAR W/O CONTRAST MATERIAL RADIOLOGI 22155 [facility] [place] [facility] C EXAM 4 RADIOLOGY RHO CHEST 2 VIEWS FRONTAL&L ATERAL PHYSICAL 76008 DEX K[facility]ALSKI THERAPY 4 [facility] EVALUATIO INC INC N THERAPEUT 46690 DEX KOWALSKI IC PX 1/> 4 [facility] AREAS INC INC EACH 15 MIN EXERCISES DETERMINA 57817 KRYSTIAN BOLAND TION 4 GRE GRE REFRACTIV E STATE OPHTH 31838 [facility] 4 GRE GRE XM&EVAL COMPRE NEW PT 1/> VST RADEX 64141 DEX KOWALSKI SHOULDER 4 [facility] COMPLETE INC INC MINIMUM 2 VIEWS URNLS DIP 36002 DEX [facility] STICK/TAB INC [place] [address] DEX KOWALSKI HEAD/BRAI 4 [facility] N W/O INC INC CONTRAST MATERIAL 3D 15462 DEX KOWALSKI RENDERING 4 [facility] W/INTERP INC INC & [place] [address] [facility] QA on Request, [facility], MULT STEP 4 POWER TRANSFORMER REPAIRER POWER TRANSFORMER REPAIRER METHOD CHAMP CHAMP NOS [place] [address] [facility] QA on Request, [facility] INC, CLOSTRIDI 4 POWER TRANSFORMER REPAIRER POWER TRANSFORMER REPAIRER UM CHAMP CHAMP DIFFIC[place] [address] [facility] QA on Request, [facility] QA on Request, SHIGA-LIK 4 POWER TRANSFORMER REPAIRER POWER TRANSFORMER REPAIRER E TOXIN CHAMP [facility]AMP [facility] CO HOS BLOOD 63310 [facility] QA on Request, [facility] QA on Request, OCCULT 4 POWER TRANSFORMER REPAIRER POWER TRANSFORMER REPAIRER PEROXIDAS CHAMP CHAMP E ACTV CO HOS CO HOS QUAL FECES 1 DETER OVA&MELLY 65236 [facility] QA on Request, [facility] INC, ITES 4 POWER TRANSFORMER REPAIRER POWER TRANSFORMER REPAIRER DIRECT CHAMP CHAMP SMEARS [facility] HOS CO HOS CONCENTRA TION & ID SMR PRIM 23131 [facility] QA on Request, [facility] INC, SRC CPLX 4 POWER TRANSFORMER REPAIRER POWER TRANSFORMER REPAIRER SPEC CHAMP CHAMP STAIN CO HOS CO HOS OVA&MELLY ITS CUL BACT 43115 [facility] QA on Request, [facility], STOOL 4 POWER TRANSFORMER REPAIRER POWER TRANSFORMER REPAIRER AEROBIC CHAMP CHAMP ISOL CO HOS CO HOS SALMONELL A&SHIGELL CUL BACT 02817 [facility] QA on Request, [facility] QA on Request, STOOL 4 POWER TRANSFORMER REPAIRER POWER TRANSFORMER REPAIRER AEROBIC CHAMP CHAMP ADDL [facility]OS PATHOGENS &[place] [address] [facility] [place] [facility] MAT HEAD/BRAI 4 RADIOLOGY N W/[place] [address] [facility] [place] [facility] CERVICAL 4 RADIOLOGY SPINE W/O CONTRAST MATERIAL SIMPLE 44516 [facility] REPA[facility] 4 JAMIR LORNA SCALP/NEC EMERGENCY K/AX/AMMON PHYS T/TRUNK 2.5CM/< [place] [address] [facility] [place] JAM MAXILLOFA 4 RADIOLOGY CIAL W/O CONTRAST MATERIAL Encounters Encounter Start End Date Code Location Performer Type Date HOSPITAL DEX - 7 7 [facility] OUTPATIEN [facility] T OFFICE 60517 DEX DONYA OUTPATIEN 7 7 [facility] 10 P MINUTES OFFICE 03570 DEX OUTPATIEN 7 7 [facility] T VISIT [facility] 10 MINUTES HOSPITAL DEX - 7 7 [facility] OUT[facility]IEN [facility] OFFICE 94038 [facility] OUTPATIEN 7 7 PHYSICIAN T VISIT S GROUP 15 MINUTES HOSPITAL DEX - 7 7 [facility] JEREMIAS - [facility] - 6 6 [facility] MEAWV[facility] - 6 6 W [facility] MEDICAL OFFICE 18600 [facility] [place] [facility] OUTPATIEN 6 6 PHYSICIAN T VISIT 5 S GROUP MINUTES OFFICE 39320 DEX DONYA OUTPATIEN 6 6 [facility] 10 P MINUTES OFFICE 30657 [facility] 6 6 [facility] 15 GROUP MINUTES HOSPITAL DEX - [address] [facility] T OFFICE 08169 DEX DONYA OUTPATIEN 6 6 [place] [address] HOSPITAL MINUTES P OFFICE 60809 [facility] [place] OUTPATIEN 6 6 PHYSICIAN EUG T VISIT S GROUP 15 MINUTES HOSPITAL DEX - 6 6 [facility] DEX - 6 6 [facility]PATIEN INC T OFFICE 48559 [facility] [place] CONSULTAT 6 6 PHYSICIAN ION S GROUP NEW/ESTAB PATIENT 40 MIN OFFICE 05170 [facility] 6 6 [facility] T VISIT 5 DHS/CO [facility] DEPT MINUTES [facility] D[facility] - 6 6 [facility]PATIEN INC T OFFICE 10206 DEX [facility] OUT[facility]IEN 6 6 [facility] T VISIT [facility] 15 [facility] DEX - 6 6 [facility] DEX - 6 6 [facility] OUTPATIEN INC T OFFICE 00244 [facility] [place] OUTPATIEN 6 6 PHYSICIAN T NEW 45 S GROUP [facility] DEX - 6 [address] [facility] [facility] T OFFICE 75909 DHS[facility] 6 6 [facility] T VISIT [facility] DEPT 10 [facility] DEX - 6 6 [facility] OUTPATIEN INC T PERIODIC 68987 DHS/CO PREVENTIV 6 6 HEALTH E MED EST PATIENT 40-64YRS EMERGENCY 95128 FAREED BENSON 6 6 PHYSICIAN FOR DAVIE S [facility] T VISIT HIGH/URGE NT SEVERITY EMERGENCY 04320 DEX 6 6 [facility] T VISIT LOW/MODER SEVERITY HOSPITAL DEX - [address] [facility] T OFFICE 79267 [facility] 5 5 MD YISSEL, T VISIT PSYCHIATRIC 15 [facility] DEX - 5 5 [facility] OUTPATIEN INC [facility] DEX - 5 5 [facility] OUTPATIEN INC T OFFICE 52942 CHANTE YEHX BUX ANJ OUTPATIEN 5 5 T NEW 30 MINUTES OFFICE 03239 [facility] ANU OUTPATIEN 5 5 PHYSICIAN KAITLIN T VISIT S GROUP 10 MINUTES EMERGENCY 58142 [place] LOLA 5 5 MEDICAL ANGEL DEPARTMEN SERV T VISIT FOUNDATIO HIGH/URGE N NT SEVERITY OFFICE 83995 [facility] ANU OUTPATIEN 5 5 PHYSICIAN KAITLIN T VISIT 5 S GROUP MINUTES OFFICE 05258 [facility] VALDEZ OUTPATIEN 5 5 COURTNEY JAIN ANKITA T VISIT 25 MINUTES OFFICE 43058 [facility] VALDEZ OUTPATIEN 5 5 [facility] ANKITA T VISIT 15 MINUTES HOSPITAL DEX - 5 5 [facility] OUTPATIEN INC T INITIAL 00246 KELLY VALDEZ PREVENTIV 5 5 COURTNEY JAIN ANKITA E MEDICINE NEW PATIENT 40-64YRS OFFICE 42897 [facility] ANU OUTPATIEN 5 5 PHYSICIAN KAITLIN T VISIT S GROUP 10 MINUTES OFFICE 55954 KRYSTIAN MATUTE 4 4 GRE GRE T VISIT 25 MINUTES OFFICE 43436 [facility] CONS[facility] 4 4 [place] ION ORTHOPAED NEW/ESTAB ICS PLC PATIENT 40 MIN OFFICE 84042 KRYSTIAN MATUTE 4 4 GRE GRE T VISIT 25 MINUTES EMERGENCY 30013 [facility] DEPT 4 4 JAMIR VISIT EMERGENCY HIGH PHYS SEVERITY& THREAT [facility] DEX - 4 4 [facility] OUTPATIEN INC T EMERGENCY [address] [facility] 4 4 JAMIR ROSA DEPARTMEN EMERGENCY T VISIT PHYS HIGH/URGE NT SEVERITY HOSPITAL DEX - 4 4 [facility] OUTPATIEN INC T OFFICE 89313 [facility] ANU OUTPATIEN 4 4 PHYSICIAN KAITLIN T VISIT S GROUP 10 MINUTES OFFICE 59734 [facility] PETTEY OUTPATIEN 4 4 PHYSICIAN JAM T NEW 10 S GROUP MINUTES HOSPITAL DEX - 4 4 [facility] OUTPATIEN INC T OFFICE 52262 [facility] ANU OUTPATIEN 4 4 PHYSICIAN KAITLIN T VISIT S GROUP 15 MINUTES HOSPITAL DEX - 4 4 [facility] OUTPATIEN INC T EMERGENCY 74135 DEX 4 4 [facility] DEPARTMEN INC T VISIT LOW/MODER SEVERITY HOSPITAL [facility] INC, - 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
--- OUTSIDE RECORDS SUMMARY | 2017-03-03 17:52 | External Medical Summary Rpt ---
Demographics Preferred Language Armenian Marital Status Unknown Yazidi Affiliation Unknown Race Unknown Ethnic Group Unknown Author Author , Organization [employer] Address Unknown Phone Unavailable Purpose Continuity of Care Document - through 2016 Immunization No patient found.
--- OUTSIDE RECORDS SUMMARY | 2017-03-03 17:52 | External Medical Summary Rpt ---
Demographics Preferred Language Eritrean Marital Status Unknown Islam Affiliation Unknown Race Unknown Ethnic Group Unknown Author Author , Organization [employer] Address Unknown Phone Unavailable Purpose Continuity of Care Document - through 2016 Immunization No patient found.
--- NOTE | 2017-03-08 13:57 | RADIOLOGY REPORT PS360 ---
FOOT-RT-3 VIEWS COMPARISON: None HISTORY: Right foot pain no injury TECHNIQUE: AP lateral and oblique views FINDINGS: The tarsal bones metatarsals and phalanges appear intact with no evidence of fracture. Soft tissues are normal and the plantar arch is normal. IMPRESSION: Negative right foot.
== END 2017-02-20 10:15 | disposition home or self-care (01) ==
LOC: ER 04:44 → 2ND 07:30
PROVIDERS: Emergency Medicine
DX: M79.673 Pain in unspecified foot (principal); C50.919 Malignant neoplasm of unspecified site of unspecified female breast; R79.1 Abnormal coagulation profile
CPT/HCPCS: G0378

== ENCOUNTER 2017-03-20 12:27 | Emergency (ER) | payer MEDICAID ==
[~2017-03-20] VITALS: Ht 175.3 cm; Wt 96.2 kg
[~2017-03-20 12:27] MED LIST changes: +ANASTROZOLE1 MG PO; +BREO ELLIPTA1 POW IH; +DIVALPROEX 250250 MG PO; +GABAPENTIN300 M1 PO; +KEFLEX 500MG.500 MG PO; +LIDOCAINE5% TP; +PROMETHAZINE D473 ML PO; +VENTOLIN H0.09 MG/Ac IH
--- OUTSIDE RECORDS SUMMARY | 2017-03-20 12:40 | External Medical Summary Rpt ---
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 KELLY VALDEZ MD, Unavailable Unavailable KELLY VALDEZ MD GREISER LORNA, GREISER Unavailable Unavailable LORNA ELIECER RHO, ELIECER Unavailable Unavailable RHO HARPEL ANKITA, HARPEL Unavailable Unavailable ANKITA [facility] Unavailable Unavailable INC, [facility] Unavailable Unavailable H[facility]PITAL, [facility] Unavailable Unavailable HOSPITAL P, [facility] P [facility], Unavailable Unavailable [facility] HARRIS TRA, HARRSI TRA Unavailable Unavailable NGUYEN NAN, NGUYEN Unavailable Unavailable NAN [facility] Unavailable Unavailable IMAGING [facility], [facility] JUSTIN AZAEL, JUSTIN AZAEL Unavailable Unavailable [facility] KRYSTIAN GRE, Unavailable Unavailable KRYSTIAN GRE [facility], Unavailable Unavailable [facility] FLACO KEY, Unavailable Unavailable FLACO MACKEY [facility] Unavailable Unavailable PRACTIC, [facility] Unavailable Unavailable MEDICAL, [facility] Unavailable Unavailable [facility], [facility] Unavailable Unavailable HEALTH, [facility] Unavailable [facility] PAVEZ MAR, PAVEZ MAR Unavailable Unavailable PETTEY JAM, PETTEY Unavailable Unavailable JAM PICKLESIMER JR CLEM, Unavailable Unavailable PICKLESIMER JR CLEM LOLA, LOLA Unavailable Unavailable LOLA ANGEL, LOLA Unavailable Unavailable ANGEL WINSTON, WINSTON Unavailable Unavailable WINSTON TOD, WINSTON TOD Unavailable Unavailable SOKAN BAB, SOKAN BAB Unavailable Unavailable [facility], [facility] PATRICIA SHE, Unavailable Unavailable PATRICIA SHE SWINEY PAT, SWINEY Unavailable Unavailable PAT WHITNEY WINNIE, WHITNEY Unavailable Unavailable WINNIE WALKER FOR, WALKER Unavailable Unavailable FOR [facility] Unavailable Unavailable DEPT JANELL, [facility] ERICKSON MAT, ERICKSON MAT Unavailable Unavailable Purpose Continuity of Care Document - 11-21-2013 through 2016 Problems Code Diagnosis DOS Provider Status [id number] MALIGNANT 01-31-2017 [facility] NEOPLASM PHYSICIANS UNS SITE GROUP RIGHT FEMALE BREAST Z1211 ENCOUNTER 01-31-2017 [facility] SCREENING PHYSICIANS MALIGNANT GROUP NEOPLASM OF COLON [id number] MALIGNANT 01-18-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[facility] P UNS FEMALE BREAST 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 01-18-2017 [facility] P STATUS [id number] MALIG 11-24-2016 [facility] NEOPLASM 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 Z510 ENCOUNTER 11-24-2016 [facility]IC[facility] ANTINEOPLAS PRACTIC TIC RADIATION THERAPY I10 ESSENTIAL 11-09-2016 [facility] PRIMARY PHYSICIANS HYPERTENSIO GROUP N Z23 ENCOUNTER 09-23-2016 [facility] FOR PHYSICIANS IMMUNIZATIO GROUP N B354 TINEA 08-26-2016 [facility] R110 NAUSEA 08-26-2016 [facility] R079 CHEST PAIN 07-20-2016 [place] [facility]PEC[facility] R42 DIZZINESS 07-20-2016 [place] AND MEDICAL GIDDINESS IMAGING ASS N649 DISORDER OF 06-20-2016 [facility] BREAST PHYSICIANS UNSPECIFIED GROUP Z129 ENCOUNTER 06-06-2016 [place] [facility] MALIGNANT IMAGING ASS NEOPLASM SITE UNS Z853 PERSONAL 06-06-2016 [place] [facility] PRIMARY IMAGING ASS MALIG NEOPLASM BREAST T87548 MIGRAINE 05-04-2016 [facility] W/AURA NOT [facility] INTRACT W/O INC STAT MIGRAINOSUS N63 UNSPECIFIED 05-04-2016 [facility] IN MEDICAL BREAST IMAGING ASS R51 HEADACHE 05-04-2016 [facility] INC R922 INCONCLUSIV 05-04-2016 [facility] E MAMMOGRAM [facility] INC H6090 UNSPECIFIED 04-21-2016 [facility] UNSPECIFIED EAR L299 PRURITUS 04-21-2016 [facility] Y86010 MIGRAINE 04-19-2016 [place] UNS NOT MEDICAL INTRACT W/O IMAGING ASS STATUS MIGRAINOSUS R928 OTH ABNORM 04-19-2016 [facility] & MEDICAL INCONCLUSIV IMAGING ASS E FIND ON DX IMAG BREAST Z1231 ENCOUNTER 03-28-2016 [place] SCREENING MEDICAL MAMMO MALIG IMAGING ASS NEOPLASM BREAST P89232 VAG HIGH 02-24-2016 [facility] RISK [facility] PAPILLOMAVI VIRGIL DNA TEST POS N750 CYST OF 02-10-2016 [facility] GLAND INC N751 ABSCESS OF 02-10-2016 [facility] N47007 CERV HIGH 02-09-2016 [facility] PAPILLOMAVI VIRGIL DNA TEST POS V30124 ENCOUNTER 02-09-2016 [facility] PERPETUAL INVENTORY CLERK EXAM HEALTH GENERAL RTN W/ABNORMAL FIND [id number] ENCOUNTER 02-09-2016 [facility], PERPETUAL INVENTORY CLERK EXAM LLC GENERAL RTN W/O ABNORMAL FIND Z1239 ENCOUNTER 02-09-2016 [facility] OTHER HEALTH SCREENING MALIG NEOPLASM BREAST 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-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 CERVIX AND UTERUS Z720 TOBACCO USE 12-01-2015 [facility] INC Z8781 PERSONAL 12-01-2015 [facility] OF [facility] HEALED INC TRAUMATIC FRACTURE 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 MOSHE DEY LUMBAR/LUMB , PSC OSACRAL INTERVERTEB RAL DISC 7244 THORACIC/SIM 07-14-2015 PATRICIA ZHOU MD, PSC NEURITIS/RA DICULITIS UNSPEC 04967 PAIN IN 06-30-2015 [place] [facility]INT, MEDICAL ANKLE AND IMAGING ASS FOOT 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 7242 LUMBAGO 04-03-2015 [facility] PHYSICIANS GROUP 50790 OTHER 03-13-2015 IN MEDICAL DISEASES OF SERV [facility] CAVITY AND SINUSES 27396 UNSPECIFIED 03-13-2015 IN MEDICAL DENTAL SERV [facility] 36124 CLOSED 03-13-2015 IN MEDICAL FRACTURE SERV SUBCONDYLAR [facility] PROCESS MANDIBLE 65644 TOOTH 03-13-2015 IN MEDICAL BROKEN FX SERV DUE TO FOUNDATION TRAUMA W/O MENTION COMP 46233 JAW PAIN 03-12-2015 IN MEDICAL SERV FOUNDATION E9293 LATE 03-12-2015 IN MEDICAL EFFECTS OF SERV ACCIDENTAL FOUNDATION FALL V5832 ENCOUNTER 03-10-2015 [facility] FOR REMOVAL PHYSICIANS OF SUTURES GROUP 7231 CERVICALGIA 03-01-2015 [place] [facility] 10582 INJURY OF 03-01-2015 [place] FACE AND MEDICAL NECK OTHER IMAGING ASS AND UNSPECIFIED 73958 PAIN IN 02-28-2015 [place] [facility], MEDICAL UPPER ARM IMAGING ASS 06632 CHEST PAIN 02-28-2015 [place] UNSPECIFIED MEDICAL IMAGING ASS 95560 CLOSED 02-28-2015 [place] FRACTURE OF MEDICAL IMAGING ASS UNSPECIFIED SITE OF MANDIBLE 8300 CLOSED 02-28-2015 [place] DISLOCATION MEDICAL OF JAW IMAGING ASS 8505 CONCUSSION 02-28-2015 [place] WITH LOC OF MEDICAL IMAGING ASS UNSPECIFIED DURATION 68493 OTHER 02-28-2015 [place] INJURY OF MEDICAL CHEST WALL IMAGING ASS 9593 INJURY 02-28-2015 [place] OTHER&UNSPE MEDICAL CIFIED IMAGING ASS ELBOW FOREARM&WRI ST 9392 FOREIGN 02-26-2015 KELLY Calvin BODY IN COURTNEY JAIN VULVA AND VAGINA 04764 TRICHOMONAL 02-23-2015 KELLY VALDEZ MD VULVOVAGINI TIS 6272 SYMPTOMATIC 02-23-2015 KELLY VALDEZ MD MENOPAUSAL/ FEMALE CLIMACTERIC STATES V1322 PERSONAL 02-23-2015 KELLY Calvin HISTORY OF [place] [facility] CERVICAL DYSPLASIA 6271 POSTMENOPAU 02-16-2015 [place] ALONDRA MEDICAL BLEEDING IMAGING ASS V7612 OTHER 02-16-2015 [place] SCREENING MEDICAL MAMMOGRAM IMAGING ASS 6273 POSTMENOPAU 02-03-2015 KELLY VALDEZ MD ATROPHIC VAGINITIS V7231 ROUTINE 02-03-2015 KELLY Calvin GYNECOLOGIC [place]AIN AL EXAMINATION V7641 SCREENING 02-03-2015 KELLY 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 88230 ABDOMINAL 01-26-2015 [place] PAIN OTHER MEDICAL SPECIFIED IMAGING ASS SITE V0382 NEED PROPH 11-21-2014 [facility] VACCINATION PHYSICIANS AGAINST GROUP STREP PNEUMONE V0481 NEED 11-21-2014 [facility] PROPHYLACTI PHYSICIANS C GROUP VACCINATION &INOCULATIO N FLU 490 BRONCHITIS 11-14-2014 [facility] NOT PHYSICIANS SPECIFIED GROUP ACUTE OR CHRONIC 7862 COUGH 10-05-2014 [facility] 7869 OTH 10-05-2014 [place] SYMPTOMS MEDICAL INVOLVING IMAGING ASS RESPIRATORY SYSTEM&CHES T 78037 UNSPECIFIED 09-12-2014 [facility] SUBJECTIVE [facility] VISUAL DISTURBANCE 66076 PAIN IN OR 09-12-2014 [facility] 9308 FOREIGN 09-12-2014 [facility] BODY GRE OTHER&COMBI BUDDY SITES EXTERNAL EYE 78587 OTHER 09-01-2014 [facility] VISUAL GRE DISTORTIONS AND ENTOPTIC PHENOMENA 87511 UNSPECIFIED 09-01-2014 [facility] SCLERITIS GRE 77854 VOMITING 08-20-2014 [facility] PH[facility] 55777 DIARRHEA 08-20-2014 [facility] N EMERGENCY PHYS 7234 BRACHIAL 08-13-2014 [place] NEURITIS OR MEDICAL IMAGING ASS RADICULITIS NOS 7820 DISTURBANCE 08-13-2014 [place] OF SKIN MEDICAL SENSATION IMAGING ASS 76518 OBST 08-07-2014 [facility] CHRONIC N EMERGENCY BRONCHITIS PHYS W/ACUTE BRONCHITIS 00336 FEVER 08-07-2014 [facility] [place] UNSPECIFIED RADIOLOGY 79703 PAIN IN 06-27-2014 [facility] JOINT, [facility] SHOULDER INC REGION V571 OTHER 06-27-2014 [facility] PHYSICAL [facility] THERAPY INC 26932 UNSPEC 06-18-2014 [facility] DISORDERS PHYSICIANS BURSAE&TEND GROUP ONS SHOULDER REGION V720 EXAMINATION 06-11-2014 [facility] OF EYES GRE AND VISION 7262 OTHER 06-04-2014 [facility] AFFECTIONS PHYSICIANS OF SHOULDER GROUP REGION NEC 3699 UNSPECIFIED 05-27-2014 [facility] VISUAL PHYSICIANS LOSS GROUP 39337 UNSPECIFIED 05-27-2014 [facility] TINNITUS PHYSICIANS GROUP 13449 UNSPECIFIED 04-07-2014 [place] [facility]ICAL [facility]AGING ASS 7804 DIZZINESS 04-07-2014 [facility] AND [facility] GIDDINESS IMAGING ASS V642 SURG/OTH 04-07-2014 [facility] PROC NOT [facility] CARRIED OUT INC BECAUSE PTS DECN 4610 ACUTE 01-20-2014 [facility] MAXILLARY [facility] SINUSITIS [facility] 02485 ABDOMINAL 01-20-2014 [facility] PAIN RIGHT [facility] UPPER [facility] 7840 HEADACHE 12-11-2013 [facility] N EMERGENCY PHYS E8889 UNSPECIFIED 12-11-2013 [facility] [place] FALL RADIOLOGY 8470 NECK SPRAIN 12-10-2013 [facility] AND STRAIN N EMERGENCY PHYS 8730 OPEN WOUND 12-10-2013 [facility]ALP [facility] EMERGENCY WITHOUT PHYS MENTION COMPLICATIO N E8888 OTHER FALL 12-10-2013 [facility] N EMERGENCY PHYS 60012 SWELLING OR 11-21-2013 [facility] [place] MASS OF RADIOLOGY EYE E9179 OTHER 11-21-2013 [facility] [place] STRIKING RADIOLOGY AGAINST W/WO SUBSEQUENT FALL F14.10 COCAINE ABUSE, UNCOMPLICAT ED CWQ1710 J40 BRONCHITIS, NOT SPECIFIED ACUTE OR CHRONIC [...] ia de te s n re d PE 10 04 05 40 2 00 KE Ac G- 57 -1 -1 00 00 NT ti 33 20 8- 2- .0 01 UC ve 50 10 20 20 00 02 [place] 00 17 17 22 AN 1 56 CV D S EL PH EC AR TR MA OL CY YT ES LL C, SO LN DB A CV S PH AR MA CY #3 01 6 DI 00 04 05 60 30 00 CL Ac VA 11 -1 -1 .0 00 IN ti LP 56 7- 2- 00 00 IC ve RO 91 20 20 42 EX 10 17 17 53 PH 1 30 AR SO MA D CY ER 25 0 MG TA B CE 69 04 05 21 7 00 CL Ac PH 54 -1 -1 .0 00 IN ti AL 30 8- 2- 00 00 IC ve EX 10 20 20 42 IN 25 17 17 84 PH 0 06 AR 50 MA 0 CY MG CA PS UL E IN 00 04 05 30 30 00 CL Ac RT 09 -1 -1 .0 00 IN ti AZ 37 7- 2- 00 00 IC ve AP 20 20 20 42 IN 65 17 17 53 PH E 6 27 AR 15 MA CY MG TA BL ET GA 42 04 05 90 30 00 CL Ac BA 58 -1 -1 .0 00 IN ti PE 20 7- 2- 00 00 IC ve NT 11 20 20 42 IN 51 17 17 53 PH 8 28 AR 30 MA 0 CY MG CA PS UL E AN 51 04 05 30 30 00 CL Ac 99 -1 -1 .0 00 IN ti TR 10 7- 2- 00 00 IC ve OZ 62 20 20 42 OL 03 17 17 24 PH E 3 31 AR 1 MA MG CY TA BL ET VE 57 04 05 60 30 00 CL Ac NL 66 -1 -1 .0 00 IN ti AF 40 7- 2- 00 00 IC ve AX 39 20 20 41 IN 58 17 17 69 PH E 8 69 AR HC MA L CY 75 MG TA BL ET BR 00 04 05 60 30 00 CL Ac EO 17 -0 -0 .0 00 IN ti 30 4- 5- 00 00 IC ve EL 85 20 20 42 LI 91 17 17 72 PH PT 0 44 AR A MA 10 CY 0- 25 MC G IN H OR 00 04 05 12 6 00 CL Ac OM 60 -0 -0 0. 00 IN ti ET 31 4- 5- 00 00 IC ve CHRISTIE 58 20 20 0 42 ZI 65 17 17 72 PH NE 8 42 AR -D MA M CY SY RU P AZ 68 04 05 6. 5 00 CL Ac IT 18 -0 -0 00 00 IN ti HR 00 4- 5- 0 00 IC ve OM 16 20 20 42 YC 01 17 17 72 PH IN 3 43 AR MA 25 CY 0 MG TA BL ET CE 00 03 05 20 10 00 RI Ac FD 78 -2 -0 .0 00 TE ti IN 12 7- 5- 00 00 ve IR 17 20 20 68 AI 66 17 17 91 D 30 0 90 PH 0 AR MG MA CY CA PS #7 UL 92 E 0 VE 00 03 05 18 20 00 RI Ac NT 17 -2 -0 .0 00 TE ti OL 30 7- 5- 00 00 ve IN 68 20 20 68 AI 22 17 17 92 D HF 0 00 PH A AR 90 MA CY MC G #7 IN 92 CHRISTIE 0 LE R AN 51 03 04 30 30 00 [...] CY ZI NE 1% CR EA M IN 00 03 04 30 30 00 CL [...] 0 CY MG CA PS UL E IN 00 02 03 30 30 00 CL [...] HE N 5- 32 5 LI 51 02 02 35 7 00 [...] 0 CY MG CA PS UL E IN 00 01 02 30 30 00 CL [...] MA MG CY TA BL ET LI 50 01 01 35 7 00 [...] CY ER 25 0 MG TA B GA 67 12 01 90 30 00 [...] L CY 75 MG TA BL ET IN 00 12 01 30 30 00 CL [...] Procedure DOS Code Location Performer Comment BLOOD 56034 DEX [facility] COUNT 7 [facility] COMPLETE INC INC AUTO&AUTO DIFRNTL WBC COLLECTIO 71973 DEX K[facility] N VENOUS 7 [facility] BLOOD INC INC VENIPUNCT URE COMPREHEN 58278 DEX K[facility]ALSKI SIVE 7 [facility] METABOLIC INC INC PANEL CONTINUIN 44676 JEREMIAS MCDOWELL G MEDICAL 7 W W PHYSICS REGIONAL REGIONAL CONSLTJ MEDICAL MEDICAL OR WK RADIATION 68157 MEASTONE FALKWVIE 7 W W TREATMENT REGIONAL REGIONAL DELIVERY MEDICAL MEDICAL 1 MEV => COMPLEX RADIATION 42270 JEREMIAS NERIU 7 W TREATMENT PHYSICIAN PRACTIC MANAGEMEN T 5 TREATMENT S RADIATION 06227 JEREMIAS ALEXANDREVIE 7 W W TREATMENT REGIONAL REGIONAL DELIVERY MEDICAL MEDICAL 1 MEV => COMPLEX RADIATION 72321 JEREMIAS FALKWVIE 7 W W TREATMENT REGIONAL REGIONAL DELIVERY MEDICAL MEDICAL 1 MEV => COMPLEX RADIATION 91569 MEADOKendrickVIE DEYAWVIE 7 W W TREATMENT REGIONAL REGIONAL DELIVERY MEDICAL MEDICAL 1 MEV => COMPLEX RADIATION 79817 JEREMIAS NERIU 7 W TREATMENT PHYSICIAN PRACTIC MANAGEMEN T 5 TREATMENT S CONTINUIN 96411 JEREMIAS MCDOWELL G MEDICAL 7 W W PHYSICS [facility]IONAL REGIONAL CONSLTJ MEDICAL MEDICAL OR WK THERAPEUT 59957 JEREMIAS MCDOWELL IC 7 W W RADIOLOGY REGIONAL REGIONAL PORT MEDICAL MEDICAL IMAGES(S) RADIATION 73242 MEADOWVIE MEADOWVIE 7 W W TREATMENT [facility]AL REGIONAL DELIVERY MEDICAL MEDICAL 1 MEV => COMPLEX RADIATION 37127 MEADOWVIE MEADOWVIE 7 W W TREATMENT [facility] REGIONAL DELIVERY MEDICAL MEDICAL 1 MEV => COMPLEX RADIATION 27009 MEADOWVIE MEADOWVIE 7 W W TREATMENT [facility] DELIVERY MEDICAL MEDICAL 1 MEV => COMPLEX RADIATION 62073 MEADOWVIE MEADOWVIE 7 W W TREATMENT [facility] DELIVERY MEDICAL MEDICAL 1 MEV => COMPLEX RADIATION 31371 JEREMIAS MCDOWELL 7 W W TREATMENT [facility] MEDICAL MEDICAL 1 MEV => COMPLEX THER RAD 16717 JEREMIAS MCDOWELL SIMSRI-A 7 W W [facility] MEDICAL MEDICAL SETTING SIMPLE CONTINUIN 60195 JEREMIAS MCDOWELL G MEDICAL 7 W W PHYSICS [facility] MEDICAL OR WK RADIATION 40626 JEREMIAS NERIU 7 W TREATMENT PHYSICIAN PRACTIC [place]EMEN [place] [address] [place] [address] JEREMIAS MCDOWELL DEVICES 7 W W [facility] MEDICAL ION COMPLEX RADIATION 58715 JEREMIAS MCDOWELL 7 W W TREATMENT [facility] MEDICAL MEDICAL 1 MEV => COMPLEX RADIATION 01896 JEREMIAS MCDOWELL 7 W W TREATMENT [facility] MEDICAL MEDICAL 1 MEV => COMPLEX BLOOD 68658 DEX KOWALSKI COUNT 7 [facility] COMPLETE INC INC AUTO&[place] [address] DEX WASHBURNON FREE 7 [facility] [place] [address] DEX KOWALSKI THYROID 7 [facility] STIMULATI INC INC NG HORMONE TSH COMPREHEN 71991 DEX KOWALSKI SIVE 7 [facility] METABOLIC INC INC PANEL RADIATION 10002 JEREMIAS MCDOWELL 7 W W TREATMENT [facility] MEDICAL MEDICAL 1 MEV => COMPLEX RADIATION 98417 JEREMIAS MCDOWELL 6 W W TREATMENT [facility] MEDICAL MEDICAL 1 MEV => COMPLEX RADIATION 43742 JEREMIAS MCDOWELL 6 W W TREATMENT [facility] MEDICAL MEDICAL 1 MEV => COMPLEX RADIATION 73993 JEREMIAS NERIU 6 W TREATMENT PHYSICIAN PRACTIC MANAGEMEN T 5 TREATMENT S CONTINUIN 03920 JEREMIAS MCDOWELL G MEDICAL 6 W W PHYSICS [facility] MEDICAL OR WK THERAPEUT 59725 MEADOWVIE MEADOWVIE IC 6 W W RADIOLOGY [facility] PORT MEDICAL MEDICAL IMAGES(S) RADIATION 63576 MEADOWVIE MEADOWVIE 6 W W TREATMENT [facility]AL DELIVERY MEDICAL MEDICAL 1 MEV => COMPLEX RADIATION 18720 MEADOWVIE MEADOWVIE 6 W W TREATMENT [facility] MEDICAL MEDICAL 1 MEV => COMPLEX RADIATION 81582 MEADOWVIE MEADOWVIE 6 W W TREATMENT [facility] DELIVERY MEDICAL MEDICAL 1 MEV => COMPLEX RADIATION 57889 MEADOWVIE MEADOWVIE 6 W W TREATMENT [facility] DELIVERY MEDICAL MEDICAL 1 MEV => COMPLEX RADIATION 47956 MEADOWVIE MEADOWVIE 6 W W TREATMENT [facility] DELIVERY MEDICAL MEDICAL 1 MEV => COMPLEX RADIATION 34830 MEADOWVIE LOLA 6 W TREATMENT PHYSICIAN PRACTIC MANAGEMEN T 5 TREATMENT S CONTINUIN 39935 MEADOVIVEK MEADOWVIE G MEDICAL 6 W W PHYSICS [facility]AL [facility] MEDICAL MEDICAL OR WK THERAPEUT 90426 MEADOWVIE MEADOWVIE IC 6 W W RADIOLOGY [facility] MEDICAL MEDICAL IMAGES(S) RADIATION 25315 MEADOWVIE MEADOWVIE 6 W W TREATMENT [facility] DELIVERY MEDICAL MEDICAL 1 MEV => COMPLEX RADIATION 60508 MEADOWVIE MEADOWVIE 6 W W TREATMENT [facility]IVERY MEDICAL MEDICAL 1 MEV => COMPLEX RADIATION 72100 MEADOWVIE MEADOWVIE 6 W W TREATMENT [facility] DELIVERY MEDICAL MEDICAL 1 MEV => COMPLEX RADIATION 94748 MEADOWVIE MEADOWVIE 6 W W TREATMENT [facility] DELIVERY MEDICAL MEDICAL 1 MEV => COMPLEX RADIATION 42772 MEADOWVIE LOLA 6 W TREATMENT PHYSICIAN PRACTIC MANAGEMEN T 5 TREATMENT S CONTINUIN 57991 MEADOWVIE MEADOWVIE G MEDICAL 6 W W PHYSICS [facility] MEDICAL MEDICAL OR WK THERAPEUT 39455 MEADOWVIE MEADOWVIE IC 6 W W RADIOLOGY [facility] PORT MEDICAL MEDICAL IMAGES(S) RADIATION 29444 MEADOWVIE MEADOWVIE 6 W W TREATMENT [facility] DELIVERY MEDICAL MEDICAL 1 MEV => COMPLEX RADIATION 67728 ERICBRYANTLORENZO FAKLWVIE 6 W W TREATMENT [facility] DELIVERY MEDICAL MEDICAL 1 MEV => COMPLEX RADIATION 36511 ERICWLORENZO MEAWVIE 6 W W TREATMENT [facility] DELIVERY MEDICAL MEDICAL 1 MEV => COMPLEX RADIATION 66350 ERICDOWLORENZO MEADOWVIE 6 W W TREATMENT REGIONAL REGIONAL DELIVERY MEDICAL MEDICAL 1 MEV => COMPLEX THER RAD 23984 JEREMIAS NERIU SIMULAJ-A 6 W IDED PHYSIC[place] [address] JEREMIAS FALKWLORENZO DEVICES 6 W W DESIGN & REGIONAL REGIONAL CONSTRUCT MEDICAL MEDICAL ION COMPLEX 3-D 21653 JEREMIAS NERIU RADIOTHER 6 W APY PLAN PHYSICIAN DOSE-VOLU PRACTIC ME HISTOGRAM S BASIC 64224 JEREMIAS NERIU RADIATION 6 W PHYSICIAN DOSIMETRY PRACTIC CALCULATI ON IIV3 72798 [facility] VACCINE 6 PHYSICIAN EUG SPLIT S GROUP VIRUS 0.5 ML DOSAGE IM USE IM ADM 66969 [facility] PRQ ID 6 PHYSICIAN EUG SUBQ/IM S GROUP NJXS 1 VACCINE THERAPEUT 96284 JEREMIAS DAVILA IC 6 W RADIOLOGY PHYSICIAN TX PRACTIC PLANNING COMPLEX [place] 26643 JEREMIAS NERIU SIMULAJ-A 6 W IDED PHYSICIAN FIELD PRACTIC SETTING COMPLEX ONCOLOGY 95608 GENOMIC GENOMIC BREAST [employer] EXPRESSIO N [address] [place] [address] DEX K[facility]ALSKI FERRITIN 6 [facility] INC INC COLLECTIO 02772 DEX KOWALSKI N VENOUS 6 [facility] BLOOD INC INC VENIPUNCT URE IRON 77435 DEX KOWALSKI BINDING 6 [facility] CAPACITY INC INC BLOOD 08655 DEX KOWALSKI COUNT 6 [facility] COMPLETE INC INC AUTO&[place] [address] DEX KOWALSKI IRON 6 [facility] INC INC COMPREHEN 92739 DEX KOWALSKI SIVE 6 [facility] METABOLIC INC INC PANEL RADIOLOGI 04210 [facility] RENDON ALL C EXAM 6 MEDICAL CHEST 2 IMAGING VIEWS ASS FRONTAL&L ATERAL ECG 48311 DEX BESALDEN ROUTINE 6 [facility] W/LEAST P 12 LDS I&R ONLY MASTECTOM 71610 [facility] [place] TOD Y PARTIAL 6 PHYSICIAN S GROUP ANES 74116 [facility] INTEG 6 ANESTH SHE EXTREMITI OF THE ES ANT BLUE TRUNK & PERINEUM NOS TECHNETIU A9541 DEX Laughlin TC-99M [address] [facility] SULFUR INC INC COLLOID DX UP TO 20 MCI BX/EXC 76619 [facility] [place] TOD LYMPH 6 PHYSICIAN NODE OPEN S GROUP DEEP AXILLARY NODE INJ 58711 MADELIN RENDON RADIOACTI 6 MEDICAL VE TRACER IMAGING FOR ID ASS OF SENTINEL NODE COLLECTIO 50746 DEX KOWALSKI N VENOUS 6 [facility] BLOOD INC INC VENIPUNCT URE CT THORAX 39717 DEX KOWALSKI 6 [facility] W/[place] [address] DEX KOWALSKI ABDOMEN & 6 [facility] PELVIS INC INC W/CONTRAS T MATERIAL BLOOD 66025 DEX KOWALSKI COUNT 6 [facility] COMPLETE INC INC AUTO&AUTO DIFRNTL WBC COMPREHEN 02106 DEX KOWALSKI SIVE 6 [facility] METABOLIC INC INC PANEL BX BREAST 10278 MADELIN NO W/DEVICE 6 MEDICAL JUANA 1ST IMAGING LESION ASS ULTRASOUN D GUID PHYSICAL 34052 DEX KOWALSKI THERAPY 6 [facility] EVALUATIO INC INC N DIAGNOSTI G0206 GAELJosue ONEAL C 6 MEDICAL JUANA MAMMOGRAP IMAGING HY INCL ASS CAD WHEN PERF; UNI FINE 54415 DEX KOWALSKI NEEDLE 6 [facility] ASPIRATIO INC INC N WITH IMAGING GUIDANCE PROBE/NEE C2618 DEX KOWALSKI DLE [address] [facility] CRYOABLAT INC INC ION US BREAST 44436 DEX KOWALSKI UNI REAL 6 [facility] TIME INC INC WITH IMAGE COMPLETE US BREAST 06429 [facility] UNI REAL 6 [facility] TIME IMAGING WITH ASS IMAGE COMPLETE DUPLEX 69966 [facility]AN 6 [facility] J[facility]NA EXTRACRAN IMAGING IAL ART ASS COMPL BI STUDY DIAGNOSTI G0206 [facility] NO C 6 MEDICAL JUANA MAMMOGRAP IMAGING HY INCL ASS CAD WHEN PERF; UNI MRI BRAIN 98017 [place] [facility] ALL BRAIN 6 MEDICAL STEM W/O IMAGING CONTRAST ASS MATERIAL COMPUTER- 78209 [facility] 6 MEDICAL DETECTION IMAGING ASS SCREENING MAMMOGRAP HY SCREENING G0202 [facility] 6 MEDICAL MAMMOGRAP IMAGING HY JOAN ASS INCL CAD WHEN PERFORMD SUSCEPTIB 06198 DEX KOWALSKI LTY STDY 6 [facility] ANTIMICRB INC INC IAL MICRO/AGA R DILUTJ [place] [address] [facility] DULCE BUR[facility]OS 6 PHYSICIAN MADI S GLAND S GROUP ABSCESS CUL BACT 19585 DEX KWOALSKI XCPT 6 [facility] URINE INC INC BLOOD/STO OL AEROBIC ISOL CUL BACT 05112 DEX KOWALSKI AEROBIC 6 [facility] ADDL INC INC METHS DEFINITIV E EA ISOL IADNA 66457 [facility] JR CLEM PAPILLOMA VIRUS HIGH-RISK TYPES CYTP 13947 [facility] CERV/VAG [facility] JR CLEM AUTO THIN LAYER PREP MNL SCREEN IM ADM 99558 [facility] PRQ ID [facility] SUBQ/IM HLTH DEPT NJXS 1 JANELL VACCINE TDAP 74104 [facility] VACCINE 7 [facility] YRS/> IM TH DEPT JANELL THERAPEUT 82497 DEX KOWALSKI IC 6 [facility] PROPHYLAC INC INC TIC/DX INJECTION SUBQ/IM RADEX 18376 [place] [facility] ALL ANKLE 5 MEDICAL COMPLETE IMAGING MINIMUM 3 ASS [facility] G0463 DEX KOWLASKI OUTPATIEN 5 [facility] INC INC VISIT ASSESS & [place] [address] ABNER JUSTIN AZAEL MAXILLOFA 5 MEDICAL CIAL W/O SERV CONTRAST FOUNDATIO MATERIAL N ORTHOPANT 74313 ABNER OLSON OGRAM 5 MEDICAL WINNIE SERV FOUNDATIO N RADIOLOGI 55223 ABNER OLSON C 5 MEDICAL WINNIE EXAMINATI SERV ON CHEST [place] [address] [place] [facility] HEAD/BRAI 5 MEDICAL JUANA N W/[place] [address] [place] [facility] MAXILLOFA 5 MEDICAL JUANA CIAL W/[place] [address] [place] [facility] CERVICAL 5 MEDICAL JUANA SPINE W/O IMAGING CONTRAST ASS MATERIAL RADEX 64745 [place] [facility] ELBOW 5 MEDICAL JUANA COMPLETE IMAGING MINIMUM 3 ASS VIEWS RADEX 58090 [place] [facility] RIBS BI 5 MEDICAL JUANA W/POSTERO IMAGING ANT CH ASS MINIMUM 4 VIEWS SMR PRIM 25027 KELLY VALDEZ SRC WET 5 [place] [address] [place] [facility] TRANSVAGI 5 MEDICAL JUANA NAL IMAGING ASS COMPUTER- 35183 [place] [facility] AIDED 5 MEDICAL JUANA DETECTION IMAGING ASS SCREENING MAMMOGRAP HY SCREENING G0202 [place] [facility] 5 MEDICAL JUANA MAMMOGRAP IMAGING HY JOAN ASS INCL CAD WHEN PERFORMD HANDLG&/O 37188 KELLY VALDEZ R CONVEY 5 COURTNEY LUCIANO OF SPEC FOR TR OFFICE TO LAB IADNA 87829 KELLY VALDEZ NEISSERIA 5 COURTNEY LUCIANO GONORRHOE AE DIRECT PROBE TQ BLOOD 17992 KELLY VALDEZ OCCULT 5 COURTNEY LUCIANO PEROXIDAS E ACTV QUAL FECES 1-3 SPEC URINLS 26614 KELLY VALDEZ DIP 5 COURTNEY LUCIANO STICK/TAB LET REAGNT NON-AUTO MICRSCPY CULTURE 18441 KELLY VALDEZ CHLAMYDIA 5 [place] [address] [place] [facility] & 5 MEDICAL KEITH PELVIS IMAGING W/O ASS CONTRAST MATERIAL PCV13 [address] [facility] VACCINE 5 PHYSICIAN KAITLIN FOR S GROUP INTRAMUSC ULAR USE IM AD[address] [facility] PRQ ID 5 PHYSICIAN KAITLIN SUBQ/IM S GROUP NJXS [address] [facility] 5 PHYSICIAN KAITLIN INFLUENZA S GROUP RADIOLOGI 95593 [place] [facility] C EXAM 4 MEDICAL JUANA CHEST 2 IMAGING VIEWS ASS FRONTAL&L ATERAL FIT 78329 KRYSTIAN BOLAND CONTACT 4 GRE GRE LENS [place] OCULAR SURFACE DISEASE MRI 64228 DEX [facility] SPINAL 4 [facility] CANAL INC INC LUMBAR W/O CONTRAST MATERIAL 3D 80707 DEX KOWALSK[facility] RENDERING 4 [facility] W/INTERP INC INC & POSTPROCE SS SUPERVISI ON MRI 55310 DEX KOWALSKI SPINAL 4 [facility] CANAL INC INC CERVICAL W/O CONTRAST MATRL RADIOLOGI 73585 [facility] [place] ELIECER C EXAM 4 RADIOLOGY RHO CHEST 2 VIEWS FRONTAL&L ATERAL PHYSICAL 90652 DEX K[facility] THERAPY 4 [facility] EVALUATIO INC INC N THERAPEUT 26664 DEX KOWALSKI IC PX 1/> 4 [facility] AREAS INC INC EACH 15 MIN EXERCISES OPHTH 71336 KRYSTIAN CORADO 4 GRE GRE XM&EVAL COMPRE NEW PT 1/> VST DETERMINA 56004 KRYSTIAN WOODS 4 GRE GRE REFRACTIV E STATE RADEX 75405 DEX KOWALSKI SHOULDER 4 [facility] COMPLETE INC INC MINIMUM 2 VIEWS URNLS DIP 19621 DEX [facility]ALSKI 4 [facility] STICK/TAB INC [place] [address] DEX KOWALSKI HEAD/BRAI 4 [facility] N W/O INC INC CONTRAST MATERIAL 3D 65553 DEX K[facility]ALSKI RENDERING 4 [facility] W/INTERP INC INC & [place] [address] [facility], CLOSTRIDI 4 GLOBAL RECRUITER GLOBAL RECRUITER UM CHAMP CHAMP DIFFIC[place] [address] [facility], SHIGA-LIK 4 GLOBAL RECRUITER GLOBAL RECRUITER E TOXIN CHAMP CHAMP CO HOS CO HOS CUL BACT 62583 [facility], STOOL 4 GLOBAL RECRUITER GLOBAL RECRUITER AEROBIC CHAMP CHAMP ISOL CO HOS CO HOS SALMONELL A&SHIGELL CUL BACT 49230 [facility], STOOL 4 GLOBAL RECRUITER GLOBAL RECRUITER AEROBIC CHAMP CHAMP ADDL CO HOS CO HOS PATHOGENS &ID EA BLOOD 76225 [facility], OCCULT 4 GLOBAL RECRUITER GLOBAL RECRUITER PEROXIDAS CHAMP CHAMP E ACTV CO HOS CO HOS QUAL FECES 1 DETER SMR PRIM 07171 [facility] Storm Player, [facility], SRC CPLX 4 GLOBAL RECRUITER GLOBAL RECRUITER SPEC CHAMP CHAMP STAIN CO HOS CO HOS OVA&[place] [address] [facility] [employer], [facility], MULT STEP 4 GLOBAL RECRUITER GLOBAL RECRUITER METHOD CHAMP CHAMP NOS EACH CO HOS CO HOS ORGANISM OVA&MELLY 42752 [facility] [employer], [facility], ITES 4 GLOBAL RECRUITER GLOBAL RECRUITER DIRECT CHAMP CHAMP SMEARS CO HOS [place] H[place] & [place] [address] [facility] [place] [facility] MAT HEAD/BRAI 4 RADIOLOGY N W/O CONTRAST MATERIAL SIMPLE 59268 [facility] 4 JAMIR LORNA SCALP/NEC EMERGENCY K/AX/AMMON PHYS T/TRUNK 2.5CM/< [place] [address] [facility] [place] MAT CERVICAL 4 RADIOLOGY SPINE W/[place] [address] [facility] [place] MORA JAM MAXILLOFA 4 RADIOLOGY CIAL W/O CONTRAST MATERIAL Encounters Encounter Start End Date Code Location Performer Type Date OFFICE 62559 [facility] OUTPATIEN 7 7 PHYSICIAN T VISIT S GROUP 10 MINUTES [facility] DEX - 7 7 [facility] OUTPATIEN INC T OFFICE 49648 DEX [facility] OUTPATIEN 7 7 [facility] 10 P [facility] DEX - 7 7 [facility] OUTPATIEN INC T OFFICE 55379 DEX OUTPATIEN 7 7 [facility] T VISIT INC 10 MINUTES OFFICE 19548 [facility] [place] OUTPATIEN 7 7 PHYSICIAN T VISIT S GROUP 15 MINUTES HOSPITAL DEX - 7 7 [facility] OUTPATIEN [facility] W [facility] MEADOWVIE [facility] 6 6 W [facility] MEDICAL OFFICE 20296 [facility] TOD OUTPATIEN 6 6 PHYSICIAN T VISIT 5 S GROUP MINUTES OFFICE 92149 DEX DONYA OUTPATIEN 6 6 [facility] 10 P MINUTES OFFICE 50044 [facility] OUTPATIEN 6 6 [facility] MEDICAL 15 GROUP MINUTES OFFICE 47634 DEX DONYA OUTPATIEN [address] MINUTES [facility] DEX - 6 6 [facility] OUTPATIEN INC T OFFICE 59497 [facility] [place] OUTPATIEN 6 6 PHYSICIAN EUG T VISIT S GROUP 15 MINUTES HOSPITAL DEX - 6 6 [facility] OUTPATIEN [facility] DEX - 6 6 [facility] OUTPATIEN INC T OFFICE 50462 [facility] TOD CONSULTAT 6 6 PHYSICIAN ION S GROUP [facility] PATIENT 40 MIN OFFICE 15074 [facility] T VISIT 5 DHS/CO TH DEPT MINUTES [facility] DEX - 6 6 [facility] OUTPATIEN INC T OFFICE 08359 DEX [facility] 6 6 [facility] T VISIT [facility] 15 MINUTES [facility] DEX - 6 6 [facility] OUTPATIEN INC T [facility]EX - 6 6 [facility] OUTPATIEN INC T OFFICE 81084 [facility] [place] OUTPATIEN 6 6 PHYSICIAN T [facility] 45 S GROUP [facility] DEX - 6 6 [facility] OUTPATIEN INC T OFFICE 83844 [facility] 6 6 [facility] T VISIT [facility] DEPT 10 JANELL [facility] DEX - 6 6 [facility] OUTPATIEN INC T PERIODIC 65250 DHS/CO PREVENTIV 6 6 HEALTH E MED EST PATIENT 40-64YRS EMERGENCY 28257 DEX 6 6 [facility] DEPARTMEN INC T VISIT LOW/MODER SEVERITY EMERGENCY 59683 FAREED BENSON 6 6 PHYSICIAN FOR [facility] S, [facility] T VISIT HIGH/URGE NT SEVERITY HOSPITAL DEX - 6 6 [facility] OUTPATIEN INC T OFFICE 79046 [facility] OUTPATIANNA 5 5 MD YISSEL, T VISIT [facility] 15 MINUTES [facility] DEX - 5 5 [facility] OUTPATIEN INC T HOSPITAL DEX - 5 5 [facility] OUTPATIEN INC T OFFICE 42579 [facility] OUTPATIANNA 5 5 T [facility] MINUTES OFFICE 62930 [facility] ANU OUTPATIEN 5 5 PHYSICIAN KAITLIN T VISIT S GROUP 10 MINUTES EMERGENCY 49389 ABNER DAVILA 5 5 MEDICAL ANGEL DEPARTMEN SERV T VISIT FOUNDATIO HIGH/URGE N NT SEVERITY OFFICE 41144 [facility] ANU OUTPATIEN 5 5 PHYSICIAN KAITLIN T VISIT 5 S GROUP MINUTES OFFICE 02939 KELLY VALDEZ OUTPATIEN 5 5 COURTNEY JAIN ANKITA T VISIT 25 MINUTES OFFICE 31190 KELLY VALDEZ OUTPATIEN 5 5 COURTNEY JAIN ANKITA T VISIT 15 MINUTES HOSPITAL DEX - 5 5 [facility] OUTPATIEN INC T INITIAL 77650 KELLY VALDEZ PREVENTIV 5 5 COURTNEY JAIN ANKITA E MEDICINE NEW PATIENT 40-64YRS OFFICE 67608 [facility] ANU OUTPATIEN 5 5 PHYSICIAN KAITLIN T VISIT S GROUP 10 MINUTES OFFICE 76930 KRYSITAN MATUTE 4 4 GRE GRE T VISIT 25 MINUTES OFFICE 66396 [facility] TRA CONSULTAT 4 4 [place] ION ORTHOPAED NEW/ESTAB ICS PLC PATIENT 40 MIN OFFICE 71899 KRYSTIAN BOLAND OUTPATIEN 4 4 GRE GRE T VISIT 25 MINUTES EMERGENCY 67283 [facility] DEPT 4 4 JAMIR VISIT EMERGENCY HIGH PHYS SEVERITY& THREAT [facility] DEX - 4 4 [facility] OUTPATIEN INC T EMERGENCY 93183 [facility] 4 4 JAMIR ROSA DEPARTMEN EMERGENCY T VISIT PHYS HIGH/URGE NT SEVERITY HOSPITAL DEX - 4 4 [facility] OUTPATIEN INC T OFFICE 96844 [facility] ANU OUTPATIEN 4 4 PHYSICIAN KAITLIN T VISIT S GROUP 10 MINUTES OFFICE 88526 [facility] PETTEY OUTPATIEN 4 4 PHYSICIAN JAM T NEW 10 S GROUP MINUTES HOSPITAL DEX - 4 4 [facility] OUTPATIEN INC T OFFICE 51154 [facility] ANU OUTPATIEN 4 4 PHYSICIAN KAITLIN T VISIT S GROUP 15 MINUTES EMERGENCY 58124 DEX 4 4 [facility] DEPARTMEN INC T VISIT LOW/MODER SEVERITY HOSPITAL DEX - 4 4 [facility] OUTPATIEN [facility], - 4 4 GLOBAL RECRUITER OUTPATIEN [facility] [place] [facility] OFFICE 91478 [facility] OUTPATIEN 4 4 [facility] T VISIT RURAL 15 HEALTH MINUTES EMERGENCY 38011 [facility] DEPT 4 4 JAMIR PAT VISIT EMERGENCY HIGH PHYS SEVERITY& THREAT FUN EMERGENCY 28587 [facility] 4 4 JAMIR LORNA DEPARTMEN EMERGENCY T VISIT PHYS HIGH/URGE NT SEVERITY
--- OUTSIDE RECORDS SUMMARY | 2017-03-20 12:40 | External Medical Summary Rpt ---
Author Author , Organization [employer] Address Unknown Phone Unavailable Care Team Providers Care Big Machine Consultant Name Role Phone MOSHE DEY MD, PSC, Unavailable Unavailable MOSHE DEY MD, PSC [facility] Unavailable Unavailable MEDICAL GROUP, [facility] BEINEKE, BEINEKE Unavailable Unavailable [...] EUG ANU KAITLIN, ANU Unavailable Unavailable KAITLIN [employer] [facility] Unavailable Unavailable [employer] KELLY VALDEZ MD, Unavailable Unavailable KELLY VALDEZ MD GREISER LORNA, GREISER Unavailable Unavailable LORNA ELIECER RHO, ELIECER Unavailable Unavailable RHO HARPEL ANKITA, HARPEL Unavailable Unavailable [facility] Unavailable Unavailable INC, [facility] Unavailable Unavailable H[facility]PITAL, [facility] Unavailable Unavailable HOSPITAL P, [facility], Unavailable Unavailable [facility] HARRIS TRA, HARRIS TRA Unavailable Unavailable NGUYEN NAN, NGUYEN Unavailable Unavailable NAN [facility] Unavailable Unavailable IMAGING ASS, [facility] JUSTIN AZAEL, JUSTIN AZAEL Unavailable Unavailable [facility] KRYSTIAN GRE, Unavailable Unavailable KRYSTIAN GRE [facility], Unavailable Unavailable [facility] FLACO KEY, Unavailable Unavailable FLACO MACKEY [facility] Un[facility] Unavailable [facility], [facility] Unavailable Unavailable MEDICAL, [facility], 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 SUPERVISOR CHAMP Unavailable Unavailable [facility], [facility] EXCAVATING SUPERVISOR [facility] Unavailable Unavailable HEALTH, [facility] Unavailable [facility]available [facility] PAVEZ MAR, PAVEZ MAR Unavailable Unavailable PETTEY JAM, PETTEY Unavailable Unavailable JAM PICKLESIMER JR CLEM, Unavailable Unavailable PICKLESIMER JR CLEM LOLA, LOLA Unavailable Unavailable LOLA ANGEL, LOLA Unavailable Unavailable ANGEL WINSTON, WINSTON Unavailable Unavailable WINSTON TOD, WINSTON TOD Unavailable Unavailable SOKAN BAB, SOKAN BAB Unavailable Unavailable [facility], [facility] PATRICIA SHE, Unavailable Unavailable PATRICIA SHE SWINEY PAT, SWINEY Unavailable Unavailable PAT WHITNEY WINNIE, WHITNEY Unavailable Unavailable WINNIE WALKER FOR, WALKER Unavailable Unavailable FOR [facility] Un[facility] DEPT JANELL, [facility] JANELL ERICKSON MAT, ERICKSON MAT Unavailable Unavailable Purpose Continuity of Care Document - 11-21-2013 through 2016 Problems Code Diagnosis DOS Provider Status [id number] MALIGNANT 01-31-2017 [facility] NEOPLASM PHYSICIANS UNS SITE GROUP RIGHT FEMALE BREAST Z1211 ENCOUNTER 01-31-2017 [facility] SCREENING PHYSICIANS MALIGNANT GROUP NEOPLASM OF COLON [id number] MALIGNANT 01-18-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[facility] P UNS FEMALE BREAST 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 01-18-2017 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 Z510 ENCOUNTER 11-24-2016 [place] FOR PHYSICIAN ANTINEOPLAS PRACTIC TIC RADIATION THERAPY I10 ESSENTIAL 11-09-2016 [facility] PRIMARY PHYSICIANS HYPERTENSIO GROUP N Z23 ENCOUNTER 09-23-2016 [facility] FOR PHYSICIANS IMMUNIZATIO GROUP N B354 TINEA 08-26-2016 [facility] R110 NAUSEA 08-26-2016 [facility] GROUP R079 CHEST PAIN 07-20-2016 [place] U[facility]PECIFIED [facility]ING [facility] R42 DIZZINESS 07-20-2016 [place] AND MEDICAL GIDDINESS IMAGING ASS N649 DISORDER OF 06-20-2016 [facility] BREAST PHYSICIANS UNSPECIFIED GROUP Z129 ENCOUNTER 06-06-2016 [place] SCREENING MEDICAL MALIGNANT IMAGING ASS NEOPLASM SITE UNS Z853 PERSONAL 06-06-2016 [place] HISTORY MEDICAL PRIMARY IMAGING ASS MALIG NEOPLASM BREAST [id number] MIGRAINE 05-04-2016 [facility] W/AURA NOT [facility] INTRACT W/O INC STAT MIGRAINOSUS N63 UNSPECIFIED 05-04-2016 [facility] LU[facility] IN MEDICAL BREAST IMAGING ASS R51 HEADACHE 05-04-2016 [facility] INC R922 INCONCLUSIV 05-04-2016 [facility] E MAMMOGRAM [facility] INC H6090 UNSPECIFIED 04-21-2016 [facility] UNSPECIFIED EAR L299 PRURITUS 04-21-2016 [facility] [id number] MIGRAINE 04-19-2016 [place] UNS NOT MEDICAL INTRACT W/O IMAGING ASS STATUS MIGRAINOSUS R928 OTH ABNORM 04-19-2016 [facility] & MEDICAL INCONCLUSIV IMAGING ASS E FIND ON DX IMAG BREAST Z1231 ENCOUNTER 03-28-2016 [place] SCREENING MEDICAL MAMMO MALIG IMAGING ASS NEOPLASM BREAST W49685 VAG HIGH 02-24-2016 [facility] RISK [facility] PAPILLOMAVI VIRGIL DNA TEST POS N750 CYST OF 02-10-2016 [facility] GLAND INC N751 ABSCESS OF 02-10-2016 [facility] [id number] CERV HIGH 02-09-2016 [facility] PAPILLOMAVI VIRGIL DNA TEST POS L58028 ENCOUNTER 02-09-2016 [facility] POLYMER MATERIALS CONSULTANT EXAM HEALTH GENERAL RTN W/ABNORMAL FIND N41606 ENCOUNTER 02-09-2016 [facility], POLYMER MATERIALS CONSULTANT EXAM LLC GENERAL RTN W/O ABNORMAL FIND Z1239 ENCOUNTER 02-09-2016 [facility] OTHER HEALTH SCREENING MALIG NEOPLASM BREAST J43419 ACQUIRED 02-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 CERVIX AND UTERUS Z720 TOBACCO USE 12-01-2015 [facility] INC Z8781 PERSONAL 12-01-2015 [facility] HIST[facility] OF [facility] HEALED INC TRAUMATIC FRACTURE 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 , PSC OSACRAL INTERVERTEB RAL DISC 7244 THORACIC/SIM 07-14-2015 PATRICIA ZHOU MD, PSC NEURITIS/RA DICULITIS UNSPEC 53486 PAIN IN 06-30-2015 [place] [facility], MEDICAL ANKLE AND IMAGING ASS FOOT 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 7242 LUMBAGO 04-03-2015 [facility] PHYSICIANS GROUP 28534 OTHER 03-13-2015 [facility] DISEASES OF SERV NASAL [facility] CAVITY AND SINUSES 66937 UNSPECIFIED 03-13-2015 [facility] DENTAL SERV CARIES FOUNDATION 45776 CLOSED 03-13-2015 [facility] FRACTURE SERV SUBCONDYLAR FOUNDATION PROCESS MANDIBLE 98069 TOOTH 03-13-2015 [facility] MEDICAL BROKEN FX SERV DUE TO FOUNDATION TRAUMA W/O MENTION COMP 63175 JAW PAIN 03-12-2015 [facility] SERV [facility] E9293 LATE 03-12-2015 [facility] MEDICAL EFFECTS OF SERV ACCIDENTAL FOUNDATION FALL V5832 ENCOUNTER 03-10-2015 [facility] FOR REMOVAL PHYSICIANS OF SUTURES GROUP 7231 CERVICALGIA 03-01-2015 [place] [facility] 51909 INJURY OF 03-01-2015 [place] FACE AND MEDICAL NECK OTHER IMAGING ASS AND UNSPECIFIED 14095 PAIN IN 02-28-2015 [place] [facility], MEDICAL UPPER ARM IMAGING ASS 39099 CHEST PAIN 02-28-2015 [place] UNSPECIFIED MEDICAL IMAGING ASS 06581 CLOSED 02-28-2015 [place] FRACTURE OF MEDICAL IMAGING ASS UNSPECIFIED SITE OF MANDIBLE 8300 CLOSED 02-28-2015 [place] DISLOCATION MEDICAL OF JAW IMAGING ASS 8505 CONCUSSION 02-28-2015 [place] WITH LOC OF MEDICAL IMAGING ASS UNSPECIFIED DURATION 76029 OTHER 02-28-2015 [place] INJURY OF MEDICAL CHEST WALL IMAGING ASS 9593 INJURY 02-28-2015 [place] OTHER&UNSPE MEDICAL CIFIED IMAGING ASS [employer] [employer]EARM&WRI ST 9392 FOREIGN 02-26-2015 KELLY Calvin BODY IN COURTNEY JAIN VULVA AND VAGINA 49547 TRICHOMONAL 02-23-2015 KELLY VALDEZ MD VULVOVAGINI TIS 6272 SYMPTOMATIC 02-23-2015 KELLY VALDEZ MD MENOPAUSAL/ FEMALE CLIMACTERIC STATES V1322 PERSONAL 02-23-2015 KELLY Calvin HISTORY OF [place] JAIN CERVICAL DYSPLASIA 6271 POSTMENOPAU 02-16-2015 [place] ALONDRA MEDICAL BLEEDING IMAGING ASS V7612 OTHER 02-16-2015 [place] SCREENING MEDICAL MAMMOGRAM IMAGING ASS 6273 POSTMENOPAU 02-03-2015 KELLY VALDEZ MD ATROPHIC VAGINITIS V7231 ROUTINE 02-03-2015 KELLY Calvin GYNECOLOGIC COURT[place] JAIN AL EXAMINATION V7641 SCREENING 02-03-2015 KELLY 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 64891 ABDOMINAL 01-26-2015 [place] PAIN OTHER MEDICAL SPECIFIED IMAGING ASS SITE V0382 NEED PROPH 11-21-2014 [facility] VACCINATION PHYSICIANS AGAINST GROUP STREP PNEUMONE V0481 NEED 11-21-2014 [facility] PROPHYLACTI PHYSICIANS C GROUP VACCINATION &INOCULATIO N FLU 490 BRONCHITIS 11-14-2014 [facility] NOT PHYSICIANS SPECIFIED GROUP ACUTE OR CHRONIC 7862 COUGH 10-05-2014 [facility] 7869 OTH 10-05-2014 [place] SYMPTOMS MEDICAL INVOLVING IMAGING ASS RESPIRATORY SYSTEM&CHES T 74206 UNSPECIFIED 09-12-2014 [facility] SUBJECTIVE GRE VISUAL DISTURBANCE 89632 PAIN IN OR 09-12-2014 [facility] AROUND EYE GRE 9308 FOREIGN 09-12-2014 [facility] BODY GRE OTHER&COMBI BUDDY SITES EXTERNAL EYE 17758 OTHER 09-01-2014 [facility] VISUAL GRE DISTORTIONS AND ENTOPTIC PHENOMENA 73107 UNSPECIFIED 09-01-2014 [facility] SCLERITIS GRE 55693 VOMITING 08-20-2014 [facility] EMERG[facility] PHYS 12256 DIARRHEA 08-20-2014 [facility] N EMERGENCY PHYS 7234 BRACHIAL 08-13-2014 [place] NEURITIS OR MEDICAL IMAGING ASS RADICULITIS NOS 7820 DISTURBANCE 08-13-2014 [place] OF SKIN MEDICAL SENSATION IMAGING ASS 46908 OBST 08-07-2014 [facility] CHRONIC N EMERGENCY BRONCHITIS PHYS W/ACUTE BRONCHITIS 64133 FEVER 08-07-2014 [facility] [place] UNSPECIFIED RADIOLOGY 36881 PAIN IN 06-27-2014 [facility], [facility] SHOULDER INC REGION V571 OTHER 06-27-2014 [place] PHYSICAL [facility] THERAPY INC 68924 UNSPEC 06-18-2014 [facility] DISORDERS PHYSICIANS BURSAE&TEND GROUP ONS SHOULDER REGION V720 EXAMINATION 06-11-2014 [facility] OF EYES GRE AND VISION 7262 OTHER 06-04-2014 [facility] AFFECTIONS PHYSICIANS OF SHOULDER GROUP REGION NEC 3699 UNSPECIFIED 05-27-2014 [facility] VISUAL PHYSICIANS LOSS GROUP 53846 UNSPECIFIED 05-27-2014 [facility] TINNITUS PHYSICIANS GROUP 41727 UNSPECIFIED 04-07-2014 [place] OTAL[place]IA MEDICAL IMAGING ASS 7804 DIZZINESS 04-07-2014 [facility] AND MEDICAL GIDDINESS IMAGING ASS V642 SURG/OTH 04-07-2014 [facility] PROC NOT [facility] H[facility] CARRIED OUT INC BECAUSE PTS DECN 4610 ACUTE 01-20-2014 [facility] 70526 ABDOMINAL 01-20-2014 [facility] PAIN RIGHT [facility] 7840 HEADACHE 12-11-2013 [facility] N EMERGENCY PHYS E8889 UNSPECIFIED 12-11-2013 [facility] [place] FALL RADIOLOGY 8470 NECK SPRAIN 12-10-2013 [facility] AND STRAIN N EMERGENCY PHYS 8730 OPEN WOUND 12-10-2013 [facility] SCALP N EMERGENCY WITHOUT PHYS MENTION COMPLICATIO N E8888 OTHER FALL 12-10-2013 [facility] N EMERGENCY PHYS 97330 SWELLING OR 11-21-2013 [facility] [place] MASS OF RADIOLOGY EYE E9179 OTHER 11-21-2013 [facility] [place] STRIKING RADIOLOGY AGAINST W/WO SUBSEQUENT FALL F14.10 COCAINE ABUSE, UNCOMPLICAT ED RCE1229 J40 BRONCHITIS, NOT SPECIFIED ACUTE OR CHRONIC [...] 0 CY MG CA PS UL E SC 00 04 05 30 30 00 CL [...] CY 0- 25 MC G IN H NV 00 04 05 12 6 00 CL [...] CY ZI NE 1% CR EA M SC 00 03 04 30 30 00 CL [...] 0 CY MG CA PS UL E SC 00 02 03 30 30 00 CL [...] 0 CY MG CA PS UL E SC 00 01 02 30 30 00 CL [...] L CY 75 MG TA BL ET SC 00 12 01 30 30 00 CL [...] Procedure DOS Code Location Performer Comment BLOOD 98698 DEX K[facility]SKI COUNT 7 [facility] COMPLETE INC INC AUTO&AUTO DIFRNTL WBC COLLECTIO 20666 DEX KOWALSKI N VENOUS 7 [facility] BLOOD INC INC VENIPUNCT URE COMPREHEN 09698 DEX KOWALSKI SIVE 7 [facility] METABOLIC INC INC PANEL CONTINUIN 12790 JEREMIAS MCDOWELL G MEDICAL 7 W W PHYSICS REGIONAL REGIONAL CONSLTJ MEDICAL MEDICAL NV WK RADIATION 75963 MEASTONE FALKWVIE 7 W W TREATMENT REGIONAL REGIONAL DELIVERY MEDICAL MEDICAL 1 MEV => COMPLEX RADIATION 75173 JEREMIAS NERIU 7 W TREATMENT PHYSICIAN PRACTIC MANAGEMEN T 5 TREATMENT S RADIATION 03617 JEREMIAS ALEXANDREVIE 7 W W TREATMENT REGIONAL REGIONAL DELIVERY MEDICAL MEDICAL 1 MEV => COMPLEX RADIATION 94684 JEREMIAS FALKWVIE 7 W W TREATMENT REGIONAL REGIONAL DELIVERY MEDICAL MEDICAL 1 MEV => COMPLEX RADIATION 07168 MEADOKendrickVIE DEYAWVIE 7 W W TREATMENT REGIONAL REGIONAL DELIVERY MEDICAL MEDICAL 1 MEV => COMPLEX RADIATION 02228 JEREMIAS NERIU 7 W TREATMENT PHYSICIAN PRACTIC MANAGEMEN T 5 TREATMENT S CONTINUIN 00029 JEREMIAS MCDOWELL G MEDICAL 7 W W PHYSICS REGIONAL REGIONAL CONSLTJ MEDICAL MEDICAL [place] WK THERAPEUT 00756 JEREMIAS MCDOWELL IC 7 W W RADIOLOGY REGIONAL REGIONAL PORT MEDICAL MEDICAL IMAGES(S) RADIATION 91526 MEADOWVIE MEADOWVIE 7 W W TREATMENT REGIONAL REGIONAL DELIVERY MEDICAL MEDICAL 1 MEV => COMPLEX RADIATION 92279 MEADOWVIE MEADOWVIE 7 W W TREATMENT REGIONAL REGIONAL DELIVERY MEDICAL MEDICAL 1 MEV => COMPLEX RADIATION 62812 MEADOWVIE MEADOWVIE 7 W W TREATMENT REGIONAL REGIONAL DELIVERY MEDICAL MEDICAL 1 MEV => COMPLEX RADIATION 19664 MEADOWVIE MEADOWVIE 7 W W TREATMENT REGIONAL REGIONAL DELIVERY MEDICAL MEDICAL 1 MEV => COMPLEX RADIATION 12570 JEREMIAS MCDOWELL 7 W W TREATMENT [facility] MEDICAL MEDICAL 1 MEV => [place] 27302 JEREMIAS MCDOWELL SIMSRI-A 7 W [facility]ICAL SETTING SIMPLE CONTINUIN 00135 JEREMIAS MCDOWELL G MEDICAL 7 W W PHYSICS [facility] MEDICAL [place] RADIATION 10014 JEREMIAS NERIU 7 W TREATMENT PHYSICIAN PRACTIC MANAGEMEN T 5 [place] [address] JEREMIAS MCDOWELL DEVICES 7 W W DESIGN & REGIONAL [facility] MEDICAL ION COMPLEX RADIATION 90532 JEREMIAS MCDOWELL 7 W W TREATMENT [facility] MEDICAL MEDICAL 1 MEV => COMPLEX RADIATION 32404 JEREMIAS MCDOWELL 7 W W TREATMENT [facility] MEDICAL MEDICAL 1 MEV => COMPLEX BLOOD 38480 DEX KOWALSKI COUNT 7 [facility] COMPLETE INC INC AUTO&[place] [address] DEX WASHBURNON FREE 7 [facility] [place] [address] DEX KOWALSKI THYROID 7 [facility] STIMULATI INC INC NG HORMONE TSH COMPREHEN 33758 DEX KOWALSKI SIVE 7 [facility] METABOLIC INC INC PANEL RADIATION 38840 JEREMIAS MCDOWELL 7 W W TREATMENT [facility] MEDICAL MEDICAL 1 MEV => COMPLEX RADIATION 00388 JEREMIAS MCDOWELL 6 W W TREATMENT [facility] MEDICAL MEDICAL 1 MEV => COMPLEX RADIATION 02957 JEREMIAS MCDOWELL 6 W W TREATMENT [facility] MEDICAL MEDICAL 1 MEV => COMPLEX RADIATION 47211 JEREMIAS NERIU 6 W TREATMENT PHYSICIAN PRACTIC MANAGEMEN T 5 TREATMENT S CONTINUIN 86052 JEREMIAS MCDOWELL G MEDICAL 6 W W PHYSICS [facility] MEDICAL [place]K THERAPEUT 65395 MEADOWVIE MEADOWVIE IC 6 W W RADIOLOGY REGIONAL [facility] PORT MEDICAL MEDICAL IMAGES(S) RADIATION 45812 MEADOWVIE MEADOWVIE 6 W W TREATMENT REGIONAL REGIONAL DELIVERY MEDICAL MEDICAL 1 MEV => COMPLEX RADIATION 85760 MEADOWVIE MEADOWVIE 6 W W TREATMENT REGIONAL REGIONAL DELIVERY MEDICAL MEDICAL 1 MEV => COMPLEX RADIATION 96964 MEADOWVIE MEADOWVIE 6 W W TREATMENT REGIONAL REGIONAL DELIVERY MEDICAL MEDICAL 1 MEV => COMPLEX RADIATION 78819 MEADOWVIE MEADOWVIE 6 W W TREATMENT [facility]AL REGIONAL DELIVERY MEDICAL MEDICAL 1 MEV => COMPLEX RADIATION 77755 MEADOWVIE MEADOWVIE 6 W W TREATMENT REGIONAL REGIONAL DELIVERY MEDICAL MEDICAL 1 MEV => COMPLEX RADIATION 16382 MEADOWVIE LOLA 6 W TREATMENT PHYSICIAN PRACTIC MANAGEMEN T 5 TREATMENT S CONTINUIN 17223 MEADOVIVEK MEADOWVIE G MEDICAL 6 W W PHYSICS [facility]ION[facility]AL [facility] MEDICAL MEDICAL [place] WK THERAPEUT 36673 MEADOWVIE MEADOWVIE IC 6 W W RADIOLOGY REGIONAL [facility]AL PORT MEDICAL MEDICAL IMAGES(S) RADIATION 67214 MEADOWVIE MEADOWVIE 6 W W TREATMENT REGIONAL REGIONAL DELIVERY MEDICAL MEDICAL 1 MEV => COMPLEX RADIATION 54054 MEADOWVIE MEADOWVIE 6 W W TREATMENT REGIONAL REGIONAL DELIVERY MEDICAL MEDICAL 1 MEV => COMPLEX RADIATION 10890 MEADOWVIE MEADOWVIE 6 W W TREATMENT REGIONAL REGIONAL DELIVERY MEDICAL MEDICAL 1 MEV => COMPLEX RADIATION 40300 MEADOWVIE MEADOWVIE 6 W W TREATMENT REGIONAL REGIONAL DELIVERY MEDICAL MEDICAL 1 MEV => COMPLEX RADIATION 62543 MEADOWVIE LOLA 6 W TREATMENT PHYSICIAN PRACTIC MANAGEMEN T 5 TREATMENT S CONTINUIN 36528 MEADOWVIE MEADOWVIE G MEDICAL 6 W W PHYSICS REGIONAL REGIONAL [facility] MEDICAL MEDICAL NV WK THERAPEUT 27799 MEADOWVIE MEADOWVIE IC 6 W W RADIOLOGY REGIONAL REGIONAL PORT MEDICAL MEDICAL IMAGES(S) RADIATION 02272 MEADOWVIE MEADOWVIE 6 W W TREATMENT REGIONAL REGIONAL DELIVERY MEDICAL MEDICAL 1 MEV => COMPLEX RADIATION 27364 ERICBRYANTLORENZO FALKWVIE 6 W W TREATMENT REGIONAL REGIONAL DELIVERY MEDICAL MEDICAL 1 MEV => COMPLEX RADIATION 93409 ERICWLORENZO MEAWVIE 6 W W TREATMENT REGIONAL REGIONAL DELIVERY MEDICAL MEDICAL 1 MEV => COMPLEX RADIATION 82095 ERICDOWLORENZO MEADOWVIE 6 W W TREATMENT REGIONAL REGIONAL DELIVERY MEDICAL MEDICAL 1 MEV => COMPLEX THER RAD 20667 JEREMIAS NERIU SIMULAJ-A 6 W IDED PHYSIC[place] [address] JEREMIAS FALKWLORENZO DEVICES 6 W W DESIGN & REGIONAL REGIONAL CONSTRUCT MEDICAL MEDICAL ION COMPLEX 3-D 43690 JEREMIAS NERIU RADIOTHER 6 W APY PLAN PHYSICIAN DOSE-VOLU PRACTIC ME HISTOGRAM S BASIC 66928 JEREMIAS NERIU RADIATION 6 W PHYSICIAN DOSIMETRY PRACTIC CALCULATI ON IIV3 41399 [facility] FRYMAN VACCINE 6 PHYSICIAN EUG SPLIT S GROUP VIRUS 0.5 ML DOSAGE IM USE IM ADM 92230 [facility] FRYMAN PRQ ID 6 PHYSICIAN EUG SUBQ/IM S GROUP NJXS 1 VACCINE THERAPEUT 04392 JEREMIAS DAVILA IC 6 W RADIOLOGY PHYSICIAN TX PRACTIC PLANNING COMPLEX THER RAD 63393 JEREMIAS NERIU SIMULAJ-A 6 W IDED PHYSICIAN FIELD PRACTIC SETTING COMPLEX ONCOLOGY 76124 GENOMIC GENOMIC BREAST [employer] EXPRESSIO N [address] [place] [address] DEX KOWALSKI FERRITIN 6 [facility] INC INC COLLECTIO 53971 DEX KOWALSKI N VENOUS 6 [facility] BLOOD INC INC VENIPUNCT URE IRON 21456 DEX KOWALSKI BINDING 6 [facility] CAPACITY INC INC BLOOD 75355 DEX KOWALSKI COUNT 6 [facility] COMPLETE INC INC AUTO&[place] [address] DEX KOWALSKI IRON 6 [facility] INC INC COMPREHEN 85726 DEX KOWALSKI SIVE 6 [facility] METABOLIC INC INC PANEL RADIOLOGI 28566 [facility] RENDON ALL C EXAM 6 MEDICAL CHEST 2 IMAGING VIEWS ASS FRONTAL&L ATERAL ECG 56104 DEX BESALDEN ROUTINE 6 [facility] W/LEAST P 12 LDS I&R ONLY MASTECTOM 86740 [facility] [place] TOD Y PARTIAL 6 PHYSICIAN S GROUP ANES 55813 [facility] INTEG 6 ANESTH SHE EXTREMITI OF THE ES ANT BLUE TRUNK & PERINEUM NOS TECHNETIU A9541 DEX Laughlin TC-99M 6 [facility] SULFUR INC INC COLLOID DX UP TO 20 MCI BX/EXC 11447 [facility] [place] TOD LYMPH 6 PHYSICIAN NODE OPEN S GROUP DEEP AXILLARY NODE INJ 38848 MADELIN RENDON RADIOACTI 6 MEDICAL VE TRACER IMAGING FOR ID ASS OF SENTINEL NODE COLLECTIO 82052 DEX KOWALSKI N VENOUS 6 [facility] BLOOD INC INC VENIPUNCT URE CT THORAX 68910 DEX KOWALSKI 6 [facility] W/[place] [address] DEX KOWALSKI ABDOMEN & 6 [facility] PELVIS INC INC W/CONTRAS T MATERIAL BLOOD 16010 DEX KOWALSKI COUNT 6 [facility] COMPLETE INC INC AUTO&AUTO DIFRNTL WBC COMPREHEN 62197 DEX KOW[facility]SKI SIVE 6 [facility] METABOLIC INC INC PANEL BX BREAST 63021 MADELIN NO W/DEVICE 6 MEDICAL JUANA 1ST IMAGING LESION ASS ULTRASOUN D GUID PHYSICAL 98327 DEX KOWALSKI THERAPY 6 [facility] EVALUATIO INC INC N DIAGNOSTI G0206 GAELJosue ONEAL C 6 MEDICAL JUANA MAMMOGRAP IMAGING HY INCL ASS CAD WHEN PERF; UNI FINE 37012 DEX KOWALSKI NEEDLE 6 [facility] ASPIRATIO INC INC N WITH IMAGING GUIDANCE PROBE/NEE C2618 DEX KOWALSKI DLE 6 [facility] CRYOABLAT INC INC ION US BREAST 59905 DEX KOWALSKI UNI REAL 6 [facility] TIME INC INC WITH IMAGE COMPLETE US BREAST 19802 [facility] NO UNI REAL 6 MEDICAL JUANA TIME IMAGING WITH ASS IMAGE COMPLETE DUPLEX 04354 [facility] NO [facility]AN 6 MEDICAL JUANA EXTRACRAN IMAGING IAL ART ASS COMPL BI STUDY DIAGNOSTI G0206 [facility] NO C 6 MEDICAL JUANA MAMMOGRAP IMAGING HY INCL ASS CAD WHEN PERF; UNI MRI BRAIN 00579 [place] REND[place] ALL BRAIN 6 MEDICAL STEM W/O IMAGING CONTRAST ASS MATERIAL COMPUTER- 60635 [facility] ROXANNA AIDED 6 MEDICAL DETECTION IMAGING ASS SCREENING MAMMOGRAP HY SCREENING G0202 [place] [facility] 6 MEDICAL MAMMOGRAP IMAGING HY JOAN ASS INCL CAD WHEN PERFORMD SUSCEPTIB 93948 DEX KOWALSKI LTY STDY 6 [facility] ANTIMICRB INC INC IAL MICRO/AGA R DILUTJ I&D [place] [address] [facility] DULCE BURGOS 6 PHYSICIAN MADI S GLAND S GROUP ABSCESS CUL BACT 84240 DEX KOWALSKI XCPT 6 [facility] URINE INC INC BLOOD/STO OL AEROBIC ISOL CUL BACT 93578 DEX KOWALSKI AEROBIC 6 [facility] ADDL INC INC METHS DEFINITIV E EA ISOL IADNA 45723 [facility] ER JR CLEM PAPILLOMA VIRUS HIGH-RISK TYPES CYTP 05982 [facility] CERV/VAG [facility] ER JR CLEM AUTO THIN LAYER PREP MNL SCREEN IM ADM 88854 [facility] PRQ ID [facility] SUBQ/IM HLTH DEPT NJXS 1 JANELL VACCINE TDAP 20964 [facility] VACCINE 7 [facility] YRS/> IM TH DEPT JANELL THERAPEUT 77797 DEX KOWALSKI IC 6 [facility] PROPHYLAC INC INC TIC/DX INJECTION SUBQ/IM RADEX 90863 [place] R[facility] ALL ANKLE 5 MEDICAL COMPLETE IMAGING MINIMUM 3 ASS [facility] G0463 DEX KOWALSKI OUTPATIEN 5 [facility] T CLIN [facility] [place] VISIT ASSESS & [place] [address] ABNER JUSTIN AZAEL MAXILLOFA 5 MEDICAL CIAL W/O SERV CONTRAST FOUNDATIO MATERIAL N ORTHOPANT 28253 ABNER OLSON OGRAM 5 MEDICAL WININE SERV FOUNDATIO N RADIOLOGI 42324 ABNER OLSON C 5 MEDICAL WINNIE EXAMINATI SERV ON CHE[place] [address] [place] [facility] HEAD/BRAI 5 MEDICAL JUANA N W/[place] [address] [place] [facility] MAXILLOFA 5 MEDICAL JUANA CIAL W/[place] [address] [place] [facility] CERVICAL 5 MEDICAL JUANA SPINE W/O IMAGING CONTRAST ASS MATERIAL RADEX 86692 [place] [facility] ELBOW 5 MEDICAL JUANA COMPLETE IMAGING MINIMUM 3 ASS VIEWS RADEX 66299 [place] [facility] RIBS BI 5 MEDICAL JUANA W/POSTERO IMAGING ANT CH ASS MINIMUM 4 VIEWS SMR PRIM 61196 KELLY VALDEZ SRC WET 5 COURTNEY [place] [address] [place] [facility] TRANSVAGI 5 MEDICAL JAUNA NAL IMAGING ASS COMPUTER- 23544 [place] [facility] AIDED 5 MEDICAL JUANA DETECTION IMAGING ASS SCREENING MAMMOGRAP HY SCREENING G0202 [place] ONEAL 5 MEDICAL JUANA MAMMOGRAP IMAGING HY JOAN ASS INCL CAD WHEN PERFORMD HANDLG&/O 49713 KELLY VALDEZ R CONVEY 5 COURTNEY LUCIANO OF SPEC FOR TR OFFICE TO LAB IADNA 49695 KELLY VALDEZ NEISSERIA 5 COURTNEY LUCIANO GONORRHOE AE DIRECT PROBE TQ BLOOD 77728 KELLY VALDEZ OCCULT 5 COURTNEY LUCIANO PEROXIDAS E ACTV QUAL FECES 1-3 SPEC URINLS 01757 KELLY VALDEZ DIP 5 COURTNEY LUCIANO STICK/TAB LET REAGNT NON-AUTO MICRSCPY CULTURE 49434 KELLY VALDEZ CHLAMYDIA 5 [place] [address] [place] [facility]OM[facility] 5 MEDICAL KEITH PELVIS IMAGING W/O ASS CONTRAST MATERIAL PCV13 55450 [facility] VACCINE 5 PHYSICIAN KAITLIN FOR S GROUP INTRAMUSC ULAR USE IM ADM 66803 [facility] PRQ ID 5 PHYSICIAN KAITLIN SUBQ/IM S GROUP NJXS 1 VACCINE IAADIADOO 30995 [facility] 5 PHYSICIAN KAITLIN INFLUENZA S GROUP RADIOLOGI 61904 [place] [facility] [facility] EXAM 4 MEDICAL JUANA CHEST 2 IMAGING VIEWS ASS FRONTAL&L ATERAL FIT 99102 KRYSTIAN BOLAND CONTACT 4 GRE GRE [place] OCULAR SURFACE DISEASE MRI 48296 DEX [facility] SPINAL [facility] CANAL INC INC LUMBAR W/O CONTRAST MATERIAL 3D 24000 DEX [facility] RENDERING 4 [facility] W/INTERP INC INC & POSTPROCE SS SUPERVISI [place] MRI 62335 DEX [facility] SPINAL 4 [facility] CANAL INC INC CERVICAL W/O CONTRAST MATRL RADIOLOGI 68278 [facility] [place] ELIECER C EXAM 4 RADIOLOGY RHO CHEST 2 VIEWS FRONTAL&L ATERAL PHYSICAL 59276 DEX [facility] THERAPY 4 [facility] EVALUATIO INC INC N THERAPEUT 27899 DEX KOWALSKI IC PX 1/> 4 [facility] AREAS INC INC EACH 15 MIN EXERCISES OPHTH 45332 KRYSTIAN CORADO 4 GRE GRE XM&EVAL COMPRE NEW PT 1/> VST DETERMINA 16488 KRYSTIAN WOODS 4 GRE GRE REFRACTIV E STATE RADEX 81458 DEX K[facility]ALSK[facility] SHOULDER 4 [facility] COMPLETE INC INC MINIMUM 2 VIEWS URNLS DIP 36735 DEX [facility] 4 [facility] STICK/TAB INC [place] [address] DEX K[facility]ALSKI HEAD/BRAI 4 [facility] N W/O INC INC CONTRAST MATERIAL 3D 15791 DEX K[facility]ALSK[facility] RENDERING 4 [facility] W/INTERP INC INC & [place] [address] [facility], CLOSTRIDI 4 EXCAVATING SUPERVISOR EXCAVATING SUPERVISOR UM CHAMP CHAMP DIFFICILE [place] [address] [facility], SHIGA-LIK 4 EXCAVATING SUPERVISOR EXCAVATING SUPERVISOR E TOXIN CHAMP CHAMP CO HOS CO HOS CUL BACT 83682 [facility], STOOL 4 EXCAVATING SUPERVISOR EXCAVATING SUPERVISOR AEROBIC CHAMP CHAMP ISOL CO HOS CO HOS SALMONELL A&SHIGELL CUL BACT 85333 [facility], STOOL 4 EXCAVATING SUPERVISOR EXCAVATING SUPERVISOR AEROBIC CHAMP CHAMP ADDL CO HOS CO HOS PATHOGENS &ID EA BLOOD 71815 [facility], OCCULT 4 EXCAVATING SUPERVISOR EXCAVATING SUPERVISOR PEROXIDAS CHAMP CHAMP E ACTV CO HOS CO HOS QUAL FECES 1 DETER SMR PRIM 61143 [facility], [facility], SRC CPLX 4 EXCAVATING SUPERVISOR EXCAVATING SUPERVISOR SPEC CHAMP CHAMP STAIN CO HOS CO HOS OVA&[place] [address] [facility], [facility], MULT STEP 4 EXCAVATING SUPERVISOR EXCAVATING SUPERVISOR METHOD CHAMP CHAMP NOS EACH CO HOS CO HOS ORGANISM OVA&MELLY 57328 [facility], ITES 4 EXCAVATING SUPERVISOR EXCAVATING SUPERVISOR DIRECT CHAMP CHAMP SMEARS CO HOS [place] & [place] [address] [facility] [place] MAT HEAD/BRAI 4 RADIOLOGY N W/O CONTRAST MATERIAL SIMPLE 63542 [facility] RE[facility] 4 JAMIR LORNA SCALP/NEC EMERGENCY K/AX/AMMON PHYS T/TRUNK 2.5CM/< [place] [address] [facility] [place] MAT CERVICAL 4 RADIOLOGY SPINE W/[place] [address] [facility] [place] JAM MAXILLOFA 4 RADIOLOGY CIAL W/O CONTRAST MATERIAL Encounters Encounter Start End Date Code Location Performer Type Date OFFICE 82066 [facility] [place] OUTPATIEN 7 7 PHYSICIAN T VISIT S GROUP 10 MINUTES [facility] DEX - 7 7 [facility] INC T OFFICE 61626 DEX [facility] OUTPATIEN 7 7 [facility] 10 P [facility] DEX - 7 7 [facility] OUTPATIEN INC T OFFICE 66001 DEX OUTPATIEN 7 7 [facility] T VISIT INC 10 MINUTES OFFICE 77072 [facility] [place] OUTPATIEN 7 7 PHYSICIAN T VISIT S GROUP 15 MINUTES HOSPITAL [facility]EX - 7 7 [facility] [address] [facility] MEADOWVIE [facility] 6 6 W [facility] MEDICAL OFFICE 72392 [facility] [place] TOD OUTPATIEN 6 6 PHYSICIAN T VISIT 5 S GROUP MINUTES OFFICE 84690 DEX DONYA OUTPATIEN 6 6 [facility] 10 P MINUTES OFFICE 67867 [facility] 6 6 [facility] 15 GROUP MINUTES OFFICE 20350 DEX DONYA OUTPATIEN [address] MINUTES [facility] DEX - 6 6 [facility] OUTPATIEN INC T OFFICE 29539 [facility] [place] OUTPATIEN 6 6 PHYSICIAN EUG T VISIT S GROUP 15 MINUTES HOSPITAL DEX - 6 6 [facility] 6 [facility] OUTPATIEN INC T OFFICE 68078 [facility] [place] TOD CONSULTAT 6 6 PHYSICIAN ION S GROUP [facility] PATIENT 40 MIN OFFICE 27787 [facility] 6 6 [facility] T VISIT 5 DHS/CO TH DEPT MINUTES [facility] DEX - 6 6 [facility] OUTPATIEN INC T OFFICE 04913 DEX [facility] 6 6 [facility] T VISIT [facility] 15 MINUT[facility] DEX - 6 6 [facility] OUTPATIEN INC T [facility]EX - 6 6 [facility] OUTPATIEN INC T OFFICE 37271 [facility] [place] OUTPATIEN 6 6 PHYSICIAN T [facility] 45 S GROUP [facility] DEX - 6 6 [facility] OUTPATIEN INC T OFFICE 34001 [facility] 6 6 [facility] T VISIT [facility] DEPT 10 JANELL [facility] DEX - 6 6 [facility] OUTPATIEN INC T PERIODIC 86381 DHS/CO PREVENTIV 6 6 HEALTH E MED EST PATIENT 40-64YRS EMERGENCY 83114 DEX 6 6 [facility] DEPARTMEN INC T VISIT LOW/MODER SEVERITY EMERGENCY 91028 FAREED BENSON [address] [facility], [facility] T VISIT HIGH/URGE NT SEVERITY HOSPITAL DEX - 6 6 [facility] OUTPATIEN INC T OFFICE 88763 [facility] OUTPATIANNA 5 5 MD YISSEL, T VISIT [facility] 15 MINUTES [facility] DEX - 5 5 [facility] OUTPATIEN INC T HOSPITAL DEX - 5 5 [facility] OUTPATIEN INC T OFFICE 04644 [facility] OUTPATIANNA 5 5 T [facility] MINUTES OFFICE 92634 [facility] ANU OUTPATIEN 5 5 PHYSICIAN KAITLIN T VISIT S GROUP 10 MINUTES EMERGENCY 54203 ABNER DAVILA 5 5 MEDICAL ANGEL DEPARTMEN SERV T VISIT FOUNDATIO HIGH/URGE N NT SEVERITY OFFICE 01068 [facility] ANU OUTPATIEN 5 5 PHYSICIAN KAITLIN T VISIT 5 S GROUP MINUTES OFFICE 95270 [facility] OUTPATIEN 5 5 COURTNEY JAIN ANKITA T VISIT 25 MINUTES OFFICE 61013 [facility] VALDE[facility] OUTPATIEN 5 5 COURTNEY JAIN NAKITA T VISIT 15 MINUTES HOSPITAL DEX - 5 5 [facility] OUTPATIEN INC T INITIAL 73800 KELLY VALDEZ PREVENTIV 5 5 COURTNEY JAIN ANKITA E MEDICINE NEW PATIENT 40-64YRS OFFICE 54845 [facility] ANU OUTPATIEN 5 5 PHYSICIAN KAITLIN T VISIT S GROUP 10 MINUTES OFFICE 68007 KRYSTIAN MATUTE 4 4 GRE GRE T VISIT 25 MINUTES OFFICE 22009 [facility] TRA CONSULTAT 4 4 [place] ION ORTHOPAED NEW/ESTAB ICS PLC PATIENT 40 MIN OFFICE 50694 KRYSTIAN BOLAND OUTPATIEN 4 4 GRE GRE T VISIT 25 MINUTES EMERGENCY 98816 [facility] DEPT 4 4 JAMIR VISIT EMERGENCY HIGH PHYS SEVERITY& THREAT [facility] DEX - 4 4 [facility] OUTPATIEN INC T EMERGENCY 18266 [facility] 4 4 JAMIR ROSA DEPARTMEN EMERGENCY T VISIT PHYS HIGH/URGE NT SEVERITY HOSPITAL DEX - 4 4 [facility] OUTPATIEN INC T OFFICE 82916 [facility] ANU OUTPATIEN 4 4 PHYSICIAN KAITLIN T VISIT S GROUP 10 MINUTES OFFICE 22742 [facility] PETTEY OUTPATIEN 4 4 PHYSICIAN JAM T NEW 10 S GROUP MINUTES HOSPITAL DEX - 4 4 [facility] OUTPATIEN INC T OFFICE 36561 [facility] ANU OUTPATIEN 4 4 PHYSICIAN KAITLIN T VISIT S GROUP 15 MINUTES EMERGENCY 21236 DEX 4 4 [facility] DEPARTMEN INC T VISIT LOW/MODER SEVERITY HOSPITAL DEX - 4 4 [facility]PATIEN [facility] - 4 4 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
--- OUTSIDE RECORDS SUMMARY | 2017-03-20 12:45 | External Medical Summary Rpt ---
Author Author , Organization [employer] Address Unknown Phone Unavailable Care Team Providers Care Delivery Director Name Role Phone MOSHE DEY MD, PSC, Unavailable Unavailable MOSHE DEY MD, PSC [facility] Unavailable Unavailable MEDICAL GROUP, [facility] BEINEKE, BEINEKE Unavailable Unavailable [...] EUG ANU KAITLIN, ANU Unavailable Unavailable KAITLIN [employer] Unavailable Unavailable [employer] KELLY VALDEZ MD, Unavailable Unavailable KELLY VALDEZ MD GREDAVID LORNA, GREISER Unavailable Unavailable LORNA ELIECER RHO, ELIECER Unavailable Unavailable RHO HARPEL ANKITA, HARPEL Unavailable Unavailable ANKITA [facility] Unavailable Unavailable INC, [facility] Un[facility] Un[facility], [facility] Un[facility] Unavailable [facility] P, [facility] P [facility], Unavailable Unavailable [facility] HARRIS TRA, HARRIS TRA Unavailable Unavailable NGUYEN NAN, NGUYEN Unavailable Unavailable NAN [facility], [facility] JUSTIN AZAEL, JUSTIN AZAEL Unavailable Unavailable [facility] KRYSTIAN GRE, Unavailable Unavailable KRYSTIAN GRE [facility], Unavailable Unavailable [facility] FLACO KEY, Unavailable Unavailable FLACO MACKEY [facility] Unavailable Unavailable [facility] Unavailable Unavailable MEDICAL, [facility] [employer] Unavailable Unavailable [facility], [facility] [employer] [facility] Unavailable Unavailable HEALTH, [facility] Unavailable Unavailable [...] WINNIE WALKER FOR, WALKER Unavailable [facility] DEPT JANELL, [facility] JANELL ERICKSON MAT, ERICKSON MAT Unavailable Unavailable Purpose Continuity of Care Document - 11-21-2013 through 2016 Problems Code Diagnosis DOS Provider Status [id number] MALIGNANT 01-31-2017 [facility] NEOPLASM PHYSICIANS UNS SITE GROUP RIGHT FEMALE BREAST Z1211 ENCOUNTER 01-31-2017 [facility] SCREENING PHYSICIANS MALIGNANT GROUP NEOPLASM OF COLON S09644 MALIGNANT 01-18-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[facility] P UNS FEMALE BREAST 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 01-18-2017 [facility] P STATUS [id number] [facility] 11-24-2016 [facility] NEOPLASM 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 Z510 ENCOUNTER 11-24-2016 [facility] FOR PHYSICIAN ANTINEOPLAS PRACTIC TIC RADIATION THERAPY I10 ESSENTIAL 11-09-2016 [facility] PRIMARY PHYSICIANS HYPERTENSIO GROUP N Z23 ENCOUNTER 09-23-2016 [facility] FOR PHYSICIANS IMMUNIZATIO GROUP N B354 TINEA 08-26-2016 [facility] R110 NAUSEA 08-26-2016 [facility] R079 CHEST PAIN 07-20-2016 [place] [facility] R42 DIZZINESS 07-20-2016 [facility] N649 DISORDER OF 06-20-2016 [facility] BREAST PHYSICIANS UNSPECIFIED GROUP Z129 ENCOUNTER 06-06-2016 [place] SCREENING MEDICAL MALIGNANT IMAGING ASS NEOPLASM SITE UNS Z853 PERSONAL 06-06-2016 [place] [facility] PRIMARY IMAGING ASS MALIG NEOPLASM BREAST U64694 MIGRAINE 05-04-2016 [facility] W/AURA NOT [facility] INTRACT W/O INC STAT MIGRAINOSUS N63 UNSPECIFIED 05-04-2016 [facility] LUMP IN MEDICAL BREAST IMAGING ASS R51 HEADACHE 05-04-2016 [facility] INC R922 INCONCLUSIV 05-04-2016 [facility] E MAMMOGRAM [facility] INC H6090 UNSPECIFIED 04-21-[address] [facility] UNSPECIFIED EAR L299 PRURITUS 04-21-2016 [facility] R05967 MIGRAINE 04-19-2016 [place] UNS NOT MEDICAL INTRACT W/O IMAGING ASS STATUS MIGRAINOSUS R928 OTH ABNORM 04-19-2016 [place] & MEDICAL INCONCLUSIV IMAGING ASS E FIND ON DX IMAG BREAST Z1231 ENCOUNTER 03-28-2016 [place] SCREENING MEDICAL MAMMO MALIG IMAGING ASS NEOPLASM BREAST L65505 VAG HIGH 02-24-2016 [facility] RISK [facility] PAPILLOMAVI VIRGIL DNA TEST POS N750 CYST OF 02-10-2016 [facility] GLAND INC N751 ABSCESS OF 02-10-2016 [facility] BARTHOLINS PHYSICIANS GLAND GROUP U21774 CERV HIGH 02-09-2016 [facility] PAPILLOMAVI VIRGIL DNA TEST POS P19737 ENCOUNTER 02-09-2016 [facility] VISUAL [facility] GENERAL RTN W/ABNORMAL FIND F99453 ENCOUNTER 02-09-2016 [facility], [facility]UAL [facility] GENERAL RTN W/O ABNORMAL FIND Z1239 ENCOUNTER 02-09-2016 [facility] OTHER HEALTH SCREENING MALIG NEOPLASM BREAST T28232 ACQUIRED 02-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 CERVIX AND UTERUS Z720 TOBACCO USE 12-01-2015 [facility] INC Z8781 PERSONAL 12-01-2015 [facility] HISTORY OF [facility] HEALED INC TRAUMATIC FRACTURE 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, LUMBAR/LUMB , PSC OSACRAL INTERVERTEB RAL DISC 7244 THORACIC/SIM 07-14-2015 PATRICIA ZHOU MD, PSC NEURITIS/RA DICULITIS UNSPEC 68443 PAIN IN 06-30-2015 [place] [facility], MEDICAL ANKLE AND IMAGING ASS FOOT 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 7242 LUMBAGO 04-03-2015 [facility] PHYSICIANS GROUP 15066 OTHER 03-13-2015 [place] [facility] DISEASES OF SERV NASAL [facility] CAVITY AND SINUSES 78642 UNSPECIFIED 03-13-2015 [place] [facility] D[facility] [place] [facility] 41736 CLOSED 03-13-2015 [place] [facility] FRACTURE SERV SUBCONDYLAR FOUNDATION PROCESS MANDIBLE 69022 TOOTH 03-13-2015 [place] [facility] BROKEN FX SERV DUE TO FOUNDATION TRAUMA W/O MENTION COMP 95097 JAW PAIN 03-12-2015 [place] [facility] E9293 LATE 03-12-2015 [place] [facility] EFFECTS OF SERV ACCIDENTAL FOUNDATION FALL V5832 ENCOUNTER 03-10-2015 [facility] FOR REMOVAL PHYSICIANS OF SUTURES GROUP 7231 CERVICALGIA 03-01-2015 [place] [facility] 20651 INJURY OF 03-01-2015 [place] FACE AND MEDICAL NECK OTHER IMAGING ASS AND UNSPECIFIED 02973 PAIN IN 02-28-2015 [place] [facility], MEDICAL UPPER ARM IMAGING ASS 57110 CHEST PAIN 02-28-2015 [place] UNSPECIFIED [facility]ICAL IMAGING ASS 35034 CLOSED 02-28-2015 [place] FRACTURE OF MEDICAL IMAGING ASS UNSPECIFIED SITE OF MANDIBLE 8300 CLOSED 02-28-2015 [place] DISLOCATION MEDICAL OF JAW IMAGING ASS 8505 CONCUSSION 02-28-2015 [place] WITH LOC OF MEDICAL IMAGING ASS UNSPECIFIED DURATION 73403 OTHER 02-28-2015 [place] INJURY OF MEDICAL CHEST WALL IMAGING ASS 9593 INJURY 02-28-2015 [place] OTHER&UNSPE MEDICAL CIFIED IMAGING ASS [facility]BOW FOREARM&WRI ST 9392 FOREIGN 02-26-2015 KELLY Calvin BODY IN COURTNEY JAIN VULVA AND VAGINA 47461 TRICHOMONAL 02-23-2015 KELLY VALDEZ MD VULVOVAGINI TIS [...] 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 43024 ABDOMINAL 01-26-2015 [place] PAIN OTHER MEDICAL SPECIFIED [...] MEDICAL INVOLVING IMAGING ASS RESPIRATORY SYSTEM&CHES T [address] UNSPECIFIED 09-12-2014 [facility] SUBJECTIVE GRE VISUAL DISTURBANCE 58689 PAIN IN OR 09-12-2014 [facility] AROUND EYE GRE 9308 FOREIGN 09-12-2014 [facility] BODY GRE OTHER&COMBI BUDDY SITES EXTERNAL EYE 43760 OTHER 09-01-2014 [facility] VISUAL GRE DISTORTIONS AND ENTOPTIC PHENOMENA 01811 UNSPECIFIED 09-01-2014 [facility] SCLERITIS GRE 49960 VOMITING 08-20-2014 [facility] EMERG[facility]Y PHYS 68921 DIARRHEA 08-20-2014 [facility] N EMERGENCY PHYS 7234 BRACHIAL 08-13-2014 [place] NEURITIS OR MEDICAL IMAGING ASS RADICULITIS NOS 7820 DISTURBANCE 08-13-2014 [place] OF SKIN MEDICAL SENSATION IMAGING ASS 52201 OBST 08-07-2014 [facility] CHRONIC N EMERGENCY BRONCHITIS PHYS W/ACUTE BRONCHITIS 42931 FEVER 08-07-2014 [facility] [place] UNSPECIFIED RADIOLOGY 53314 PAIN IN 06-27-2014 [facility], [facility] SHOULDER INC REGION V571 OTHER 06-27-2014 [facility] THERAPY INC 31207 UNSPEC 06-18-2014 [facility] DISORDERS PHYSICIANS BURSAE&TEND GROUP ONS SHOULDER REGION V720 EXAMINATION 06-11-2014 [facility] OF EYES GRE AND VISION 7262 OTHER 06-04-2014 [facility] AFFECTIONS PHYSICIANS OF SHOULDER GROUP REGION NEC 3699 UNSPECIFIED 05-27-2014 [facility] VISUAL PHYSICIANS LOSS GROUP 47715 UNSPECIFIED 05-27-2014 [facility] TINNITUS PHYSICIANS GROUP 07858 UNSPECIFIED 04-07-2014 [place] OTALGIA MEDICAL IMAGING ASS 7804 DIZZINESS 04-07-2014 [place] AND MEDICAL GIDDINESS IMAGING ASS V642 SURG/OTH 04-07-2014 [facility] PROC NOT [facility] CARRIED OUT INC BECAUSE PTS DECN 4610 ACUTE 01-20-2014 [facility] 11831 ABDOMINAL 01-20-2014 [facility] PAIN [facility] 7840 HEADACHE 12-11-2013 [facility] N EMERGENCY PHYS E8889 UNSPECIFIED 12-11-2013 [facility] [place] FALL RADIOLOGY 8470 NECK SPRAIN 12-10-2013 [facility] AND STRAIN N EMERGENCY PHYS 8730 OPEN WOUND 12-10-2013 [facility] SCALP N EMERGENCY WITHOUT PHYS MENTION COMPLICATIO N E8888 OTHER FALL 12-10-2013 [facility] N EMERGENCY PHYS 23676 SWELLING OR 11-21-2013 [facility] [place] MASS OF [...] PH AR MA CY #3 01 6 GA 42 04 05 90 30 00 [...] 75 MG TA BL ET DI 00 04 05 60 30 00 [...] 0 CY MG CA PS UL E MA 00 04 05 30 30 00 CL Ac RT 09 -1 -1 .0 00 IN ti AZ 37 7- 2- 00 00 IC ve AP 20 20 20 42 IN 65 17 17 53 PH E 6 27 AR 15 MA CY MG TA BL ET ME 00 04 05 12 6 00 CL [...] 25 CY 0 MG TA BL ET BR 00 04 05 60 30 00 CL Ac EO 17 -0 -0 .0 00 IN ti 30 4- 5- 00 00 IC ve EL 85 20 20 42 LI 91 17 17 72 PH PT 0 44 AR A MA 10 CY 0- 25 MC G IN H CE 00 03 05 20 10 00 [...] NE 1% CR EA M MA 00 03 04 30 30 00 [...] 0 CY MG CA PS UL E MA 00 02 03 30 30 00 [...] AR MA MG CY TA BL ET MA 00 01 02 30 30 00 [...] OI CY NT ME NT TA 00 01 01 30 30 00 [...] VIRUS 0.5 ML DOSAGE IM USE TDAP [facility] No VACCIN [address] YRS/> HLTH IM DEPT JANELL PCV13 [facility] No VACCIN 2014 KAITLIN E FOR INTRAM USCULA R USE Procedures Procedure DOS Code Location Performer Comment COLLECTIO 48302 DEX [facility] N VENOUS 7 [facility] BLOOD INC INC VENIPUNCT URE COMPREHEN 10744 DEX [facility]SKI SIVE 7 [facility] METABOLIC INC INC PANEL BLOOD 15538 DEX [facility] COUNT 7 [facility] COMPLETE INC INC AUTO&AUTO DIFRNTL WBC CONTINUIN 31489 JEREMIAS Dale MEDICAL 7 W W PHYSICS [facility] MEDICAL MEDICAL ME WK RADIATION 22989 JEREMIAS MCDOWELL 7 W W TREATMENT [facility] 1 MEV => COMPLEX RADIATION 96627 JEREMIAS LOLA 7 W TREATMENT PHYSICIAN PRACTIC MANAGEMEN T 5 TREATMENT S RADIATION 77020 [facility] MEADOWVIE 7 W W TREATMENT REGIONAL REGIONAL DELIVERY MEDICAL MEDICAL 1 MEV => COMPLEX RADIATION 06451 [facility] 7 W W TREATMENT REGIONAL REGIONAL DELIVERY MEDICAL MEDICAL 1 MEV => COMPLEX RADIATION 02770 MEADOWLORENZO MEADOW[facility]IE 7 W W TREATMENT REGIONAL REGIONAL DELIVERY MEDICAL MEDICAL 1 MEV => COMPLEX RADIATION 37394 JEREMIAS LOLA 7 W TREATMENT PHYSICIAN PRACTIC MANAGEMEN T 5 TREATMENT S THERAPEUT 14253 JEREMIAS MCDOWELL IC 7 W W RADIOLOGY REGIONAL [facility]AL [facility] MEDICAL IMAGES(S) CONTINUIN 96548 JEREMIAS MCDOWELL G MEDICAL 7 W W PHYSICS REGIONAL REGIONAL [facility] MEDICAL ME WK RADIATION 23619 MEASTONE MEAWVIE 7 W W TREATMENT REGIONAL REGIONAL DELIVERY MEDICAL MEDICAL 1 MEV => COMPLEX RADIATION 01015 MEADOWLORENZO MEADOWVIE 7 W W TREATMENT REGIONAL REGIONAL DELIVERY MEDICAL MEDICAL 1 MEV => COMPLEX RADIATION 82550 MEADOWVIE MEADOWVIE 7 W W TREATMENT REGIONAL REGIONAL DELIVERY MEDICAL MEDICAL 1 MEV => COMPLEX RADIATION 07910 MEADOWLORENZO MEADOWVIE 7 W W TREATMENT REGIONAL REGIONAL DELIVERY MEDICAL MEDICAL 1 MEV => COMPLEX RADIATION 40356 MEADOWLORENZO MEADOWVIE 7 W W TREATMENT REGIONAL REGIONAL DELIVERY MEDICAL MEDICAL 1 MEV => COMPLEX THER RAD 25095 JEREMIAS MCDOWELL SIMULAJ-A 7 W W IDED REGIONAL REGIONAL [place] [address] MEASTONE MEASTONE DEVICES 7 W W DESIGN & REGIONAL REGIONAL CONSTRUCT MEDICAL MEDICAL ION COMPLEX RADIATION 81406 JEREMIAS LOLA 7 W TREATMENT PHYSICIAN PRACTIC MANAGEMEN T 5 TREATMENT S CONTINUIN 72497 JEREMIAS MCDOWELL G MEDICAL 7 W W PHYSICS REGIONAL REGIONAL [facility] MEDICAL ME WK RADIATION 01624 [facility]AD[facility]IE MEADOWVIE 7 W W TREATMENT REGIONAL REGIONAL DELIVERY MEDICAL MEDICAL 1 MEV => COMPLEX RADIATION 19447 [facility]AD[facility]VIE MEADOWVIE 7 W W TREATMENT REGIONAL REGIONAL DELIVERY MEDICAL MEDICAL 1 MEV => COMPLEX COMPREHEN 38552 DEX KOWALSKI SIVE 7 [facility] [address] DEX KOWALSKI FREE 7 [facility] [place] [address] DEX KOWALSKI THYROID 7 [facility] STIMULATI INC INC NG HORMONE TSH BLOOD 97639 DEX KOW[facility]SKI COUNT 7 [facility] COMPLETE INC INC AUTO&AUTO DIFRNTL WBC RADIATION 51667 [facility] MEADOWVIE 7 W W TREATMENT REGIONAL REGIONAL DELIVERY MEDICAL MEDICAL 1 MEV => COMPLEX RADIATION 33799 [facility] MEADOWVIE 6 W W TREATMENT REGIONAL REGIONAL DELIVERY MEDICAL MEDICAL 1 MEV => COMPLEX RADIATION 40118 MEAD[facility]IE MEADOWVIE 6 W W TREATMENT REGIONAL REGIONAL DELIVERY MEDICAL MEDICAL 1 MEV => COMPLEX RADIATION 27166 [facility] LOLA 6 W TREATMENT PHYSICIAN PRACTIC MANAGEMEN T 5 TREATMENT S CONTINUIN 31941 MEASTONE FALKWLORENZO G MEDICAL 6 W W PHYSICS [facility]ION[facility] WK THERAPEUT 94643 [facility]AD[facility]VIE MEAWVIE IC 6 W W RADIOLOGY REGIONAL REGIONAL PORT MEDICAL MEDICAL IMAGES(S) RADIATION 70527 [facility]AD[facility]IE MEADOWVIE 6 W W TREATMENT REGIONAL REGIONAL DELIVERY MEDICAL MEDICAL 1 MEV => COMPLEX RADIATION 37523 [facility] MEADOW[facility]IE 6 W W TREATMENT REGIONAL REGIONAL DELIVERY MEDICAL MEDICAL 1 MEV => COMPLEX RADIATION 39975 MEAD[facility]IE MEADOWVIE 6 W W TREATMENT REGIONAL REGIONAL DELIVERY MEDICAL MEDICAL 1 MEV => COMPLEX RADIATION 06014 [facility]AD[facility]IE MEADOWVIE 6 W W TREATMENT REGIONAL REGIONAL DELIVERY MEDICAL MEDICAL 1 MEV => COMPLEX RADIATION 80756 [facility]AD[facility]IE MEADOWVIE 6 W W TREATMENT REGIONAL REGIONAL DELIVERY MEDICAL MEDICAL 1 MEV => COMPLEX RADIATION 05516 JEREMIAS NERIU 6 W TREATMENT PHYSICIAN PRACTIC MANAGEMEN T 5 TREATMENT S THERAPEUT 52661 JEREMIAS MCDOWELL IC 6 W W RADIOLOGY REGIONAL REGIONAL PORT MEDICAL MEDICAL IMAGES(S) CONTINUIN 29146 JEREMIAS MCDOWELL G MEDICAL 6 W W PHYSICS REGIONAL REGIONAL [facility] MEDICAL ME WK RADIATION 52430 JEREMIAS FALKWVIE 6 W W TREATMENT REGIONAL REGIONAL DELIVERY MEDICAL MEDICAL 1 MEV => COMPLEX RADIATION 52233 [facility] MEADOW[facility]IE 6 W W TREATMENT REGIONAL REGIONAL DELIVERY MEDICAL MEDICAL 1 MEV => COMPLEX RADIATION 94212 MEADOVIVEK MEADOWVIE 6 W W TREATMENT REGIONAL REGIONAL DELIVERY MEDICAL MEDICAL 1 MEV => COMPLEX RADIATION 61491 [facility]IE MEADOWVIE 6 W W TREATMENT REGIONAL REGIONAL DELIVERY MEDICAL MEDICAL 1 MEV => COMPLEX RADIATION 09431 JEREMIAS NERIU 6 W TREATMENT PHYSICIAN PRACTIC MANAGEMEN T 5 TREATMENT S CONTINUIN 46454 JEREMIAS MCDOWELL G MEDICAL 6 W W PHYSICS REGIONAL REGIONAL [facility] MEDICAL MEDICAL ME WK THERAPEUT 11743 JEREMIAS MCDOWELL IC 6 W W RADIOLOGY REGIONAL REGIONAL PORT MEDICAL MEDICAL IMAGES(S) RADIATION 61174 MEASTONE MEADOWVIE 6 W W TREATMENT REGIONAL REGIONAL DELIVERY MEDICAL MEDICAL 1 MEV => COMPLEX RADIATION 02736 JEREMIAS FALKWVIE 6 W W TREATMENT REGIONAL REGIONAL DELIVERY MEDICAL MEDICAL 1 MEV => COMPLEX RADIATION 25066 [facility]AD[facility]IE MEADOWVIE 6 W W TREATMENT REGIONAL REGIONAL DELIVERY MEDICAL MEDICAL 1 MEV => COMPLEX RADIATION 05801 MEADOWVIE MEADOWVIE 6 W W TREATMENT REGIONAL REGIONAL DELIVERY MEDICAL MEDICAL 1 MEV => COMPLEX THER RAD 54926 JEREMIAS DAVILA SIMULAJ-A 6 W IDED [place] [address] JEREMIAS FALKWLORENZO DEVICES 6 W W DESIGN & REGIONAL REGIONAL CONSTRUCT MEDICAL MEDICAL ION COMPLEX 3-D 67883 MEADOWVIE LOLA RADIOTHER 6 W APY PLAN PHYSICIAN DOSE-VOLU PRACTIC ME HISTOGRAM S BASIC 20756 JEREMIAS DAVILA RADIATION 6 W PHYSICIAN DOSIMETRY PRACTIC CALCULATI ON IM ADM 75709 [facility] PRQ ID 6 PHYSICIAN EUG SUBQ/IM S GROUP NJXS 1 VACCINE IIV3 24363 [facility] VACCINE 6 PHYSICIAN EUG SPLIT S GROUP VIRUS 0.5 ML DOSAGE IM USE THERAPEUT 10485 JEREMIAS NERIU IC 6 W RADIOLOGY PHYSICIAN TX PRACTIC PLANNING COMPLEX THER [place] 45089 JEREMIAS DAVILA SIMULAJ-A 6 W IDED PHYSICIAN FIELD PRACTIC SETTING COMPLEX ONCOLOGY 92300 GENOMIC GENOMIC BREAST 6 [email or web address] EXPRESSIO N 21 GENES COMPREHEN 37083 D[facility] SIVE 6 [facility] METABOLIC INC INC PANEL COLLECTIO 89664 DEX KOWALSKI N VENOUS 6 [facility] BLOOD INC INC VENIPUNCT URE IRON 68039 DEX KOWALSKI BINDING 6 [facility] [place] [address] DEX KOWALSKI IRON 6 [facility] [place] [address] DEX KOWALSKI FERRITIN 6 [facility] INC INC BLOOD 10260 DEX [facility]SK[facility] COUNT 6 [facility] COMPLETE INC INC AUTO&AUTO DIFRNTL WBC RADIOLOGI 39155 [facility] ALL C EXAM 6 MEDICAL CHEST 2 IMAGING VIEWS ASS FRONTAL&L ATERAL TECHNETIU A9541 DEX Laughlin TC-99M 6 [facility] SULFUR INC INC COLLOID DX UP TO 20 MCI BX/EXC 89903 [facility] TOD LYMPH 6 PHYSICIAN NODE OPEN S GROUP DEEP AXILLARY NODE INJ 40771 [place] RADIOACTI 6 MEDICAL VE TRACER IMAGING FOR ID ASS OF SENTINEL NODE ECG 48823 DEX [facility] ROUTINE 6 [facility] W/LEAST P 12 LDS I&R ONLY ANES 99118 [facility] INTEG 6 ANESTH SHE EXTREMITI OF THE ES ANT BLUE TRUNK & PERINEUM NOS MASTECTOM 67720 [facility] TOD Y PARTIAL 6 PHYSICIAN S GROUP BLOOD 30859 [facility] COUNT 6 [facility] COMPLETE INC INC AUTO&AUTO DIFRNTL WBC COLLECTIO 45845 D[facility] N VENOUS 6 [facility] BLOOD INC INC VENIPUNCT URE COMPREHEN 50043 D[facility] SIVE 6 [facility] [place] [address] DEX KOWALSKI ABDOMEN & 6 [facility] PELVIS INC INC W/CONTRAS T MATERIAL CT THORAX 85729 DEX KOWALSKI 6 [facility] W/CONTRAS INC INC T MATERIAL BX BREAST 25227 [facility] W/DEVICE 6 MEDICAL JUANA 1ST IMAGING LESION ASS ULTRASOUN D GUID PHYSICAL 39527 DEX [facility] THERAPY 6 [facility] EVALUATIO INC INC N BREAST 00679 D[facility] UNI REAL 6 [facility] TIME INC INC WITH IMAGE COMPLETE FINE 84774 DEX [facility] NEEDLE 6 [facility] ASPIRATIO INC INC N WITH IMAGING GUIDANCE DIAGNOSTI G0206 [place] ONEAL C 6 MEDICAL JUANA MAMMOGRAP IMAGING HY INCL ASS CAD WHEN PERF; UNI PROBE/NEE C2618 DEX [facility] DLE 6 [facility] CRYOABLAT INC INC ION DUPLEX 46320 [place] SCAN 6 MEDICAL JUANA EXTRACRAN IMAGING IAL ART ASS COMPL BI STUDY US BREAST 55789 [place] ONEAL UNI REAL 6 MEDICAL JUANA TIME IMAGING WITH ASS IMAGE COMPLETE DIAGNOSTI G0206 [place] ONEAL C 6 MEDICAL JUANA MAMMOGRAP IMAGING HY INCL ASS CAD WHEN PERF; [employer]- 71587 [facility] AIDED 6 MEDICAL DETECTION IMAGING ASS SCREENING MAMMOGRAP HY SCREENING G0202 [facility] 6 MEDICAL MAMMOGRAP IMAGING HY JOAN ASS INCL CAD WHEN PERFORMD MRI BRAIN 46189 [place] ALL BRAIN 6 MEDICAL STEM W/O IMAGING CONTR[place] ASS MATERIAL [place] [address] [facility] PHYSICIAN MADI S GLAND S GROUP ABSCESS SUSCEPTIB 04242 DEX KOWALSKI LTY STDY 6 [facility] ANTIMICRB INC INC IAL MICRO/AGA R DILUTJ CUL BACT 91327 DEX K[facility]SK[facility] XCPT 6 [facility] URINE INC INC BLOOD/STO OL AEROBIC ISOL CUL BACT 85502 DEX [facility]SK[facility] AEROBIC 6 [facility] ADDL INC INC METHS DEFINITIV E EA ISOL IADNA 90149 [facility], PICKLESIM HUMAN 6 LLC ER JR CLEM PAPILLOMA VIRUS HIGH-RISK TYPES CYTP 55960 [facility]IM CERV/VAG 6 [facility] ER JR CLEM AUTO THIN LAYER PREP MNL SCREEN IM ADM 25958 [facility] PRQ ID 6 [facility] SUBQ/IM HLTH DEPT NJXS 1 JANELL VACCINE TDAP 26224 [facility] VACCINE 7 6 [facility] YRS/> IM HLTH DEPT JANELL THERAPEUT 94564 DEX [facility]SKI IC 6 [facility] PROPHYLAC INC INC TIC/DX INJECTION SUBQ/IM RADEX 69293 [place] ALL ANKLE 5 MEDICAL COMPLETE IMAGING MINIMUM 3 ASS VIEWS HOSPITAL G0463 DEX [facility] OUTPATIEN 5 [facility] T CLIN INC [place] VISIT ASSESS & [place] [address] [facility] JUSTIN AZAEL MAXILLOFA 5 MEDICAL CIAL W/O SERV CONTRAST FOUNDATIO MATERIAL N ORTHOPANT 87669 [facility] HOSKINS 5 MEDICAL WINNIE SERV FOUNDATIO N RADIOLOGI 30059 [facility] Echavarria 5 MEDICAL WINNIE EXAMINATI SERV ON CHE[place] [address] [place] MAXILLOFA 5 MEDICAL JUANA CIAL W/[place] [address] [place] HEAD/BRAI 5 MEDICAL JUANA N W/[place] [address] [place] CERVICAL 5 MEDICAL JUANA SPINE W/O IMAGING CONTRAST ASS MATERIAL RADEX [address] [facility] [place]TE[place]ONEAL ELBOW 5 MEDICAL JUANA COMPLETE IMAGING MINIMUM 3 ASS VIEWS RADEX 22935 [facility] RIBS BI 5 MEDICAL JUANA W/POSTERO IMAGING ANT CH ASS MINIMUM 4 VIEWS SMR PRIM 01883 KELLY VALDEZ SRC WET 5 COURTNEY LUCIANO [place] AGT SCREENING G0202 [facility] NO 5 MEDICAL JUANA MAMMOGRAP IMAGING HY [place] IN[place] [address] [facility] NO TRANSVAGI 5 MEDICAL JUANA NAL IMAGING ASS COMPUTER- 46588 [facility] NO AIDED 5 MEDICAL JUANA DETECTION IMAGING ASS SCREENING MAMMOGRAP HY CULTURE 16163 KELLY VALDEZ CHLAMYDIA 5 COURTNEY LUCIANO ANY SOURCE BLOOD 06423 KELLY VALDEZ OCCULT 5 COURTNEY LUCIANO PEROXIDAS E ACTV QUAL FECES 1-3 SPEC HANDLG&/O 26965 KELLY VALDEZ R CONVEY 5 COURTNEY LUCIANO OF SPEC FOR TR OFFICE TO LAB URINLS 81450 KELLY VALDEZ DIP 5 COURTNEY LUCIANO STICK/TAB LET REAGNT NON-AUTO MICRSCPY IADNA 87552 KELLY VALDEZ NEISSERIA 5 COURTNEY LUCIAN[place] [address] [place] BEINE ABDOMEN & 5 MEDICAL KEITH PELVIS IMAGING W/O ASS CONTRAST MATERIAL PCV13 68835 [facility] V[facility]ICIAN KAITLIN FOR S GROUP INTRAMUSC ULAR USE IM ADM 22286 [facility] ANU PRQ ID 5 PHYSICIAN KAITLIN SUBQ/IM S GROUP NJXS 1 VACCINE IAADIADOO 31409 [facility] ANU 5 PHYSICIAN KAITLIN INFLUENZA S GROUP RADIOLOGI 44770 [place] ONE[place] C EXAM 4 MEDICAL JUANA CHEST 2 IMAGING VIEWS ASS FRONTAL&L ATERAL FIT 17674 [facility] CONTACT 4 GRE GRE [place]ULAR SUR[place] 01401 DEX [facility] SPINAL [facility] CANAL INC INC CERVICAL W/O CONTRAST MATRL 3D 08227 DEX [facility] RENDERING 4 [facility] W/INTERP INC INC & POSTPROCE SS SUPERVISI ON MRI 93617 DEX [facility] SPINAL 4 [facility] CANAL INC INC LUMBAR W/O CONTRAST MATERIAL RADIOLOGI 74242 [facility] [place] ELIEECR C EXAM 4 RADIOLOGY RHO CHEST 2 VIEWS FRONTAL&L ATERAL PHYSICAL 30367 DEX [facility] THERAPY 4 [facility] EVALUATIO INC INC N THERAPEUT 81329 DEX KOWALSKI IC PX 1/> 4 [facility] AREAS INC INC EACH 15 MIN EXERCISES DETERMINA 97079 [facility] 4 GRE GRE REFRACTIV E STATE OPHTH 21160 [facility] XM&EVAL COMPRE NEW PT 1/> VST RADEX 21470 DEX [facility] SHOULDER 4 [facility] COMPLETE [place] [address] [place] [address] DEX [facility] HEAD/BRAI 4 [facility] N W/O INC INC CONTRAST MATERIAL URNLS DIP 39113 DEX [facility]KI 4 [facility] STICK/TAB INC INC LET REAGENT AUTO MICROSCOP Y 3D 54052 DEX [facility] RENDERING 4 [facility] W/INTERP INC INC & POSTPROCE SS SUPERVISI ON OVA&MELLY 23918 [email or web address], ITES 4 [employer]VIS[employer] SUPERVISOR [employer] DIRECT [facility] [place] SMEARS [facility] [place] & [place] [address] [email or web address], [employer], MULT STEP 4 SUPERVISOR [employer]ATION SUPERVISOR [employer]UCATION METHOD [place]AMP [place] NOS EACH CO HOS CO HOS ORGANISM SMR PRIM 92016 [email or web address], [employer], SRC CPLX 4 SUPERVISOR [employer]UCATION SUPERVISOR [employer]UCATION SPEC CHAMP CHAMP STAIN CO HOS CO HOS OVA&MELLY ITS CUL BACT 10839 [email or web address], [employer], STOOL 4 SUPERVISOR [employer]UCATION SUPERVISOR [employer]ATION AEROBIC CHAMP CHAMP ISOL CO HOS CO HOS SALMONELL A&SHIGELL CUL BACT 53888 [email or web address], [facility], STOOL 4 SUPERVISOR [employer]UCATION SUPERVISOR [employer]UCATION AEROBIC CHAMP CHAMP ADDL CO HOS CO HOS PATHOGENS &ID EA BLOOD 29170 [facility], [facility], OCCULT 4 SUPERVISOR [employer]UCATION SUPERVISOR [employer] EDUCATION PEROXIDAS CHAMP CHAMP E ACTV CO HOS CO HOS QUAL FECES [address] [place] [address] [facility], CLOSTRIDI 4 SUPERVISOR [employer]AL [employer]S EDUCATION SUPERVISOR [employer]AL [employer]S EDUCATION UM CHAMP CHAMP [place]FF[place] [address] [facility], [facility], SHIGA-LIK 4 SUPERVISOR [employer] EDUCATION SUPERVISOR [employer] EDUCATION E [place] [address] [facility] [place] MAT HEAD/BRAI 4 RADIOLOGY N W/O CONTRAST MATERIAL SIMPLE 35207 [facility] GREISER REPAIR 4 JAMIR LORNA SCALP/NEC EMERGENCY K/AX/AMMON PHYS T/TRUNK 2.5CM/< [place] [address] [facility] [place] MAT CERVICAL 4 RADIOLOGY SPINE W/[place] [address] [facility] [place] JAM MAXILLOFA 4 RADIOLOGY CIAL W/O CONTRAST MATERIAL Encounters Encounter Start End Date Code Location Performer Type Date OFFICE 90339 [facility] OUTPAT[facility] 7 7 PHYSICIAN T VISIT S GROUP 10 [facility] DEX - 7 7 [facility] INC T OFFICE 96175 DEX DONYA OUTPATIEN 7 7 [facility] 10 P MINUTES OFFICE 51905 DEX OUTPATIEN 7 7 [facility] T VISIT INC 10 [facility] DEX - 7 7 [facility]IEN [facility] DEX - 7 7 [facility] OUTPATI[facility] INC T OFFICE 71717 [facility] OUTPATI[facility] 7 7 PHYSICIAN T VISIT S GROUP 15 [facility] JEREMI[facility] - 7 7 W [facility] JEREMIAS - 6 6 W [facility] MEADOWVIE - 6 6 W OUTPATIEN REGIONAL T MEDICAL OFFICE 57068 [facility] [place] OUTPATIEN 6 6 PHYSICIAN T VISIT 5 S GROUP MINUTES OFFICE 48008 DEX DONYA OUTPATIEN 6 6 [facility] VISIT [facility]OSPITAL 10 P MINUTES OFFICE 80386 [facility] OUTPAT[facility] 6 6 [facility] T VISIT MEDICAL 15 GROUP MINUTES OFFICE 31772 DEX DONYA OUTPATIEN [address] [facility] NEW 20 HOSPITAL MINUTES HOSPITAL DEX - 6 6 [facility]PATI[facility] INC T OFFICE 80267 [facility] [place] OUTPATIEN 6 6 PHYSICIAN EUG T VISIT S GROUP 15 MINUTES HOSPITAL DEX - 6 6 [facility]PATIEN INC [facility]PITAL DEX - 6 6 [facility] INC T OFFICE 59625 [facility] CAL[place]N CONSULTAT 6 6 PHYSICIAN ION S GROUP NEW/ESTAB PATIENT 40 MIN OFFICE 69614 [facility] 6 6 [facility] T [facility]ISIT 5 DHS/CO [facility] DEPT [facility] DEX - 6 6 [facility] OUTPATIEN INC T OFFICE 52982 DEX [facility] OUTPATIEN 6 6 [facility] T VISIT HOSPITAL 15 MINUTES HOSPITAL DEX - 6 6 [facility] OUTPATIEN INC [facility]OSPITAL DEX - 6 6 [facility] OUTPATI[facility] INC T OFFICE 16429 [facility] OUTPATIEN 6 6 PHYSICIAN T NEW 45 S GROUP MINUTES HOSPITAL DEX - 6 6 [facility] OUTPATIEN INC T OFFICE 57466 [facility] OUTPATIEN 6 6 [facility] T VISIT HLTH DEPT 10 JANELL MINUTES HOSPITAL DEX - 6 6 [facility] OUTPATIEN INC T PERIODIC 30150 DHS/CO PREVENTIV 6 6 HEALTH E MED EST PATIENT 40-64YRS EMERGENCY 61165 FAREED BENSON 6 6 PHYSICIAN FOR [facility] S, [facility] T VISIT HIGH/URGE NT SEVERITY HOSPITAL DEX - 6 6 [facility] OUTPATIEN INC T EMERGENCY 75956 DEX 6 6 [facility] INC T VISIT LOW/MODER SEVERITY OFFICE 44462 [facility]BINS OUTPATIEN 5 5 MD YISSEL, T VISIT PSC 15 MINUTES HOSPITAL DEX - 5 5 [facility] OUTPATI[facility] INC T OFFICE 78489 CHANTE SHELDON OUTPATIEN 5 5 T [facility] 30 MINUTES HOSPITAL [facility]EX - 5 5 [facility] OUTPATI[facility] INC T OFFICE 90747 [facility] OUTPATIEN 5 5 PHYSICIAN KAITLIN T VISIT S GROUP 10 MINUTES EMERGENCY 23121 ABNER DAVILA 5 5 MEDICAL ANGEL [facility] SERV T VISIT FOUNDATIO HIGH/URGE N NT SEVERITY OFFICE 07554 [facility] ANU OUTPATIEN 5 5 PHYSICIAN KAITLIN T VISIT 5 S GROUP MINUTES OFFICE 00681 KELLY VALDEZ OUTPATIEN 5 5 COURTNEY LUCIANO T VISIT 25 MINUTES OFFICE 91231 [facility] VALDEZ OUTPATIEN 5 5 COURTNEY LUCIANO T VISIT 15 MINUTES HOSPITAL DEX - 5 5 [facility] OUTPATIEN INC T INITIAL 70085 KELLY VALDEZ PREVENTIV 5 5 COURTNEY JAIN ANKITA E MEDICINE NEW PATIENT 40-64YRS OFFICE 37618 [facility] ANU OUTPATIEN 5 5 PHYSICIAN KAITLIN T VISIT S GROUP 10 MINUTES OFFICE 40262 KRYSTIAN BOLAND OUTPATIEN 4 4 GRE GRE T VISIT 25 MINUTES OFFICE 69324 [facility] TRA CONSULTAT 4 4 [place] ION ORTHOPAED NEW/ESTAB ICS PLC PATIENT 40 MIN OFFICE 92821 KRYSTIAN VILLEGASALL OUTPATIEN 4 4 GRE GRE T VISIT 25 MINUTES EMERGENCY 85923 [facility] BAB DEPT 4 4 JAMIR VISIT EMERGENCY HIGH PHYS SEVERITY& THREAT FUN HOSPITAL DEX - 4 4 [facility] OUTPATIEN INC T EMERGENCY 95231 [facility] CHANDEL 4 4 JAMIR ROSA DEPARTMEN EMERGENCY T VISIT PHYS HIGH/URGE NT SEVERITY HOSPITAL DEX - 4 4 [facility] OUTPAT[facility] INC T OFFICE 50087 [facility] ANU OUTPATIEN 4 4 PHYSICIAN KAITLIN T VISIT S GROUP 10 MINUTES OFFICE 73217 [facility] PETTEY OUTPATIEN 4 4 PHYSICIAN JAM T NEW 10 S GROUP MINUTES HOSPITAL DEX - 4 4 [facility] T OFFICE 12493 [facility] 4 PHYSICIAN KAITLIN T VISIT S GROUP 15 MINUTES HOSPITAL DEX - 4 4 [facility] OUTPATIEN INC T EMERGENCY 81453 DEX 4 4 [facility] DEPARTMEN INC T VISIT LOW/MODER SEVERITY HOSPITAL [facility] - 4 4 [facility] OUTPATIEN [facility] T [facility] HOS OFFICE 94459 [facility] [place] OUTPATIEN 4 4 [facility] NAN T VISIT RURAL 15 HEALTH MINUTES EMERGENCY 71423 [facility] SWINEY DEPT 4 4 JAMIR PAT VISIT EMERGENCY HIGH PHYS SEVERITY& THREAT FUNCJ EMERGENCY 25159 [facility] GREISER 4 4 JAMIR LORNA DEPARTMEN EMERGENCY T VISIT PHYS HIGH/URGE NT SEVERITY
--- OUTSIDE RECORDS SUMMARY | 2017-03-20 12:45 | External Medical Summary Rpt ---
Author Author , Organization [employer] Address Unknown Phone Unavailable Care Team Providers Care Laborer General Name Role Phone MOSHE DEY MD, PSC, Unavailable Unavailable MOSHE DEY MD, PSC [facility] Unavailable Unavailable MEDICAL GROUP, [facility] BEINEKE, BEINEKE Unavailable Unavailable [...] EUG ANU KAITLIN, ANU Unavailable Unavailable KAITLIN [employer] Unavailable Unavailable [employer] KELLY VALDEZ MD, Unavailable Unavailable KELLY VALDEZ MD GREDAVID LORNA, GREISER Unavailable Unavailable LORNA ELIECER RHO, ELIECER Unavailable Unavailable RHO HARPEL ANKITA, HARPEL Unavailable Unavailable ANKITA [facility] Unavailable Unavailable INC, [facility] Unavailable Unavailable HOSPITAL, [facility] Unavailable Unavailable HOSPITAL P, [facility] P [facility], Unavailable Unavailable [facility] HARRIS TRA, HARRIS TRA Unavailable Unavailable NGUYEN NAN, NGUYEN Unavailable Unavailable NAN [facility] Un[facility] Unavailable [facility], [facility] JUSTIN AZAEL, JUSTIN AZAEL Unavailable Unavailable [facility] K[facility] GRE, Unavailable Unavailable [facility], Unavailable Unavailable [facility] FLACO KEY, Unavailable Unavailable FLACO MACKEY [facility] Un[facility] Unavailable [facility] Unavailable Unavailable MEDICAL, [facility] Unavailable Unavailable [facility], [facility] Unavailable Unavailable HEALTH, [facility] Unavailable Unavailable LABS, [...] WINNIE WALKER FOR, WALKER Unavailable Unavailable [facility] Un[facility] DEPT JANELL, [facility] ERICKSON MAT, ERICKSON MAT Unavailable Unavailable Purpose Continuity of Care Document - 11-21-2013 through 2016 Problems Code Diagnosis DOS Provider Status [id number] MALIGNANT 01-31-2017 [facility] NEOPLASM PHYSICIANS UNS SITE GROUP RIGHT FEMALE BREAST Z1211 ENCOUNTER 01-31-2017 [facility] SCREENING PHYSICIANS MALIGNANT GROUP NEOPLASM OF COLON [id number] MALIGNANT 01-18-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[facility] P UNS FEMALE BREAST 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 01-18-2017 [facility] P STATUS [id number] [facility] 11-24-2016 [facility] NEOPLASM 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 Z510 ENCOUNTER 11-24-2016 [facility] FOR PHYSICIAN ANTINEOPLAS PRACTIC TIC RADIATION THERAPY I10 ESSENTIAL 11-09-2016 [facility] PRIMARY PHYSICIANS HYPERTENSIO GROUP N Z23 ENCOUNTER 09-23-2016 [facility] FOR PHYSICIANS IMMUNIZATIO GROUP N B354 TINEA 08-26-2016 [facility] R110 NAUSEA 08-26-2016 [facility] R079 CHEST PAIN 07-20-2016 [place] [facility]PECIFIED [facility]ING ASS R42 DIZZINESS 07-20-2016 [facility] GIDDINESS IMAGING ASS N649 DISORDER OF 06-20-2016 [facility] BREAST PHYSICIANS UNSPECIFIED GROUP Z129 ENCOUNTER 06-06-2016 [place] SCREENING MEDICAL MALIGNANT IMAGING ASS NEOPLASM SITE UNS Z853 PERSONAL 06-06-2016 [place] HISTORY MEDICAL PRIMARY IMAGING ASS MALIG NEOPLASM BREAST [id number] MIGRAINE 05-04-2016 [facility] W/AURA NOT [facility] INTRACT W/O INC STAT MIGRAINOSUS N63 UNSPECIFIED 05-04-2016 [facility] IN MEDICAL BREAST IMAGING ASS R51 HEADACHE 05-04-2016 [facility] INC R922 INCONCLUSIV 05-04-2016 [facility] E MAMMOGRAM [facility] INC H6090 UNSPECIFIED 04-21-2016 [facility] UNSPECIFIED EAR L299 PRURITUS 04-21-2016 [facility]686 MIGRAINE 04-19-2016 [place] UNS NOT MEDICAL INTRACT W/O IMAGING ASS STATUS MIGRAINOSUS R928 OTH ABNORM 04-19-2016 [place] & MEDICAL INCONCLUSIV IMAGING ASS E FIND ON DX IMAG BREAST Z1231 ENCOUNTER 03-28-2016 [place] SCREENING MEDICAL MAMMO MALIG IMAGING ASS NEOPLASM BREAST D14917 VAG HIGH 02-24-2016 [facility] PAPILL[facility]I VIRGIL DNA TEST POS N750 CYST OF 02-10-2016 [facility] INC N751 ABSCESS OF 02-10-2016 [facility] BARTHOLINS PHYSICIANS GLAND GROUP [id number] CERV HIGH 02-09-2016 [facility] PAPILLOMAVI VIRGIL DNA TEST POS W05880 ENCOUNTER 02-09-2016 [facility] GENERAL RTN W/ABNORMAL FIND V68088 ENCOUNTER 02-09-2016 [facility] GENERAL RTN W/O ABNORMAL FIND Z1239 ENCOUNTER 02-09-2016 [facility] OTHER HEALTH SCREENING MALIG NEOPLASM BREAST 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 CERVIX AND UTERUS Z720 TOBACCO USE 12-01-2015 [facility] INC Z8781 PERSONAL 12-01-2015 [facility] OF [facility] HEALED INC TRAUMATIC FRACTURE 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, LUMBAR/LUMB , PSC OSACRAL INTERVERTEB RAL DISC 7244 THORACIC/SIM 07-14-2015 PATRICIA ZHOU MD, PSC NEURITIS/RA DICULITIS UNSPEC 71472 PAIN IN 06-30-2015 [place] [facility], MEDICAL ANKLE AND IMAGING ASS FOOT 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 7242 LUMBAGO 04-03-2015 [facility] PHYSICIANS GROUP 04924 OTHER 03-13-2015 [facility] DISEASES OF SERV [facility] CAVITY AND SINUSES 84959 UNSPECIFIED 03-13-2015 [place] [facility] DENTAL SERV [facility] 23972 CLOSED 03-13-2015 [facility] FRACTURE SERV SUBCONDYLAR FOUNDATION PROCESS MANDIBLE 05397 TOOTH 03-13-2015 [facility] BROKEN FX SERV DUE TO FOUNDATION TRAUMA W/O MENTION COMP 21719 JAW PAIN 03-12-2015 [facility] E9293 LATE 03-12-2015 [place] [facility] EFFECTS OF SERV ACCIDENTAL FOUNDATION FALL V5832 ENCOUNTER 03-10-2015 [facility] FOR REMOVAL PHYSICIANS OF SUTURES GROUP 7231 CERVICALGIA 03-01-2015 [place] [facility] 99393 INJURY OF 03-01-2015 [place] FACE AND MEDICAL NECK OTHER IMAGING ASS AND UNSPECIFIED 42271 PAIN IN 02-28-2015 [place] [facility], MEDICAL UPPER ARM IMAGING ASS 33171 CHEST PAIN 02-28-2015 [place] UNSPECIFIED MEDICAL IMAGING ASS 09171 CLOSED 02-28-2015 [place] FRACTURE OF MEDICAL IMAGING ASS UNSPECIFIED SITE OF MANDIBLE 8300 CLOSED 02-28-2015 [place] DISLOCATION MEDICAL OF JAW IMAGING ASS 8505 CONCUSSION 02-28-2015 [place] WITH LOC OF MEDICAL IMAGING ASS UNSPECIFIED DURATION 09760 OTHER 02-28-2015 [place] INJURY OF MEDICAL CHEST WALL IMAGING ASS 9593 INJURY 02-28-2015 [place] OTHER&UNSPE MEDICAL CIFIED IMAGING ASS ELBOW FOREARM&WRI ST 9392 FOREIGN 02-26-2015 KELLY Calvin BODY IN [place] JAIN VULVA AND VAGINA 80189 TRICHOMONAL 02-23-2015 KELLY VALDEZ MD VULVOVAGINI TIS 6272 SYMPTOMATIC 02-23-2015 KELLY VALDEZ MD MENOPAUSAL/ FEMALE CLIMACTERIC STATES V1322 PERSONAL 02-23-2015 KELLY Calvin HISTORY OF [place] CERVICAL DYSPLASIA 6271 POSTMENOPAU 02-16-2015 [place] ALONDRA MEDICAL BLEEDING IMAGING ASS V7612 OTHER 02-16-2015 [place] SCREENING MEDICAL MAMMOGRAM IMAGING ASS 6273 POSTMENOPAU 02-03-2015 KELLY VALDEZ MD ATROPHIC VAGINITIS V7231 ROUTINE 02-03-2015 KELLY Clavin GYNECOLOGIC [place] JAIN AL EXAMINATION V7641 SCREENING 02-03-2015 KELLY 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 55171 ABDOMINAL 01-26-2015 [place] PAIN OTHER MEDICAL SPECIFIED IMAGING ASS SITE V0382 NEED PROPH 11-21-2014 [facility] VACCINATION PHYSICIANS AGAINST GROUP STREP PNEUMONE V0481 NEED 11-21-2014 [facility] PROPHYLACTI PHYSICIANS C GROUP VACCINATION &INOCULATIO N FLU 490 BRONCHITIS 11-14-2014 [facility] NOT PHYSICIANS SPECIFIED GROUP ACUTE OR CHRONIC 7862 COUGH 10-05-2014 [place] [facility] 7869 OTH 10-05-2014 [place] SYMPTOMS MEDICAL INVOLVING IMAGING ASS RESPIRATORY SYSTEM&CHES T [address]338 UNSPECIFIED 09-12-2014 [facility] VISUAL DISTURBANCE 73496 PAIN IN OR 09-12-2014 [facility] 9308 FOREIGN 09-12-2014 [facility] BODY GRE OTHER&COMBI BUDDY SITES EXTERNAL EYE 35976 OTHER 09-01-2014 [facility] VISUAL GRE DISTORTIONS AND ENTOPTIC PHENOMENA 21699 UNSPECIFIED 09-01-2014 [facility] SCLERITIS GRE 51012 VOMITING 08-20-2014 [facility] EMERGENCY PHYS 85371 DIARRHEA 08-20-2014 [facility] N EMERGENCY PHYS 7234 BRACHIAL 08-13-2014 [place] NEURITIS OR MEDICAL IMAGING ASS RADICULITIS NOS 7820 DISTURBANCE 08-13-2014 [place] OF SKIN MEDICAL SENSATION IMAGING ASS 88610 OBST 08-07-2014 [facility] CHRONIC N EMERGENCY BRONCHITIS PHYS W/ACUTE BRONCHITIS 27811 FEVER 08-07-2014 [facility] [place] UNSPECIFIED RADIOLOGY 77953 PAIN IN 06-27-2014 [facility], [facility] SHOULDER INC REGION V571 OTHER 06-27-2014 [facility] [place] [facility] THERAPY INC 14116 UNSPEC 06-18-2014 [facility] DISORDERS PHYSICIANS BURSAE&TEND GROUP ONS SHOULDER REGION V720 EXAMINATION 06-11-2014 [facility] OF EYES GRE AND VISION 7262 OTHER 06-04-2014 [facility] AFFECTIONS PHYSICIANS OF SHOULDER GROUP REGION NEC 3699 UNSPECIFIED 05-27-2014 [facility] VISUAL PHYSICIANS LOSS GROUP 34494 UNSPECIFIED 05-27-2014 [facility] TINNITUS PHYSICIANS GROUP 41136 UNSPECIFIED 04-07-2014 [place] OTAL[facility]IA [facility]ICAL [facility] ASS 7804 DIZZINESS 04-07-2014 [place] AND MEDICAL GIDDINESS IMAGING ASS V642 SURG/OTH 04-07-2014 [facility] NOT [facility] CARRIED OUT INC BECAUSE PTS DECN 4610 ACUTE 01-20-2014 [facility] SINUSITIS [facility] 90626 ABDOMINAL 01-20-2014 [facility] 7840 HEADACHE 12-11-2013 [facility] N EMERGENCY PHYS E8889 UNSPECIFIED 12-11-2013 [facility] [place] FALL RADIOLOGY 8470 NECK SPRAIN 12-10-2013 [facility] AND STRAIN N EMERGENCY PHYS 8730 OPEN WOUND 12-10-2013 [facility] SCALP N EMERGENCY WITHOUT PHYS MENTION COMPLICATIO N E8888 OTHER FALL 12-10-2013 [facility] N EMERGENCY PHYS 26403 SWELLING OR 11-21-2013 [facility] [place] MASS OF [...] 0 CY MG CA PS UL E FL 00 04 05 30 30 00 CL Ac RT 09 -1 -1 .0 00 IN ti [place] 37 7- 2- 00 00 IC ve AP 20 20 20 42 IN 65 17 17 53 PH E 6 27 AR 15 MA CY MG TA BL ET CA 00 04 05 12 6 00 CL [...] CY ZI NE 1% CR EA M FL 00 03 04 30 30 00 CL [...] 0 CY MG CA PS UL E FL 00 02 03 30 30 00 CL [...] AR MA MG CY TA BL ET FL 00 01 02 30 30 00 CL [...] L CY 75 MG TA BL ET FL 00 12 01 30 30 00 CL [...] VIRUS 0.5 ML DOSAGE IM USE TDAP [facility] No VACCIN [address] YRS/> HLTH IM DEPT JANELL PCV13 [facility] No VACCIN 2014 [facility] E FOR INTRAM USCULA R USE Procedures Procedure DOS Code Location Performer Comment COLLECTIO 08319 [facility]EX [facility] N VENOUS 7 [facility] BLOOD INC INC VENIPUNCT URE COMPREHEN 08768 DEX [facility] SIVE 7 [facility] METABOLIC INC INC PANEL BLOOD 21956 DEX [facility] COUNT 7 [facility] COMPLETE INC INC AUTO&AUTO DIFRNTL WBC CONTINUIN 83997 JEREMIAS Dale MEDICAL 7 W W PHYSICS [facility] MEDICAL MEDICAL CA WK RADIATION 37186 JEREMIAS MCDOWELL 7 W W TREATMENT [facility] 1 MEV => COMPLEX RADIATION 91910 JEREMIAS LOLA 7 W TREATMENT PHYSICIAN PRACTIC MANAGEMEN T 5 TREATMENT S RADIATION 23262 [facility] 7 W W TREATMENT [facility]AL [facility]AL [facility]IV[facility] MEDICAL MEDICAL 1 MEV => COMPLEX RADIATION 81176 [facility] 7 W W TREATMENT [facility]AL REGIONAL DELIVERY MEDICAL MEDICAL 1 MEV => COMPLEX RADIATION 12992 [facility]OWLORENZO MEADOW[facility]IE 7 W W TREATMENT REGIONAL REGIONAL DELIVERY MEDICAL MEDICAL 1 MEV => COMPLEX RADIATION 34023 JEREMIAS LOLA 7 W TREATMENT PHYSICIAN PRACTIC MANAGEMEN T 5 TREATMENT S THERAPEUT 60250 JEREMIAS MCDOWELL IC 7 W W RADIOLOGY [facility]IONAL [facility]ICAL IMAGES(S) CONTINUIN 92257 JEREMIAS MCDOWELL G MEDICAL 7 W W PHYSICS REGIONAL REGIONAL [facility] MEDICAL MEDICAL CA WK RADIATION 52015 MEASTONE MEAWVIE 7 W W TREATMENT REGIONAL REGIONAL DELIVERY MEDICAL MEDICAL 1 MEV => COMPLEX RADIATION 63561 [facility]OWLORENZO MEADOW[facility]IE 7 W W TREATMENT REGIONAL REGIONAL DELIVERY MEDICAL MEDICAL 1 MEV => COMPLEX RADIATION 87357 [facility] MEADOWVIE 7 W W TREATMENT REGIONAL REGIONAL DELIVERY MEDICAL MEDICAL 1 MEV => COMPLEX RADIATION 79171 [facility]LORENZO MEADOWVIE 7 W W TREATMENT REGIONAL REGIONAL DELIVERY MEDICAL MEDICAL 1 MEV => COMPLEX RADIATION 70120 [facility]OWLORENZO MEADOWVIE 7 W W TREATMENT REGIONAL REGIONAL DELIVERY MEDICAL MEDICAL 1 MEV => COMPLEX THER RAD 16143 JEREMIAS MCDOWELL SIMULAJ-A 7 W W IDED REGIONAL REGIONAL [place] [address] MEASTONE MEASTONE DEVICES 7 W W DESIGN & REGIONAL REGIONAL CONSTRUCT MEDICAL MEDICAL ION COMPLEX RADIATION 35373 JEREMIAS LOLA 7 W TREATMENT PHYSICIAN PRACTIC MANAGEMEN T 5 TREATMENT S CONTINUIN 51556 JEREMIAS MCDOWELL G MEDICAL 7 W W PHYSICS REGIONAL REGIONAL [facility] MEDICAL MEDICAL CA WK RADIATION 07227 MEADOWVIE MEADOWVIE 7 W W TREATMENT REGIONAL REGIONAL DELIVERY MEDICAL MEDICAL 1 MEV => COMPLEX RADIATION 85311 ME[facility]IE MEADOWVIE 7 W W TREATMENT REGIONAL REGIONAL DELIVERY MEDICAL MEDICAL 1 MEV => COMPLEX COMPREHEN 73413 DEX K[facility]SKI SIVE 7 [facility] [address] DEX KOWALSKI FREE 7 [facility] [place] [address] DEX [facility]OW[facility]SKI THYROID 7 [facility] STIMULATI INC INC NG HORMONE TSH BLOOD 91454 DEX [facility] COUNT 7 [facility] COMPLETE INC INC AUTO&AUTO DIFRNTL WBC RADIATION 83007 [facility]IE 7 W W TREATMENT REGIONAL REGIONAL DELIVERY MEDICAL MEDICAL 1 MEV => COMPLEX RADIATION 83114 [facility] MEADOW[facility]IE 6 W W TREATMENT REGIONAL REGIONAL DELIVERY MEDICAL MEDICAL 1 MEV => COMPLEX RADIATION 88126 [facility]IE MEADOWVIE 6 W W TREATMENT REGIONAL REGIONAL DELIVERY MEDICAL MEDICAL 1 MEV => COMPLEX RADIATION 28488 [facility]AD[facility]IE LOLA 6 W TREATMENT PHYSICIAN PRACTIC MANAGEMEN T 5 TREATMENT S CONTINUIN 36022 MEASTONE FALKWLORENZO G MEDICAL 6 W W PHYSICS [facility] WK THERAPEUT 47493 [facility]AD[facility]VIE MEAWVIE IC 6 W W RADIOLOGY REGIONAL [facility] MEDICAL MEDICAL IMAGES(S) RADIATION 92288 [facility]AD[facility]VIE MEADOWVIE 6 W W TREATMENT REGIONAL REGIONAL [facility]IVERY MEDICAL MEDICAL 1 MEV => COMPLEX RADIATION 01196 [facility] MEADOWVIE 6 W W TREATMENT REGIONAL REGIONAL DELIVERY MEDICAL MEDICAL 1 MEV => COMPLEX RADIATION 39769 MEAD[facility]IE MEADOWVIE 6 W W TREATMENT REGIONAL REGIONAL DELIVERY MEDICAL MEDICAL 1 MEV => COMPLEX RADIATION 20440 [facility] MEADOW[facility]IE 6 W W TREATMENT REGIONAL REGIONAL DELIVERY MEDICAL MEDICAL 1 MEV => COMPLEX RADIATION 76337 [facility]IE MEADOWVIE 6 W W TREATMENT REGIONAL REGIONAL DELIVERY MEDICAL MEDICAL 1 MEV => COMPLEX RADIATION 09304 JEREMIAS NERIU 6 W TREATMENT PHYSICIAN PRACTIC MANAGEMEN T 5 TREATMENT S THERAPEUT 29695 JEREMIAS MCDOWELL IC 6 W W RADIOLOGY REGIONAL REGIONAL PORT MEDICAL MEDICAL IMAGES(S) CONTINUIN 60116 JEREMIAS MCDOWELL G MEDICAL 6 W W PHYSICS REGIONAL REGIONAL [facility] MEDICAL MEDICAL CA WK RADIATION 30682 JEREMIAS FALKWVIE 6 W W TREATMENT REGIONAL REGIONAL DELIVERY MEDICAL MEDICAL 1 MEV => COMPLEX RADIATION 18855 [facility]IE MEADOWVIE 6 W W TREATMENT REGIONAL REGIONAL DELIVERY MEDICAL MEDICAL 1 MEV => COMPLEX RADIATION 14116 MEADOVIVEK MEADOWVIE 6 W W TREATMENT REGIONAL REGIONAL DELIVERY MEDICAL MEDICAL 1 MEV => COMPLEX RADIATION 63814 MEAD[facility]IE MEADOW[facility]IE 6 W W TREATMENT REGIONAL REGIONAL DELIVERY MEDICAL MEDICAL 1 MEV => COMPLEX RADIATION 30736 JEREMIAS NERIU 6 W TREATMENT PHYSICIAN PRACTIC MANAGEMEN T 5 TREATMENT S CONTINUIN 97903 JEREMIAS MCDOWELL G MEDICAL 6 W W PHYSICS REGIONAL REGIONAL [facility] MEDICAL MEDICAL CA WK THERAPEUT 23513 JEREMIAS MCDOWELL IC 6 W W RADIOLOGY REGIONAL REGIONAL PORT MEDICAL MEDICAL IMAGES(S) RADIATION 32554 [facility] MEADOW[facility] 6 W W TREATMENT REGIONAL REGIONAL DELIVERY MEDICAL MEDICAL 1 MEV => COMPLEX RADIATION 94638 JEREMIAS FALKWVIE 6 W W TREATMENT REGIONAL REGIONAL DELIVERY MEDICAL MEDICAL 1 MEV => COMPLEX RADIATION 35202 [facility] MEADOW[facility]IE 6 W W TREATMENT REGIONAL REGIONAL DELIVERY MEDICAL MEDICAL 1 MEV => COMPLEX RADIATION 58889 [facility] MEADOWVIE 6 W W TREATMENT REGIONAL REGIONAL DELIVERY MEDICAL MEDICAL 1 MEV => COMPLEX THER RAD 71708 JEREMIAS DAVILA SIMULAJ-A 6 W IDED [place] [address] JEREMIAS FALKWLORENZO DEVICES 6 W W DESIGN & REGIONAL REGIONAL CONSTRUCT MEDICAL MEDICAL ION COMPLEX 3-D 00143 [facility]IE LOLA RADIOTHER 6 W APY PLAN PHYSICIAN DOSE-VOLU PRACTIC ME HISTOGRAM S BASIC 17208 JEREMIAS DAVILA RADIATION 6 W PHYSICIAN DOSIMETRY PRACTIC CALCULATI ON IM ADM 36009 [facility] [place] PRQ ID 6 PHYSICIAN EUG SUBQ/IM S GROUP NJXS 1 VACCINE IIV3 06150 [facility] [place] VACCINE 6 PHYSICIAN EUG SPLIT S GROUP VIRUS 0.5 ML DOSAGE IM USE THERAPEUT 02787 JEREMIAS NERIU IC 6 W RADIOLOGY PHYSICIAN TX PRACTIC PLANNING COMPLEX THER RAD 19245 JEREMIAS DAVILA SIMULAJ-A 6 W IDED PHYSICIAN FIELD PRACTIC SETTING COMPLEX ONCOLOGY 50058 GENOMIC GENOMIC BREAST 6 [employer] EXPRESSIO N 21 GENES COMPREHEN 85026 DEX [facility] SIVE [address] [facility] METABOLIC INC INC PANEL COLLECTIO 44267 DEX [facility]SKI N VENOUS 6 [facility] BLOOD INC INC VENIPUNCT URE IRON 24002 DEX [facility]SK[facility] BINDING [address] [facility] [place] [address] DEX KOWALSKI IRON [address] [facility] [place] [address] DEX [facility] FERRITIN 6 [facility] INC INC BLOOD 51600 DEX [facility] COUNT [address] [facility] COMPLETE INC INC AUTO&AUTO DIFRNTL WBC RADIOLOGI 05956 [facility] ALL C EXAM 6 MEDICAL CHEST 2 IMAGING VIEWS ASS FRONTAL&L ATERAL TECHNETIU A9541 DEX Laughlin TC-99M [address] [facility] SULFUR INC INC COLLOID DX UP TO 20 MCI BX/EXC 28059 [facility] [place] TOD LYMPH 6 PHYSICIAN NODE OPEN S GROUP DEEP AXILLARY NODE INJ 04654 [place] RADIOACTI 6 MEDICAL VE TRACER IMAGING FOR ID ASS OF SENTINEL NODE ECG 44095 DEX [facility] ROUTINE 6 [facility] W/LEAST P 12 LDS I&R ONLY ANES 49893 [facility] INTEG 6 ANESTH SHE EXTREMITI OF THE ES ANT BLUE TRUNK & PERINEUM NOS MASTECTOM 17188 [facility] [place] TOD Y PARTIAL 6 PHYSICIAN S GROUP BLOOD 88943 DEX [facility] COUNT 6 [facility] COMPLETE INC INC AUTO&AUTO DIFRNTL WBC COLLECTIO 61004 DEX [facility] N VENOUS 6 [facility] BLOOD INC INC VENIPUNCT URE COMPREHEN 59561 DEX [facility] SIVE 6 [facility] [place] [address] DEX [facility]SK[facility] ABDOMEN & 6 [facility] PELVIS INC INC W/CONTRAS T MATERIAL CT THORAX 18279 DEX [facility]SKI 6 [facility] W/CONTRAS INC INC T MATERIAL BX BREAST 48893 [facility] 6 MEDICAL JUANA 1ST IMAGING LESION ASS ULTRASOUN D GUID PHYSICAL 18300 DEX K[facility]SK[facility] THERAPY [address] [facility] EVALUATIO INC INC N BREAST 49498 DEX [facility] UNI REAL 6 [facility] TIME INC INC WITH IMAGE COMPLETE FINE 45085 DEX [facility] NEEDLE [address] [facility] ASPIRATIO INC INC N WITH IMAGING GUIDANCE DIAGNOSTI G0206 [place] ONE[facility] C 6 MEDICAL JUANA MAMMOGRAP IMAGING HY INCL ASS CAD WHEN PERF; UNI PROBE/NEE C2618 [facility] DLE [address] [facility] CRYOABLAT INC INC ION DUPLEX 49336 [place] [facility] SCAN 6 MEDICAL JUANA EXTRACRAN IMAGING IAL ART ASS COMPL BI STUDY US BREAST 09273 [place] [facility] UNI REAL 6 MEDICAL JUANA TIME IMAGING WITH ASS IMAGE COMPLETE DIAGNOSTI G0206 [place] [facility] C 6 MEDICAL JUANA MAMMOGRAP IMAGING HY INCL ASS CAD WHEN PERF; iGuiders- 46902 [facility] AIDED 6 MEDICAL DETECTION IMAGING ASS SCREENING MAMMOGRAP HY SCREENING G0202 [facility] 6 MEDICAL MAMMOGRAP IMAGING HY JOAN ASS INCL CAD WHEN PERFORMD MRI BRAIN 89425 [place] ALL BRAIN 6 MEDICAL STEM W/O IMAGING CONTR[place] ASS MATERIAL [place] [address] [facility] 6 PHYSICIAN MADI S GLAND S GROUP ABSCESS SUSCEPTIB 53413 DEX [facility]SK[facility] LTY STDY [address] [facility] ANTIMICRB INC INC IAL MICRO/AGA R DILUTJ CUL BACT 20371 DEX [facility] XCPT [address] [facility] URINE INC INC BLOOD/STO OL AEROBIC ISOL CUL BACT 06125 DEX [facility]SK[facility] AEROBIC [address] [facility] ADDL INC INC METHS DEFINITIV E EA ISOL IADNA 88103 [facility], PICKLESIM HUMAN 6 LLC ER JR CLEM PAPILLOMA VIRUS HIGH-RISK TYPES CYTP 74563 [facility] CERV/VAG 6 [facility] ER JR CLEM AUTO THIN LAYER PREP MNL SCREEN IM ADM 07670 [facility] PRQ ID [facility] SUBQ/IM HLTH DEPT NJXS 1 JANELL VACCINE TDAP 51629 [facility] VACCINE 7 [facility] YRS/> IM HLTH DEPT JANELL THERAPEUT 41870 DEX KOWALSKI IC [address] [facility] PROPHYLAC INC INC TIC/DX INJECTION SUBQ/IM RADEX 75015 [place] ANKLE 5 MEDICAL COMPLETE IMAGING MINIMUM 3 ASS VIEWS HOSPITAL G0463 DEX KOWALSKI OUTPATIEN [address] [facility] T CLIN INC INC VISIT ASSESS & [place] [address] ABNER JUSTIN AZAEL MAXILLOFA 5 MEDICAL CIAL W/O SERV CONTRAST FOUNDATIO MATERIAL N ORTHOPANT 64297 ABNER HOSKINS 5 MEDICAL WINNIE SERV FOUNDATIO N RADIOLOGI 17973 ABNER Echavarria 5 MEDICAL WINNIE EXAMINATI SERV ON CHE[place] [address] [place] MAXILLOFA 5 MEDICAL JUANA CIAL W/[place] [address] [place] HEAD/BRAI 5 MEDICAL JUANA N W/[place] [address] [place] CERVICAL 5 MEDICAL JUANA SPINE W/O IMAGING CONTRAST ASS MATERIAL RADEX 38347 [facility] MARTELLONEAL ELBOW 5 MEDICAL JUANA COMPLETE IMAGING MINIMUM 3 ASS VIEWS RADEX 53691 [facility]BS BI 5 MEDICAL JUANA W/POSTERO IMAGING ANT CH ASS MINIMUM 4 VIEWS SMR PRIM 61291 KELLY VALDEZ SRC WET 5 COURTNEY LUCIANO [place] NFCT AGT SCREENING G0202 [facility] NO 5 MEDICAL JUANA MAMMOGRAP IMAGING HY [place] IN[place] [address] [facility] TRANSVAGI 5 MEDICAL JUANA NAL IMAGING ASS COMPUTER- 61484 [facility] AIDED 5 MEDICAL JUANA DETECTION IMAGING ASS SCREENING MAMMOGRAP HY CULTURE 79584 KELLY VALEDZ CHLAMYDIA 5 COURTNEY LUCIANO ANY SOURCE BLOOD 56007 KELLY VALDEZ OCCULT 5 COURTNEY LUCIANO PEROXIDAS E ACTV QUAL FECES 1-3 SPEC HANDLG&/O 61448 KELLY VALDEZ R CONVEY 5 COURTNEY LUCIANO OF SPEC FOR TR OFFICE TO LAB URINLS 34918 KELLY VALDEZ DIP 5 COURTNEY LUCIANO STICK/TAB LET REAGNT NON-AUTO MICRSCPY IADNA 53797 EKLLY VALDEZ NEISSERIA 5 COURTNEY LUCIAN[place] [address] [place] ABDOMEN & 5 MEDICAL KEITH PELVIS IMAGING W/O ASS CONTRAST MATERIAL PCV13 52110 [facility] V[facility] PHYSICIAN KAITLIN FOR S GROUP INTRAMUSC ULAR USE IM ADM 33678 [facility] ANU PRQ ID 5 PHYSICIAN KAITLIN SUBQ/IM S GROUP NJXS 1 VACCINE IAADIADOO 04615 [facility] ANU 5 PHYSICIAN KAITLIN INFLUENZA S GROUP RADIOLOGI 89809 [place] C EXAM 4 MEDICAL JUANA CHEST 2 IMAGING VIEWS ASS FRONTAL&L ATERAL FIT 51808 KRYSTIAN BOLAND CONTACT 4 GRE GRE LENS [place] OCULAR SURFACE DISEASE MRI 58652 DEX KOWALSKI SPINAL 4 [facility] CANAL INC INC CERVICAL W/O CONTRAST MATRL 3D 50483 DEX KOWALSKI [facility] W/INTERP INC INC & POSTPROCE SS SUPERVISI ON MRI 67252 DEX KOWALSKI SPINAL 4 [facility] CANAL INC INC LUMBAR W/O CONTRAST MATERIAL RADIOLOGI 17119 [facility] [place] ELIECER C EXAM 4 RADIOLOGY RHO CHEST 2 VIEWS FRONTAL&L ATERAL PHYSICAL 86651 DEX K[facility]ALSKI THERAPY 4 [facility] EVALUATIO INC INC N THERAPEUT 86985 DEX KOWALSKI IC PX 1/> 4 [facility] AREAS INC INC EACH 15 MIN EXERCISES DETERMINA 99369 [facility] 4 GRE GRE REFRACTIV E STATE OPHTH 70846 [facility] 4 GRE GRE XM&EVAL COMPRE NEW PT 1/> VST RADEX 72040 DEX KOWALSKI SHOULDER 4 [facility] COMPLETE [place] [address] [place] [address] DEX KOWALSKI HEAD/BRAI 4 [facility] N W/O INC INC CONTRAST MATERIAL URNLS DIP 61237 DEX KOWALSKI 4 [facility] STICK/TAB INC INC LET REAGENT AUTO MICROSCOP Y 3D 15622 DEX KOWALSKI RENDERING 4 [facility] W/INTERP INC INC & POSTPROCE SS SUPERVISI ON OVA&MELLY 12076 [employer], [employer] INC, ITES 4 SAMPLE MAKER ORIGINAL SAMPLE MAKER ORIGINAL DIRECT CHAMP [place]AKES SMEARS CO HOS CO [place] & [place] [address] [employer], [employer], MULT STEP 4 SAMPLE MAKER ORIGINAL SAMPLE MAKER ORIGINAL METHOD CHAMP [place]ES NOS EACH CO HOS CO HOS ORGANISM SMR PRIM 91086 [employer], [employer], SRC CPLX 4 SAMPLE MAKER ORIGINAL SAMPLE MAKER ORIGINAL SPEC CHAMP CHAMP STAIN CO [facility]OS CO HOS OVA&MELLY ITS CUL BACT 50659 [employer], [employer], STOOL 4 SAMPLE MAKER ORIGINAL SAMPLE MAKER ORIGINAL AEROBIC CHAMP CHAMP ISOL CO HOS CO HOS SALMONELL A&SHIGELL CUL BACT 24287 [employer], [facility] STOOL 4 SAMPLE MAKER ORIGINAL SAMPLE MAKER ORIGINAL AEROBIC CHAMP CHAMP ADDL CO HOS CO HOS PATHOGENS &ID EA BLOOD 21225 [facility] OCCULT 4 SAMPLE MAKER ORIGINAL SAMPLE MAKER ORIGINAL PEROXIDAS CHAMP CHAMP E ACTV CO HOS CO HOS QUAL FECES 1 [place] [address] [facility], CLOSTRIDI 4 SAMPLE MAKER ORIGINAL SAMPLE MAKER ORIGINAL UM CHAMP CHAMP DIFFIC[place] [address] [facility] SHIGA-LIK 4 SAMPLE MAKER ORIGINAL SAMPLE MAKER ORIGINAL [place] [address] [facility] [place] MAT HEAD/BRAI 4 RADIOLOGY N W/O CONTRAST MATERIAL SIMPLE 64242 [facility] GRE[facility] REPAIR 4 JAMIR LORNA SCALP/NEC EMERGENCY K/AX/AMMON PHYS T/TRUNK 2.5CM/< [place] [address] [facility] [place] MAT CERVICAL 4 RADIOLOGY SPINE W/[place] [address] [facility] [place] MOR[place] JAM MAXILLOFA 4 RADIOLOGY CIAL W/O CONTRAST MATERIAL Encounters Encounter Start End Date Code Location Performer Type Date OFFICE 41394 [facility] OUTPATIEN 7 7 PHYSICIAN T VISIT S GROUP 10 [facility] DEX - [address] [facility] OUTPATIEN INC T OFFICE 34218 DEX DONYA OUTPATIEN 7 7 [facility] 10 P MINUTES OFFICE 30008 DEX OUTPATIEN [address] [facility] T VISIT INC 10 [facility] DEX - [address] [facility]PATIEN [facility] DEX - [address] [facility] OUTPATIEN INC T OFFICE 64131 [facility] [place] OUTPATIEN 7 7 PHYSICIAN T VISIT S GROUP 15 [facility] JEREMIAS - 7 7 W [facility] JEREMIAS - 6 6 W [facility] MEADOWVIE - 6 6 W OUTPATIEN REGIONAL T MEDICAL OFFICE 08871 [facility] [place] OUTPATIEN 6 6 PHYSICIAN T VISIT 5 S GROUP MINUTES OFFICE 46340 DEX DONYA OUTPATIEN 6 6 [facility] T VISIT HOSPITAL 10 P MINUTES OFFICE 79163 [facility] OUT[facility] 6 6 [facility] T VISIT MEDICAL 15 GROUP MINUTES OFFICE 08422 DEX DONYA OUTPATIEN 6 6 [facility] NEW 20 HOSPITAL MINUTES HOSPITAL DEX - 6 6 [facility] OUTPATIEN INC T OFFICE 36881 [facility] [place] OUTPATIEN 6 6 PHYSICIAN EUG T VISIT S GROUP 15 MINUTES HOSPITAL DEX - 6 6 [facility] OUTPATIEN INC HOSPITAL DEX - 6 6 [facility] OUTPATIEN INC T OFFICE 12998 [facility] [place] CONSULTAT 6 6 PHYSICIAN ION S GROUP NEW/ESTAB PATIENT 40 MIN OFFICE 65863 [facility]EN 6 6 [facility] T VISIT 5 DHS/CO [facility] DEPT [facility] DEX - 6 6 [facility] OUTPATIEN INC T OFFICE 55233 DEX [place] OUTPATIEN 6 6 [facility] T VISIT HOSPITAL 15 MINUTES HOSPITAL DEX - 6 6 [facility] OUTPATIEN INC HOSPITAL DEX - 6 6 [facility] OUTPATIEN INC T OFFICE 09751 [facility] OUTPATIEN 6 6 PHYSICIAN T NEW 45 S GROUP MINUTES HOSPITAL DEX - 6 6 [facility] OUTPATIEN INC T OFFICE 97170 DHS[facility]CO [facility] OUTPATIEN 6 6 [facility] T VISIT HLTH DEPT 10 JANELL MINUTES HOSPITAL DEX - 6 6 [facility] OUTPATIEN INC T PERIODIC 52478 DHS/CO PREVENTIV 6 6 HEALTH E MED EST PATIENT 40-64YRS EMERGENCY 65498 FAREED BENSON 6 6 PHYSICIAN FOR [facility] S, [facility] T VISIT HIGH/URGE NT SEVERITY HOSPITAL DEX - 6 6 [facility] OUTPATIEN INC T EMERGENCY [address] [facility] INC T VISIT LOW/MODER SEVERITY OFFICE 37984 MOSHE ROBBINS OUTPATIEN 5 5 MD YISSEL, T VISIT PSC 15 MINUTES HOSPITAL DEX - [address] [facility] OUTPATIEN INC T OFFICE 83719 CHANTE SHELDON OUTPATIEN 5 5 T [facility] 30 MINUTES HOSPITAL DEX - [address] [facility] OUTPATIEN INC T OFFICE 94596 [facility] OUTPATIEN 5 5 PHYSICIAN KAITLIN T VISIT S GROUP 10 MINUTES EMERGENCY 91519 ABNER DAVILA 5 5 MEDICAL ANGEL [facility] SERV T VISIT FOUNDATIO HIGH/URGE N NT SEVERITY OFFICE 30527 [facility] ANU OUTPATIEN 5 5 PHYSICIAN KAITLIN T VISIT 5 S GROUP MINUTES OFFICE 75476 KELLY VALDEZ OUTPATIEN 5 5 COURTNEY LUCIANO T VISIT 25 MINUTES OFFICE 19642 KELLY VALDEZ OUTPATIEN 5 5 COURTNEY LUCIANO T VISIT 15 MINUTES HOSPITAL DEX - 5 5 [facility] OUTPATIEN INC T INITIAL 22928 KELLY VALDEZ PREVENTIV 5 5 COURTNEY JAIN ANKITA E MEDICINE NEW PATIENT 40-64YRS OFFICE 61838 [facility] ANU OUTPATIEN 5 5 PHYSICIAN KAITLIN T VISIT S GROUP 10 MINUTES OFFICE 70650 KRYSTIAN BOLAND OUTPATIEN 4 4 GRE GRE T VISIT 25 MINUTES OFFICE 37938 [facility] TRA CONSULTAT 4 4 [place] ION ORTHOPAED NEW/ESTAB ICS PLC PATIENT 40 MIN OFFICE 48635 [facility] V[facility]ALL OUTPATIEN 4 4 GRE GRE T VISIT 25 MINUTES EMERGENCY 73917 [facility] BAB DEPT 4 4 JAMIR VISIT EMERGENCY HIGH PHYS SEVERITY& THREAT FUN HOSPITAL DEX - 4 4 [facility] OUTPATIEN INC T EMERGENCY 78505 [facility] CHANDEL 4 4 JAMIR ROSA DEPARTMEN EMERGENCY T VISIT PHYS HIGH/URGE NT SEVERITY HOSPITAL DEX - 4 4 [facility] OUTPATIEN INC T OFFICE 84534 [facility] ANU OUTPATIEN 4 4 PHYSICIAN KAITLIN T VISIT S GROUP 10 MINUTES OFFICE 80402 [facility] PETTEY OUTPATIEN 4 4 PHYSICIAN JAM T NEW 10 S GROUP MINUTES HOSPITAL DEX - 4 4 [facility] OUTPATIEN INC T OFFICE 09382 [facility] 4 PHYSICIAN KAITLIN T VISIT S GROUP 15 MINUTES HOSPITAL DEX - 4 4 [facility] OUTPATIEN INC T EMERGENCY 36307 DEX 4 4 [facility] DEPARTMEN INC T VISIT LOW/MODER SEVERITY HOSPITAL [facility] - 4 4 [facility] OUTPATIEN CHAMP T CO HOS OFFICE 26340 [facility] [place] OUTPATIEN 4 4 [facility] T VISIT RURAL 15 HEALTH MINUTES EMERGENCY 69379 [facility] SWINEY DEPT 4 4 JAMIR PAT VISIT EMERGENCY HIGH PHYS SEVERITY& THREAT FUNCJ EMERGENCY 33468 [facility] GREISER 4 4 JAMIR LORNA DEPARTMEN EMERGENCY T VISIT PHYS HIGH/URGE NT SEVERITY
--- OUTSIDE RECORDS SUMMARY | 2017-03-20 12:46 | External Medical Summary Rpt ---
Author Author SHARON Cobian, SHARON Cobian Organization [employer] Address Unknown Phone Unavailable
--- OUTSIDE RECORDS SUMMARY | 2017-03-20 12:46 | External Medical Summary Rpt ---
Demographics Preferred Language Kazakh Marital Status Unknown Mu-Ism Affiliation Unknown Race Unknown Ethnic Group Unknown Author Author , Organization [employer] Address Unknown Phone Unavailable Purpose Continuity of Care Document - through 2016 Immunization No patient found.
--- OUTSIDE RECORDS SUMMARY | 2017-03-20 12:46 | External Medical Summary Rpt ---
Demographics Preferred Language Guyanese Marital Status Unknown Muslim Affiliation Unknown Race Unknown Ethnic Group Unknown Author Author , Organization [employer] Address Unknown Phone Unavailable Purpose Continuity of Care Document - through 2016 Immunization No patient found.
[2017-03-20] MEDS ORDERED: ETODOLAC200 MG PO (13:09)
--- NOTE | 2017-03-20 13:10 | Emergency Room Report ---
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 N Clinical Suspician of Infection? N Mental Status: 1 - Regular (Normal Baseline) Sepsis Risk:Possible Sepsis Risk Have you (or family members/close friends) recently traveled outside the [place]? N If Yes, where/when: Have you had exposure to infectious disease within the past month? TB? Other? Specify: Source patient, RN notes reviewed, RN/MD Exam Limitations no limitations Comment This is a 51-year-old female patient sent from Dr. Guerra's office with nontraumatic LEFT hip pain, sudden onset, around 9 AM this morning. Patient was terminated from the pain clinic recently due to positive urine drug screen for cocaine and marijuana. Patient denies any radiation of her LEFT hip pain, any incontinence, any neurological deficit. She has had similar problems in the past , and she was diagnosed with sciatica. ALLERGIES Coded Allergies: Sulfa (Sulfonamide Antibiotics) (03/20/17) Home Medications Active Scripts CEPHALEXIN (Keflex 500MG Capsule) 500 MG PO BID 14 Days Prov: 02/20/17 Reported Medications Gabapentin 300 MG PO TID #90 CAPSULE Anastrozole 1 MG PO DAILY #30 TAB Divalproex Sodium (Divalproex Sodium ER) 500 MG PO DAILY #60 TAB FLUTICASONE/VILANTEROL (Breo Ellipta 100-25 Mcg INH) 1 POW IH DAILY PRN breathing #60 Albuterol Sulfate (Ventolin Hfa) 0.09 MG IH Q4 PRN breathing #18 Sertraline Hydrochloride (Sertraline 100MG) 100 MG PO DAILY VENLAFAXINE HCL (Venlafaxine HCl ER) 75 MG PO DAILY #30 Mirtazapine 15 MG PO QHS #30 History Medical History General CAD? No Angina: No [place]: No Hypertension? No Hyperlipidemia? No CHF? No DVT? No PE? No COPD? Yes Asthma? No Anemia? No GERD? No Gastric ulcers? No GI Bleed? No Hernia? No Thyroid Problems? No Hypothyroidism? No CVA? No Seizures? No Diabetes? No Renal Insuffiency? No End Stage Renal Disease? No UTI? No Stones? Yes BPH? No GB Disease: No Nephritic Syndrome? No Asplenia? No Hepatitis? No Sickle Cell Disease? No Arthritis? Yes Migraines? No Cataracts? No Glaucoma? No MRSA? No HIV? No TB? No Anxiety? No Depression? No Cancer? Yes Site: CERVICAL CANCER 1987 More? 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 LMP N/A Family History Family Hx Diabetes No CAD No Hypertension Yes Hyperlipidemia Yes Cancer Yes TB No Social History Smoking Hx Smoker: Current Every Day Smoker Tobacco: Yes Type Cigarettes Packs/day 1 1/2 - 2 Packs Alcohol Alcohol: No Review of Systems All Other Systems Reviewed and Negative Musculoskeletal joint pain (left HIP PAIN) Physical Exam Vital Signs Vital Signs Date Time Temp Pulse Resp B/P Pulse O2 O2 Flow FiO2 Ox Delivery Rate 03/20 1334 98.2 90 20 135/85 98 03/20 1326 20 03/20 1300 98.2 90 22 135/85 98 03/20 1242 98.2 90 22 135/85 98 General Appearance normal appearance, WD/WN, moderate distress, VERY ANXIOUS Respiratory Status Yes: trachea midline, chest symmetrical, non tender chest. No: respiratory distress. Lung Sounds bilateral: normal breath sounds, lungs clear. 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 No Comment The patient is currently on Tamoxifen, she underwent a breast lumpectomy for breast cancer approximatively 9 months ago. Patient instructed to follow-up with one of the orthopedic pressurized affiliated with the hospital, Dr. Serrano or Dr. Hubbard if not better within the next 2-3 days. Upon reevaluation patient appears medically stable, minimally symptomatic, afebrile, nonseptic looking. Results/Orders Current Medication Orders Sig/Trini Start time Last Medication Dose Route Stop Time Status Admin Ketorolac 0 .STK-MED ONE 03/20 131 DC Tromethamine .ROUTE Methylprednisolone 0 .STK-MED ONE 03/20 1317 DC Acetate IM Ondansetron HCl 0 .STK-MED ONE 03/20 131 DC .ROUTE Ketorolac 60 MG ONCE ONE 03/20 1315 DC 03/20 Tromethamine IM 03/20 1316 1326 Methylprednisolone 80 MG ONCE ONE 03/20 1315 DC 03/20 Acetate IM 03/20 1316 1325 Ondansetron HCl 4 MG ONCE ONE 03/20 1315 DC 03/20 IM 03/20 131 1326 Departure Departure Time of Disposition 1307 Disposition DC Home or Self Care(routine) Clinical Impression Primary Impression: Bursitis Qualifiers: Bursitis location: hip Hip bursitis location: trochanteric bursitis Laterality: left Qualified Code: M70.62 - Trochanteric bursitis, left hip Condition STABLE Referrals Yung JAIN,Thom Moscoso MD,Arnold Sam (Family): 1 Week-Call Office not better JAROCHO JAIN, RITESH OCONNRO Patient Instructions DI for Bursitis Additional Instructions Please follow up with Dr. Guerra in one week if not better. Alternatively, please call Dr. Barragan, as well as Dr. Serrano, and schedule follow-up appointment, if no better. Discharge Counseling Counseled pt/family regarding diagnosis, medications/RX, home care, follow up needs Comment Please follow up with Dr. Guerra in one week if not better. Alternatively, please call Dr. Barragan, as well as Dr. Serrano, and schedule follow-up appointment, if no better. Prescriptions Current Visit Scripts Etodolac 200 MG PO QID #20 CAP ED Critical Care Critical Care No at 1803
--- NOTE | 2017-03-20 13:10 | Emergency Room Report ---
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 N Clinical Suspician of Infection? N Mental Status: 1 - Regular (Normal Baseline) Sepsis Risk:Possible Sepsis Risk Have you (or family members/close friends) recently traveled outside the [place]? N If Yes, where/when: Have you had exposure to infectious disease within the past month? TB? Other? Specify: Source patient, RN notes reviewed, RN/MD Exam Limitations no limitations Comment This is a 51-year-old female patient sent from Dr. Guerra's office with nontraumatic LEFT hip pain, sudden onset, around 9 AM this morning. Patient was terminated from the pain clinic recently due to positive urine drug screen for cocaine and marijuana. Patient denies any radiation of her LEFT hip pain, any incontinence, any neurological deficit. She has had similar problems in the past , and she was diagnosed with sciatica. ALLERGIES Coded Allergies: Sulfa (Sulfonamide Antibiotics) (03/20/17) Home Medications Active Scripts CEPHALEXIN (Keflex 500MG Capsule) 500 MG PO BID 14 Days Prov: 02/20/17 Reported Medications Gabapentin 300 MG PO TID #90 CAPSULE Anastrozole 1 MG PO DAILY #30 TAB Divalproex Sodium (Divalproex Sodium ER) 500 MG PO DAILY #60 TAB FLUTICASONE/VILANTEROL (Breo Ellipta 100-25 Mcg INH) 1 POW IH DAILY PRN breathing #60 Albuterol Sulfate (Ventolin Hfa) 0.09 MG IH Q4 PRN breathing #18 Sertraline Hydrochloride (Sertraline 100MG) 100 MG PO DAILY VENLAFAXINE HCL (Venlafaxine HCl ER) 75 MG PO DAILY #30 Mirtazapine 15 MG PO QHS #30 History Medical History General CAD? No Angina: No [place]: No Hypertension? No Hyperlipidemia? No CHF? No DVT? No PE? No COPD? Yes Asthma? No Anemia? No GERD? No Gastric ulcers? No GI Bleed? No Hernia? No Thyroid Problems? No Hypothyroidism? No CVA? No Seizures? No Diabetes? No Renal Insuffiency? No End Stage Renal Disease? No UTI? No Stones? Yes BPH? No GB Disease: No Nephritic Syndrome? No Asplenia? No Hepatitis? No Sickle Cell Disease? No Arthritis? Yes Migraines? No Cataracts? No Glaucoma? No MRSA? No HIV? No TB? No Anxiety? No Depression? No Cancer? Yes Site: CERVICAL CANCER 1987 More? 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 N/A Family History Family Hx Diabetes No CAD No Hypertension Yes Hyperlipidemia Yes Cancer Yes TB No Social History Smoking Hx Smoker: Current Every Day Smoker Tobacco: Yes Type Cigarettes Packs/day 1 1/2 - 2 Packs Alcohol Alcohol: No Review of Systems All Other Systems Reviewed and Negative Musculoskeletal joint pain (left HIP PAIN) Physical Exam Vital Signs Vital Signs Date Time Temp Pulse Resp B/P Pulse O2 O2 Flow FiO2 Ox Delivery Rate 03/20 1334 98.2 90 20 135/85 98 03/20 1326 20 03/20 1300 98.2 90 22 135/85 98 03/20 1242 98.2 90 22 135/85 98 General Appearance normal appearance, WD/WN, moderate distress, VERY ANXIOUS Respiratory Status Yes: trachea midline, chest symmetrical, non tender chest. No: respiratory distress. Lung Sounds bilateral: normal breath sounds, lungs clear. Cardiovascular normal exam, regular rate/rhythm, no peripheral edema, no gallop, no JVD, no murmur, no rub, normal peripheral pulses Gastrointestinal normal bowel sounds, normal exam, non tender, soft, no organomegaly Back normal inspection, no CVA tenderness, no vertebral tenderness, gait normal Extremities normal range of motion, normal inspection, LEFT hip tenderness, no deformity, no soft tissue swelling Neurologic alert, arabic translator II-XII nml as tested, normal exam, oriented x 3 Mental status normal mood/affect Skin intact, normal color, warm/dry Medical Decision Making LABS/Meds/Orders Pt receiving controlled substance in ED? No Comment The patient is currently on Tamoxifen, she underwent a breast lumpectomy for breast cancer approximatively 9 months ago. Patient instructed to follow-up with one of the orthopedic pressurized affiliated with the hospital, Dr. Serrano or Dr. Hubbard if not better within the next 2-3 days. Upon reevaluation patient appears medically stable, minimally symptomatic, afebrile, nonseptic looking. Results/Orders Current Medication Orders Sig/Trini Start time Last Medication Dose Route Stop Time Status Admin Ketorolac 0 .STK-MED ONE 03/20 131 DC Tromethamine .ROUTE Methylprednisolone 0 .STK-MED ONE 03/20 1317 DC Acetate IM Ondansetron HCl 0 .STK-MED ONE 03/20 131 DC .ROUTE Ketorolac 60 MG ONCE ONE 03/20 1315 DC 03/20 Tromethamine IM 03/20 1316 1326 Methylprednisolone 80 MG ONCE ONE 03/20 1315 DC 03/20 Acetate IM 03/20 1316 1325 Ondansetron HCl 4 MG ONCE ONE 03/20 1315 DC 03/20 IM 03/20 131 1326 Departure Departure Time of Disposition 1307 Disposition DC Home or Self Care(routine) Clinical Impression Primary Impression: Bursitis Qualifiers: Bursitis location: hip Hip bursitis location: trochanteric bursitis Laterality: left Qualified Code: M70.62 - Trochanteric bursitis, left hip Condition STABLE Referrals Yung JAIN,Thom Moscoso MD,Arnold Sam (Family): 1 Week-Call Office not better JAROHCO JAIN, RITESH OCONNOR Patient Instructions DI for Bursitis Additional Instructions Please follow up with Dr. Guerra in one week if not better. Alternatively, please call Dr. Barragan, as well as Dr. Serrano, and schedule follow-up appointment, if no better. Discharge Counseling Counseled pt/family regarding diagnosis, medications/RX, home care, follow up needs Comment Please follow up with Dr. Guerra in one week if not better. Alternatively, please call Dr. Barragan, as well as Dr. Serrano, and schedule follow-up appointment, if no better. Prescriptions Current Visit Scripts Etodolac 200 MG PO QID #20 CAP ED Critical Care Critical Care No at 1803
[2017-03-20 13:34] VITALS: BP 135/85
== END 2017-03-20 13:36 | disposition home or self-care (01) ==
LOC: UTC 12:27 → ER 12:32
DX: M70.62 Trochanteric bursitis, left hip (principal); Z72.0 Tobacco use; J44.9 Chronic obstructive pulmonary disease, unspecified
CPT/HCPCS: J1030; J2405

== ENCOUNTER → 2017-08-23 | Outpatient (CLI) | payer MEDICAID ==
[~2017-08-23] MED LIST changes: +ETODOLAC200 MG PO; +HYDROCODONE/ACE1 TA5 PO; +MACROBID100 M3 PO; +PYRIDIUM100 M2 PO
[2017-08-23 20:20] LABS: AMPHETAMINES/METAMPHETAMINES NEGATIVE ng/mL (<1000)
== END ==
LOC: LAB 19:06
PROVIDERS: Nurse Practitioner Family
DX: Z79.899 Other long term (current) drug therapy (principal)

== ENCOUNTER 2017-08-29 15:35 | Emergency (ER) | payer MEDICAID ==
[~2017-08-29] VITALS: Ht 175.3 cm; Wt 86.2 kg
[~2017-08-29 15:35] MED LIST changes: -HYDROCODONE/ACE1 TA5 PO
--- OUTSIDE RECORDS SUMMARY | 2017-08-29 15:51 | External Medical Summary Rpt | CCD ---
Author Author , GENO HERRERA Address Unknown Phone [email or web address] Purpose Continuity of Care Document - 04-25-2017 through 2016 Problems Code Diagnosis DOS Provider Status F14.10 COCAINE ABUSE, UNCOMPLICAT ED [id number] J40 BRONCHITIS, NOT SPECIFIED ACUTE OR CHRONIC M71.9 BURSOPATHY, UNSPECIFIED M79.604 PAIN IN RIGHT LEG N17.9 ACUTE [...] OF UNSPECIFIED BODY REGION T14.90 INJURY, UNSPECIFIED T14.90XA INJURY, UNSPECIFIED , INITIAL ENCOUNTER Z53.21 PROC/TRTMT NOT CRD OUT D/T PT LV BEF SEEN BY [facility] PROV Results Labs Lab Lab Date Result Refere Interp Status Commen Order Detail nces retati t Range on Urine 9-analyte drugs of abuse screening (08-23-2017) Comment: Positive urine drug screen samples are stored for 7 days. Comment: Contact the Lab if confirmation of positives is needed. 11-hydr NEGATIV <50 complet oxy 017 E ed delta-9 NEGATIV E L tetrahy ng/mL drocann abinol Phencyc = <25 complet lidine 017 NEGATIV ed measure E ng/mL ment (mass/v olume) Opiates 08-23- = <300 complet 017 NEGATIV ed measure E ng/mL ment (mass/v olume) Methado = <300 complet ne 017 NEGATIV ed measure E ng/mL ment (mass/v olume) Cocaine = <300 complet 017 NEGATIV ed measure E ng/g ment (mass/v olume) Serum = 200 complet or 017 NEGATIV ng/mL ed plasma E ng/mL benzodi azepine s measure m Urine = <200 complet barbitu 017 NEGATIV ed rates E ng/mL measure ment by screen Urine NEGATIV <1000 complet ampheta 017 E ed mine NEGATIV screeni E L ng test ng/mL Drugs identified in Urine by Screen method (08-23-2017) Ampheta 08-23- NEGATIV <1000 complet mine 017 E ed [Presen ce] in Urine by Screen method 11-Hydr NEGATIV <50 complet oxy 017 E ed delta-9 tetrahy drocann abinol [Presen ce] in Unspeci fied specime n Urinalysis macro (dipstick) panel in Urine (07-09-2017 15:26) Appeara Sl CLEAR complet nce of 017 Cloudy ed Urine 15:26 Bilirub NEGATIV NEG complet in 017 E ed [Presen 15:26 ce] in Urine by Test strip Erythro NEGATIV NEG complet cytes 017 E ed [Presen 15:26 ce] in Urine Color YELLOW YELLOW complet of 017 ed Urine 15:26 Ketones NEGATIV NEG complet 017 E ed [Presen 15:26 ce] in Urine by Automat ed test strip Leukocy NEGATIV NEG complet te 017 E ed esteras 15:26 e [Presen ce] in Urine by Automat ed test strip Nitrite NEGATIV NEG complet 017 E ed [Presen 15:26 ce] in Urine by Test strip Urobili 0.2 NEG complet nogen 017 ed [Presen 15:26 ce] in Urine by Test strip Urinalysis macro (dipstick) panel in Urine (06-07-2017 14:27) Appeara Cloudy CLEAR complet nce of 017 ed Urine 14:27 Bilirub 1+ NEG Abnorma complet in 017 l ed [Presen 14:27 ce] in Urine by Test strip Erythro NEGATIV NEG complet cytes 017 E ed [Presen 14:27 ce] in Urine Color YELLOW YELLOW complet of 017 ed Urine 14:27 Ketones NEGATIV NEG complet 017 E ed [Presen 14:27 ce] in Urine by Automat ed test strip Leukocy 2+ NEG Abnorma complet te 017 l ed esteras 14:27 e [Presen ce] in Urine by Automat ed test strip Nitrite POSITIV NEG Abnorma complet 017 E l ed [Presen 14:27 ce] in Urine by Test strip Urobili 1.0 NEG complet nogen 017 ed [Presen 14:27 ce] in Urine by Test strip Urinalysis dipstick W Reflex Microscopic panel in Urine (05-24-2017 15:01) Bacteri 3+ O complet a 017 ed [Presen 15:01 ce] in Urine sedimen t by Light microsc opy Erythro OCC 0 complet cytes 017 ed [Presen 15:01 ce] in Urine sedimen t by Light microsc opy Epithel 5-10 0#/hp complet ial 017 f - ed cells.s 15:01 5#/hp quamous f [Presen ce] in Urine sedimen t by Microsc opy high power field Leukocy 5-10 O complet valentine 017 wbc/hpf ed [#/volu 15:01 me] in Urine Urinalysis dipstick W Reflex Microscopic panel in Urine (05-24-2017 15:01) Appeara CLEAR CLEAR complet nce of 017 ed Urine 15:01 Bilirub NEGATIV NEG complet in 017 E ed [Presen 15:01 ce] in Urine by Test strip Erythro NEGATIV NEG complet cytes 017 E ed [Presen 15:01 ce] in Urine Color YELLOW YELLOW complet of 017 ed Urine 15:01 Ketones NEGATIV NEG complet 017 E ed [Presen 15:01 ce] in Urine by Automat ed test strip Mucus NEGATIV NEG complet [Presen 017 E ed ce] in 15:01 Urine sedimen t by Light microsc opy Nitrite NEGATIV NEG complet 017 E ed [Presen 15:01 ce] in Urine by Test strip Urobili 0.2 NEG complet nogen 017 ed [Presen 15:01 ce] in Urine by Test strip
--- OUTSIDE RECORDS SUMMARY | 2017-08-29 15:51 | External Medical Summary Rpt | CCD ---
Author Author , GENO HERRERA Address Unknown Phone [email or web address] Purpose Continuity of Care Document - 04-25-2017 through 2016 Problems Code Diagnosis DOS Provider Status F14.10 COCAINE ABUSE, UNCOMPLICAT ED [id number] J40 BRONCHITIS, NOT SPECIFIED ACUTE OR CHRONIC [...] OUT D/T PT LV BEF SEEN BY [facility] PROV Results Labs Lab Lab [...]
--- OUTSIDE RECORDS SUMMARY | 2017-08-29 15:52 | External Medical Summary Rpt | CCD ---
Demographics Preferred Language Irish Marital Status Unknown Hindu Affiliation Unknown Race Unknown Ethnic Group Unknown Author Author GENO Address Unknown Phone [email or web address] Purpose Continuity of Care Document - through 2016
--- OUTSIDE RECORDS SUMMARY | 2017-08-29 15:52 | External Medical Summary Rpt | CCD ---
Demographics Preferred Language Belarusian Marital Status Unknown Yazdanism Affiliation Unknown Race Unknown Ethnic Group Unknown Author Author GENO Address Unknown Phone [email or web address] Purpose Continuity of Care Document - through 2016
--- OUTSIDE RECORDS SUMMARY | 2017-08-29 15:52 | External Medical Summary Rpt | CCD ---
Author Author , SHARON Organization SHARON Address Unknown Phone [email or web address] Immunization Name Date Rout CVX Reac Dose Comm Prov Is Faci e tion ent ider Refu lity Give sed n Tdap 04-0 115 0.50 Hist SWIT No H191 , 5-20 mL oric ZER Adso 16 al TAMM rbed Info Y rmat ion - Sour ce Unsp ecif ied Tdap 09-1 115 999 Hist H191 No H191 , 4-20 oric Adso 10 al rbed Info rmat ion - Sour ce Unsp ecif ied Td 11-0 Intr 9 999 Hist H191 No H191 (nadege 6-20 amus oric lt), 02 cula al r Info adso rmat rbed ion - Sour ce Unsp ecif ied
--- OUTSIDE RECORDS SUMMARY | 2017-08-29 15:52 | External Medical Summary Rpt | CCD ---
Author Author , SHARON Organization SHARON Address Unknown Phone [email or web address] Immunization Name Date Rout CVX Reac Dose [...]
--- OUTSIDE RECORDS SUMMARY | 2017-08-29 15:53 | External Medical Summary Rpt ---
Author Author SHAORN Cobian, [employer] Organization [employer] Address Unknown Phone Unavailable Results Drugs identified in Urine by Screen method Observa Value Referen Units Interpr Notes Date tion ce etation Range Positive urine drug screen samples are stored for 7 days. Contact the Lab if confirmation of positives is needed. Ampheta NEGATIV <1000 ng/mL No No Aug 23 mine E informa informa 2017 [Presen tion in tion in ce] in source source Urine data data by Screen method Barbitura <200 ng/mL No No Aug 23 valent[place] informati informati 2017 [Mass/vol on in on in ume] in source source Urine by data data Screen method Benzodiaz 200 ng/mL ng/mL No No Aug 23 epines informati informati 2017 [Mass/vol on in on in ume] in source source Serum or data data Plasma by Screen method Cocaine <300 ng/g No No Aug 23 [Mass/vol informati informati 2016 ume] in on in on in Unspecifi source source ed data data specimen Methadone <300 ng/mL No No Aug 23 informati informati 2017 [Mass/vol on in on in ume] in source source Unspecifi data data ed specimen Opiates <300 ng/mL No No Aug 23 [Mass/vol informati informati 2016 ume] in on in on in Unspecifi source source ed data data specimen Phencycli <25 ng/mL No No Aug 23 dine informati informati 2017 [Mass/vol on in on in ume] in source source Unspecifi data data ed specimen 11-Hydr NEGATIV <50 ng/mL No No Aug 23 oxy E informa informa 2017 delta-9 tion in tion in source source tetrahy data data drocann abinol [Presen ce] in Unspeci fied specime n Comprehensive metabolic 2000 panel in Serum or Plasma Observa Value Referen Units Interpr Notes Date tion ce etation Range Albumin/G 1.1 - 1.8 No Low No Sep 3 lobulin informati informati 2017 4:46 [Mass on in on in PM ratio] in source source Serum or data data Plasma Albumin 3.4 - 5.0 gm/dL Normal No Sep 3 [Mass/vol informati 2017 4:46 ume] in on in PM Serum or source Plasma data Alkaline 46 - 116 U/L Normal No Sep 3 phosphata informati 2017 4:46 se on in PM [Enzymati source c data activity/ volume] in Serum or Plasma Bilirubin 0.2 - 1.0 mg/dL Normal No Sep 3 .total informati 2017 4:46 [Mass/vol on in PM ume] in source Serum or data Plasma Urea 7 - 18 mg/dL Normal No Sep 3 nitrogen informati 2017 4:46 [Mass/vol on in PM ume] in source Serum or data Plasma Calcium 8.5 - mg/dL Normal No Sep 3 [Mass/vol 10.1 informati 2017 4:46 ume] in on in PM Serum or source Plasma data Chloride 98 - 107 mmoL/L Normal No Sep 3 [Moles/vo informati 2017 4:46 lume] in on in PM Serum or source Plasma data Carbon 21.0 - mmoL/L Low No Sep 3 dioxide, 32.0 informati 2017 4:46 total on in PM [Moles/vo source lume] in data Serum or Plasma Creatinin 0.55 - mg/dL Normal No Sep 3 e 1.02 informati 2017 4:46 [Mass/vol on in PM ume] in source Serum or data Plasma Creatinin 50 - 200 ML/MIN Normal No Sep 3 e renal informati 2017 4:46 clearance on in PM source predicted data by Cockcroft -Gault formula Estimated 59- ML/MIN No REFERENCE Sep 3 informati RANGE: 2017 4:46 glomerula on in >60 PM r source ML/MIN/1. filtratio data 73 SQUARE n rate METERSIf (GF this patient is -A merican, then multiply theresult by 1.210. Globulin 1.3 - 3.2 gm/dL High No Sep 3 [Mass/vol informati 2017 4:46 ume] in on in PM Serum source data Glucose 74 - 106 mg/dL Normal No Sep 3 [Mass/vol informati 2016 4:46 ume] in on in PM Serum or source Plasma data Potassium 3.5 - 5.1 mmoL/L Normal No Sep 3 inform2016 4:46 [Moles/vo on in PM lume] in source Serum or data Plasma Sodium 136 - 145 mmoL/L Normal No Sep 3 [Moles/vo inform2016 4:46 lume] in on in PM Serum or source Plasma data Aspartate 15 - 37 U/L Normal No Sep 3 inform2016 4:46 aminotran on in PM sferase source [Enzymati data c activity/ volume] in Serum or Plasma Alanine 12 - 78 U/L Normal No Sep 3 aminotran 2016 4:46 sferase on in PM [Enzymati source c data activity/ volume] in Serum or Plasma Protein 6.4 - 8.2 gm/dL High No Sep 3 [Mass/vol informati 2016 4:46 ume] in on in PM Serum or source Plasma data CBC W Auto Differential panel in Blood Observa Value Referen Units Interpr Notes Date tion ce etation Range Basophils 0 - 0.2 K/MM3 Normal No Sep 3 2016 4:46 [#/volume on in PM ] in source Blood by data Automated count Basophils 0.1 - 2.0 % Normal No Sep 3 /100 informati 2016 4:46 leukocyte on in PM s in source Blood by data Automated count Eosinophi 0.0 - 0.4 K/mm3 Normal No Sep 3 ls 2016 4:46 [#/volume on in PM ] in source Blood by data Automated count Eosinophi 0.1 - % Normal No Sep 3 ls/100 12.0 informati 2016 4:46 leukocyte on in PM s in source Blood by data Automated count Granulocy 1.8 - 7.8 K/mm3 Normal No Sep 3 valentine inform2016 4:46 [#/volume on in PM ] in source Blood by data Automated count Granulocy 37.0 - % Normal No Sep 3 valentine/100 80.0 informati 2016 4:46 leukocyte on in PM s in source Blood by data Automated count Hematocri 37.0 - % Normal No Sep 3 t [Volume 47.0 informati 2016 4:46 on in PM Fraction] source of Blood data Hemoglobi 12.2 - g/dL Normal No Sep 3 n 16.2 informati 2016 4:46 [Mass/vol on in PM ume] in source Blood data Lymphocyt 0.7 - 4.5 K/mm3 Normal No Sep 3 es informati 2017 4:46 [#/volume on in PM ] in source Unspecifi data ed specimen by Automated count Lymphocyt 10 - 50.0 % Normal No Sep 3 es informati 2017 4:46 [#/volume on in PM ] in source Unspecifi data ed specimen by Automated count Erythrocy 27 - 31.2 pg Normal No Sep 3 te mean informati 2016 4:46 corpuscul on in PM ar source hemoglobi data n [Entitic mass] Erythrocy 31.8 - g/dl Normal No Sep 3 te mean 35.4 informati 2016 4:46 corpuscul on in PM ar source hemoglobi data n concentra tion [Mass/vol ume] by Automated count Erythrocy 82.2 - fl Normal No Sep 3 te mean 97.8 informati 2016 4:46 corpuscul on in PM ar volume source [Entitic data volume] by Automated count Monocytes 0.1 - 1.0 K/mm3 Normal No Sep 3 informati 2016 4:46 [#/volume on in PM ] in source Blood by data Automated count Monocytes 1.7 - 9.3 % Normal No Sep 3 /100 informati 2017 4:46 leukocyte on in PM s in source Blood by data Automated count Platelet 7.4 - fl Normal No Sep 3 mean 10.4 informati 2016 4:46 volume on in PM [Entitic source volume] data in Blood by Automated count Platelets 142 - 424 K/mm3 Normal No Sep 3 informati 2016 4:46 [#/volume on in PM ] in source Blood data Erythrocy 4.2 - 5.4 M/mm3 Normal No Sep 3 valentine informati 2016 4:46 [#/volume on in PM ] in source Amniotic data fluid Erythrocy 11.5 - % Normal No Sep 3 te 17.5 informati 2016 4:46 distribut on in PM ion width source [Entitic data volume] by Automated count Leukocyte 4.8 - K/MM3 Normal No Sep 3 s 10.8 informati 2016 4:46 [#/volume on in PM ] in source Blood data Urinalysis macro (dipstick) panel in Urine Observa Value Referen Units Interpr Notes Date tion ce etation Range Appeara Sl CLEAR No No No Sep 3 nce of Cloudy informa informa informa 2017 Urine tion in tion in tion in 3:26 PM source source source data data data Bilirub NEGATIV NEG No No No Sep 3 in E informa informa informa 2017 [Presen tion in tion in tion in 3:26 PM ce] in source source source Urine data data data by Test strip Erythro NEGATIV NEG No No No Sep 3 cytes E informa informa informa 2017 [Presen tion in tion in tion in 3:26 PM ce] in source source source Urine data data data Color YELLOW YELLOW No No No Sep 3 of informa informa informa 2017 Urine tion in tion in tion in 3:26 PM source source source data data data Glucose NEG No No No Sep 3 [Mass/vol informati informati informati 2017 3:26 ume] in on in on in on in PM Urine by source source source Test data data data strip Ketones NEGATIV NEG mg/dL No No Sep 3 E informa informa 2016 [Presen tion in tion in 3:26 PM ce] in source source Urine data data by Automat ed test strip pH of 5.0 - 8.5 No Normal No Sep 3 Urine informati informati 2017 3:26 on in on in PM source source data data Protein NEG mg/dL No No Sep 3 [Mass/vol informati informati 2017 3:26 ume] in on in on in PM Urine by source source Automated data data test strip Specific 1.005 - No Normal No Sep 3 gravity 1.030 informati informati 2017 3:26 of Urine on in on in PM source source data data Leukocy NEGATIV NEG No No No Sep 3 te E informa informa informa 2017 esteras tion in tion in tion in 3:26 PM e source source source [Presen data data data ce] in Urine by Automat ed test strip Nitrite NEGATIV NEG No No No Sep 3 E informa informa informa 2017 [Presen tion in tion in tion in 3:26 PM ce] in source source source Urine data data data by Test strip Urobili 0.2 NEG E.U./dL No No Sep 3 nogen informa informa 2017 [Presen tion in tion in 3:26 PM ce] in source source Urine data data by Test strip Urinalysis macro (dipstick) panel in Urine Observa Value Referen Units Interpr Notes Date tion ce etation Range Appeara Cloudy CLEAR No No No Jun 2 nce of informa informa informa 2016 Urine tion in tion in tion in 2:27 PM source source source data data data Bilirub 1+ NEG No Abnorma BILIRUB Aug 2 in informa l IN 2016 [Presen tion in CONFIRM 2:27 PM ce] in source ED WITH Urine data by Test ICTOTES strip T Erythro NEGATIV NEG No No No Jun 2 cytes E informa informa informa 2016 [Presen tion in tion in tion in 2:27 PM ce] in source source source Urine data data data Color YELLOW YELLOW No No No Jun 2 of informa informa informa 2016 Urine tion in tion in tion in 2:27 PM source source source data data data Glucose NEG No No No Jun 07 [Mass/vol informati informati informati 2017 2:27 ume] in on in on in on in PM Urine by source source source Test data data data strip Ketones NEGATIV NEG mg/dL No No Jun 07 E informa informa 2016 [Presen tion in tion in 2:27 PM ce] in source source Urine data data by Automat ed test strip pH of 5.0 - 8.5 No Normal No Jun 2 Urine informati informati 2017 2:27 on in on in PM source source data data Protein NEG mg/dL High No Jun 2 [Mass/vol informati 2016 2:27 ume] in on in PM Urine by source Automated data test strip Specific 1.005 - No Normal No Jun 07 gravity 1.030 informati informati 2017 2:27 of Urine on in on in PM source source data data Leukocy 2+ NEG No Abnorma No Jun 2 te informa l informa 2017 esteras tion in tion in 2:27 PM e source source [Presen data data ce] in Urine by Automat ed test strip Nitrite POSITIV NEG No Abnorma No Jun 2 E informa l informa 2016 [Presen tion in tion in 2:27 PM ce] in source source Urine data data by Test strip Urobili 1.0 NEG E.U./dL No No Jun 2 nogen informa informa 2016 [Presen tion in tion in 2:27 PM ce] in source source Urine data data by Test strip Urinalysis dipstick W Reflex Microscopic panel in Urine Observa Value Referen Units Interpr Notes Date tion ce etation Range Appeara CLEAR CLEAR No No No May 24 nce of informa informa informa 2016 Urine tion in tion in tion in 3:01 PM source source source data data data Bacteri 3+ O No No No May 24 a informa informa informa 2016 [Presen tion in tion in tion in 3:01 PM ce] in source source source Urine data data data sedimen t by Light microsc opy Bilirub NEGATIV NEG No No No May 24 in E informa informa informa 2016 [Presen tion in tion in tion in 3:01 PM ce] in source source source Urine data data data by Test strip Erythro NEGATIV NEG No No No May 24 cytes E informa informa informa 2016 [Presen tion in tion in tion in 3:01 PM ce] in source source source Urine data data data Color YELLOW YELLOW No No No May 24 of informa informa informa 2016 Urine tion in tion in tion in 3:01 PM source source source data data data Glucose NEG No No No May 24 [Mass/vol informati informati informati 2016 3:01 ume] in on in on in on in PM Urine by source source source Test data data data strip Ketones NEGATIV NEG mg/dL No No May 24 E informa informa 2016 [Presen tion in tion in 3:01 PM ce] in source source Urine data data by Automat ed test strip Mucus NEGATIV NEG No No No May 24 [Presen E informa informa informa 2016 ce] in tion in tion in tion in 3:01 PM Urine source source source sedimen data data data t by Light microsc opy Nitrite NEGATIV NEG No No No May 24 E informa informa informa 2016 [Presen tion in tion in tion in 3:01 PM ce] in source source source Urine data data data by Test strip pH of 5.0 - 8.5 No Normal No May 24 Urine informati informati 2016 3:01 on in on in PM source source data data Protein NEG mg/dL No No May 24 [Mass/vol informati informati 2017 3:01 ume] in on in on in PM Urine by source source Automated data data test strip Erythro OCC 0 rbc/hpf No No May 24 cytes informa informa 2016 [Presen tion in tion in 3:01 PM ce] in source source Urine data data sedimen t by Light microsc opy Specific 1.005 - No Normal No May 24 gravity 1.030 informati informati 2016 3:01 of Urine on in on in PM source source data data Epithel 5-10 0 - 5 #/hpf No No May 24 ial informa informa 2016 cells.s tion in tion in 3:01 PM quamous source source data data [Presen ce] in Urine sedimen t by Microsc opy high power field Urobili 0.2 NEG E.U./dL No No May 24 nogen informa informa 2016 [Presen tion in tion in 3:01 PM ce] in source source Urine data data by Test strip Leukocy [5 O wbc/hpf No No May 24 [place] wbc/hpf informa informa 2016 [#/volu ; 10 tion in tion in 3:01 PM me] in wbc/hpf source source Urine ] data data Urinalysis dipstick W Reflex Microscopic panel in Urine Observa Value Referen Units Interpr Notes Date tion ce etation Range Appeara CLEAR CLEAR No No No May 24 nce of informa informa informa 2016 Urine tion in tion in tion in 3:01 PM source source source data data data Bilirub NEGATIV NEG No No No May 24 in E informa informa informa 2016 [Presen tion in tion in tion in 3:01 PM ce] in source source source Urine data data data by Test strip Erythro NEGATIV NEG No No No May 24 cytes E informa informa informa 2016 [Presen tion in tion in tion in 3:01 PM ce] in source source source Urine data data data Color YELLOW YELLOW No No No May 24 of informa informa informa 2017 Urine tion in tion in tion in 3:01 PM source source source data data data Glucose NEG No No No May 24 [Mass/vol informati informati informati 2016 3:01 ume] in on in on in on in PM Urine by source source source Test data data data strip Ketones NEGATIV NEG mg/dL No No May 24 E informa informa 2016 [Presen tion in tion in 3:01 PM ce] in source source Urine data data by Automat ed test strip Mucus NEGATIV NEG No No No May 24 [Presen E informa informa informa 2016 ce] in tion in tion in tion in 3:01 PM Urine source source source sedimen data data data t by Light microsc opy Nitrite NEGATIV NEG No No No May 24 E informa informa informa 2016 [Presen tion in tion in tion in 3:01 PM ce] in source source source Urine data data data by Test strip pH of 5.0 - 8.5 No Normal No May 24 Urine informati informati 2016 3:01 on in on in PM source source data data Protein NEG mg/dL No No May 24 [Mass/vol informati informati 2016 3:01 ume] in on in on in PM Urine by source source Automated data data test strip Specific 1.005 - No Normal No May 24 gravity 1.030 informati informati 2016 3:01 of Urine on in on in PM source source data data Urobili 0.2 NEG E.U./dL No No May 24 nogen informa informa 2016 [Presen tion in tion in 3:01 PM ce] in source source Urine data data by Test strip Basic metabolic panel in Blood Observa Value Referen Units Interpr Notes Date tion ce etation Range Urea 7 - 18 mg/dL High No Apr 25 nitrogen inform2016 [Mass/vol on in 11:09 AM ume] in source Serum or data Plasma Calcium 8.5 - mg/dL Normal No Apr 25 [Mass/vol 10.1 informati 2016 ume] in on in 11:09 AM Serum or source Plasma data Chloride 98 - 107 mmoL/L High No Apr 25 [Moles/vo informati 2016 lume] in on in 11:09 AM Serum or source Plasma data Carbon 21.0 - mmoL/L Normal No Apr 25 dioxide, 32.0 informati 2016 total on in 11:09 AM [Moles/vo source lume] in data Serum or Plasma Creatinin 0.55 - mg/dL Normal No Apr 25 e 1.02 informati 2016 [Mass/vol on in 11:09 AM ume] in source Serum or data Plasma Estimated 59- ML/MIN Low REFERENCE Apr 25 RANGE: 2017 glomerula >60 11:09 AM r ML/MIN/1. filtratio 73 SQUARE n rate METERSIf (GF this patient is -A merican, then multiply theresult by 1.210. Glucose 74 - 106 mg/dL Normal No Apr 25 [Mass/vol informati 2016 ume] in on in 11:09 AM Serum or source Plasma data Potassium 3.5 - 5.1 mmoL/L Normal No Apr 25 inform2016 [Moles/vo on in 11:09 AM lume] in source Serum or data Plasma Sodium 136 - 145 mmoL/L Normal No Apr 25 [Moles/vo informati 2016 lume] in on in 11:09 AM Serum or source Plasma data CBC W Auto Differential panel in Blood Observa Value Referen Units Interpr Notes Date tion ce etation Range Basophils 0 - 0.2 K/MM3 Normal No Apr 25 inform2016 [#/volume on in 11:09 AM ] in source Blood by data Automated count Basophils 0.1 - 2.0 % Normal No Apr 25 /100 informati 2016 leukocyte on in 11:09 AM s in source Blood by data Automated count Eosinophi 0.0 - 0.4 K/mm3 Normal No Apr 25 ls 2016 [#/volume on in 11:09 AM ] in source Blood by data Automated count Eosinophi 0.1 - % Normal No Apr 25 ls/100 12.0 inform2016 leukocyte on in 11:09 AM s in source Blood by data Automated count Granulocy 1.8 - 7.8 K/mm3 Normal No Apr 25 valent[place] informati 2016 [#/volume on in 11:09 AM ] in source Blood by data Automated count Granulocy 37.0 - % Normal No Apr 25 valent[place]/100 80.0 informati 2016 leukocyte on in 11:09 AM s in source Blood by data Automated count Hematocri 37.0 - % Normal No Apr 25 t [Volume 47.0 informati 2016 on in 11:09 AM Fraction] source of Blood data Hemoglobi 12.2 - g/dL No Apr 25 n 16.2 informati informati 2016 [Mass/vol on in on in 11:09 AM ume] in source source Blood data data Lymphocyt 0.7 - 4.5 K/mm3 Normal No Apr 25 es informati 2016 [#/volume on in 11:09 AM ] in source Unspecifi data ed specimen by Automated count Lymphocyt 10 - 50.0 % Normal No Apr 20 es informati 2016 [#/volume on in 11:09 AM ] in source Unspecifi data ed specimen by Automated count Erythrocy 27 - 31.2 pg Normal No Apr 20 te mean informati 2016 corpuscul on in 11:09 AM ar source hemoglobi data n [Entitic mass] Erythrocy 31.8 - g/dl Normal No Apr 25 te mean 35.4 inform2016 corpuscul on in 11:09 AM ar source hemoglobi data n concentra tion [Mass/vol ume] by Automated count Erythrocy 82.2 - fl Normal No Apr 25 te mean 97.8 inform2016 corpuscul on in 11:09 AM ar volume source [Entitic data volume] by Automated count Monocytes 0.1 - 1.0 K/mm3 Normal No Apr 25 informati 2016 [#/volume on in 11:09 AM ] in source Blood by data Automated count Monocytes 1.7 - 9.3 % Normal No Apr 25 /100 informati 2017 leukocyte on in 11:09 AM s in source Blood by data Automated count Platelet 7.4 - fl Normal No Apr 25 mean 10.4 informati 2016 volume on in 11:09 AM [Entitic source volume] data in Blood by Automated count Platelets 142 - 424 K/mm3 No No Apr 20 informati informati 2016 [#/volume on in on in 11:09 AM ] in source source Blood data data Erythrocy 4.2 - 5.4 M/mm3 Normal No Apr 20 [place] informati 2016 [#/volume on in 11:09 AM ] in source Amniotic data fluid Erythrocy 11.5 - % Normal No Apr 25 te 17.5 informati 2016 distribut on in 11:09 AM ion width source [Entitic data volume] by Automated count Leukocyte 4.8 - K/MM3 Normal No Apr 25 s 10.8 informati 2016 [#/volume on in 11:09 AM ] in source Blood data
--- OUTSIDE RECORDS SUMMARY | 2017-08-29 15:53 | External Medical Summary Rpt ---
Author Author SHARON Cobian, [employer] Organization [employer] Address [...]
[2017-08-29 16:25] LABS: URINE BILIRUBIN - DIPSTICK NEGATIVE (NEG); URINE BLOOD NEGATIVE (NEG)
[2017-08-29] MEDS ORDERED: CIPRO 500MG TA500 MG PO (18:23)
[2017-08-29] MEDS ORDERED: HYDROCODONE/ACE1 TA5 PO (18:24)
--- NOTE | 2017-08-29 18:26 | Emergency Room Report ---
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 N Clinical Suspician of Infection? N Mental Status: 1 - Regular (Normal Baseline) Sepsis Risk:Low Sepsis Risk Have you (or family members/close friends) recently traveled outside the [place]? N If Yes, where/when: Have you had exposure to infectious disease within the past month? TB? Other? Specify: Source patient, RN notes reviewed, family, RN/MD Exam Limitations no limitations Comment This is a 52-year-old feel patient arriving to the emergency room with back pain and dysuria for the past 2-3 days, gradually getting worse. Patient denies any nausea, vomiting, diarrhea or fever. The low back pain is radiating down the RIGHT lower extremity, all the way to the toes. Patient has any neurological deficit, any fecal or urinary incontinence. Patient denies any trauma to her low back. ALLERGIES Coded Allergies: Sulfa (Sulfonamide Antibiotics) (08/29/17) Home Medications Active Scripts NITROFURANTOIN MONOHYD/M-CRYST (Macrobid 100 MG Capsule) 100 MG PO BID #20 CAP Prov: 06/07/17 Phenazopyridine HCl (Pyridium) 100 MG PO TID #6 TAB Prov: 06/07/17 Reported Medications Gabapentin 300 MG PO TID #90 CAPSULE Anastrozole 1 MG PO DAILY #30 TAB Divalproex Sodium (Divalproex Sodium ER) 500 MG PO DAILY #60 TAB FLUTICASONE/VILANTEROL (Breo Ellipta 100-25 Mcg INH) 1 POW IH DAILY PRN breathing #60 Albuterol Sulfate (Ventolin Hfa) 0.09 MG IH Q4 PRN breathing #18 Sertraline Hydrochloride (Sertraline 100MG) 100 MG PO DAILY VENLAFAXINE HCL (Venlafaxine HCl ER) 75 MG PO DAILY #30 Mirtazapine 15 MG PO QHS #30 History Medical History General CAD? No Angina: No IA: No Hypertension? No Hyperlipidemia? No CHF? No DVT? No PE? No COPD? Yes Asthma? No Anemia? No GERD? No Gastric ulcers? No GI Bleed? No Hernia? No Thyroid Problems? No Hypothyroidism? No CVA? No Seizures? No Diabetes? No Renal Insuffiency? No End Stage Renal Disease? No UTI? No Stones? Yes BPH? No GB Disease: No Nephritic Syndrome? No Asplenia? No Hepatitis? No Sickle Cell Disease? No Arthritis? Yes Migraines? No Cataracts? No Glaucoma? No MRSA? No HIV? No TB? No Anxiety? No Depression? No Cancer? Yes Site: CERVICAL CANCER 1987 More? 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 Musculoskeletal back pain Physical Exam Vital Signs Vital Signs Date Time Temp Pulse Resp B/P Pulse O2 O2 Flow FiO2 Ox Delivery Rate 08/29 1846 98.1 87 16 120/80 98 08/29 1820 16 08/29 1649 18 08/29 1545 98.3 90 18 151/98 99 General Appearance normal appearance, WD/WN, moderate distress Respiratory Status Yes: trachea midline, chest symmetrical, non tender chest. No: respiratory distress. Lung Sounds bilateral: normal breath sounds, lungs clear. 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 Yes Alfie was queried for this patient? No Reason not queried - hospital network issues Risks/benefits of using a controlled substance for treatment were discussed w/pt by me Comment Upon reevaluation patient appears medically stable, clinically improving, with no further back pain. Patient advised of results obtained, follow-up with one of the local urologists regarding her abnormal CT scan findings, specifically the LEFT renal cyst as well as the LEFT renal calyceal lithiasis. Results/Orders Laboratory Tests 08/29/17 0600: Urine Color YELLOW, Urine Appearance SL CLOUDY, Urine pH 7.0, Ur Specific [place] 1.010, Urine Protein NEGATIVE, Urine Ketones NEGATIVE, Urine Blood NEGATIVE, Urine Nitrate NEGATIVE, Urine Bilirubin NEGATIVE, Urine Urobilinogen 0.2, Ur Leukocyte Esterase 2+ H, Urine RBC OCC, Urine WBC 10-20, Ur Squamous Epith Cells 10-20, Urine Bacteria 3+, Urine Glucose NEGATIVE Current Medication Orders Sig/Trini Start time Last Medication Dose Route Stop Time Status Admin Morphine Sulfate 0 .STK-MED ONE 08/29 1818 DC .ROUTE Morphine Sulfate 6 MG ONCE ONE 08/29 1800 DC 08/29 IM 08/29 1801 1820 Methylprednisolone 0 .STK-MED ONE 08/29 1718 DC Acetate IM Methylprednisolone 80 MG ONCE ONE 08/29 1715 DC 08/29 Acetate IM 08/29 1716 1719 Ketorolac 60 MG ONCE ONE 08/29 1645 DC 08/29 Tromethamine IM 08/29 1646 1649 Ketorolac 0 .STK-MED ONE 08/29 1645 DC Tromethamine .ROUTE Levofloxacin 750 MG ONCE ONE 08/29 1645 DC 08/29 PO 08/29 1646 1648 Ondansetron HCl 0 .STK-MED ONE 08/29 1645 DC .ROUTE Levofloxacin 0 .STK-MED ONE 08/29 1644 DC .ROUTE Ketorolac 30 MG ONCE ONE 08/29 1630 CAN Tromethamine IV 08/29 1631 Morphine Sulfate 4 MG ONCE ONE 08/29 1630 CAN IM 08/29 1631 Ondansetron HCl 4 MG ONCE ONE 08/29 1630 DC 08/29 IM 08/29 1631 1648 Orders Procedure Date/time Status DIET-NOTHING BY MOUTH 08/30 B Active CULTURE, URINE 08/[address] ABD/PELVIS REQ 08/29 171 Complete URINALYSIS/COMPLETE 08/[address] ABD & PELVIS W/O CONTRAST 08/29 UNK Active XRAY/CT/US XRAY/CT/US CT abdomen, pelvis (without contrast) CT interpretation by discussed w/radiologist (Dr. Steven Bejarano) Time results known: 1758 CT Results abnormal Comment See virtual radiology report consistent with: 1. LEFT renal calyceal lithiasis 2. LEFT renal cyst, stable. 3. Prior hysterectomy Departure Departure Time of Disposition 1817 Disposition DC Home or Self Care(routine) Clinical Impression Primary Impression: UTI (urinary tract infection) Qualifiers: Urinary tract infection type: acute cystitis Hematuria presence: without hematuria Qualified Code: N30.00 - Acute cystitis without hematuria Secondary Impressions: Back pain Qualifiers: Back pain location: low back pain Chronicity: chronic Back pain laterality: bilateral Sciatica presence: with sciatica Sciatica laterality: sciatica of left side Qualified Code: M54.42 - Lumbago with sciatica, left side Condition STABLE Referrals Dina JAIN,Aayush Garcia MD,Leonid Moscoso MD,Arnold Sam (Family): 2 Days-Call Office Patient Instructions DI for Low Back Pain, DI for Sciatica, DI for Urinary Tract Infection (UTI) Additional Instructions Please follow up with PCP (Dr Moscoso) tomorrow, also with one of the urologist listed below, Dr. Arroyo or Dr. Garcia within the next 2 days. Take the medications prescribed as directed. Discharge Counseling Counseled pt/family regarding diagnosis, test results, medications/RX, home care, follow up needs Comment Please follow up with PCP (Dr Moscoso) tomorrow, also with one of the urologist listed below, Dr. Arroyo or Dr. Garcia within the next 2 days. Take the medications prescribed as directed. Prescriptions Current Visit Scripts Ciprofloxacin HCl (Cipro 500MG TAB) 500 MG PO BID #20 TAB HYDROCODONE/ACETAMINOPHEN (Lortab 10-325 (generic) Tablet) 1 TAB PO Q8HP PRN pain #8 TAB ED Critical Care Critical Care No at 2305
[2017-08-29 18:46] VITALS: BP 120/80
--- NOTE | 2017-08-30 08:41 | RADIOLOGY REPORT PS360 ---
CT ABD PELVIS W/O CONTRAST CLINICAL INDICATION: Bilateral flank pain with dysuria LOW BACK PAIN, DYSURIA ORDERING PHYSICIAN: Emir William MD PATIENT AGE: 52 years COMPARISON: 06/06/2016 TECHNIQUE: Axial images obtained with sagittal and coronal reformats. PROCEDURE: Oral Contrast: None IV Contrast: None . FINDINGS: Lower thorax: No acute finding ABDOMEN: Liver: No masses or biliary dilatation. Gallbladder: Nondistended. No radio opaque stones. Pancreas: No masses or peripancreatic fluid collections. Spleen: Unremarkable. Adrenals: Unremarkable Kidneys/ureters: There is a 6 mm nonobstructing stone in the lower pole the left kidney. An exophytic density projects off the lower pole left kidney is 12 mm. This is more dense of what one would expect for simple renal cyst and could be due to hyperdense cyst and stable in size dating back to 01/26/2015. Continued follow-up suggested. Stomach bowel: Nondistended. No obvious mass or thickening. Appendix: Given history of appendectomy PELVIS: Reproductive: Status post hysterectomy Bladder: Nondistended ABDOMEN & PELVIS: Peritoneum: No abnormal fluid collections. No obvious inflammatory changes. No free air. Lymph nodes: No enlarged lymph nodes apparent. Vasculature: Atherosclerosis Bones: No acute fracture IMPRESSION: 1. Left nephrolithiasis. No hydronephrosis or ureteral calculus. 2. Stable isodensity projects off the lower pole the left kidney. Long-term follow-up suggested to confirm stability 3. No change with no acute finding
== END 2017-08-29 18:46 | disposition home or self-care (01) ==
LOC: ER 15:35
PROVIDERS: Emergency Medicine
DX: N30.00 Acute cystitis without hematuria (principal); M54.42 Lumbago with sciatica, left side; Z88.2 Allergy status to sulfonamides; F17.210 Nicotine dependence, cigarettes, uncomplicated
CPT/HCPCS: J1030; J2405

== ENCOUNTER 2017-10-06 16:04 | Emergency (ER) | payer MEDICAID ==
[~2017-10-06] VITALS: Ht 175.3 cm; Wt 83.9 kg
[~2017-10-06 16:04] MED LIST changes: +HYDROCODONE/ACE1 TA5 PO
--- OUTSIDE RECORDS SUMMARY | 2017-10-06 16:17 | External Medical Summary Rpt | CCD ---
Author Author , SHARON Organization SHARON Address Unknown Phone [email or web address] Care Team Providers Care [facility] Director Name Role Phone MOSHE DEY MD, PSC, Unavailable Unavailable MOSHE DEY MD, PSC [facility] Unavailable Unavailable MEDICAL GROUP, [facility] Unavailable Unavailable PHYSICIAN PRA, [facility] PHYSICIAN [facility], Unavailable Unavailable [facility] Unavailable Unavailable [facility], [facility] Unavailable Unavailable HEALTH KELLY VALDEZ MD, Unavailable Unavailable KELLY VALDEZ MD [facility] Unavailable Unavailable INC, [facility] Unavailable Unavailable HOSPITAL, [facility] Unavailable [facility]available HOSPITAL P, [facility] P [facility], Unavailable [facility]available [facility], [facility] KRYSTIAN STARK, Unavailable Unavailable KRYSTIAN [facility] Unavailable Unavailable [facility] Unavailable Unavailable HEALTH, [facility] Unavailable Unavailable [facility] Un[facility] Unavailable [facility], [facility] Unavailable Unavailable EMERGENCY PHYS, [facility] Purpose Continuity of Care Document - 11-21-2013 through 2016 Problems Code Diagnosis DOS Provider Status [id number] OTHER 08-29-2017 [facility]IC [facility], PAIN PLLC M5442 LUMBAGO 08-29-2017 [facility] WITH [facility], SCIATICA PLLC LEFT SIDE N3000 ACUTE 08-29-2017 [facility] CYSTITIS [facility], WITHOUT PLLC HEMATURIA N390 URINARY 08-29-2017 [facility] TRACT [facility], INFECTION PLLC SITE NOT SPECIFIED 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[facility]IANS SYNDROME GROUP WITH CONSTIPATIO N J449 CHRONIC 07-09-2017 [place] [facility] PULMONARY INC DISEASE UNS M546 PAIN IN 07-09-2017 [facility] SPINE INC R109 UNSPECIFIED 07-09-2017 [place] [facility] R197 DIARRHEA 07-09-2017 [place] [facility]PEC[facility] Z720 TOBACCO USE 07-09-2017 [facility] INC [id number] OTHER LONG 07-09-2017 [facility] TERM [facility] CURRENT INC DRUG THERAPY D649 ANEMIA 07-06-2017 COMM[facility] UNSPECIFIED ANESTH OF THE BLUE Z1211 ENCOUNTER 07-06-2017 [facility] SCREENING PHYSICIANS MALIGNANT GROUP NEOPLASM OF COLON M16550 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-07-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[facility] P RIGHT FEMALE BREAST N3001 ACUTE 06-07-2017 [facility] CYSTITIS [facility] WITH INC HEMATURIA 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 06-07-2017 [facility] [facility] P STATUS V20395 MALIGNANT 05-24-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[facility] UNS SITE INC UNS FEMALE BREAST R319 HEMATURIA 05-24-2017 [facility] UNSPECIFIED PHYSICIANS GROUP Z853 PERSONAL 05-11-2017 [place] [facility] MALIG NEOPLASM BREAST B370 CANDIDAL 05-01-2017 [facility] STOMATITIS PHYSICIANS GROUP [id number] OTHER 05-01-2017 [facility] INFECTIVE PHYSICIANS OTITIS GROUP EXTERNA RIGHT EAR E87159 ENCOUNTER 04-25-2017 [facility] FOR [facility] PREPROCEDUR INC AL LABORATORY EXAM V03852 ENCOUNTER 04-25-2017 [facility] FOR OTHER MEM [facility]OS[facility] PREPROCEDUR INC AL EXAMINATION M7062 TROCHANTERI 03-20-2017 [facility] C BURSITIS [facility] LEFT HIP INC Q54553 NON-PRSS 03-03-2017 [facility] CHRN ULCER PHYSICIANS SKIN OT GROUP SITES UNS SEVERITY Y10648 IDIOPATHIC 02-24-2017 [facility] GOUT RIGHT [facility] ANKLE AND INC FOOT M109 GOUT 02-24-2017 [facility] UNSPECIFIED [facility]ICIANS, [facility] Y[facility] PAIN IN 02-24-2017 [facility] LEFT KNEE PHYSICIANS, [facility] I24050 PAIN IN 02-24-2017 [facility] RIGHT FOOT PHYSICIANS, [facility] E37513 PAIN IN 02-20-2017 [place] RIGHT LEG [facility] M08100 PAIN IN 02-19-2017 [facility] UNSPECIFIED MEM [facility] FOOT INC N179 ACUTE 02-19-2017 [facility] KIDNEY [facility]YS[facility], FAILURE PLL UNSPECIFIED R791 ABNORMAL 02-19-2017 [facility] COAGULATION PHYSICIANS, PROFILE [facility] J40 BRONCHITIS 01-30-2017 [facility] NOT REGIONAL SPECIFIED PHYSICIAN ACUTE OR PRA CHRONIC F60187 MALIG 11-24-2016 [place] NEOPLASM 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 Z510 ENCOUNTER 11-24-2016 [facility] FOR PHYSICIAN ANTINEOPLAS PRACTIC TIC RADIATION THERAPY I10 ESSENTIAL 11-09-2016 [facility] PRIMARY PHYSICIANS HYPERTENSIO GROUP N Z23 ENCOUNTER 09-23-2016 [facility] FOR PHYSICIANS IMMUNIZATIO GROUP N B354 TINEA 08-26-2016 [facility] R110 NAUSEA 08-26-2016 [facility] R079 CHEST PAIN 07-20-2016 [place] UNSPECIFIED [facility]ING ASS R42 DIZZINESS 07-20-2016 [place] AND [facility] GIDDINESS IMAGING ASS N649 DISORDER OF 06-20-2016 [facility] BREAST PHYSICIANS UNSPECIFIED GROUP Z129 ENCOUNTER 06-06-2016 [place] SCREENING MEDICAL MALIGNANT IMAGING ASS NEOPLASM SITE UNS K10057 MIGRAINE 05-04-2016 [facility] W/AUR[facility] NOT [facility] INTRACT W/O INC STAT MIGRAINOSUS N63 UNSPECIFIED 05-04-2016 [place] LU[place] IN MEDICAL BREAST IMAGING ASS R51 HEADACHE 05-04-2016 [facility] INC R922 INCONCLUSIV 05-04-2016 [facility] E MAMMOGRAM MEM HOS[facility] INC H6090 UNSPECIFIED 04-21-2016 [facility] UNSPECIFIED EAR L299 PRURITUS 04-21-2016 [facility] V89887 MIGRAINE 04-19-2016 [place] UNS NOT MEDICAL INTRACT W/O IMAGING ASS STATUS MIGRAINOSUS R928 OTH ABNORM 04-19-2016 [place] [facility] INCONCLUSIV IMAGING ASS E FIND ON DX IMAG BREAST Z1231 ENCOUNTER 03-28-2016 [place] SCREENING MEDICAL MAMMO MALIG IMAGING ASS NEOPLASM BREAST R87995 VAG HIGH 02-24-2016 [facility] RISK [facility]ALTH PAPILLOMAVI VIRGIL DNA TEST POS N750 CYST OF 02-10-2016 [facility] GLAND INC N751 ABSCESS OF 02-10-2016 [facility] PHYSICIANS GLAND GROUP W25947 CERV HIGH 02-09-2016 [facility] PAPILLOMAVI VIRGIL DNA TEST POS N49713 ENCOUNTER 02-09-2016 [facility] COLLABORATIVE PHYSICIAN EXAM HEALTH GENERAL RTN W/ABNORMAL FIND C19640 ENCOUNTER 02-09-2016 [facility], COLLABORATIVE PHYSICIAN EXAM LLC GENERAL RTN W/O ABNORMAL FIND Z1239 ENCOUNTER 02-09-2016 [facility] OTHER HEALTH SCREENING MALIG NEOPLASM BREAST G87825 ACQUIRED 02-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 CERVIX AND UTERUS Z8781 PERSONAL 12-01-2015 [facility] HISTORY OF [facility] HEALED INC TRAUMATIC FRACTURE 88543 DEGEN 07-14-2015 MOSHE DEY LUMBAR/LUMB , PSC OSACRAL INTERVERTEB RAL DISC 7244 THORACIC/SIM 07-14-2015 PATRICIA ZHOU MD, PSC NEURITIS/RA DICULITIS UNSPEC 99275 PAIN IN 06-30-2015 [place] [facility], MEDICAL ANKLE AND IMAGING ASS FOOT 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 7242 LUMBAGO 04-03-2015 [facility] 73514 OTHER 03-13-2015 [facility] DISEASES OF SERV [facility] CAVITY AND SINUSES 90376 UNSPECIFIED 03-13-2015 [facility] DENTAL [facility] [place] [facility] 67625 CLOSED 03-13-2015 [facility] FRACTURE SERV SUBCONDYLAR FOUNDATION PROCESS MANDIBLE 74849 TOOTH 03-13-2015 [facility] BROKEN FX SERV DUE TO FOUNDATION TRAUMA W/O MENTION COMP 05228 JAW PAIN 03-12-2015 [facility] E9293 LATE 03-12-2015 [place] [facility] EFFECTS OF SERV ACCIDENTAL FOUNDATION FALL V5832 ENCOUNTER 03-10-2015 [facility] FOR REMOVAL PHYSICIANS OF SUTURES GROUP 7231 CERVICALGIA 03-01-2015 [facility] 10556 INJURY OF 03-01-2015 [place] FACE AND MEDICAL NECK OTHER IMAGING ASS AND UNSPECIFIED 99653 PAIN IN 02-28-2015 [place] [facility], MEDICAL UPPER ARM IMAGING ASS 04537 CHEST PAIN 02-28-2015 [place] UNSPECIFIED [facility]ICAL IMAGING ASS 41543 CLOSED 02-28-2015 [place] FRACTURE OF MEDICAL IMAGING ASS UNSPECIFIED SITE OF MANDIBLE 8300 CLOSED 02-28-2015 [place] DISLOCATION MEDICAL OF JAW IMAGING ASS 8505 CONCUSSION 02-28-2015 [facility] WITH LOC OF MEDICAL IMAGING ASS UNSPECIFIED DURATION 74663 OTHER 02-28-2015 [place] INJURY OF MEDICAL CHEST WALL IMAGING ASS 9593 INJURY 02-28-2015 [place] OTHER&UNSPE MEDICAL CIFIED IMAGING ASS [employer] 9392 FOREIGN 02-26-2015 KELLY Calvin BODY IN COURT[place] JAIN VULVA AND VAGINA 81682 TRICHOMONAL 02-23-2015 KELLY VALDEZ MD VULVOVAGINI TIS 6272 SYMPTOMATIC 02-23-2015 KLELY VALDEZ MD MENOPAUSAL/ FEMALE CLIMACTERIC STATES V1322 PERSONAL 02-23-2015 KELLY Calvin HISTORY OF [place] CERVICAL DYSPLASIA 6271 POSTMENOPAU 02-16-2015 [place] ALONDRA MEDICAL BLEEDING IMAGING ASS V7612 OTHER 02-16-2015 [place] SCREENING MEDICAL MAMMOGRAM IMAGING ASS 6273 POSTMENOPAU 02-03-2015 KELLY VALDEZ MD ATROPHIC VAGINITIS V7231 ROUTINE 02-03-2015 KELLY Calvin GYNECOLOGIC COURT[place] JANI AL EXAMINATION V7641 SCREENING 02-03-2015 KELLY Calvin FOR 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 40971 ABDOMINAL 01-26-2015 [place] PAIN OTHER MEDICAL SPECIFIED IMAGING ASS SITE V0382 NEED PROPH 11-21-2014 [facility] VACCINATION PHYSICIANS AGAINST GROUP STREP PNEUMONE V0481 NEED 11-21-2014 [facility] PROPHYLACTI PHYSICIANS C GROUP VACCINATION &INOCULATIO N FLU 490 BRONCHITIS 11-14-2014 [facility] NOT PHYSICIANS SPECIFIED GROUP ACUTE OR CHRONIC 7862 COUGH 10-05-2014 [facility] 7869 OTH 10-05-2014 [place] SYMPTOMS MEDICAL INVOLVING IMAGING ASS RESPIRATORY SYSTEM&CHES T 90817 UNSPECIFIED 09-12-2014 [facility] SUBJECTIVE GRE VISUAL DISTURBANCE 36827 PAIN IN OR 09-12-2014 [facility] AROUND EYE GRE 9308 FOREIGN 09-12-2014 [facility] BODY GRE OTHER&COMBI BUDDY SITES EXTERNAL EYE 25305 OTHER 09-01-2014 [facility] VISUAL GRE DISTORTIONS AND ENTOPTIC PHENOMENA 29531 UNSPECIFIED 09-01-2014 [facility] SCLERITIS GRE 11957 VOMITING 08-20-2014 [facility] N EMERGENCY PHYS 88177 DIARRHEA 08-20-2014 [facility] N EMERGENCY PHYS 7234 BRACHIAL 08-13-2014 [place] NEURITIS OR MEDICAL IMAGING ASS RADICULITIS NOS 7820 DISTURBANCE 08-13-2014 [place] OF SKIN MEDICAL SENSATION IMAGING ASS 65223 OBST 08-07-2014 [facility] CHRONIC N EMERGENCY BRONCHITIS PHYS W/ACUTE BRONCHITIS 72708 FEVER 08-07-2014 [facility] [place] UNSPECIFIED RADIOLOGY 81949 PAIN IN 06-27-2014 [facility] JOINT, [facility] SHOULDER INC REGION V571 OTHER 06-27-2014 [facility] PHYSICAL [facility] THERAPY INC 85096 UNSPEC 06-18-2014 [facility] DISORDERS PHYSICIANS BURSAE&TEND GROUP ONS SHOULDER REGION V720 EXAMINATION 06-11-2014 [facility] OF EYES GRE AND VISION 7262 OTHER 06-04-2014 [facility] AFFECTIONS PHYSICIANS OF SHOULDER GROUP REGION NEC 3699 UNSPECIFIED 05-27-2014 [facility] VISUAL PHYSICIANS LOSS GROUP 67281 UNSPECIFIED 05-27-2014 [facility] TINNITUS PHYSICIANS GROUP 55677 UNSPECIFIED 04-07-2014 [facility] [facility]IA [facility] 7804 DIZZINESS 04-07-2014 [place] [facility] GIDDINESS IMAGING ASS V642 SURG/OTH 04-07-2014 [facility] NOT MEM [facility] CARRIED OUT INC BECAUSE PTS DECN 4610 ACUTE 01-20-2014 [facility] SINUSITIS [facility] 86590 ABDOMINAL 01-20-2014 [facility] PAIN [facility] 7840 HEADACHE 12-11-2013 [facility] N EMERGENCY PHYS E8889 UNSPECIFIED 12-11-2013 [facility] [place] FALL [facility] 8470 NECK SPRAIN 12-10-2013 [facility] AND STRAIN N EMERGENCY PHYS 8730 OPEN WOUND 12-10-2013 [facility] SCALP N EMERGENCY WITHOUT PHYS MENTION COMPLICATIO N E8888 OTHER FALL 12-10-2013 [facility] N EMERGENCY PHYS 62500 SWELLING OR 11-21-2013 [facility] [place] MASS OF RADIOLOGY EYE E9179 OTHER 11-21-2013 [facility] [place] STRIKING RADIOLOGY AGAINST W/WO SUBSEQUENT FALL F14.10 COCAINE ABUSE, UNCOMPLICAT ED [id number] J40 BRONCHITIS, NOT SPECIFIED ACUTE OR CHRONIC M54.9 DORSALGIA, UNSPECIFIED M71.9 BURSOPATHY, UNSPECIFIED M79.604 PAIN IN RIGHT LEG N17.9 ACUTE KIDNEY FAILURE, UNSPECIFIED N28.9 DISORDER OF KIDNEY AND URETER, UNSPECIFIED N39.0 URINARY TRACT INFECTION, SITE NOT SPECIFIED N76.0 ACUTE VAGINITIS R42 DIZZINESS AND GIDDINESS [...] OUT D/T PT LV BEF SEEN BY [facility] Medications Na ND Rx Da Fi Fi Am Da Di Ph RX Ph St me C No te ll ll ou ys ag ar # ys at rm s nt no ma ic us Or Da si cy ia de te s n re d AF 33 10 12 0. 1 00 RI Ac SIM 33 -2 -0 50 00 TE ti RI 20 4- 1- 0 01 ve A 01 20 20 20 AI 20 70 17 17 53 D 17 1 48 PH -2 AR 01 MA 8 CY SY RI #3 NG 93 E 8 HY 00 10 12 8. [address] 40 -2 -0 00 00 TE ti OC 60 4- 1- 0 01 ve OD 12 20 20 20 AI ON 50 17 17 53 D -A 1 49 PH CE AR TA MA UT CY NO PH #3 N 93 10 8 -3 25 CI 65 10 12 20 10 00 CL Ac MD 86 -2 -0 .0 00 IN ti OF 20 5- 1- 00 00 IC ve LO 07 20 20 44 XA 70 17 17 65 PH CI 1 92 AR N MA HC CY L 50 0 MG TA B HY 00 10 11 60 [address] 18 -1 -1 .0 00 IN ti OX 50 8- 0- 00 00 IC ve YZ 67 20 20 44 IN 40 17 17 60 PH E 1 48 AR PA MA M CY 25 MG CA P GA 45 10 11 90 30 00 CL Ac BA 96 -1 -1 .0 00 IN ti PE 30 8- 0- 00 00 IC ve NT 55 20 20 44 IN 65 17 17 60 PH 0 49 AR 30 MA 0 CY MG CA PS UL E BR 00 10 11 60 30 00 CL Ac EO 17 -0 -1 .0 00 IN ti 30 3- 0- 00 00 IC ve EL 85 20 20 44 LI 91 17 17 40 PH PT 0 49 AR A MA 10 CY 0- 25 MC G IN H AN 68 10 11 30 30 00 CL Ac 00 -0 -1 .0 00 IN ti TR 10 3- 0- 00 00 IC ve OZ 15 20 20 43 OL 50 17 17 87 PH E 4 71 AR 1 MA MG CY TA BL ET SE 65 10 11 30 30 00 CL Ac RT 86 -0 -1 .0 00 IN ti RA 20 3- 0- 00 00 IC ve LI 01 20 20 44 NE 30 17 17 18 PH 5 30 AR HC MA L CY 10 0 MG TA BL ET DI 68 09 10 60 30 00 CL Ac VA 00 -2 -2 .0 00 IN ti LP 10 8- 0- 00 00 IC ve RO 10 20 20 42 EX 50 17 17 53 PH 0 30 AR SO MA D CY ER 25 0 MG TA B VE 68 09 10 60 30 00 CL Ac NL 00 -2 -2 .0 00 IN ti AF 10 8- 0- 00 00 IC ve AX 16 20 20 41 IN 00 17 17 69 PH E 0 69 AR HC MA L CY 75 MG TA BL ET UT 57 09 10 30 30 00 CL Ac RT 23 -2 -2 .0 00 IN ti AZ 70 8- 0- 00 00 IC ve AP 00 20 20 44 IN 83 17 17 40 PH E 0 50 AR 15 MA CY MG TA BL ET SE 65 09 09 30 30 00 CL Ac RT 86 -0 -2 .0 00 IN ti RA 20 7- 9- 00 00 IC ve LI 01 20 20 44 NE 30 17 17 18 PH 5 30 AR HC MA L CY 10 0 MG TA BL ET HY 00 09 09 30 [address] 18 -0 -2 .0 00 IN ti OX 50 7- 9- 00 00 IC ve YZ 67 20 20 44 IN 40 17 17 18 PH E 1 29 AR PA MA M CY 25 MG CA P BR 00 09 09 60 30 00 CL Ac EO 17 -0 -2 .0 00 IN ti 30 5- 9- 00 00 IC ve EL 85 20 20 44 LI 91 17 17 15 PH PT 0 26 AR A MA 10 CY 0- 25 MC G IN H GA 45 09 09 90 30 00 CL Ac BA 96 -0 -2 .0 00 IN ti PE 30 7- 9- 00 00 IC ve NT 55 20 20 44 IN 65 17 17 18 PH 0 52 AR 30 MA 0 CY MG CA PS UL E AN 68 09 09 30 30 00 CL Ac 00 -0 -2 .0 00 IN ti TR 10 7- 9- 00 00 IC ve OZ 15 20 20 43 OL 50 17 17 87 PH E 4 71 AR 1 MA MG CY TA BL ET UT 57 08 09 30 30 00 CL Ac RT 23 -3 -2 .0 00 IN ti AZ 70 1- 2- 00 00 IC ve AP 00 20 20 44 IN 83 17 17 11 PH E 0 83 AR 15 MA CY MG TA BL ET DI 55 08 09 60 30 00 CL Ac VA 11 -3 -2 .0 00 IN ti LP 10 0- 2- 00 00 IC ve RO 53 20 20 42 EX 30 17 17 53 PH 1 30 AR SO MA D CY ER 25 0 MG TA B VE 57 08 09 60 30 00 CL Ac NL 66 -3 -2 .0 00 IN ti AF 40 0- 2- 00 00 IC ve AX 39 20 20 41 IN 58 17 17 69 PH E 8 69 AR HC MA L CY 75 MG TA BL ET AN 51 08 09 30 30 00 CL Ac 99 -0 -0 .0 00 IN ti TR 10 8- 1- 00 00 IC ve OZ 62 20 20 43 OL 03 17 17 87 PH E 3 71 AR 1 MA MG CY TA BL ET PH 42 08 08 6. 2 00 CL Ac EN 93 -0 -2 00 00 IN ti AZ 70 2- 5- 0 00 IC ve OP 70 20 20 43 YR 11 17 17 83 PH ID 0 65 AR IN [place] E CY 10 0 MG TA B NI 47 08 08 20 10 00 CL Ac TR 78 -0 -2 .0 00 IN ti OF 10 2- 5- 00 00 IC ve UR 30 20 20 43 AN 30 17 17 83 PH TO 1 66 AR IN [place] CY MO NO -M CR 10 0 MG GA 69 08 08 90 30 00 CL Ac BA 09 -0 -2 .0 00 IN ti PE 70 3- 5- 00 00 IC ve NT 81 20 20 42 IN 41 17 17 53 PH 2 28 AR 30 MA 0 CY MG CA PS UL E DI 55 08 08 60 30 00 CL Ac VA 11 -0 -2 .0 00 IN ti LP 10 3- 5- 00 00 IC ve RO 53 20 20 42 EX 30 17 17 53 PH 1 30 AR SO MA D CY ER 25 0 MG TA B VE 57 08 08 60 30 00 CL Ac NL 66 -0 -2 .0 00 IN ti AF 40 3- 5- 00 00 IC ve AX 39 20 20 41 IN 58 17 17 69 PH E 8 69 AR HC MA L CY 75 MG TA BL ET UT 00 08 08 30 30 00 CL Ac RT 09 -0 -2 .0 00 IN ti AZ 37 3- 5- 00 00 IC ve AP 20 20 20 42 IN 65 17 17 53 PH E 6 27 AR 15 MA CY MG TA BL ET BR 00 07 07 60 30 00 CL Ac EO 17 -0 -2 .0 00 IN ti 30 6- 8- 00 00 IC ve EL 85 20 20 43 LI 91 17 17 60 PH PT 0 21 AR A MA 10 CY 0- 25 MC G IN H VE 57 07 07 60 30 00 CL Ac NL 66 -0 -2 .0 00 IN ti AF 40 6- 8- 00 00 IC ve AX 39 20 20 41 IN 58 17 17 69 PH E 8 69 AR HC MA L CY 75 MG TA BL ET GA 67 07 07 90 30 00 CL Ac BA 87 -0 -2 .0 00 IN ti PE 70 6- 8- 00 00 IC ve NT 22 20 20 42 IN 30 17 17 53 PH 5 28 AR 30 MA 0 CY MG CA PS UL E DI 55 07 07 60 30 00 CL Ac VA 11 -0 -2 .0 00 IN ti LP 10 6- 8- 00 00 IC ve RO 53 20 20 42 EX 30 17 17 53 PH 1 30 AR SO MA D CY ER 25 0 MG TA B UT 00 07 07 30 30 00 CL Ac RT 09 -0 -2 .0 00 IN ti AZ 37 6- 8- 00 00 IC ve AP 20 20 20 42 IN 65 17 17 53 PH E 6 27 AR 15 MA CY MG TA BL ET AN 51 07 07 30 30 00 CL Ac 99 -0 -2 .0 00 IN ti TR 10 6- 8- 00 00 IC ve OZ 62 20 20 42 OL 03 17 17 24 PH E 3 31 AR 1 MA MG CY TA BL ET [place] 00 06 07 22 [address] 60 -2 -2 4. 00 IN ti AT 31 6- 1- 00 00 IC ve IN 48 20 20 0 43 15 17 17 50 PH 10 8 67 AR 0, MA 00 CY 0 UN IT /M L NGUYEN SP NE 61 06 07 10 7 00 CL Ac OM 31 -2 -2 .0 00 IN ti YC 40 6- 1- 00 00 IC ve IN 64 20 20 43 -P 51 17 17 50 PH OL 1 68 AR YM MA YX CY IN -H C EA R NGUYEN SP UT 00 06 07 30 30 00 CL Ac RT 09 -1 -0 .0 00 IN ti AZ 37 0- 7- 00 00 IC ve AP 20 20 20 42 IN 65 17 17 53 PH E 6 27 AR 15 MA CY MG TA BL ET GA 67 06 07 90 30 00 CL Ac BA 87 -1 -0 .0 00 IN ti PE 70 0- 7- 00 00 IC ve NT 22 20 20 42 IN 30 17 17 53 PH 5 28 AR 30 MA 0 CY MG CA PS UL E DI 55 06 07 60 30 00 CL Ac VA 11 -1 -0 .0 00 IN ti LP 10 0- 7- 00 00 IC ve RO 53 20 20 42 EX 30 17 17 53 PH 1 30 AR SO MA D CY ER 25 0 MG TA B BR 00 06 07 60 30 00 CL Ac EO 17 -1 -0 .0 00 IN ti 30 0- 7- 00 00 IC ve EL 85 20 20 42 LI 91 17 17 72 PH PT 0 44 AR A MA 10 CY 0- 25 MC G IN H VE 57 06 07 60 30 00 CL Ac NL 66 -1 -0 .0 00 IN ti AF 40 0- 7- 00 00 IC ve AX 39 20 20 41 IN 58 17 17 69 PH E 8 69 AR HC MA L CY 75 MG TA BL ET AN 51 06 07 30 30 00 CL Ac 99 -1 -0 .0 00 IN ti TR 10 0- 7- 00 00 IC ve OZ 62 20 20 42 OL 03 17 17 24 PH E 3 31 AR 1 MA MG CY TA BL ET GA 67 05 06 90 30 00 CL Ac BA 87 -1 -0 .0 00 IN ti PE 70 5- 9- 00 00 IC ve NT 22 20 20 42 IN 30 17 17 53 PH 5 28 AR 30 MA 0 CY MG CA PS UL E BR 00 05 06 60 30 00 CL Ac EO 17 -1 -0 .0 00 IN ti 30 5- 9- 00 00 IC ve EL 85 20 20 42 LI 91 17 17 72 PH PT 0 44 AR A MA 10 CY 0- 25 MC G IN H LI 51 05 06 35 7 00 CL Ac DO 67 -1 -0 .4 00 IN ti CA 23 5- 9- 39 00 IC ve IN 02 20 20 41 E 00 17 17 81 PH 5% 9 62 AR MA OI CY NT ME NT AN 51 05 06 30 30 00 CL Ac 99 -1 -0 .0 00 IN ti TR 10 5- 9- 00 00 IC ve OZ 62 20 20 42 OL 03 17 17 24 PH E 3 31 AR 1 MA MG CY TA BL ET ET 62 05 06 20 5 00 CL Ac OD 55 -1 -0 .0 00 IN ti OL 90 5- 9- 00 00 IC ve AC 25 20 20 43 00 17 17 10 PH 20 1 83 AR 0 MA MG CY CA PS UL E VE 57 05 06 60 30 00 CL Ac NL 66 -1 -0 .0 00 IN ti AF 40 5- 9- 00 00 IC ve AX 39 20 20 41 IN 58 17 17 69 PH E 8 69 AR HC MA L CY 75 MG TA BL ET DI 00 05 06 60 30 00 CL Ac VA 11 -1 -0 .0 00 IN ti LP 56 5- 9- 00 00 IC ve RO 91 20 20 42 EX 10 17 17 53 PH 1 30 AR SO MA D CY ER 25 0 MG TA B MD 00 05 06 12 6 00 CL Ac OM 60 -1 -0 0. 00 IN ti ET 31 5- 9- 00 00 IC ve CHRISTIE 58 20 20 0 42 ZI 65 17 17 72 PH NE 8 42 AR -D MA M CY SY RU P UT 00 05 06 30 30 00 CL Ac RT 09 -1 -0 .0 00 IN ti AZ 37 5- 9- 00 00 IC ve AP 20 20 20 42 IN 65 17 17 53 PH E 6 27 AR 15 MA CY MG TA BL ET UT 13 04 05 20 10 00 CL Ac NO 66 -2 -1 .0 00 IN ti CY 80 8- 9- 00 00 IC ve CL 48 20 20 42 IN 40 17 17 96 PH E 5 68 AR 10 MA 0 CY MG CA PS UL E VE 57 04 05 60 30 00 CL Ac NL 66 -1 -1 .0 00 IN ti AF 40 7- 2- 00 00 IC ve AX 39 20 20 41 IN 58 17 17 69 PH E 8 69 AR HC MA L CY 75 MG TA BL ET UT 00 04 05 30 30 00 CL [...] 1 MA MG CY TA BL ET DI 00 04 05 [...] 0 CY MG CA PS UL E MD 00 04 05 12 6 00 CL Ac OM 60 -0 -0 0. 00 IN ti ET 31 4- 5- 00 00 IC ve CHRISTIE 58 20 20 0 42 ZI 65 17 17 72 PH NE 8 42 AR -D MA M CY SY RU P BR 00 04 05 60 30 00 [...] #7 IN 92 CHRISTIE 0 LE R AZ 68 04 05 6. 5 00 CL Ac IT 18 -0 -0 00 00 IN ti HR 00 4- 5- 0 00 IC ve OM 16 20 20 42 YC 01 17 17 72 PH IN 3 43 AR MA 25 CY 0 MG TA BL ET UT 00 03 04 30 30 00 CL [...] CY ZI NE 1% CR EA M OX 13 02 03 45 15 00 CL Ac YC 10 -1 -1 .0 00 IN ti OD 70 5- 0- 00 00 IC ve ON 04 20 20 42 E- 40 17 17 24 PH AC 1 32 AR ET MA AM CY IN OP HE N 5- 32 5 AN 51 02 03 30 30 00 CL Ac 99 -1 -1 .0 00 IN ti TR 10 5- 0- 00 00 IC ve OZ 62 20 20 42 OL 03 17 17 24 PH E 3 31 AR 1 MA MG CY TA BL ET UT 00 02 03 30 30 00 CL [...] 0 CY MG CA PS UL E LI 51 02 02 35 7 00 [...] AR MA MG CY TA BL ET UT 00 01 02 30 30 00 CL [...] AR MA MG CY TA BL ET SI 67 12 01 [...] L CY 75 MG TA BL ET UT 00 12 01 30 30 00 CL Ac RT 09 -1 -1 .0 00 IN ti AZ 37 9- 3- 00 00 IC ve AP 20 20 20 41 IN 65 16 17 66 PH E 6 58 AR 15 MA CY MG TA BL ET GA 67 12 01 90 30 00 CL Ac BA 87 -1 -1 .0 00 IN ti PE 70 9- 3- 00 00 IC ve NT 22 20 20 41 IN 31 16 17 38 PH 0 54 AR 30 MA 0 CY MG CA PS UL E Results Labs Lab Lab Date Result Refere Interp Status Commen Order Detail nces retati t Range on Urine 9-analyte drugs of abuse screening (09-21-2017 10:20) Comment: Positive urine drug screen samples are stored for 7 days. Comment: Contact the Lab if confirmation of positives is needed. 11-hydr NEGATIV <50 complet oxy 017 E ed delta-9 10:20 NEGATIV E L tetrahy ng/mL drocann abinol Phencyc = <25 complet lidine 017 NEGATIV ed measure 10:20 E ng/mL ment (mass/v olume) Opiates = <300 complet 017 NEGATIV ed measure 10:20 E ng/mL ment (mass/v olume) Methado = <300 complet ne 017 NEGATIV ed measure 10:20 E ng/mL ment (mass/v olume) Cocaine = <300 complet 017 NEGATIV ed measure 10:20 E ng/g ment (mass/v olume) Serum = 200 complet or 017 NEGATIV ng/mL ed plasma 10:20 E ng/mL benzodi azepine s measure m Urine = <200 complet barbitu 017 NEGATIV ed rates 10:20 E ng/mL measure ment by screen Urine NEGATIV <1000 complet ampheta 017 E ed mine 10:20 NEGATIV screeni E L ng test ng/mL Drugs identified in Urine by Screen method (09-21-2017 10:20) Ampheta NEGATIV <1000 complet mine 017 E ed [Presen 10:20 ce] in Urine by Screen method NEGATIV <50 complet oxy 017 E ed delta-9 10:20 tetrahy drocann abinol [Presen ce] in Unspeci fied specime n Comprehensive metabolic panel (09-06-2017 13:15) Serum = 1.0 1.1-1.8 complet or 017 ed plasma 13:15 albumin /globul in mass ra Serum = 4.0 3.4-5.0 complet or 017 gm/dL ed plasma 13:15 albumin measure ment (mas Serum = 104 46-116 complet or 017 U/L ed plasma 13:15 alkalin e phospha tase jenifer Serum = 0.3 0.2-1.0 complet or 017 mg/dL ed plasma 13:15 total bilirub in measure m Serum = 20 7-18 complet or 017 mg/dL ed plasma 13:15 urea nitroge n measure men Serum = 9.7 8.5-10. complet or 017 mg/dL 1 ed plasma 13:15 calcium measure ment (mas Serum = 102 98-107 complet or 017 mmoL/L ed plasma 13:15 chlorid e measure ment (mo Carbon = 28 21.0-32 complet dioxide 017 mmoL/L .0 ed 13:15 measure ment Serum = 0.9 0.55-1. complet or 017 mg/dL 02 ed plasma 13:15 creatin ine measure ment ( Estimat = 97 50-200 complet ion of 017 ML/MIN ed creatin 13:15 ine renal clearan ce Estimat = 66 59- complet ed 017 ML/MIN ed glomeru 13:15 lar filtrat ion rate (GF Comment: REFERENCE RANGE: >60 ML/MIN/1.73 SQUARE METERS Comment: If this patient is -[place], then multiply the Comment: result by 1.210. Serum = 4.2 1.3-3.2 complet globuli 017 gm/dL ed n 13:15 measure ment (mass/v olume) Serum = 77 74-106 complet or 017 mg/dL ed plasma 13:15 glucose measure ment (mas Serum = 4.6 3.5-5.1 complet potassi 017 mmoL/L ed um 13:15 measure ment Serum = 137 136-145 complet sodium 017 mmoL/L ed measure 13:15 ment Serum = 21 15-37 complet or 017 U/L ed plasma 13:15 asparta te aminotr ansfera ALT = 18 12-78 complet (SGPT) 017 U/L ed ser/al 13:15 s Protein = 8.2 6.4-8.2 complet total 017 gm/dL ed ser/al 13:15 s Immunofixation (09-06-2017 13:15) Serum = 330 87-352 complet IgA 017 mg/dL ed antibod 13:15 y assay Serum = [phone] complet or 017 mg/dL 0 ed plasma 13:15 IgG measure ment (mass/v o Quantit = 288 26-217 complet ative 017 mg/dL ed serum 13:15 IgM measure ment Comment: Performed at: [facility] Comment: [id number] [place], [place] [id number] Comment: Fruit Bar Maker: Gerry Martínez PhD, Phone: [phone] Interpr Comment . complet etation 017 ed of 13:15 Comment serum L or plasma protei Comment: No monoclonality detected. Comment: Performed at: [facility] Comment: [id number] [place], [place] [phone] Comment: Fruit Bar Maker: Gerry Martínez PhD, Phone: [phone] Protein Electrophoresis (09-06-2017 13:15) Serum = 7.9 6.0-8.5 complet or 017 g/dL ed plasma 13:15 protein measure ment (mas Please Comment . complet note: 017 ed 13:15 Comment: Comment: Protein electrophoresis scan will follow via computer, Comment: mail, or lab specialist delivery. Comment: Performed at: [facility] Comment: [id number] [facility], [place], [place] [id number] Comment: Fruit Bar Maker: Gerry Martínez PhD, Phone: [phone] Serum = 3.8 2.9-4.4 complet albumin 017 g/dL ed 13:15 measure ment by protein reji Serum = 0.4 0.0-0.4 complet alpha-1 017 g/dL ed -globul 13:15 in measure ment Serum = 1.2 0.4-1.0 complet alpha-2 017 g/dL ed -globul 13:15 in measure ment Serum = 1.3 0.7-1.3 complet or 017 g/dL ed plasma 13:15 beta globuli n measure men Serum = 1.2 0.4-1.8 complet gamma 017 g/dL ed globuli 13:15 n measure ment by prot Serum = Not Not complet or 017 Observe Observe ed plasma 13:15 d g/dL d protein monoclo nal measu Serum = 4.1 2.2-3.9 complet globuli 017 g/dL ed n 13:15 measure ment by calcula shagufta Serum = 0.9 0.7-1.7 complet or 017 ed plasma 13:15 albumin /globul in mass ra Antibiotic sensitivity studies (09-01-2017 08:18) Ampicil = 4 complet margie 017 ug/ml ed suscept 08:18 ibility test by minimum inhibit ory concent ration Amoxici = 4 complet llin/cl 017 ug/ml ed avulana 08:18 te suscept ibility test by minimum inhibit ory concent ration Ceftazi <= 1 complet dime/po 017 ug/ml ed tassium 08:18 clavula norah suscept ibility test by minimum inhibit ory concent ration Ceftria 10-27-2 <= 1 complet xone 017 ug/ml ed suscept 08:18 ibility test by minimum inhibit ory concent ration Cefazol 10-27-2 <= 4 complet in 017 ug/ml ed suscept 08:18 ibility test by minimum inhibit ory concent ration Extende 10-27-2 = ug/ml complet d 017 ed spectru 08:18 m beta lactama se (ESBL) produci ng bacteri a suscept ibility test by minimum inhibit ory Ertapen 10-27-2 <= 0.5 complet em 017 ug/ml ed suscept 08:18 ibility test by minimum inhibit ory concent ration Cefepim 10-27-2 <= 1 complet e 017 ug/ml ed suscept 08:18 ibility test by minimum inhibit ory concent ration Nitrofu 10-27-2 = 64 complet rantoin 017 ug/ml ed 08:18 suscept ibility test by minimum inhibit ory concent ration Gentami 10-27-2 <= 1 complet kendra 017 ug/ml ed suscept 08:18 ibility test by minimum inhibit ory concent ration Imipene 10-27-2 <= 0.25 complet m 017 ug/ml ed suscept 08:18 ibility test by minimum inhibit ory concent ration Levoflo 10-27-2 = 1 complet xacin 017 ug/ml ed suscept 08:18 ibility test by minimum inhibit ory concent ration Ampicil 10-27-2 <= 2 complet margie/sul 017 ug/ml ed bactam 08:18 suscept ibility test by minimum inhibit ory concent ration Trimeth 10-27-2 >= 320 complet oprim/s 017 ug/ml ed ulfamet 08:18 hoxazol e suscept ibility test by minimum inhibit ory concent ration Tobramy 10-27-2 <= 1 complet kendra 017 ug/ml ed suscept 08:18 ibility test by minimum inhibit ory concent ration Piperac 10-27-2 <= 4 complet illin/t 017 ug/ml ed azobact 08:18 am suscept ibility test by minimum inhibit ory concent ration Urinalysis with microscopy (08-29-2017) Urine SL CLEAR complet appeara 017 CLOUDY ed nce SL determi CLOUDY nation L Bacteri 08-29- 3+ 3+ L O complet a 017 ed detecti on in urine sedimen t by Urine 08-29- NEGATIV NEG complet blood 017 E ed detecti NEGATIV on E L Urine 08-29-2 YELLOW YELLOW complet color 017 YELLOW ed L Glucose 24-2 = NEG complet ur 017 NEGATIV ed test E strip Urine NEGATIV NEG complet ketones 017 E ed NEGATIV detecti E L on by mg/dL automat ed valentine Mucus 08-29- 2+ 2+ L NEG complet detecti 017 ed on in urine sedimen t by lig Urine NEGATIV NEG complet nitrite 017 E ed NEGATIV detecti E L on by test strip Urine = 7.0 5.0-8.5 complet pH 017 ed Urine = NEG complet protein 017 NEGATIV ed E mg/dL measure ment by automat ed t Erythro 08-29-2 OCC OCC 0 complet cytes 017 L ed detecti rbc/hpf on in urine sedimen t Urine 2 = 1.010 1.005-1 complet specifi 017 .030 ed c gravity measure ment [place] 08-29- 10-20 0-5 complet s 017 10-20 L ed epithel #/hpf ial cells detecti on in u Urine 08-29-2 0.2 0.2 NEG complet urobili 017 L ed nogen E.U./dL detecti on by test str Urine 08-29-2 10 - 20 O complet leukocy 017 ed valentine wbc/hpf count (number /volume ) Urine 08-29-2 NEGATIV NEG complet total 017 E ed bilirub NEGATIV in E L detecti on by test Urine culture (08-29-2017) Urine [id number] complet culture 017 07 ed Escheri shahab coli SCT EC ESCHERI SHAHAB COLI L Urinalysis dipstick W Reflex Microscopic panel in Urine (08-29-2017) Bacteri 3+ O complet a 017 ed [Presen ce] in Urine sedimen t by Light microsc opy Erythro 08-29-2 OCC 0 complet cytes 017 ed [Presen ce] in Urine sedimen t by Light microsc opy Epithel 08-29-2 10-20 0#/hp complet ial 017 f - ed cells.s 5#/hp quamous f [Presen ce] in Urine sedimen t by Microsc opy high power field Leukocy 08-29- 10-20 O complet valentine 017 wbc/hpf ed [#/volu me] in Urine Urinalysis dipstick W Reflex Microscopic panel in Urine (08-29-2017) Appeara SL CLEAR complet nce of 017 CLOUDY ed Urine Bilirub NEGATIV NEG complet in 017 E ed [Presen ce] in Urine by Test strip Erythro NEGATIV NEG complet cytes 017 E ed [Presen ce] in Urine Color YELLOW YELLOW complet of 017 ed Urine Ketones NEGATIV NEG complet 017 E ed [Presen ce] in Urine by Automat ed test strip Mucus 2+ NEG Abnorma complet [Presen 017 l ed ce] in Urine sedimen t by Light microsc opy Nitrite 2 NEGATIV NEG complet 017 E ed [Presen ce] in Urine by Test strip Urobili 2 0.2 NEG complet nogen 017 ed [Presen ce] in Urine by Test strip Urine 9-analyte drugs of abuse screening (08-23-2017) Comment: Positive urine drug screen samples are stored for 7 days. Comment: Contact the Lab if confirmation of positives is needed. Urine NEGATIV <1000 complet ampheta 017 E ed mine NEGATIV screeni E L ng test ng/mL Urine = <200 complet barbitu 017 NEGATIV ed rates E ng/mL measure ment by screen Serum = 200 complet or 017 NEGATIV ng/mL ed plasma E ng/mL benzodi azepine s measure m Cocaine = <300 complet 017 NEGATIV ed measure E ng/g ment (mass/v olume) Methado = <300 complet ne 017 NEGATIV ed measure E ng/mL ment (mass/v olume) Opiates 08-23-2 = <300 complet 017 NEGATIV ed measure E ng/mL ment (mass/v olume) Phencyc 18-2 = <25 complet lidine 017 NEGATIV ed measure E ng/mL ment (mass/v olume) 11-hydr 10-18-2 NEGATIV <50 complet oxy 017 E ed delta-9 NEGATIV E L tetrahy ng/mL drocann abinol Drugs identified in Urine by Screen method (08-23-2017) Ampheta -18-2 NEGATIV <1000 complet mine 017 E ed [Presen ce] in Urine by Screen method 11-Hydr 10-18-2 NEGATIV <50 complet oxy 017 E ed [...] 15:01 ce] in Urine by Test strip Encounters Encounter Start End Date Code Location Performer Type Date HOSPITAL DEX - 7 7 [facility] [place] [facility] [place] - 7 7 [facility] [place] [facility] - 7 7 [facility] - 7 7 [facility] - 7 7 [facility] - 7 7 [facility] [place] [facility] - 7 7 [facility] [place] [facility] - 7 7 [facility] [place] - 7 7 [facility] - 7 7 [facility] - 7 7 [facility] [place] - [facility] [place] [facility] [place] - 7 7 [facility] - [facility] 6 [facility] - 6 6 [facility] - [facility] - 6 6 [facility] - 6 6 [facility] - 6 6 [facility] - 6 6 [facility] - 6 6 [facility] - 6 6 [facility] - [facility] - [facility] 4 [facility]
--- OUTSIDE RECORDS SUMMARY | 2017-10-06 16:17 | External Medical Summary Rpt | CCD ---
Author Author , SHARON Organization SHARON Address Unknown Phone Care Team Providers Care Mineralogy Teacher Name Role Phone MOSHE DEY MD, PSC, Unavailable Unavailable MOSHE DEY MD, PSC [facility] Unavailable Unavailable MEDICAL GROUP, [facility] Unavailable Unavailable PHYSICIAN PRA, [facility] PHYSICIAN PRA [facility], Unavailable Unavailable [facility] Unavailable Unavailable [facility], [facility] Unavailable Unavailable HEALTH KELLY VALDEZ MD, Unavailable Unavailable KELLY VALDEZ MD [facility] Unavailable Unavailable INC, [facility] Unavailable Unavailable HOSPITAL, [facility] Unavailable [facility]available HOSPITAL P, [facility] P [facility]available Unavailable [facility] Un[facility] Unavailable [facility], [facility] Un[facility], [facility] KRYSTIAN STARK, Unavailable Unavailable KRYSTIAN PIMENTEL PHYSICIAN Unavailable Unavailable [facility] Unavailable Unavailable HEALTH, [facility] Unavailable Unavailable [facility], Unavailable Unavailable PLLC, [facility] Unavailable Unavailable EMERGENCY PHYS, [facility] Purpose Continuity of Care Document - 11-21-2013 through 2016 Problems Code Diagnosis DOS Provider Status [id number] OTHER 08-29-2017 [facility] CHRONIC [facility], PAIN PLLC M5442 LUMBAGO 08-29-2017 [facility] WITH [facility]YSICIANS, SCIATICA PLLC LEFT SIDE N3000 ACUTE 08-29-2017 [facility] CYSTITIS PHYS[facility]ANS, WITHOUT PLLC HEMATURIA N390 URINARY 08-29-2017 [facility] TRACT [facility]YSIC[facility]ANS, INFECTION PLLC SITE NOT SPECIFIED 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 CHRONIC 07-09-2017 [place] [facility]STRUCTIVE [facility] PULMONARY INC DISEASE UNS M546 PAIN IN 07-09-2017 [facility]ACIC [facility] SPINE INC R109 UNSPECIFIED 07-09-2017 [place] ABDOMINAL [facility]ICAL PAIN [facility] R197 DIARRHEA 07-09-2017 [place] UNSPECIFIED MEDICAL IMAGING ASS Z720 TOBACCO USE 07-09-2017 [facility] INC R26161 OTHER LONG 07-09-2017 [facility] TERM [facility] CURRENT INC DRUG THERAPY D649 ANEMIA 07-06-2017 COMM[facility]ITY UNSPECIFIED ANESTH OF THE BLUE Z1211 ENCOUNTER 07-06-2017 [facility] SCREENING PHYSICIANS MALIGNANT GROUP NEOPLASM OF COLON A95063 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-07-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[facility] U[facility]PITAL P RIGHT FEMALE BREAST N3001 ACUTE 06-07-2017 [facility] CYSTITIS [facility] WITH INC HEMATURIA 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 06-07-2017 [place] [facility] P STATUS H17620 MALIGNANT 05-24-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[facility] UNS SITE INC UNS FEMALE BREAST R319 HEMATURIA 05-24-2017 [facility] UNSPECIFIED PHYSICIANS GROUP Z853 PERSONAL 05-11-2017 [place] [facility]IMARY [facility] ASS MALIG NEOPLASM BREAST B370 CANDIDAL 05-01-2017 [facility] STOMATITIS PHYSICIANS GROUP U19754 OTHER 05-01-2017 [facility] INFECTIVE PHYSICIANS OTITIS GROUP EXTERNA RIGHT EAR N42984 ENCOUNTER 04-25-2017 [facility] FOR [facility] PREPROCEDUR INC AL LABORATORY EXAM H15360 ENCOUNTER 04-25-2017 [facility] FOR OTHER MEM [facility] PREPROCEDUR INC AL EXAMINATION M7062 TROCHANTERI 03-20-2017 [facility] C BURSITIS MEM [facility] LEFT HIP INC X18577 NON-PRSS 03-03-2017 [facility] CHRN ULCER PHYSICIANS SKIN OT GROUP SITES UNS SEVERITY [id number] IDIOPATHIC 02-24-2017 [facility] GOUT RIGHT [facility] ANKLE AND INC FOOT M109 GOUT 02-24-2017 [facility] UNSPECIFIED PHYSICIANS, [facility] Y54326 PAIN IN 02-24-2017 [facility] LEFT KNEE PHYSICIANS, [facility] T83062 PAIN IN 02-24-2017 [facility] RIGHT FOOT PHYSICIANS, [facility] T02771 PAIN IN 02-20-2017 [place] RIGHT LEG MEDICAL IM[facility]ING [facility] T78449 PAIN IN 02-19-2017 [facility] UNSPECIFIED [facility] FOOT INC N179 ACUTE 02-19-2017 [facility] KIDNEY PHYSICIANS, FAILURE PLL UNSPECIFIED R791 ABNORMAL 02-19-2017 [facility] COAGULATION PHYSICIANS, PROFILE [facility] J40 BRONCHITIS 01-30-2017 [place] NOT REGIONAL SPECIFIED PHYSICIAN ACUTE OR PRA CHRONIC P60620 MALIG 11-24-2016 [place] NEOPLASM 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 Z510 ENCOUNTER 11-24-2016 [place] FOR PHYSICIAN ANTINEOPLAS PRACTIC TIC RADIATION THERAPY I10 ESSENTIAL 11-09-2016 [facility] PRIMARY PHYSICIANS HYPERTENSIO GROUP N Z23 ENCOUNTER 09-23-2016 [facility] FOR PHYSICIANS IMMUNIZATIO GROUP N B354 TINEA 08-26-2016 [facility] MEDICAL GROUP R110 NAUSEA 08-26-2016 [facility] R079 CHEST PAIN 07-20-2016 [place] UNSPECIFIED [facility]ICAL IMAGING ASS R42 DIZZINESS 07-20-2016 [place] AND MEDICAL GIDDINESS IMAGING ASS N649 DISORDER OF 06-20-2016 [facility] BREAST PHYSICIANS UNSPECIFIED GROUP Z129 ENCOUNTER 06-06-2016 [place] SCREENING MEDICAL MALIGNANT IMAGING ASS NEOPLASM SITE UNS Q39979 MIGRAINE 05-04-2016 [facility] W/AURA NOT [facility] INTRACT W/O INC STAT MIGRAINOSUS N63 UNSPECIFIED 05-04-2016 [place] LUMP IN MEDICAL BREAST IMAGING ASS R51 HEADACHE 05-04-2016 [facility] INC R922 INCONCLUSIV 05-04-2016 [facility] E MAMMOGRAM MEM HOS[facility] INC H6090 UNSPECIFIED 04-21-2016 [facility] UNSPECIFIED EAR L299 PRURITUS 04-21-2016 [facility] V04866 MIGRAINE 04-19-2016 [place] UNS NOT MEDICAL INTRACT W/O IMAGING ASS STATUS MIGRAINOSUS R928 OTH ABNORM 04-19-2016 [place] & MEDICAL INCONCLUSIV IMAGING ASS E FIND ON DX IMAG BREAST Z1231 ENCOUNTER 03-28-2016 [place] SCREENING MEDICAL MAMMO MALIG IMAGING ASS NEOPLASM BREAST X44689 VAG HIGH 02-24-2016 [facility] RISK [facility] HEALTH PAPILLOMAVI VIRGIL DNA TEST POS N750 CYST OF 02-10-2016 [facility] GLAND INC N751 ABSCESS OF 02-10-2016 [facility] BARTHOLINS PHYSICIANS GLAND GROUP P28219 CERV HIGH 02-09-2016 [facility] PAPILLOMAVI VIRGIL DNA TEST POS A95302 ENCOUNTER 02-09-2016 [facility] ELECTRIC REFRIGERATOR SERVICER EXAM HEALTH GENERAL RTN W/ABNORMAL FIND U73248 ENCOUNTER 02-09-2016 [facility], ELECTRIC REFRIGERATOR SERVICER EXAM LLC GENERAL RTN W/O ABNORMAL FIND Z1239 ENCOUNTER 02-09-2016 DHS/[facility] OTHER HEALTH SCREENING MALIG NEOPLASM BREAST L24106 ACQUIRED 02-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 CERVIX AND UTERUS Z8781 PERSONAL 12-01-2015 [facility] HISTORY OF [facility] HEALED INC TRAUMATIC FRACTURE 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 , PSC OSACRAL INTERVERTEB RAL DISC 7244 THORACIC/SIM 07-14-2015 PATRICIA ZHOU MD, PSC NEURITIS/RA DICULITIS UNSPEC 44449 PAIN IN 06-30-2015 [place] JOINT, MEDICAL ANKLE AND IMAGING ASS FOOT 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 7242 LUMBAGO 04-03-2015 [facility] PHYSICIANS GROUP 36957 OTHER 03-13-2015 [place] [facility] DISEASES OF SERV NASAL [facility]OUNDATION CAVITY AND SINUSES 97741 UNSPECIFIED 03-13-2015 [place] [facility] [place] SERV [place] [facility] 17216 CLOSED 03-13-2015 [place] [facility] FRACTURE SERV SUBCONDYLAR FOUNDATION PROCESS MANDIBLE 34538 TOOTH 03-13-2015 [place] MEDICAL BROKEN FX SERV DUE TO FOUNDATION TRAUMA W/O MENTION COMP 36097 JAW PAIN 03-12-2015 [place] [facility] E9293 LATE 03-12-2015 [place] MEDICAL EFFECTS OF SERV ACCIDENTAL FOUNDATION FALL V5832 ENCOUNTER 03-10-2015 [facility] FOR REMOVAL PHYSICIANS OF SUTURES GROUP 7231 CERVICALGIA 03-01-2015 [facility] 02662 INJURY OF 03-01-2015 [place] FACE AND MEDICAL NECK OTHER IMAGING ASS AND UNSPECIFIED 20098 PAIN IN 02-28-2015 [place] JOINT, MEDICAL UPPER ARM IMAGING ASS 72775 CHEST PAIN 02-28-2015 [place] UNSPECIFIED MEDICAL IMAGING ASS 05741 CLOSED 02-28-2015 [place] FRACTURE OF MEDICAL IMAGING ASS UNSPECIFIED SITE OF MANDIBLE 8300 CLOSED 02-28-2015 [place] DISLOCATION MEDICAL OF JAW IMAGING ASS 8505 CONCUSSION 02-28-2015 [facility] WITH LOC OF MEDICAL IMAGING ASS UNSPECIFIED DURATION 39000 OTHER 02-28-2015 [place] INJURY OF MEDICAL CHEST WALL IMAGING ASS 9593 INJURY 02-28-2015 [place] OTHER&UNSPE MEDICAL CIFIED IMAGING ASS ELBOW FOREARM&WRI ST 9392 FOREIGN 02-26-2015 KELLY Calvin BODY IN COURTNEY JAIN VULVA AND VAGINA 31930 TRICHOMONAL 02-23-2015 KELLY VALDEZ MD VULVOVAGINI TIS [...] 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 51517 ABDOMINAL 01-26-2015 [place] PAIN OTHER MEDICAL SPECIFIED IMAGING ASS SITE V0382 NEED PROPH 11-21-2014 [facility] VACCINATION PHYSICIANS AGAINST GROUP STREP PNEUMONE V0481 NEED 11-21-2014 [facility] PROPHYLACTI PHYSICIANS C GROUP VACCINATION &INOCULATIO N FLU 490 BRONCHITIS 11-14-2014 [facility] NOT PHYSICIANS SPECIFIED GROUP ACUTE OR CHRONIC 7862 COUGH 10-05-2014 [facility] 7869 OTH 10-05-2014 [place] SYMPTOMS MEDICAL INVOLVING IMAGING ASS RESPIRATORY SYSTEM&CHES T 47028 UNSPECIFIED 09-12-2014 [facility] SUBJECTIVE GRE VISUAL DISTURBANCE 97201 PAIN IN OR 09-12-2014 [facility] AROUND EYE GRE 9308 FOREIGN 09-12-2014 [facility] BODY GRE OTHER&COMBI BUDDY SITES EXTERNAL EYE 75597 OTHER 09-01-2014 [facility] VISUAL GRE DISTORTIONS AND ENTOPTIC PHENOMENA 74884 UNSPECIFIED 09-01-2014 [facility] SCLERITIS GRE 90811 VOMITING 08-20-2014 [facility] ALONE N EMERGENCY PHYS 10041 DIARRHEA 08-20-2014 [facility] N EMERGENCY PHYS 7234 BRACHIAL 08-13-2014 [place] NEURITIS OR MEDICAL IMAGING ASS RADICULITIS NOS 7820 DISTURBANCE 08-13-2014 [place] OF SKIN MEDICAL SENSATION IMAGING ASS 06634 OBST 08-07-2014 [facility] CHRONIC N EMERGENCY BRONCHITIS PHYS W/ACUTE BRONCHITIS 75567 FEVER 08-07-2014 [facility] [place] UNSPEC[facility]IED [facility] 72054 PAIN IN 06-27-2014 [facility] JOINT, [facility] SHOULDER INC REGION V571 OTHER 06-27-2014 [facility] PHYSICAL [facility] THERAPY INC 04412 UNSPEC 06-18-2014 [facility] DISORDERS PHYSICIANS BURSAE&TEND GROUP ONS SHOULDER REGION V720 EXAMINATION 06-11-2014 [facility] OF EYES GRE AND VISION 7262 OTHER 06-04-2014 [facility] AFFECTIONS PHYSICIANS OF SHOULDER GROUP REGION NEC 3699 UNSPECIFIED 05-27-2014 [facility] VISUAL PHYSICIANS LOSS GROUP 28155 UNSPECIFIED 05-27-2014 [facility] TINNITUS PHYSICIANS GROUP 68605 UNSPECIFIED 04-07-2014 [place] OTALGIA [facility]ICAL [facility] 7804 DIZZINESS 04-07-2014 [place] AND MEDICAL GIDDINESS IMAGING ASS V642 SURG/OTH 04-07-2014 [facility] PROC NOT MEM HOS[facility] CARRIED OUT INC BECAUSE PTS DECN 4610 ACUTE 01-20-2014 [facility] SINUSITIS [facility] 57916 ABDOMINAL 01-20-2014 [facility] PAIN [facility] 7840 HEADACHE 12-11-2013 [facility] N EMERGENCY PHYS E8889 UNSPECIFIED 12-11-2013 [facility] [place]ALL [facility] 8470 NECK SPRAIN 12-10-2013 [facility] AND STRAIN N EMERGENCY PHYS 8730 OPEN WOUND 12-10-2013 [facility] SCALP N EMERGENCY WITHOUT PHYS MENTION COMPLICATIO N E8888 OTHER FALL 12-10-2013 [facility] N EMERGENCY PHYS 62749 SWELLING OR 11-21-2013 [facility] [place] MASS OF RADI[facility]Y EYE E9179 OTHER 11-21-2013 [facility] [place] STRIKING [facility] AGAINST W/WO SUBSEQUENT FALL F14.10 COCAINE ABUSE, UNCOMPLICAT ED [id number] J40 BRONCHITIS, NOT SPECIFIED ACUTE OR CHRONIC [...] OUT D/T PT LV BEF SEEN BY [facility] CARE PROV Medications Na ND Rx Da [...] 1 49 PH CE AR TA MA NH CY NO PH #3 N 93 10 8 -3 25 CI 65 10 12 20 10 00 CL Ac MO 86 -2 -0 .0 00 IN ti [...] L CY 75 MG TA BL ET NH 57 09 10 30 30 00 CL [...] 1 MA MG CY TA BL ET NH 57 08 09 30 30 00 CL [...] L CY 75 MG TA BL ET NH 00 08 08 30 30 00 CL [...] CY ER 25 0 MG TA B NH 00 07 07 30 30 00 CL [...] IN -H C EA R NGUYEN SP NH 00 06 07 30 30 00 CL [...] CY ER 25 0 MG TA B MO 00 05 06 12 6 00 CL Ac OM 60 -1 -0 0. 00 IN ti ET 31 5- 9- 00 00 IC ve CHRISTIE 58 20 20 0 42 ZI 65 17 17 72 PH NE 8 42 AR -D MA M CY SY RU P NH 00 05 06 30 30 00 CL Ac RT 09 -1 -0 .0 00 IN ti AZ 37 5- 9- 00 00 IC ve AP 20 20 20 42 IN 65 17 17 53 PH E 6 27 AR 15 MA CY MG TA BL ET NH 13 04 05 20 10 00 CL [...] L CY 75 MG TA BL ET NH 00 04 05 30 30 00 CL [...] 0 CY MG CA PS UL E MO 00 04 05 12 6 00 CL [...] 25 CY 0 MG TA BL ET NH 00 03 04 30 30 00 CL [...] 1 MA MG CY TA BL ET NH 00 02 03 30 30 00 CL [...] AR MA MG CY TA BL ET NH 00 01 02 30 30 00 CL [...] L CY 75 MG TA BL ET NH 00 12 01 30 30 00 CL [...] SQUARE METERS Comment: If this patient is -Omani, then multiply the Comment: result by 1.210. [...] 13:15 IgM measure ment Comment: Performed at: [facility] Comment: [address], [place] [id number] Comment: Plater Helper: Gerry Martínez PhD, Phone: [phone] Interpr Comment . complet etation 017 ed of 13:15 Comment serum L or plasma protei Comment: No monoclonality detected. Comment: Performed at: [facility] Comment: [address], [place] [id number] Comment: Plater Helper: Gerry Martínez PhD, Phone: [phone] Protein Electrophoresis (09-06-2017 13:15) Serum = 7.9 6.0-8.5 complet or 017 g/dL ed plasma 13:15 protein measure ment (mas Please Comment . complet note: 017 ed 13:15 Comment: Comment: Protein electrophoresis scan will follow via computer, Comment: mail, or shoe treer delivery. Comment: Performed at: [facility] Comment: [address], [place], [place] [id number] Comment: Plater Helper: Gerry Martínez PhD, Phone: [phone] Serum = 3.8 2.9-4.4 complet albumin 017 [...] on by test Urine culture (08-29-2017) Urine [id number] complet culture 017 07 ed Escheri shahab [...] Type Date HOSPITAL DEX - 7 7 [facility] DEX - 7 7 [facility] DEX - 7 7 [facility] DEX - [address] [facility]PATI[facility] DEX - [address] [facility] OUTPATIEN [facility] DEX - [address] [facility]PATIEN [facility] DEX - 7 7 [facility] DEX - 7 7 [facility]PAT[facility] DEX - 7 7 [facility] EDX - [address] [facility] OUTPATIEN [facility] DEX - [address] [facility] OUTPATIEN [facility] DEX - 7 7 [facility] DEX - 7 7 [facility]PATI[facility] MEADOWVIE - 7 7 [facility] DEYAWVIE - 6 6 [facility] DEYAWVIE - 6 6 [facility] DEX - [address] [facility] - [address] [facility]PATI[facility] DEX - [address] [facility] OUTPATIEN [facility] DEX - [address] [facility] OUTPATIEN [facility] DEX - [address] [facility] OUTPATIEN [facility] DEX - [address] [facility] OUTPATIEN [facility] DEX - [address] [facility] OUTPATIEN [facility] DEX - [address] [facility] OUTPATIEN [facility] DEX - [address] [facility] - [address] [facility] - [address] [facility] - [address] [facility]PATI[facility] DEX - [address] [facility] - [address] [facility] - [address] [facility] - [address] [facility] [place] [facility], - 4 4 [facility] HOS
--- OUTSIDE RECORDS SUMMARY | 2017-10-06 16:22 | External Medical Summary Rpt | CCD ---
Author Author , SHARON Organization [facility] Address Unknown Phone Care Team Providers Care Hospice Superintendent Name Role Phone MOSHE DEY MD, PSC, Unavailable Unavailable MOSHE DEY MD, PSC [facility] Unavailable Unavailable MEDICAL GROUP, [facility] Unavailable Unavailable PHYSICIAN PRA, [facility], Unavailable Unavailable [facility] Unavailable Unavailable [facility], [facility] Unavailable Unavailable HEALTH KELLY VALDEZ MD, Unavailable Unavailable KELLY VALDEZ MD [facility] Unavailable Unavailable INC, [facility] Unavailable Unavailable HOSPITAL, [facility] Unavailable [facility]available HOSPITAL P, [facility] P [facility]available Unavailable [facility] Un[facility], [facility], [facility] KRYSTIAN STARK, Unavailable Unavailable KRYSTIAN [facility] PHYSICIAN Unavailable Unavailable [facility] PH[facility] Unavailable Unavailable HEALTH, [facility] Unavailable Unavailable [facility] Un[facility]available [facility], [facility] Unavailable Unavailable EMERGENCY PHYS, [facility] Purpose Continuity of Care Document - 11-21-2013 through 2016 Problems Code Diagnosis DOS Provider Status [id number] OTHER 08-29-2017 [facility]IC [facility] PAIN PLL[facility] M5442 LUMBAGO 08-29-2017 [facility] WITH [facility], SCIATICA PLLC LEFT SIDE N3000 ACUTE 08-29-2017 [facility] CYSTITIS [facility], WITHOUT PLLC HEMATURIA N390 URINARY 08-29-2017 [facility] TRACT [facility], INFECTION PLLC SITE NOT SPECIFIED 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 IRRITABLE 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 WITH CONSTIPATIO N J449 CHRONIC 07-09-2017 [facility] PULMONARY [facility] DISEASE UNS M546 PAIN IN 07-09-2017 [facility] THORACIC [facility] SPINE INC R109 UNSPECIFIED 07-09-2017 [place] [facility] R197 DIARRHEA 07-09-2017 [place] [facility] Z720 TOBACCO USE 07-09-2017 [facility] INC [id number] OTHER LONG 07-09-2017 [facility] TERM [facility] CURRENT INC DRUG THERAPY D649 ANEMIA 07-06-2017 [facility] UNSPECIFIED ANESTH OF THE BLUE Z1211 ENCOUNTER 07-06-2017 [facility] SCREENING PHYSICIANS MALIGNANT GROUP NEOPLASM OF COLON G03180 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-07-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 N3001 ACUTE 06-07-2017 [facility] CYSTITIS [facility] WITH INC HEMATURIA 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 06-07-2017 [facility] RECEPTOR [facility] P STATUS A88935 MALIGNANT 05-24-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[facility] UNS SITE INC UNS FEMALE BREAST R319 HEMATURIA 05-24-2017 [facility] UNSPECIFIED PHYSICIANS GROUP Z853 PERSONAL 05-11-2017 [place] [facility] PRIMARY [facility] NEOPLASM BREAST B370 CANDIDAL 05-01-2017 [facility] STOMATITIS PHYSICIANS GROUP [id number] OTHER 05-01-2017 [facility] INFECTIVE PHYSICIANS OTITIS GROUP EXTERNA RIGHT EAR W25150 ENCOUNTER 04-25-2017 [facility] FOR [facility] PREPROCEDUR INC AL LABORATORY EXAM Q88250 ENCOUNTER 04-25-2017 [facility] FOR OTHER [facility] PREPROCEDUR INC AL EXAMINATION M7062 TROCHANTERI 03-20-2017 [facility] C BURSITIS [facility] LEFT HIP INC O91773 NON-PRSS 03-03-2017 [facility] CHRN ULCER PHYSICIANS SKIN OT GROUP SITES UNS SEVERITY [id number] IDIOPATHIC 02-24-2017 [facility] GOUT RIGHT [facility] ANKLE AND INC FOOT M109 GOUT 02-24-2017 [facility] UNSPECIFIED PHYSICIANS, PLLC J44405 PAIN IN 02-24-2017 [facility] LEFT KNEE PHYSICIANS, PLLC F02965 PAIN IN 02-24-2017 [facility] RIGHT FOOT PHYSICIANS, PLLC X93018 PAIN IN 02-20-2017 [place] [facility]G [facility] A22610 PAIN IN 02-19-2017 [facility] UNSPECIFIED [facility] FOOT INC N179 ACUTE 02-19-2017 [facility] KIDNEY [facility], FAILURE PLLC UNSPECIFIED R791 ABNORMAL 02-19-2017 [facility] COAGULATION PHYSICIANS, PROFILE PLL J40 BRONCHITIS 01-30-2017 [facility] NOT REGIONAL SPECIFIED PHYSICIAN ACUTE OR PRA CHRONIC N32782 MALIG 11-24-2016 [facility] NEOPLASM 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 Z510 ENCOUNTER 11-24-2016 [facility] FOR PHYSICIAN ANTINEOPLAS PRACTIC TIC RADIATION THERAPY I10 ESSENTIAL 11-09-2016 [facility] PRIMARY PHYSICIANS HYPERTENSIO GROUP N Z23 ENCOUNTER 09-23-2016 [facility] FOR PHYSICIANS IMMUNIZATIO GROUP N B354 TINEA 08-26-2016 [facility] R110 NAUSEA 08-26-2016 [facility] R079 CHEST PAIN 07-20-2016 [facility] UNSPECIFIED MEDICAL IMAGING ASS R42 DIZZINESS 07-20-2016 [facility] AND MEDICAL GIDDINESS IMAGING ASS N649 DISORDER OF 06-20-2016 [facility] BREAST PHYSICIANS UNSPECIFIED GROUP Z129 ENCOUNTER 06-06-2016 [place] SCREENING MEDICAL MALIGNANT IMAGING ASS NEOPLASM SITE UNS N12410 MIGRAINE 05-04-2016 [facility] W/AURA NOT [facility] INTRACT W/O INC STAT MIGRAINOSUS N63 UNSPECIFIED 05-04-2016 [facility] LUMP IN MEDICAL BREAST IMAGING ASS R51 HEADACHE 05-04-2016 [facility] INC R922 INCONCLUSIV 05-04-2016 [facility] E MAMMOGRAM [facility] HOS[facility] INC H6090 UNSPECIFIED 04-21-2016 [facility] UNSPECIFIED EAR L299 PRURITUS 04-21-2016 [facility] C73841 MIGRAINE 04-19-2016 [facility] UNS NOT MEDICAL INTRACT W/O IMAGING ASS STATUS MIGRAINOSUS R928 OTH ABNORM 04-19-2016 [place] [facility] INCONCLUSIV IMAGING ASS E FIND ON DX IMAG BREAST Z1231 ENCOUNTER 03-28-2016 [place] SCREENING MEDICAL MAMMO MALIG IMAGING ASS NEOPLASM BREAST W78039 VAG HIGH 02-24-2016 [facility] RISK [facility] PAPILLOMAVI VIRGIL DNA TEST POS N750 CYST OF 02-10-2016 [facility] GLAND INC N751 ABSCESS OF 02-10-2016 [facility] BARTHOLINS PHYSICIANS GLAND GROUP V20256 CERV HIGH 02-09-2016 [facility] PAPILLOMAVI VIRGIL DNA TEST POS V07633 ENCOUNTER 02-09-2016 [facility] LONG DISTANCE OPERATOR EXAM HEALTH GENERAL RTN W/ABNORMAL FIND X62431 ENCOUNTER 02-09-2016 [facility], LONG DISTANCE OPERATOR EXAM LLC GENERAL RTN W/O ABNORMAL FIND Z1239 ENCOUNTER 02-09-2016 [facility] OTHER HEALTH SCREENING MALIG NEOPLASM BREAST X01652 ACQUIRED 02-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 CERVIX AND UTERUS Z8781 PERSONAL 12-01-2015 [facility] HISTORY OF [facility] HEALED INC TRAUMATIC FRACTURE 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 07-14-2015 MOSHE DEY, LUMBAR/LUMB , PSC OSACRAL INTERVERTEB RAL DISC 7244 THORACIC/SIM 07-14-2015 PATRICIA ZHOU MD, PSC NEURITIS/RA DICULITIS UNSPEC 95619 PAIN IN 06-30-2015 [place] [facility], MEDICAL ANKLE AND IMAGING ASS FOOT 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 7242 LUMBAGO 04-03-2015 [facility] PHYSICIANS GROUP 68461 OTHER 03-13-2015 [facility] DISEASES OF SERV NAS[facility] CAVITY AND SINUSES 74409 UNSPECIFIED 03-13-2015 [facility] DENTAL SERV CARIES [facility]OUND[facility] 23624 CLOSED 03-13-2015 [facility] FRACTURE SERV SUBCONDYLAR FOUNDATION PROCESS MANDIBLE 25746 TOOTH 03-13-2015 [facility] BROKEN FX SERV DUE TO FOUNDATION TRAUMA W/O MENTION COMP 47315 JAW PAIN 03-12-2015 [facility] E9293 LATE 03-12-2015 [facility] EFFECTS OF SERV ACCIDENTAL FOUNDATION FALL V5832 ENCOUNTER 03-10-2015 [facility] FOR REMOVAL PHYSICIANS OF SUTURES GROUP 7231 CERVICALGIA 03-01-2015 [facility] [facility] 50181 INJURY OF 03-01-2015 [place] FACE AND MEDICAL NECK OTHER IMAGING ASS AND UNSPECIFIED 97069 PAIN IN 02-28-2015 [place] [facility], MEDICAL UPPER ARM IMAGING ASS 36114 CHEST PAIN 02-28-2015 [place] UNSPECIFIED MEDICAL IMAGING ASS 27289 CLOSED 02-28-2015 [place] FRACTURE OF MEDICAL IMAGING ASS UNSPECIFIED SITE OF MANDIBLE 8300 CLOSED 02-28-2015 [place] DISLOCATION MEDICAL OF JAW IMAGING ASS 8505 CONCUSSION 02-28-2015 [place] WITH LOC OF MEDICAL IMAGING ASS UNSPECIFIED DURATION 86572 OTHER 02-28-2015 [place] INJURY OF MEDICAL CHEST WALL IMAGING ASS 9593 INJURY 02-28-2015 [place] OTHER&UNSPE MEDICAL CIFIED IMAGING ASS ELBOW FOREARM&WRI ST 9392 FOREIGN 02-26-2015 KELLY Calvin BODY IN COURTNEY JAIN VULVA AND VAGINA 46425 TRICHOMONAL 02-23-2015 KELLY VALDEZ MD VULVOVAGINI TIS [...] 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 64097 ABDOMINAL 01-26-2015 [place] PAIN OTHER MEDICAL SPECIFIED IMAGING ASS SITE V0382 NEED PROPH 11-21-2014 [facility] VACCINATION PHYSICIANS AGAINST GROUP STREP PNEUMONE V0481 NEED 11-21-2014 [facility] PROPHYLACTI PHYSICIANS C GROUP VACCINATION &INOCULATIO N FLU 490 BRONCHITIS 11-14-2014 [facility] NOT PHYSICIANS SPECIFIED GROUP ACUTE OR CHRONIC 7862 COUGH 10-05-2014 [facility] [facility] 7869 OTH 10-05-2014 [place] SYMPTOMS MEDICAL INVOLVING IMAGING ASS RESPIRATORY SYSTEM&CHES T 50852 UNSPECIFIED 09-12-2014 [facility] SUBJECTIVE GRE VISUAL DISTURBANCE 84779 PAIN IN OR 09-12-2014 [facility] AROUND EYE GRE 9308 FOREIGN 09-12-2014 [facility] BODY GRE OTHER&COMBI BUDDY SITES EXTERNAL EYE 31193 OTHER 09-01-2014 [facility] VISUAL GRE DISTORTIONS AND ENTOPTIC PHENOMENA 44928 UNSPECIFIED 09-01-2014 [facility] SCLERITIS GRE 62989 VOMITING 08-20-2014 [facility]ER[facility] PH[facility] 22473 DIARRHEA 08-20-2014 [facility] N [facility] 7234 BRACHIAL 08-13-2014 [place] NEURITIS OR MEDICAL IMAGING ASS RADICULITIS NOS 7820 DISTURBANCE 08-13-2014 [place] OF SKIN MEDICAL SENSATION IMAGING ASS 87323 OBST 08-07-2014 [facility] CHRONIC N EMERGENCY BRONCHITIS PHYS W/ACUTE BRONCHITIS 88307 FEVER 08-07-2014 [facility] [place] UNSPECIFIED RADIOLOGY 24728 PAIN IN 06-27-2014 [facility] JOINT, [facility] SHOULDER INC REGION V571 OTHER 06-27-2014 [facility] PHYSICAL [facility] THERAPY INC 40612 UNSPEC 06-18-2014 [facility] DISORDERS PHYSICIANS BURSAE&TEND GROUP ONS SHOULDER REGION V720 EXAMINATION 06-11-2014 [facility] OF EYES GRE AND VISION 7262 OTHER 06-04-2014 [facility] AFFECTIONS PHYSICIANS OF SHOULDER GROUP REGION NEC 3699 UNSPECIFIED 05-27-2014 [facility] VISUAL PHYSICIANS LOSS GROUP 36616 UNSPECIFIED 05-27-2014 [facility] TINNITUS PHYSICIANS GROUP 22366 UNSPECIFIED 04-07-2014 [place] [facility] 7804 DIZZINESS 04-07-2014 [place] AND [facility] GIDDINESS IMAGING ASS V642 SURG/OTH 04-07-2014 D[facility] PROC NOT MEM H[facility] CARRIED OUT INC BECAUSE PTS DECN 4610 ACUTE 01-20-2014 [facility] MAXILLARY [facility] SINUSITIS [facility] 35376 ABDOMINAL 01-20-2014 [facility] PAIN [facility] 7840 HEADACHE 12-11-2013 [facility] PH[facility] E8889 UNSPECIFIED 12-11-2013 [facility] [place] [facility] 8470 NECK SPRAIN 12-10-2013 [facility] AND STRAIN N EMERGENCY PHYS 8730 OPEN WOUND 12-10-2013 [facility] SCALP N EMERGENCY WITHOUT PHYS MENTION COMPLICATIO N E8888 OTHER FALL 12-10-2013 [facility] N EMERGENCY PHYS 35490 SWELLING [place] 11-21-2013 [facility] [place] MASS OF [...] 1 49 PH CE AR TA MA PA CY NO PH #3 N 93 10 8 -3 25 CI 65 10 12 20 10 00 CL Ac OR 86 -2 -0 .0 00 IN ti OF 20 5- 1- 00 00 IC ve LO 07 20 20 44 XA 70 17 17 65 PH CI 1 92 AR N MA HC CY L 50 0 MG TA B BR 00 10 11 60 30 00 [...] 0 MG TA BL ET HY 00 10 11 60 30 00 [...] CY MG CA PS UL E DI 68 09 10 60 30 00 [...] L CY 75 MG TA BL ET PA 57 09 10 30 30 00 CL Ac RT 23 -2 -2 .0 00 IN ti AZ 70 8- 0- 00 00 IC ve AP 00 20 20 44 IN 83 17 17 40 PH E 0 50 AR 15 MA CY MG TA BL ET HY 00 09 09 30 [address] 18 -0 -2 .0 00 IN ti OX 50 7- 9- 00 00 IC ve YZ 67 20 20 44 IN 40 17 17 18 PH E 1 29 AR PA MA M CY 25 MG CA P SE 65 09 09 30 30 00 CL Ac RT 86 -0 -2 .0 00 IN ti RA 20 7- 9- 00 00 IC ve LI 01 20 20 44 NE 30 17 17 18 PH 5 30 AR HC MA L CY 10 0 MG TA BL ET BR 00 09 09 60 30 00 [...] MG CY TA BL ET VE 57 08 09 60 30 00 CL Ac NL 66 -3 -2 .0 00 IN ti AF 40 0- 2- 00 00 IC ve AX 39 20 20 41 IN 58 17 17 69 PH E 8 69 AR HC MA L CY 75 MG TA BL ET DI 55 08 09 60 30 00 CL Ac VA 11 -3 -2 .0 00 IN ti LP 10 0- 2- 00 00 IC ve RO 53 20 20 42 EX 30 17 17 53 PH 1 30 AR SO MA D CY ER 25 0 MG TA B PA 57 08 09 30 30 00 CL Ac RT 23 -3 -2 .0 00 IN ti AZ 70 1- 2- 00 00 IC ve AP 00 20 20 44 IN 83 17 17 11 PH E 0 83 AR 15 MA CY MG TA BL ET AN 51 08 [...] 83 PH ID 0 65 AR IN MA E CY 10 0 MG TA B NI 47 08 08 20 10 00 CL Ac TR 78 -0 -2 .0 00 IN ti OF 10 2- 5- 00 00 IC ve UR 30 20 20 43 AN 30 17 17 83 PH TO 1 66 AR IN MA CY MO NO -M CR 10 0 [...] L CY 75 MG TA BL ET PA 00 08 08 30 30 00 CL Ac RT 09 -0 -2 .0 00 IN ti AZ 37 3- 5- 00 00 IC ve AP 20 20 20 42 IN 65 17 17 53 PH E 6 27 AR 15 MA CY MG TA BL ET PA 00 07 07 30 30 00 CL Ac RT 09 -0 -2 .0 00 IN ti AZ 37 6- 8- 00 00 IC ve AP 20 20 20 42 IN 65 17 17 53 PH E 6 27 AR 15 MA CY MG TA BL ET DI 55 07 07 60 30 00 CL Ac VA 11 -0 -2 .0 00 IN ti LP 10 6- 8- 00 00 IC ve RO 53 20 20 42 EX 30 17 17 53 PH 1 30 AR SO MA D CY ER 25 0 MG TA B GA 67 07 07 90 30 00 CL Ac BA 87 -0 -2 .0 00 IN ti PE 70 6- 8- 00 00 IC ve NT 22 20 20 42 IN 30 17 17 53 PH 5 28 AR 30 MA 0 CY MG CA PS UL E VE 57 07 07 60 30 00 CL Ac NL 66 -0 -2 .0 00 IN ti AF 40 6- 8- 00 00 IC ve AX 39 20 20 41 IN 58 17 17 69 PH E 8 69 AR HC MA L CY 75 MG TA BL ET BR 00 07 07 60 30 00 CL Ac EO 17 -0 -2 .0 00 IN ti 30 6- 8- 00 00 IC ve EL 85 20 20 43 LI 91 17 17 60 PH PT 0 21 AR A MA 10 CY 0- 25 MC G IN H AN 51 07 07 30 30 00 [...] IN -H C EA R NGUYEN SP DI 55 06 07 60 30 00 [...] 1 MA MG CY TA BL ET PA 00 06 07 30 30 00 CL [...] MG CA PS UL E AN 51 05 06 30 30 00 CL Ac 99 -1 -0 .0 00 IN ti TR 10 5- 9- 00 00 IC ve OZ 62 20 20 42 OL 03 17 17 24 PH E 3 31 AR 1 MA MG CY TA BL ET PA 00 05 06 30 30 00 CL Ac RT 09 -1 -0 .0 00 IN ti AZ 37 5- 9- 00 00 IC ve AP 20 20 20 42 IN 65 17 17 53 PH E 6 27 AR 15 MA CY MG TA BL ET GA 67 05 06 90 30 00 CL Ac BA 87 -1 -0 .0 00 IN ti PE 70 5- 9- 00 00 IC ve NT 22 20 20 42 IN 30 17 17 53 PH 5 28 AR 30 MA 0 CY MG CA PS UL E VE 57 05 [...] CY ER 25 0 MG TA B OR 00 05 06 12 6 00 CL Ac OM 60 -1 -0 0. 00 IN ti ET 31 5- 9- 00 00 IC ve CHRISTIE 58 20 20 0 42 ZI 65 17 17 72 PH NE 8 42 AR -D MA M CY SY RU P BR 00 05 06 60 30 00 [...] AR MA OI CY NT ME NT ET 62 05 06 20 5 00 CL Ac OD 55 -1 -0 .0 00 IN ti OL 90 5- 9- 00 00 IC ve AC 25 20 20 43 00 17 17 10 PH 20 1 83 AR 0 MA MG CY CA PS UL E PA 13 04 05 20 10 00 CL Ac NO 66 -2 -1 .0 00 IN ti CY 80 8- 9- 00 00 IC ve CL 48 20 20 42 IN 40 17 17 96 PH E 5 68 AR 10 MA 0 CY MG CA PS UL E GA 42 04 05 90 30 00 [...] 0 CY MG CA PS UL E PA 00 04 05 30 30 00 CL Ac RT 09 -1 -1 .0 00 IN ti AZ 37 7- 2- 00 00 IC ve AP 20 20 20 42 IN 65 17 17 53 PH E 6 27 AR 15 MA CY MG TA BL ET OR 00 04 05 12 6 00 [...] CY ZI NE 1% CR EA M PA 00 03 04 30 30 00 CL [...] 0 CY MG CA PS UL E PA 00 02 03 30 30 00 CL [...] AR MA OI CY NT ME NT PA 00 01 02 30 30 00 CL [...] L CY 75 MG TA BL ET PA 00 12 01 30 30 00 CL Ac RT 09 -1 -1 .0 00 IN ti AZ 37 9 00 IC ve AP 20 20 20 41 IN 65 16 17 66 PH E 6 58 AR 15 MA CY MG TA BL ET Encounters Encounter Start End Date Code Location Performer Type Date HOSPITAL DEX - 7 7 [facility] D[facility] - 7 [facility] - 7 7 [facility] - 7 7 [facility]ADOW[facility] - 6 6 [facility] MEAWVIE - 6 6 [facility] DEX - 6 6 [facility] - [facility] D[facility] - 6 6 [facility] - 6 6 [facility] - 6 6 [facility] - 5 5 [facility] - 5 5 [facility] - 5 5 [facility] D[facility] - 4 4 [facility] DEX - 4 4 [facility] - 4 4 [facility] - 4 4 [facility], - 4 4 [facility]
--- OUTSIDE RECORDS SUMMARY | 2017-10-06 16:22 | External Medical Summary Rpt | CCD ---
Author Author , SHARON Organization TYKAYLA Address Unknown Phone [email or web address] Care Team Providers Care Candy Feeder Name Role Phone MOSHE DEY MD, PSC, Unavailable Unavailable MOSHE DEY MD, PSC [facility] Unavailable Unavailable MEDICAL GROUP, [facility] Unavailable Unavailable PHYSICIAN PRA, [facility] PHYSICIAN [facility], Unavailable Unavailable [facility] Unavailable Unavailable [facility], [facility] Unavailable Unavailable HEALTH KELLY VALDEZ MD, Unavailable Unavailable KELLY VALDEZ MD [facility] Unavailable Unavailable INC, [facility] Unavailable [facility]available HOSPITAL, [facility] Unavailable Unavailable HOSPITAL P, [facility]PITAL P [facility], Unavailable Unavailable [facility] Un[facility], [facility], [facility] KRYSTIAN STARK, Unavailable Unavailable KRYSTIAN [facility] PH[facility]ICIAN Unavailable Unavailable [facility] Unavailable Unavailable HEALTH, [facility] Unavailable Unavailable [facility] Un[facility]available [facility], [facility] Unavailable Unavailable [facility]ERGENCY [facility], [facility] Purpose Continuity of Care Document - 11-21-2013 through 2016 Problems Code Diagnosis DOS Provider Status [id number] OTHER 08-29-2017 [facility] CHRONIC [facility], PAIN PLLC M5442 LUMBAGO 08-29-2017 [facility] WITH [facility]YSICIANS, SCIATICA PLLC LEFT SIDE N3000 ACUTE 08-29-2017 [facility] CYSTITIS [facility], WITHOUT PLLC HEMATURIA N390 URINARY 08-29-2017 [facility] TRACT [facility], INFECTION PLLC SITE NOT SPECIFIED 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 N J449 CHRONIC 07-09-2017 [place] OBSTRUCTIVE [facility] PULMONARY INC DISEASE UNS M546 PAIN IN 07-09-2017 [place] THORACIC [facility] SPINE INC R109 UNSPECIFIED 07-09-2017 [place] [facility] PAIN [facility] R197 DIARRHEA 07-09-2017 [place] [facility]PEC[facility] Z720 TOBACCO USE 07-09-2017 [facility] INC D55557 OTHER LONG 07-09-2017 [facility] TERM [facility] CURRENT INC DRUG THERAPY D649 ANEMIA 07-06-2017 COMMUNITY UNSPECIFIED ANESTH OF THE BLUE Z1211 ENCOUNTER 07-06-2017 [facility] SCREENING PHYSICIANS MALIGNANT GROUP NEOPLASM OF COLON F18085 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-07-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 N3001 ACUTE 06-07-2017 [facility] CYSTITIS [facility] WITH INC HEMATURIA 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 06-07-2017 [facility] P STATUS H28906 MALIGNANT 05-24-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[facility] UNS SITE INC UNS FEMALE BREAST R319 HEMATURIA 05-24-2017 [facility] UNSPECIFIED PHYSICIANS GROUP Z853 PERSONAL 05-11-2017 [place] [facility]IMARY [facility]ING [facility] NEOPLASM BREAST B370 CANDIDAL 05-01-2017 [facility] STOMATITIS PHYSICIANS GROUP I38079 OTHER 05-01-2017 [facility] INFECTIVE PHYSICIANS OTITIS GROUP EXTERNA RIGHT EAR H49307 ENCOUNTER 04-25-2017 [facility] FOR [facility] PREPROCEDUR INC AL LABORATORY EXAM H03229 ENCOUNTER 04-25-2017 [facility] FOR OTHER [facility] PREPROCEDUR INC AL EXAMINATION M7062 TROCHANTERI 03-20-2017 [facility] C BURSITIS [facility] LEFT HIP INC D87216 NON-PRSS 03-03-2017 [facility] CHRN ULCER PHYSICIANS SKIN OT GROUP SITES UNS SEVERITY K60389 IDIOPATHIC 02-24-2017 [facility] GOUT RIGHT [facility] ANKLE AND INC FOOT M109 GOUT 02-24-2017 [facility] UNSPECIFIED PHYSICIANS, PLLC R64577 PAIN IN 02-24-2017 [facility] LEFT KNEE PHYSICIANS, PLLC N50437 PAIN IN 02-24-2017 [facility] RIGHT FOOT PHYSICIANS, PLLC Z17427 PAIN IN 02-20-2017 [place] [facility]G [facility] A86419 PAIN IN 02-19-2017 [facility] UNSPECIFIED [facility] FOOT INC N179 ACUTE 02-19-2017 [facility] KIDNEY PHYSICIANS, FAILURE PLLC UNSPECIFIED R791 ABNORMAL 02-19-2017 [facility] COAGULATION PHYSICIANS, PROFILE PLL J40 BRONCHITIS 01-30-2017 [facility] NOT REGIONAL SPECIFIED PHYSICIAN ACUTE OR PRA CHRONIC Z73190 MALIG 11-24-2016 [facility] NEOPLASM 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 Z510 ENCOUNTER 11-24-2016 [facility] FOR PHYSICIAN ANTINEOPLAS PRACTIC TIC RADIATION THERAPY I10 ESSENTIAL 11-09-2016 [facility] PRIMARY PHYSICIANS HYPERTENSIO GROUP N Z23 ENCOUNTER 09-23-2016 [facility] FOR PHYSICIANS IMMUNIZATIO GROUP N B354 TINEA 08-26-2016 [facility] GROUP R110 NAUSEA 08-26-2016 [facility] R079 CHEST PAIN 07-20-2016 [facility] U[facility]PEC[facility] MEDICAL IMAGING ASS R42 DIZZINESS 07-20-2016 [facility] AND MEDICAL GIDDINESS IMAGING ASS N649 DISORDER OF 06-20-2016 [facility] BREAST PHYSICIANS UNSPECIFIED GROUP Z129 ENCOUNTER 06-06-2016 [place] SCREENING MEDICAL MALIGNANT IMAGING ASS NEOPLASM SITE UNS U33258 MIGRAINE 05-04-2016 [facility] W/AURA NOT [facility] INTRACT W/O INC STAT MIGRAINOSUS N63 UNSPECIFIED 05-04-2016 [facility] LUMP IN MEDICAL BREAST IMAGING ASS R51 HEADACHE 05-04-2016 [facility] INC R922 INCONCLUSIV 05-04-2016 [facility] E MAMMOGRAM [facility] INC H6090 UNSPECIFIED 04-21-2016 [facility] OTITIS [facility] UNSPECIFIED EAR L299 PRURITUS 04-21-2016 [facility] R39791 MIGRAINE 04-19-2016 [facility] UNS NOT MEDICAL INTRACT W/O IMAGING ASS STATUS MIGRAINOSUS R928 OTH ABNORM 04-19-2016 [place] [facility] INCONCLUSIV IMAGING ASS E FIND ON DX IMAG BREAST Z1231 ENCOUNTER 03-28-2016 [place] SCREENING MEDICAL MAMMO MALIG IMAGING ASS NEOPLASM BREAST K45745 VAG HIGH 02-24-2016 [facility] RISK [facility] PAPILLOMAVI VIRGIL DNA TEST POS N750 CYST OF 02-10-2016 [facility] GLAND INC N751 ABSCESS OF 02-10-2016 [facility] BARTHOLINS PHYSICIANS GLAND GROUP K56861 CERV HIGH 02-09-2016 [facility] PAPILLOMAVI VIRGIL DNA TEST POS Q20324 ENCOUNTER 02-09-2016 DHS/[facility] INSPECTOR AND TESTER EXAM HEALTH GENERAL RTN W/ABNORMAL FIND H49495 ENCOUNTER 02-09-2016 [facility] GENERAL RTN W/O ABNORMAL FIND Z1239 ENCOUNTER 02-09-2016 DHS/CO OTHER HEALTH SCREENING MALIG NEOPLASM BREAST U09383 ACQUIRED 02-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 CERVIX AND UTERUS Z8781 PERSONAL 12-01-2015 [facility] HISTORY OF [facility] HEALED INC TRAUMATIC FRACTURE 15598 DEGEN 07-14-2015 MOSHE DYE, LUMBAR/LUMB , PSC OSACRAL INTERVERTEB RAL DISC 7244 THORACIC/SIM 07-14-2015 PATRICIA ZHOU MD, PSC NEURITIS/RA DICULITIS UNSPEC 32029 PAIN IN 06-30-2015 [place] [facility] MEDICAL ANKLE AND IMAGING ASS FOOT 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 7242 LUMBAGO 04-03-2015 [facility] PHYSICIANS GROUP 99329 OTHER 03-13-2015 [place] [facility] DISEASES OF SERV NASAL [facility]OUNDATION CAVITY AND SINUSES 10687 UNSPECIFIED 03-13-2015 [place] [facility] D[facility] [place] [facility] 05914 CLOSED 03-13-2015 [place] [facility] FRACTURE SERV SUBCONDYLAR FOUNDATION PROCESS MANDIBLE 54918 TOOTH 03-13-2015 [place] [facility] BROKEN FX SERV DUE TO FOUNDATION TRAUMA W/O MENTION COMP 48805 JAW PAIN 03-12-2015 [place] [facility] E9293 LATE 03-12-2015 [place] MEDICAL EFFECTS OF SERV ACCIDENTAL FOUNDATION FALL V5832 ENCOUNTER 03-10-2015 [facility] FOR REMOVAL PHYSICIANS OF SUTURES GROUP 7231 CERVICALGIA 03-01-2015 [facility] 82798 INJURY OF 03-01-2015 [place] FACE [facility] MEDICAL NECK OTHER IMAGING ASS AND UNSPECIFIED 08647 PAIN IN 02-28-2015 [place] [facility], MEDICAL UPPER ARM IMAGING ASS 12628 CHEST PAIN 02-28-2015 [place] UNSPECIFIED [facility]ICAL IMAGING ASS 78151 CLOSED 02-28-2015 [place] FRACTURE OF MEDICAL IMAGING ASS UNSPECIFIED SITE OF MANDIBLE 8300 CLOSED 02-28-2015 [place] DISLOCATION MEDICAL OF JAW [facility] ASS 8505 CONCUSSION 02-28-2015 [place] WITH LOC OF MEDICAL IMAGING ASS UNSPECIFIED DURATION 48454 OTHER 02-28-2015 [place] INJURY OF MEDICAL CHEST WALL IMAGING ASS 9593 INJURY 02-28-2015 [place] OTHER&UNSPE MEDICAL CIFIED IMAGING ASS ELBOW FOREARM&WRI ST 9392 FOREIGN 02-26-2015 KELLY Calvin BODY IN COURTNEY JAIN VULVA AND VAGINA 92990 TRICHOMONAL 02-23-2015 KELLY VALDEZ MD VULVOVAGINI TIS [...] 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 29738 ABDOMINAL 01-26-2015 [place] PAIN OTHER MEDICAL SPECIFIED IMAGING ASS SITE V0382 NEED PROPH 11-21-2014 [facility] VACCINATION PHYSICIANS AGAINST GROUP STREP PNEUMONE V0481 NEED 11-21-2014 [facility] PROPHYLACTI PHYSICIANS C GROUP VACCINATION &INOCULATIO N FLU 490 BRONCHITIS 11-14-2014 [facility] NOT PHYSICIANS SPECIFIED GROUP ACUTE OR CHRONIC 7862 COUGH 10-05-2014 [place] [facility] 7869 OTH 10-05-2014 [place] SYMPTOMS MEDICAL INVOLVING IMAGING ASS RESPIRATORY SYSTEM&CHES T 65822 UNSPECIFIED 09-12-2014 [facility] SUBJECTIVE GRE VISUAL DISTURBANCE 90988 PAIN IN OR 09-12-2014 [facility] AROUND EYE GRE 9308 FOREIGN 09-12-2014 [facility] BODY GRE OTHER&COMBI BUDDY SITES EXTERNAL EYE 19178 OTHER 09-01-2014 [facility] VISUAL GRE DISTORTIONS AND ENTOPTIC PHENOMENA 31870 UNSPECIFIED 09-01-2014 [facility] SCLERITIS GRE 92895 VOMITING 08-20-2014 [facility] EMERG[facility]Y PH[facility] 86510 DIARRHEA 08-20-2014 [facility] N EMERGENC[facility] PH[facility] 7234 BRACHIAL 08-13-2014 [place] NEURITIS OR MEDICAL IMAGING ASS RADICULITIS NOS 7820 DISTURBANCE 08-13-2014 [place] OF SKIN MEDICAL SENSATION IMAGING ASS 75271 OBST 08-07-2014 [facility] CHRONIC N EMERGENCY BRONCHITIS PHYS W/ACUTE BRONCHITIS 35237 FEVER 08-07-2014 [facility] [place] UNSPECIFIED [facility]IOLOGY 47368 PAIN IN 06-27-2014 [facility], [facility] SHOULDER INC REGION V571 OTHER 06-27-2014 [facility] PHYSICAL [facility] THERAPY INC 91328 UNSPEC 06-18-2014 [facility] DISORDERS PHYSICIANS BURSAE&TEND GROUP ONS SHOULDER REGION V720 EXAMINATION 06-11-2014 [facility] OF EYES GRE AND VISION 7262 OTHER 06-04-2014 [facility] AFFECTIONS PHYSICIANS OF SHOULDER GROUP REGION NEC 3699 UNSPECIFIED 05-27-2014 [facility] VISUAL PHYSICIANS LOSS GROUP 19192 UNSPECIFIED 05-27-2014 [facility] TINNITUS PHYSICIANS GROUP 64792 UNSPECIFIED 04-07-2014 [place] [facility] 7804 DIZZINESS 04-07-2014 [place] [facility] GIDDINESS IMAGING ASS V642 SURG/OTH 04-07-2014 [facility] PROC NOT MEM H[facility] CARRIED OUT INC BECAUSE PTS DECN 4610 ACUTE 01-20-2014 [facility] MAXILLARY [facility] SINUSITIS [facility] 76989 ABDOMINAL 01-20-2014 [facility] 7840 HEADACHE 12-11-2013 [facility] N EMERGENCY PHYS E8889 UNSPECIFIED 12-11-2013 [facility] [place] [facility] 8470 NECK SPRAIN 12-10-2013 [facility] AND STRAIN N EMERGENCY PHYS 8730 OPEN WOUND 12-10-2013 [facility] SCALP N EMERGENCY WITHOUT PHYS MENTION COMPLICATIO N E8888 OTHER FALL 12-10-2013 [facility] N EMERGENCY PHYS 63419 SWELLING OR 11-21-2013 [facility] [place] MASS OF [...] 1 49 PH CE AR TA MA CO CY NO PH #3 N 93 10 8 -3 25 CI 65 10 12 20 10 00 CL Ac NC 86 -2 -0 .0 00 IN ti [...] L CY 75 MG TA BL ET CO 57 09 10 30 30 00 CL [...] CY ER 25 0 MG TA B CO 57 08 09 30 30 00 CL [...] L CY 75 MG TA BL ET CO 00 08 08 30 30 00 CL Ac RT 09 -0 -2 .0 00 IN ti AZ 37 3- 5- 00 00 IC ve AP 20 20 20 42 IN 65 17 17 53 PH E 6 27 AR 15 MA CY MG TA BL ET CO 00 07 07 30 30 00 CL [...] 1 MA MG CY TA BL ET CO 00 06 07 30 30 00 CL [...] 1 MA MG CY TA BL ET CO 00 05 06 30 30 00 CL [...] CY ER 25 0 MG TA B NC 00 05 06 12 6 00 CL [...] MA MG CY CA PS UL E CO 13 04 05 20 10 00 CL [...] 0 CY MG CA PS UL E CO 00 04 05 30 30 00 CL Ac RT 09 -1 -1 .0 00 IN ti AZ 37 7- 2- 00 00 IC ve AP 20 20 20 42 IN 65 17 17 53 PH E 6 27 AR 15 MA CY MG TA BL ET NC 00 04 05 12 6 00 CL [...] CY ZI NE 1% CR EA M CO 00 03 04 30 30 00 CL [...] 0 CY MG CA PS UL E CO 00 02 03 30 30 00 CL [...] AR MA OI CY NT ME NT CO 00 01 02 30 30 00 CL [...] L CY 75 MG TA BL ET CO 00 12 01 30 30 00 CL Ac RT 09 -1 -1 .0 00 IN ti AZ 37 9 00 IC ve AP 20 20 20 41 IN 65 16 17 66 PH E 6 58 AR 15 MA CY MG TA BL ET Encounters Encounter Start End Date Code Location Performer Type Date HOSPITAL DEX - 7 7 [facility] - [facility] - [facility] - [facility] - [facility] - 7 7 [facility] DEYA[facility]ENZO - 7 7 [facility] MEADOW[facility]IE - 6 6 [facility] MEAWVIE - 6 6 [facility] DEX - 6 6 [facility] - 6 [facility] - 6 [facility] - 6 [facility] - 6 6 [facility] DEX - 6 6 [facility] - 6 6 [facility] - 6 6 [facility] DEX - 6 6 [facility] DEX - 5 5 [facility] DEX - 5 5 [facility] DEX - 5 5 [facility] DXE - 4 4 [facility] DEX - 4 4 [facility] DEX - 4 4 [facility] DEX - 4 4 [facility], - 4 4 [facility]
--- OUTSIDE RECORDS SUMMARY | 2017-10-06 16:23 | External Medical Summary Rpt | CCD ---
Author Author , SHARON Organization SHARON Address Unknown Phone [email or web address] Radio Immunization Name Date Rout CVX Reac Dose Comm Prov Is Faci e tion ent ider Refu lity Give sed n Infl 10-2 140 0.5 Hist K[facility]AF No [facility] uenz 4-20 mL oric FEI AID0 a, 17 al AYMA 3938 P-Fr Info N ee rmat ion - Sour ce Unsp ecif ied Tdap 04-0 115 0.50 Hist SWIT No H191 , 5-20 mL oric ZER Adso 16 al TAMM rbed Info Y rmat ion - Sour ce Unsp ecif ied Tdap 09-1 Intr 115 999 Hist H191 No H191 , 4-20 amus oric Adso 10 cula al rbed r Info rmat ion - Sour ce Unsp ecif ied Td 11-0 Intr 9 999 Hist H191 No H191 (nadege 6-20 amus oric lt), 02 cula al r Info adso rmat rbed ion - Sour ce Unsp ecif ied
--- OUTSIDE RECORDS SUMMARY | 2017-10-06 16:23 | External Medical Summary Rpt | CCD ---
Author Author , SHARON Organization SHARON Address Unknown Phone [email or web address] Immunization Name Date Rout CVX Reac Dose [...]
--- OUTSIDE RECORDS SUMMARY | 2017-10-06 16:24 | External Medical Summary Rpt ---
Author Author TYKAYLA Cobian, [employer] Address Unknown Phone Unavailable Results Drugs identified in Urine by Screen method Observa Value Referen Units Interpr Notes Date tion ce etation Range Positive urine drug screen samples are stored for 7 days. Contact the Lab if confirmation of positives is needed. Ampheta NEGATIV <1000 ng/mL No No Sep 21 mine E informa informa 2017 [Presen tion in tion in 10:20 ce] in source source AM Urine data data by Screen method Barbitura <200 ng/mL No No Sep 21 valentine informati informati 2016 [Mass/vol on in on in 10:20 AM ume] in source source Urine by data data Screen method Benzodiaz 200 ng/mL ng/mL No No Sep 21 epines informati informati 2016 [Mass/vol on in on in 10:20 AM ume] in source source Serum or data data Plasma by Screen method Cocaine <300 ng/g No No Sep 21 [Mass/vol informati informati 2016 ume] in on in on in 10:20 AM Unspecifi source source ed data data specimen Methadone <300 ng/mL No No Sep 21 informati informati 2016 [Mass/vol on in on in 10:20 AM ume] in source source Unspecifi data data ed specimen Opiates <300 ng/mL No No Sep 21 [Mass/vol informati informati 2016 ume] in on in on in 10:20 AM Unspecifi source source ed data data specimen Phencycli <25 ng/mL No No Sep 21 dine informati informati 2016 [Mass/vol on in on in 10:20 AM ume] in source source Unspecifi data data ed specimen 11-Hydr NEGATIV <50 ng/mL No No Sep 21 oxy E informa informa 2017 delta-9 tion in tion in 10:20 source source AM tetrahy data data drocann abinol [Presen ce] in Unspeci fied specime n Immunofixation Observa Value Referen Units Interpr Notes Date tion ce etation Range IgA 87 - 352 mg/dL No No Sep 1 [Mass/vol informati informati 2016 1:15 ume] in on in on in PM Serum source source data data IgG 700 - mg/dL No No Sep 06 [Mass/vol 1600 informati informati 2017 1:15 ume] in on in on in PM Serum source source data data IgM 26 - 217 mg/dL High Performed Nov [Mass/vol at: CB 2016 1:15 ume] in - [facility] PM Serum [id number] [place], [place] [id number] Pediatric Orthodontist: Gerry Martínez PhD, Phone: [phone] Protein Comment . No No No Sep 06 informa informa monoclo 2017 Fractio tion in tion in nality 1:15 PM ns source source detecte [interp data data d.Perfo retatio rmed n] in at: CB Serum - or [facility] Plasma by [address] [place] [id number] [address] [place], [place] [id number] Directo r: Gerry shay PhD, Phone: [phone] Protein Electrophoresis Observa Value Referen Units Interpr Notes Date tion ce etation Range Protein 6.0 - 8.5 g/dL No No Sep 06 [Mass/vol informati informati 2016 1:15 ume] in on in on in PM Serum or source source Plasma data data Please Comment . No No Protein Sep 06 note: informa informa 2017 tion in tion in electro 1:15 PM source source phoresi data data s scan will follow via compute r,mail, or team leader deliver y.Perfo rmed at: CB - [facility] [address] [place], [place] [id number]Lab Directo r: Gerry shay PhD, Phone: [phone] Albumin 2.9 - 4.4 g/dL No No Sep 06 [Mass/vol informati informati 2017 1:15 ume] in on in on in PM Serum or source source Plasma by data data Electroph oresis Alpha 1 0.0 - 0.4 g/dL No No Sep 06 globulin informati informati 2017 1:15 [Mass/vol on in on in PM ume] in source source Serum or data data Plasma by Electroph oresis Alpha 2 0.4 - 1.0 g/dL High No Nov 1 globulin informati 2017 1:15 [Mass/vol on in PM ume] in source Serum or data Plasma by Electroph oresis Beta 0.7 - 1.3 g/dL No No Sep 1 globulin informati informati 2017 1:15 [Mass/vol on in on in PM ume] in source source Serum or data data Plasma by Electroph oresis Gamma 0.4 - 1.8 g/dL No No Sep 1 globulin informati informati 2017 1:15 [Mass/vol on in on in PM ume] in source source Serum or data data Plasma by Electroph oresis Protein.m Not g/dL No No Sep 06 onoclonal Observed informati informati 2017 1:15 on in on in PM [Mass/vol source source ume] in data data Serum or Plasma by Electroph oresis Globulin 2.2 - 3.9 g/dL High No Sep 1 [Mass/vol informati 2016 1:15 ume] in on in PM Serum by source calculati data on Albumin/G 0.7 - 1.7 No No No Nov 1 lobulin informati informati informati 2016 1:15 [Mass on in on in on in PM ratio] in source source source Serum or data data data Plasma Comprehensive metabolic 2000 panel in Serum or Plasma Observa Value Referen Units Interpr Notes Date tion ce etation Range Albumin/G 1.1 - 1.8 No Low No Nov 1 lobulin informati informati 2016 1:15 [Mass on in on in PM ratio] in source source Serum or data data Plasma Albumin 3.4 - 5.0 gm/dL Normal No Sep 06 [Mass/vol informati 2017 1:15 ume] in on in PM Serum or source Plasma data Alkaline 46 - 116 U/L Normal No Sep 1 phosphata informati 2017 1:15 se on in PM [Enzymati source c data activity/ volume] in Serum or Plasma Bilirubin 0.2 - 1.0 mg/dL Normal No Sep 06 .total informati 2017 1:15 [Mass/vol on in PM ume] in source Serum or data Plasma Urea 7 - 18 mg/dL High No Sep 06 nitrogen informati 2017 1:15 [Mass/vol on in PM ume] in source Serum or data Plasma Calcium 8.5 - mg/dL Normal No Sep 06 [Mass/vol 10.1 informati 2016 1:15 ume] in on in PM Serum or source Plasma data Chloride 98 - 107 mmoL/L Normal No Sep 06 [Moles/vo informati 2016 1:15 lume] in on in PM Serum or source Plasma data Carbon 21.0 - mmoL/L Normal No Sep 06 dioxide, 32.0 informati 2017 1:15 total on in PM [Moles/vo source lume] in data Serum or Plasma Creatinin 0.55 - mg/dL Normal No Sep 06 e 1.02 informati 2017 1:15 [Mass/vol on in PM ume] in source Serum or data Plasma Creatinin 50 - 200 ML/MIN Normal No Sep 06 e renal informati 2016 1:15 clearance on in PM source predicted data by Cockcroft -Gault formula Estimated 59- ML/MIN No REFERENCE Nov informati RANGE: 2017 1:15 glomerula on in >60 PM r source ML/MIN/1. filtratio data 73 SQUARE n rate METERSIf (GF this patient is -A merican, then multiply theresult by 1.210. Globulin 1.3 - 3.2 gm/dL High No Sep 06 [Mass/vol informati 2016 1:15 ume] in on in PM Serum source data Glucose 74 - 106 mg/dL Normal No Sep 06 [Mass/vol informati 2016 1:15 ume] in on in PM Serum or source Plasma data Potassium 3.5 - 5.1 mmoL/L Normal No Sep 06 informati 2016 1:15 [Moles/vo on in PM lume] in source Serum or data Plasma Sodium 136 - 145 mmoL/L Normal No Sep 06 [Moles/vo informati 2016 1:15 lume] in on in PM Serum or source Plasma data Aspartate 15 - 37 U/L Normal No Sep 06 informati 2016 1:15 aminotran on in PM sferase source [Enzymati data c activity/ volume] in Serum or Plasma Alanine 12 - 78 U/L Normal No Sep 06 aminotran informati 2016 1:15 sferase on in PM [Enzymati source c data activity/ volume] in Serum or Plasma Protein 6.4 - 8.2 gm/dL Normal No Sep 06 [Mass/vol informati 2016 1:15 ume] in on in PM Serum or source Plasma data Urinalysis dipstick W Reflex Microscopic panel in Urine Observa Value Referen Units Interpr Notes Date tion ce etation Range Appeara SL CLEAR No No No Aug 29 nce of CLOUDY informa informa informa 2016 Urine tion in tion in tion in source source source data data data Bacteri 3+ O No No No Aug 29 a informa informa informa 2016 [Presen tion in tion in tion in ce] in source source source Urine data data data sedimen t by Light microsc opy Bilirub NEGATIV NEG No No No Aug 29 in E informa informa informa 2016 [Presen tion in tion in tion in ce] in source source source Urine data data data by Test strip Erythro NEGATIV NEG No No No Aug 29 cytes E informa informa informa 2016 [Presen tion in tion in tion in ce] in source source source Urine data data data Color YELLOW YELLOW No No No Aug 29 of informa informa informa 2016 Urine tion in tion in tion in source source source data data data Glucose NEG No No No Aug 29 [Mass/vol informati informati informati 2016 ume] in on in on in on in Urine by source source source Test data data data strip Ketones NEGATIV NEG mg/dL No No Aug 29 E informa informa 2016 [Presen tion in tion in ce] in source source Urine data data by Automat ed test strip Mucus 2+ NEG No Abnorma No Aug 29 [Presen informa l informa 2016 ce] in tion in tion in Urine source source sedimen data data t by Light microsc opy Nitrite NEGATIV NEG No No No Aug 29 E informa informa informa 2016 [Presen tion in tion in tion in ce] in source source source Urine data data data by Test strip pH of 5.0 - 8.5 No Normal No Aug 29 Urine informati informati 2017 on in on in source source data data Protein NEG mg/dL No No Aug 29 [Mass/vol informati informati 2016 ume] in on in on in Urine by source source Automated data data test strip Erythro OCC 0 rbc/hpf No No Aug 29 cytes informa informa 2016 [Presen tion in tion in ce] in source source Urine data data sedimen t by Light microsc opy Specific 1.005 - No Normal No Aug 29 gravity 1.030 informati informati 2016 of Urine on in on in source source data data Epithel 10-20 0 - 5 #/hpf No No Aug 29 ial informa informa 2017 cells.s tion in tion in quamous source source data data [Presen ce] in Urine sedimen t by Microsc opy high power field Urobili 0.2 NEG E.U./dL No No Aug 29 nogen informa informa 2017 [Presen tion in tion in ce] in source source Urine data data by Test strip Leukocy [10 O wbc/hpf No No Aug 29 valentine wbc/hpf informa informa 2017 [#/volu ; 20 tion in tion in me] in wbc/hpf source source Urine ] data data Urinalysis dipstick W Reflex Microscopic panel in Urine Observa Value Referen Units Interpr Notes Date tion ce etation Range Appeara SL CLEAR No No No Aug 29 nce of CLOUDY informa informa informa 2017 Urine tion in tion in tion in source source source data data data Bilirub NEGATIV NEG No No No Aug 29 in E informa informa informa 2016 [Presen tion in tion in tion in ce] in source source source Urine data data data by Test strip Erythro NEGATIV NEG No No No Aug 29 cytes E informa informa informa 2016 [Presen tion in tion in tion in ce] in source source source Urine data data data Color YELLOW YELLOW No No No Aug 29 of informa informa informa 2017 Urine tion in tion in tion in source source source data data data Glucose NEG No No No Aug 29 [Mass/vol informati informati informati 2017 ume] in on in on in on in Urine by source source source Test data data data strip Ketones NEGATIV NEG mg/dL No No Aug 29 E informa informa 2016 [Presen tion in tion in ce] in source source Urine data data by Automat ed test strip Mucus 2+ NEG No Abnorma No Aug 29 [Presen informa l informa 2016 ce] in tion in tion in Urine source source sedimen data data t by Light microsc opy Nitrite NEGATIV NEG No No No Aug 29 E informa informa informa 2017 [Presen tion in tion in tion in ce] in source source source Urine data data data by Test strip pH of 5.0 - 8.5 No Normal No Aug 29 Urine informati informati 2017 on in on in source source data data Protein NEG mg/dL No No Aug 29 [Mass/vol informati informati 2016 ume] in on in on in Urine by source source Automated data data test strip Specific 1.005 - No Normal No Aug 29 gravity 1.030 informati informati 2016 of Urine on in on in source source data data Urobili 0.2 NEG E.U./dL No No Aug 29 nogen informa informa 2016 [Presen tion in tion in ce] in source source Urine data data by Test strip Drugs identified in Urine by Screen method Observa Value Referen Units Interpr Notes Date tion ce etation Range Positive urine drug screen samples are stored for 7 days. Contact the Lab if confirmation of positives is needed. Ampheta NEGATIV <1000 ng/mL No No Aug 23 mine E informa informa 2016 [Presen tion in tion in ce] in source source Urine data data by Screen method Barbitura <200 ng/mL No No Aug 23 valentine informati informati 2016 [Mass/vol on in on in ume] in source source Urine by data data Screen method Benzodiaz 200 ng/mL ng/mL No No Aug 23 epines informati informati 2016 [Mass/vol on in on in ume] in source source Serum or data data Plasma by Screen method Cocaine <300 ng/g No No Aug 23 [Mass/vol informati informati 2016 ume] in on in on in Unspecifi source source ed data data specimen Methadone <300 ng/mL No No Aug 23 informati informati 2016 [Mass/vol on in on in ume] in source source Unspecifi data data ed specimen Opiates <300 ng/mL No No Aug 23 [Mass/vol informati informati 2016 ume] in on in on in Unspecifi source source ed data data specimen Phencycli <25 ng/mL No No Aug 23 dine informati informati 2016 [Mass/vol on in on in ume] in source source Unspecifi data data ed specimen 11-Hydr NEGATIV <50 ng/mL No No Aug 18 oxy E informa informa 2017 delta-9 tion [...] 145 mmoL/L Normal No Sep 3 [Moles/vo informati 2016 4:46 lume] in on in PM Serum or source Plasma data Aspartate 15 - 37 U/L Normal No Sep 3 inform2016 4:46 aminotran on in PM sferase source [Enzymati data c activity/ volume] in Serum or Plasma Alanine 12 - 78 U/L Normal No Sep 3 aminotran informati 2016 4:46 sferase on in PM [Enzymati [...] 2.0 % Normal No Sep 3 /100 inform2016 4:46 leukocyte on in PM s in source Blood by data Automated count Eosinophi 0.0 - 0.4 K/mm3 Normal No Sep 3 ls informati 2016 4:46 [#/volume on in PM ] in source Blood by data Automated count Eosinophi 0.1 - % Normal No Sep 3 ls/100 12.0 informati 2016 4:46 leukocyte on in PM s in source Blood by data Automated count Granulocy 1.8 - 7.8 K/mm3 Normal No Sep 3 valentine informati 2016 4:46 [#/volume on in PM ] in source Blood by data Automated count Granulocy 37.0 - % Normal No Sep 3 valentine/100 80.0 informati 2016 4:46 leukocyte on in PM s in source Blood by data Automated count Hematocri 37.0 - % Normal No Sep 3 t [Volume 47.0 informati 2017 4:46 on in PM Fraction] source of Blood data Hemoglobi 12.2 - g/dL Normal No Sep 3 n 16.2 informati 2017 4:46 [Mass/vol on in PM [...] Normal No Sep 3 te mean informati 2017 4:46 corpuscul on in PM ar source hemoglobi data n [Entitic mass] Erythrocy 31.8 - g/dl Normal No Sep 3 te mean 35.4 informati 2017 4:46 corpuscul on in PM ar source hemoglobi data n concentra tion [Mass/vol ume] by Automated count Erythrocy 82.2 - fl Normal No Sep 3 te mean 97.8 informati 2017 4:46 corpuscul on in PM ar volume source [Entitic data volume] by Automated count Monocytes 0.1 - 1.0 K/mm3 Normal No Sep 3 informati 2017 4:46 [#/volume on in PM ] in source Blood by data Automated count Monocytes 1.7 - 9.3 % Normal No Sep 3 /100 informati 2017 4:46 leukocyte on in PM s in source Blood by data Automated count Platelet 7.4 - fl Normal No Sep 3 mean 10.4 informati 2017 4:46 volume on in PM [Entitic source volume] data in Blood by Automated count Platelets 142 - 424 K/mm3 Normal No Sep 3 informati 2017 4:46 [#/volume on in PM ] in source Blood data Erythrocy 4.2 - 5.4 M/mm3 Normal No Sep 3 valentine informati 2017 4:46 [#/volume on in PM ] in source Amniotic data fluid Erythrocy 11.5 - % Normal No Sep 3 te 17.5 informati 2017 4:46 distribut on in PM ion width source [Entitic data volume] by Automated count Leukocyte 4.8 - K/MM3 Normal No Sep 3 s 10.8 informati 2017 4:46 [#/volume on in PM [...] Sep 3 cytes E informa informa informa 2016 [Presen [...] No No Sep 3 nogen informa informa 2016 [Presen tion in tion in 3:26 PM ce] in source source Urine data data by Test strip Urinalysis macro (dipstick) panel in Urine Observa Value Referen Units Interpr Notes Date tion ce etation Range Appeara Cloudy CLEAR No No No Jun 2 nce of informa informa informa 2017 Urine tion [...] data Glucose NEG No No No Jun 2 [Mass/vol informati informati informati 2016 2:27 ume] in on in on in on in PM Urine by source source source Test data data data strip Ketones NEGATIV NEG mg/dL No No Jun 2 E informa informa 2016 [Presen tion in [...] Specific 1.005 - No Normal No Jun 2 gravity 1.030 informati informati 2017 2:27 of Urine on in on in PM source source data data Leukocy 2+ NEG No Abnorma No Aug 2 te informa l informa 2017 esteras tion in tion in 2:27 PM e source source [Presen data data ce] in Urine by Automat ed test strip Nitrite POSITIV NEG No Abnorma No Jun 07 E informa l informa 2016 [Presen tion in tion in 2:27 PM ce] in source source Urine data data by Test strip Urobili 1.0 NEG E.U./dL No No Jun 07 nogen informa informa 2016 [Presen tion in [...] No May 24 E informa informa informa 2017 [Presen tion in tion in tion in 3:01 PM ce] in source source source Urine data data data by Test strip pH of 5.0 - 8.5 No Normal No May 24 Urine informati informati 2017 3:01 on in on in PM source [...] No No May 24 ial informa informa 2017 cells.s tion in tion in 3:01 PM [...] May 24 nce of informa informa informa 2017 Urine tion [...] 18 mg/dL High No Apr 25 nitrogen informati 2016 [Mass/vol on in 11:09 AM [...] mmoL/L Normal No Apr 25 dioxide, 32.0 ati 2016 total on in 11:09 AM [Moles/vo [...] 0.4 K/mm3 Normal No Apr 25 ls ati 2016 [#/volume on in 11:09 AM ] [...] Blood data Hemoglobi 12.2 - g/dL No No Apr 25 n 16.2 informati informati 2016 [Mass/vol on in on in 11:09 AM ume] in source source Blood data data Lymphocyt 0.7 - 4.5 K/mm3 Normal No Apr 25 es inform2016 [#/volume on in 11:09 AM ] in source Unspecifi data ed specimen by Automated count Lymphocyt 10 - 50.0 % Normal No Apr 25 es informati 2016 [#/volume on in 11:09 AM ] in source Unspecifi data ed specimen by Automated count Erythrocy 27 - 31.2 pg Normal No Apr 25 te mean inform2016 corpuscul on in 11:09 AM ar source hemoglobi data n [Entitic mass] Erythrocy 31.8 - g/dl Normal No Apr 25 te mean 35.4 inform2016 corpuscul on in 11:09 AM ar source hemoglobi data n concentra tion [Mass/vol ume] by Automated count Erythrocy 82.2 - fl Normal No Apr 25 te mean 97.8 informati 2016 corpuscul on in 11:09 AM ar volume source [Entitic data volume] by Automated count Monocytes 0.1 - 1.0 K/mm3 Normal No Apr 25 inform2016 [#/volume on in 11:09 AM ] in source Blood by data Automated count Monocytes 1.7 - 9.3 % Normal No Apr 25 /100 inform2016 leukocyte on in 11:09 AM s in source Blood by data Automated count Platelet 7.4 - fl Normal No Apr 25 mean 10.4 informati 2016 volume on in 11:09 AM [Entitic source volume] data in Blood by Automated count Platelets 142 - 424 K/mm3 No No Apr 25 informati informati 2016 [#/volume on in on in 11:09 AM ] in source source Blood data data Erythrocy 4.2 - 5.4 M/mm3 Normal No Apr 25 valentine informati 2016 [#/volume on in 11:09 AM ] in source Amniotic data fluid Erythrocy 11.5 - % Normal No Apr 25 te 17.5 informati 2016 distribut on in 11:09 AM ion width source [Entitic data volume] by Automated count Leukocyte 4.8 - K/MM3 Normal No Apr 25 s 10.8 informati 2017 [#/volume on in 11:09 AM ] in source Blood data
--- OUTSIDE RECORDS SUMMARY | 2017-10-06 16:24 | External Medical Summary Rpt ---
[...] 1:15 ume] in - [facility] PM Serum [id number] [place], [place] [id number] Product Craftsman: Gerry Martínez PhD, Phone: [phone] Protein Comment . No No No Sep 06 informa informa monoclo 2017 Fractio tion in tion in nality 1:15 PM ns source source detecte [interp data data d.Perfo retatio rmed n] in at: CB Serum - or [facility] Plasma by [place] [address] [address] [place], [place] [id number]Lab Directo r: Gerry shay PhD, Phone: [phone] Protein Electrophoresis Observa Value Referen Units [...] scan will follow via compute r,mail, or water reuse program manager deliver y.Perfo rmed at: CB - [facility] [address] [place], [place] [address]Lab Directo r: Gerry shay PhD, Phone: [phone] Albumin 2.9 - 4.4 g/dL No [...]
--- NOTE | 2017-10-06 16:52 | Urgent Treatment Center Report ---
History of Present Issue Date/Time Seen by Provider 10/06/17 1652 Visit Reason Pt arrived:Walked Presenting Problem:STATES SHE FEELS SHE HAS SCABIES, ITCHING ALL OVER BEGAN MONDAY Location if Accident: Onset of symptoms date/time:/ or onset unknown for:MEDICAL HX UNKNOWN Have you (or family members/close friends) recently traveled outside the [place]? N If Yes, where/when: Have you had exposure to infectious disease within the past month? TB? Other? Specify: Patient state that she is not sure what is going on State that she feel like she has scabies State that she began itching all over about a week ago and she has treated all her bedding, clothing and house but her and her room mates are still having problems with rash and itching all over ALLERGIES Coded Allergies: Sulfa (Sulfonamide Antibiotics) (08/29/17) Home Medications Active Scripts Ciprofloxacin HCl (Cipro 500MG TAB) 500 MG PO BID #20 TAB Prov: 08/29/17 Reported Medications Gabapentin 300 MG PO TID #90 CAPSULE Anastrozole 1 MG PO DAILY #30 TAB Divalproex Sodium (Divalproex Sodium ER) 500 MG PO DAILY #60 TAB FLUTICASONE/VILANTEROL (Breo Ellipta 100-25 Mcg INH) 1 POW IH DAILY PRN breathing #60 Albuterol Sulfate (Ventolin Hfa) 0.09 MG IH Q4 PRN breathing #18 Sertraline Hydrochloride (Sertraline 100MG) 100 MG PO DAILY VENLAFAXINE HCL (Venlafaxine HCl ER) 75 MG PO DAILY #30 Mirtazapine 15 MG PO QHS #30 History Medical History General CAD? No Angina: No NM: No Hypertension? No Hyperlipidemia? No CHF? No DVT? No PE? No COPD? Yes Asthma? Yes Anemia? Yes GERD? No Gastric ulcers? No GI Bleed? No Hernia? No Thyroid Problems? No Hypothyroidism? No CVA? No Seizures? No Diabetes? No Renal Insuffiency? No UTI? No Stones? Yes BPH? No GB Disease: No Nephritic Syndrome? No Asplenia? No Hepatitis? No Sickle Cell Disease? No Arthritis? Yes Migraines? No Cataracts? No Glaucoma? No MRSA? No HIV? No TB? No Anxiety? No Depression? No Cancer? Yes Site: CERVICAL CANCER 1987 More? 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 Immunization HX DT/Tetanus 2016 Pneumonia Received In Past Surgical Hx Previous Surgery?Y PINS IN SHOULDER PARTIAL HYSTERECTOMY BONE REMOVED FROM WRIST HEMORRHOIDECTOMY CARPAL TUNNEL SURGERY RIGHT PARTIAL MASTECTOMY Family History Family HX Diabetes No CAD No Hypertension Yes Hyperlipidemia Yes Cancer Yes TB No Social History Smoking Hx Smoker: Current Every Day Smoker Tobacco: Yes Type Cigarettes Packs/day 1 1/2 - 2 Packs Alcohol Alcohol: No Review of Systems All Other Systems Reviewed and Negative Skin rash, other (itching all over) Physical Exam Vital Signs Vital Signs Date Time Temp Pulse Resp B/P Pulse O2 O2 Flow FiO2 Ox Delivery Rate 10/06 1623 97.7 80 18 149/92 99 General Appearance normal appearance, WD/WN, no apparent distress Respiratory Status Yes: trachea midline, chest symmetrical, non tender chest. No: respiratory distress. Lung Sounds bilateral: normal breath sounds, lungs clear. Cardiovascular normal exam, regular rate/rhythm, no peripheral edema Neurologic alert, normal exam, oriented x 3 Skin intact, normal color, no rash seen complains of itching all over, states that she does have a history of anxiety and not sure if it may be her nerves making her itch. State that she only itches at night when she get in her bed State that she itches from head to toe and it gets better throughout the day Medical Decision Making LABS/Meds/Orders Pt receiving controlled substance in ED? No Results/Orders Current Medication Orders Sig/Trini Start time Last Medication Dose Route Stop Time Status Admin Hydroxyzine Pamoate 0 .STK-MED ONE 10/06 1731 DC PO Hydroxyzine Pamoate 25 MG ONCE ONE 10/06 1730 DC 10/06 PO 10/06 1731 1733 Progress [facility] Progress Notes Comment Patient state that itching improved after taking medication now gone Departure Departure Time of Disposition 1721 Disposition DC Home or Self Care(routine) Clinical Impression Primary Impression: Itching Condition STABLE Referrals Blanka JAIN,Arnold Sam (Family): 3 Days-Call Office if no improvement KELLI ALAMO call Monday for appointment Patient Instructions DI for Itching Additional Instructions Change bedsheets and clean mattress well then replace bedsheet and blankets to see if maybe you may be allergic to something in the blanket Follow up with family doctor Return if needed Call monday for appointment with Dermatology to see if they can get you in to see if they are able to find what is causing your itching Discharge Counseling Counseled pt/family regarding diagnosis, medications/RX, home care, follow up needs Prescriptions Current Visit Scripts Hydroxyzine Pamoate (Vistaril) 25 MG PO Q8 #15 CAP at 0402
[2017-10-06] MEDS ORDERED: VISTARIL25 MG PO (17:23)
[2017-10-06 17:44] VITALS: BP 149/92
== END 2017-10-06 17:45 | disposition home or self-care (01) ==
LOC: UTC 16:04
DX: L29.9 Pruritus, unspecified (principal)

== ENCOUNTER 2017-10-10 18:55 | Emergency (ER) | payer MEDICAID ==
[~2017-10-10] VITALS: Ht 175.3 cm; Wt 83.9 kg
[~2017-10-10 18:55] MED LIST changes: +VISTARIL25 MG PO
--- OUTSIDE RECORDS SUMMARY | 2017-10-10 19:00 | External Medical Summary Rpt | CCD ---
Author Author , SHARON Organization SHARON Address Unknown Phone [email or web address] Purpose Continuity of Care Document - 08-23-2017 through 2016 Problems Code Diagnosis DOS Provider Status F14.10 COCAINE ABUSE, UNCOMPLICAT ED [id number] J40 BRONCHITIS, NOT SPECIFIED ACUTE OR CHRONIC [...] OUT D/T PT LV BEF SEEN [facility] Results Labs Lab Lab Date [...] NEGATIV screeni E L ng test ng/mL Protein Electrophoresis (09-06-2017 13:15) Serum = 0.9 0.7-1.7 complet or 017 ed plasma 13:15 albumin /globul in mass ra Serum = 4.1 2.2-3.9 complet globuli 017 g/dL ed n 13:15 measure ment by calcula shagufta Serum = Not Not complet or 017 Observe Observe ed plasma 13:15 d g/dL d protein monoclo nal measu Serum = 1.2 0.4-1.8 complet gamma 017 g/dL ed globuli 13:15 n measure ment by prot Serum = 1.3 0.7-1.3 complet or 017 g/dL ed plasma 13:15 beta globuli n measure men Serum = 1.2 0.4-1.0 complet alpha-2 017 g/dL ed -globul 13:15 in measure ment Serum = 0.4 0.0-0.4 complet alpha-1 017 g/dL ed -globul 13:15 in measure ment Serum = 3.8 2.9-4.4 complet albumin 017 g/dL ed 13:15 measure ment by protein reji Please Comment . complet note: 017 ed 13:15 Comment: Comment: Protein electrophoresis scan will follow via computer, Comment: mail, or sustainability project coordinator delivery. Comment: Performed at: [facility] Comment: [address] [place], [place] [id number] Comment: Career Portals Teacher: Gerry Martínez PhD, Phone: [phone] Serum = 7.9 6.0-8.5 complet or 017 g/dL ed plasma 13:15 protein measure ment (mas Immunofixation (09-06-2017 13:15) Interpr Comment . complet etation 017 ed of 13:15 Comment serum L or plasma protei Comment: No monoclonality detected. Comment: Performed at: [facility] Comment: [id number], [place] [id number] Comment: Career Portals Teacher: Gerry Martínez PhD, Phone: [phone] Quantit = 288 26-217 complet ative 017 mg/dL ed serum 13:15 IgM measure ment Comment: Performed at: [facility] Comment: [address], [place] [phone] Comment: Career Portals Teacher: Gerry Martínez PhD, Phone: [phone] Serum = 996 700-160 complet or 017 mg/dL 0 ed plasma 13:15 IgG measure ment (mass/v o Serum = 330 87-352 complet IgA 017 mg/dL ed antibod 13:15 y assay Comprehensive metabolic panel (09-06-2017 13:15) Protein = 8.2 6.4-8.2 complet total 017 gm/dL ed ser/al 13:15 s ALT = 18 12-78 complet (SGPT) 017 U/L ed ser/al 13:15 s Serum = 21 15-37 complet or 017 U/L ed plasma 13:15 asparta te aminotr ansfera Serum = 137 136-145 complet sodium 017 mmoL/L ed measure 13:15 ment Serum = 4.6 3.5-5.1 complet potassi 017 mmoL/L ed um 13:15 measure ment Serum = 77 74-106 complet or 017 mg/dL ed plasma 13:15 glucose measure ment (mas Serum = 4.2 1.3-3.2 complet globuli 017 gm/dL ed n 13:15 measure ment (mass/v olume) Estimat = 66 59- complet ed 017 ML/MIN ed glomeru 13:15 lar filtrat ion rate (GF Comment: REFERENCE RANGE: >60 ML/MIN/1.73 SQUARE METERS Comment: If this patient is -Iranian, then multiply the Comment: result by 1.210. Estimat = 97 50-200 complet ion of 017 ML/MIN ed creatin 13:15 ine renal clearan ce Serum = 0.9 0.55-1. complet or 017 mg/dL 02 ed plasma 13:15 creatin ine measure ment ( Carbon = 28 21.0-32 complet dioxide 017 mmoL/L .0 ed 13:15 measure ment Serum = 102 98-107 complet or 017 mmoL/L ed plasma 13:15 chlorid e measure ment (mo Serum = 9.7 8.5-10. complet or 017 mg/dL 1 ed plasma 13:15 calcium measure ment (mas Serum = 20 7-18 complet or 017 mg/dL ed plasma 13:15 urea nitroge n measure men Serum = 0.3 0.2-1.0 complet or 017 mg/dL ed plasma 13:15 total bilirub in measure m Serum = 104 46-116 complet or 017 U/L ed plasma 13:15 alkalin e phospha tase jenifer Serum = 4.0 3.4-5.0 complet or 017 gm/dL ed plasma 13:15 albumin measure ment (mas Serum = 1.0 1.1-1.8 complet or 017 ed plasma 13:15 albumin /globul in mass ra Antibiotic sensitivity studies (09-01-2017 08:18) Piperac <= 4 complet illin/t 017 ug/ml ed azobact 08:18 am suscept ibility test by minimum inhibit ory concent ration Tobramy <= 1 complet kendra 017 ug/ml ed suscept 08:18 ibility test by minimum inhibit ory concent ration Trimeth >= 320 complet oprim/s 017 ug/ml ed [...] test by minimum inhibit ory concent ration Ertapen 10-27-2 <= 0.5 complet em 017 ug/ml ed suscept 08:18 ibility test by minimum inhibit ory concent ration Extende 10-27-2 = ug/ml complet d 017 ed spectru 08:18 m beta lactama se (ESBL) produci ng bacteri a suscept ibility test by minimum inhibit ory Cefazol 10-27-2 <= 4 complet in 017 ug/ml ed suscept 08:18 ibility test by minimum inhibit ory concent ration Ceftria 10-27-2 <= 1 complet xone 017 ug/ml ed suscept 08:18 ibility test by minimum inhibit ory concent ration Ceftazi 10-27-2 <= 1 complet dime/po 017 ug/ml ed tassium 08:18 clavula norah suscept ibility test by minimum inhibit ory concent ration Amoxici 10-27-2 = 4 complet llin/cl 017 ug/ml ed avulana 08:18 te suscept ibility test by minimum inhibit ory concent ration Ampicil 10-27-2 = 4 complet margie 017 ug/ml ed suscept 08:18 ibility test by minimum inhibit ory concent ration Urinalysis with microscopy (08-29-2017) Urine 10-24-2 NEGATIV NEG complet total 017 E ed bilirub NEGATIV in E L detecti on by test Urine -24-2 10 - 20 O complet leukocy 017 ed valentine wbc/hpf count (number /volume ) Urine 08-29-2 0.2 0.2 NEG complet urobili 017 L ed nogen E.U./dL detecti on by test str Squamou 08-29-2 10-20 0-5 complet s 017 10-20 L ed epithel #/hpf ial cells detecti on in u Urine 08-29-2 = 1.010 1.005-1 complet specifi 017 .030 ed c gravity measure ment Erythro 08-29-2 OCC OCC 0 complet cytes 017 L ed detecti rbc/hpf on in urine sedimen t Urine = NEG complet protein 017 NEGATIV ed E mg/dL measure ment by automat ed t Urine = 7.0 5.0-8.5 complet pH 017 ed Urine NEGATIV NEG complet nitrite 017 E ed NEGATIV detecti E L on by test strip Mucus 2+ 2+ L NEG complet detecti 017 ed on in urine sedimen t by lig Urine NEGATIV NEG complet ketones 017 E ed NEGATIV detecti E L on by mg/dL automat ed valentine Glucose = NEG complet ur 017 NEGATIV ed test E strip Urine YELLOW YELLOW complet color 017 YELLOW ed L Urine 2 NEGATIV NEG complet blood 017 E ed detecti NEGATIV on E L Bacteri 08-29- 3+ 3+ L O complet a 017 ed detecti on in urine sedimen t by Urine 08-29-2 SL CLEAR complet appeara 017 CLOUDY ed nce SL determi CLOUDY nation L Urine culture (08-29-2017) Urine [id number] complet culture 017 07 ed Escheri shahab coli SCT EC ESCHERI SHAHAB COLI L Urine 9-analyte drugs of abuse screening (08-23-2017) Comment: Positive urine drug screen samples are stored for 7 days. Comment: Contact the Lab if confirmation of positives is needed. 11-hydr NEGATIV <50 complet oxy 017 E ed delta-9 NEGATIV E L tetrahy ng/mL drocann abinol Phencyc = <25 complet lidine 017 NEGATIV ed measure E ng/mL ment (mass/v olume) Opiates = [...]
--- OUTSIDE RECORDS SUMMARY | 2017-10-10 19:00 | External Medical Summary Rpt | CCD ---
Author Author , SHARON Organization SHARON Address Unknown Phone [email or web address] Purpose Continuity of Care Document - 08-23-2017 through 2016 Problems Code Diagnosis DOS Provider Status F14.10 COCAINE ABUSE, UNCOMPLICAT ED [id number] J40 BRONCHITIS, NOT SPECIFIED ACUTE OR CHRONIC [...] OUT D/T PT LV BEF SEEN BY [facility] PROV Results Labs Lab Lab Date [...] will follow via computer, Comment: mail, or feed crusher operator delivery. Comment: Performed at: [facility] Comment: [id number], [place] [phone] Comment: Reducing Machine Operator: Gerry Martínez PhD, Phone: [phone] Serum = 7.9 6.0-8.5 complet or 017 g/dL ed plasma 13:15 protein measure ment (mas Immunofixation (09-06-2017 13:15) Interpr Comment . complet etation 017 ed of 13:15 Comment serum L or plasma protei Comment: No monoclonality detected. Comment: Performed at: [facility] Comment: [id number], [place] [id number] Comment: Reducing Machine Operator: Gerry Martínez PhD, Phone: [phone] Quantit = 288 26-217 complet ative 017 mg/dL ed serum 13:15 IgM measure ment Comment: Performed at: [facility] Comment: [address], [place] [phone] Comment: Reducing Machine Operator: Gerry Martínez PhD, Phone: [phone] Serum = 996 700-160 complet or 017 [...] SQUARE METERS Comment: If this patient is -Albanian, then multiply the Comment: result by 1.210. [...] CLOUDY nation L Urine culture (08-29-2017) Urine [id number] complet culture 017 07 ed Escheri shaahb coli SCT EC ESCHERI SHAHAB COLI L [...]
--- OUTSIDE RECORDS SUMMARY | 2017-10-10 19:01 | External Medical Summary Rpt | CCD ---
Author Author , SHARON Organization SHARON Address Unknown Phone [email or web address] Immunization Name Date Rout CVX Reac Dose [...]
--- OUTSIDE RECORDS SUMMARY | 2017-10-10 19:01 | External Medical Summary Rpt | CCD ---
Author Author , SHARON Organization SHARON Address Unknown Phone [email or web address] Immunization Name Date Rout CVX Reac Dose [...]
--- OUTSIDE RECORDS SUMMARY | 2017-10-10 19:01 | External Medical Summary Rpt | CCD ---
Author Author Conduent Organization Conduent Address Unknown Phone Unavailable Purpose Continuity of Care Document - through 2016
--- OUTSIDE RECORDS SUMMARY | 2017-10-10 19:02 | External Medical Summary Rpt ---
[...] No No Sep 21 epines informati informati 2017 [Mass/vol on in on in 10:20 AM [...] ed specimen 11-Hydr NEGATIV <50 ng/mL No Sep 21 oxy E informa informa [...] IgM 26 - 217 mg/dL High Performed Sep 06 [Mass/vol at: CB 2016 1:15 ume] in - [facility] PM Serum [id number] [place], [place] [id number] Public Works Commissioner: Gerry Martínez PhD, Phone: [phone] Protein Comment . No No No Sep 06 informa informa monoclo 2017 Fractio tion in tion in nality 1:15 PM ns source source detecte [interp data data d.Perfo retatio rmed n] in at: CB Serum - or [facility] Plasma by [id number] [place], [place] [id number] Directo r: Gerry shay PhD, Phone: [phone] Protein Electrophoresis Observa Value Referen Units [...] scan will follow via compute r,mail, or motor man deliver y.Perfo rmed at: CB - [facility] [address] [place], [place] [address]Lab Directo r: Gerry shay PhD, Phone: [phone] Albumin 2.9 - 4.4 g/dL No [...] Beta 0.7 - 1.3 g/dL No No Nov 1 globulin informati informati 2017 1:15 [Mass/vol [...] Albumin/G 0.7 - 1.7 No No No Sep 1 lobulin informati informati informati 2016 1:15 [...] Albumin 3.4 - 5.0 gm/dL Normal No Nov [Mass/vol informati 2016 1:15 ume] in on in PM Serum or source Plasma data Alkaline 46 - 116 U/L Normal No Sep 06 phosphata informati 2017 1:15 se on in PM [Enzymati source c data activity/ volume] in Serum or Plasma Bilirubin 0.2 - 1.0 mg/dL Normal No Nov 1 .total informati 2017 1:15 [Mass/vol on in [...] Normal No Sep 06 dioxide, 32.0 informati 2016 1:15 total on in PM [Moles/vo source [...] formula Estimated 59- ML/MIN No REFERENCE Sep 06 informati RANGE: 2017 1:15 glomerula on in [...] Normal No Aug 29 Urine informati informati 2016 on in on in source source data [...] No Aug 29 gravity 1.030 informati informati 2017 of Urine on in on in source [...] specimen 11-Hydr NEGATIV <50 ng/mL No No Oct 18 oxy E informa informa 2017 delta-9 [...] mg/dL Normal No Sep 3 .total informati 2016 4:46 [Mass/vol on in PM [...] Normal No Sep 3 e renal informati 2016 4:46 clearance on in PM source predicted [...] 0.4 K/mm3 Normal No Sep 3 ls ati 2016 4:46 [#/volume on in PM ] [...] No Jun 2 of informa informa informa 2017 Urine tion in tion in tion in 2:27 PM source source source data data data Glucose NEG No No No Jun 2 [Mass/vol informati informati informati 2017 2:27 ume] [...] mg/dL High No Jun 2 [Mass/vol informati 2017 2:27 ume] in on in PM Urine [...] mg/dL Normal No Apr 25 e 1.02 inform2016 [Mass/vol on in 11:09 AM ume] [...] 3.5 - 5.1 mmoL/L Normal No Apr 252016 [Moles/vo on in 11:09 AM lume] in source Serum or data Plasma Sodium 136 - 145 mmoL/L Normal No Apr 25 [Moles/vo informati 2016 lume] in on in 11:09 AM Serum or source Plasma data CBC W Auto Differential panel in Blood Observa Value Referen Units Interpr Notes Date tion ce etation Range Basophils 0 - 0.2 K/MM3 Normal No Apr 252016 [#/volume on in 11:09 AM ] in source Blood by data Automated count Basophils 0.1 - 2.0 % Normal No Apr 20 /100 informati 2016 leukocyte on in 11:09 [...] 7.8 K/mm3 Normal No Apr 25 valentine inform2016 [#/volume on in 11:09 AM ] in source Blood by data Automated count Granulocy 37.0 - % Normal No Apr 25 valentine/100 80.0 ati 2016 leukocyte on in 11:09 AM s in source Blood by data Automated count Hematocri 37.0 - % Normal No Apr 25 t [Volume 47.0 informati 2017 on in 11:09 AM Fraction] source of [...] 50.0 % Normal No Apr 25 es inform2016 [#/volume [...] 0.1 - 1.0 K/mm3 Normal No Apr 252016 [#/volume on in 11:09 AM ] in [...]
--- OUTSIDE RECORDS SUMMARY | 2017-10-10 19:02 | External Medical Summary Rpt ---
[...] 1:15 ume] in - [facility] PM Serum [id number] [place], [place] [id number] Bacteriologist Fishery: Gerry Martínez PhD, Phone: [phone] Protein Comment . No No No Sep 06 informa informa monoclo 2017 Fractio tion in tion in nality 1:15 PM ns source source detecte [interp data data d.Perfo retatio rmed n] in at: CB Serum - or [facility] Plasma by [id number] [place], [place] [address]Lab Directo r: Gerry shay PhD, Phone: [phone] Protein Electrophoresis Observa Value Referen Units [...] scan will follow via compute r,mail, or esthetic dermatologist deliver y.Perfo rmed at: CB - [facility] [address] [place], [place] [id number] 69Lab Directo r: Gerry shay PhD, Phone: [phone] Albumin 2.9 - 4.4 g/dL No [...]
[2017-10-10] MEDS ORDERED: VISTARIL25 M1 PO (20:31)
[2017-10-10] MEDS ORDERED: TRIAMCINOL30 GM/TUBE TP (20:31)
--- NOTE | 2017-10-10 20:32 | Urgent Treatment Center Report ---
History of Present Issue Date/Time Seen by Provider 10/10/172020 Visit Reason Pt arrived:Walked Presenting Problem:PT STATES SHE IS ITCHING ALL OVER. PT STATES SHE TOOK BENEDRYL WITH NO RELIEF. Location if Accident: Onset of symptoms date/time:/ or onset unknown for:MEDICAL HX UNKNOWN Have you (or family members/close friends) recently traveled outside the [place]? N If Yes, where/when: Have you had exposure to infectious disease within the past month? TB? Other? Specify: c/o itching all over still. Was seen last week w/ same symptoms. Spouse worried she has a parasite under her skin. Vistaril given in clinic last week helped but prescription provided did not. Hasn't taken or tried anything else. Pt reporting a rash, no visible rash at last visit. No new medications, foods or contacts. Hx of breast cancer. On anastrozole x over one year. Has eucerin ointment at home from her radiation doctor but hasn't thought to use that. Pt does take hot showers and performs to stay warm. this makes itching worse. Source patient Exam Limitations no limitations ALLERGIES Coded Allergies: Sulfa (Sulfonamide Antibiotics) (08/29/17) Home Medications Active Scripts Hydroxyzine Pamoate (Vistaril) 25 MG PO Q8 #15 CAP Prov: 10/06/17 Reported Medications Gabapentin 300 MG PO TID #90 CAPSULE Anastrozole 1 MG PO DAILY #30 TAB Divalproex Sodium (Divalproex Sodium ER) 500 MG PO DAILY #60 TAB FLUTICASONE/VILANTEROL (Breo Ellipta 100-25 Mcg INH) 1 POW IH DAILY PRN breathing #60 Albuterol Sulfate (Ventolin Hfa) 0.09 MG IH Q4 PRN breathing #18 Sertraline Hydrochloride (Sertraline 100MG) 100 MG PO DAILY VENLAFAXINE HCL (Venlafaxine HCl ER) 75 MG PO DAILY #30 Mirtazapine 15 MG PO QHS #30 History Medical History General CAD? No Angina: No W[place]: No Hypertension? No Hyperlipidemia? No CHF? No DVT? No PE? No COPD? Yes Asthma? Yes Anemia? Yes GERD? No Gastric ulcers? No GI Bleed? No Hernia? No Thyroid Problems? No Hypothyroidism? No CVA? No Seizures? No Diabetes? No Renal Insuffiency? No UTI? No Stones? Yes BPH? No GB Disease: No Nephritic Syndrome? No Asplenia? No Hepatitis? No Sickle Cell Disease? No Arthritis? Yes Migraines? No Cataracts? No Glaucoma? No MRSA? No HIV? No TB? No Anxiety? No Depression? No Cancer? Yes Site: CERVICAL CANCER 1987 More? 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 Immunization HX DT/Tetanus 2016 Pneumonia Received In Past Surgical Hx Previous Surgery?Y PINS IN SHOULDER PARTIAL HYSTERECTOMY BONE REMOVED FROM WRIST HEMORRHOIDECTOMY CARPAL TUNNEL SURGERY RIGHT PARTIAL MASTECTOMY Family History Family HX Diabetes No CAD No Hypertension Yes Hyperlipidemia Yes Cancer Yes TB No Social History Smoking Hx Smoker: Never Smoker Tobacco: No Packs/day 1 1/2 - 2 Packs Alcohol Alcohol: No Review of Systems All Other Systems Reviewed and Negative Constitutional denies chills, denies fever, denies malaise Respiratory denies shortness of breath Cardiovascular denies palpitations Gastrointestinal denies nausea, denies vomiting Musculoskeletal denies joint pain Skin see HPI Psychiatric/Neurological denies numbness, denies tingling, denies weakness Physical Exam Vital Signs Vital Signs Date Time Temp Pulse Resp B/P Pulse O2 O2 Flow FiO2 Ox Delivery Rate 10/10 2035 97.9 91 20 141/78 96 10/10 190 97.9 91 20 141/78 96 General Appearance no apparent distress (but appears anxious) Respiratory Status No: respiratory distress. Cardiovascular no peripheral edema Extremities non-tender, normal range of motion (x4) Strength 5 Upper Ext (L), 5 Upper Ext (R), 5 Lower Ext (L), 5 Lower Ext (R) Neurologic alert, oriented x 3 Skin significantly dry skin especially rekha thighs, abdomen and FAs; no visible rash Medical Decision Making LABS/Meds/Orders Pt receiving controlled substance in ED? No Departure Departure Time of Disposition 2027 Disposition DC Home or Self Care(routine) Clinical Impression Primary Impression: Dry skin dermatitis Condition STABLE Referrals Balnka JAIN,Arnold Sam (Family) Be sure to follow up for new, worsening, persistant symptoms Patient Instructions DI for Atopic Dermatitis - Adult Additional Instructions read attached education cooler showers moisturize with aquaphor or eucerin ointment as recommended by radiation doctor, not lotion, 2-3 times a day be sure to follow up for new or worsening symptoms Vistaril as needed no more then every 8 hours...will cause drowsiness Discharge Counseling Counseled pt/family regarding diagnosis, medications/RX, home care, follow up needs Prescriptions Current Visit Scripts Hydroxyzine Pamoate (Vistaril 25MG CAP) 25 MG PO Q8HP PRN itching #6 CAP Triamcinolone Acet 0.1% (Triamcinolone Acet 0.1% Cream 30GM) 1 MARYLU TP BIDP PRN itching #30 GM can not be used from head to toe, use on most itchy parts at 8082
[2017-10-10 20:35] VITALS: BP 141/78
== END 2017-10-10 20:35 | disposition home or self-care (01) ==
LOC: UTC 18:55
DX: L30.9 Dermatitis, unspecified (principal); D64.9 Anemia, unspecified; J44.9 Chronic obstructive pulmonary disease, unspecified